=== PATIENT | female | born 1985 | race Caucasian/White ===

== ENCOUNTER 2024-10-11 12:58 | Emergency (ER) | payer MEDICAID, SELFPAY ==
[2024-10-11 13:07] VITALS: BP 88/53; PULSE 58; O2SAT 99
[2024-10-11 13:10] VITALS: BP 89/50; PULSE 56; RESP 16; TEMP 36.4; O2SAT 97; BMI 23.0
--- NOTE | 2024-10-11 13:14 | ECG_ITS ---
Test Reason : weakness Blood Pressure : */* mmHG Vent. Rate : 58 BPM Atrial Rate : 58 BPM P-R Int : 138 ms QRS Dur : 84 ms QT Int : 470 ms P-R-T Axes : 50 23 29 degrees QTcB Int : 461 ms Sinus bradycardia Otherwise normal ECG No previous ECGs available Referred By: Generic ED Physician Electronically Signed By: Alpesh Ochoa
[2024-10-11 13:45] LABS: Glucose, Whole Blood 365 mg/dL (60-115)
[2024-10-11 13:51] LABS: Basophils Percent Auto 0.6 % (0-2); Eosinophils Absolute Auto 0.1 X10*3/uL (0.0-0.4); Eosinophils Percent Auto 2.5 % (0-4); Hematocrit 38.8 % (37.0-47.0); Hemoglobin 12.5 g/dl (12.0-16.0); Imm Gran Abs Auto 0.01 X10*3/uL (0.00-0.03); Imm Gran Pct Auto 0.3 % (0.0-0.4); Lymphocytes Absolute Auto 1.5 X10*3/uL (1.2-4.9); Lymphocytes Percent Auto 47.7 % (20-40); MANUAL DIFF FLAG SCAN; Mean Corpuscular HGB Conc 32.2 g/dl (31.0-35.0); Mean Corpuscular Hemoglobin 26.3 pg (27.0-33.0); Mean Corpuscular Volume 81.5 fL (80.0-98.0); Monocytes Absolute Auto 0.4 X10*3/uL (0.1-1.2); Monocytes Percent Auto 10.8 % (2-11); Neutrophils Absolute Auto 1.2 x10*3/uL (2.0-8.3); Neutrophils Percent Auto 38.1 % (45-73); PLT CLUMP 1; Red Blood Count 4.76 X10*6/uL (4.20-5.50); SCAN SMEAR FLAG 1
[2024-10-11 14:01] LABS: White Blood Count 3.2 X10*3/uL (4.8-10.8)
[2024-10-11 14:08] LABS: Alanine Aminotransferase 118 U/L (0-31); Alkaline Phosphatase 343 U/L (39-117); Anion Gap 12 (12-20); Aspartate Amino Transferase 142 U/L (5-31); Bilirubin Total 1.1 mg/dL (0.0-1.0); Blood Urea Nitrogen 12 mg/dL (9-16); Calcium 8.7 mg/dL (8.4-10.2); Carbon Dioxide 24 mmol/L (22-29); Chloride 100 mmol/L (96-108); Creatinine Clr Calc Pharmacy 79.3; Estimated Glomerular Filt Rate > 60; Potassium 4.3 mmol/L (3.3-5.1); Sodium 132 mmol/L (135-145); Total Protein 7.3 g/dL (6.5-8.0)
[2024-10-11 14:11] LABS: Glucose Random 375 mg/dL (60-115); Magnesium 1.4 mg/dL (1.6-2.6); Troponin-I High Sensitivity < 2.7 ng/L (<3.5-17.0)
[2024-10-11 14:12] LABS: SLIDE REVIEW VERIFIED
--- NOTE | 2024-10-11 14:15 | ED.GENADULT ---
HPI - General Adult General Chief complaint: Weakness Stated complaint: LETHARGY,HIGH BS/452 FROM [facility] PER EMS Time Seen by Provider: 10/11/24 14:04 History of Present Illness ED Provider: Ale LAZO narrative: The patient is a 38-year-old woman with a history of type 2 diabetes who takes insulin. She was admitted to [facility] yesterday from an emergency room in the [place] area. She was admitted for depression. She has a history of hepatitis-C and cirrhosis. Today she received her usual 12 units of insulin. At some point her blood sugar this morning was checked and it was 561. She received an additional 2 units of insulin. When her blood sugar was later rechecked it was 430 and she was felt to be somewhat lethargic and so she was sent to the emergency room for further evaluation. The patient apparently has a history of hepatitis-C and cirrhosis. The patient was homeless prior to her hospitalization. Related Data Allergies Allergy/AdvReac Type Severity Reaction Status Date / Time No Known Allergies Allergy Verified 10/11/24 13:11 Review of Systems Review of Systems: Yes all other systems are reviewed and are negative [facility] Social History Social History Smoked in Last 30 Days: Yes Use of substances other than those prescribed or required for medical reasons: Yes Substance Use Type: Crack/Cocaine and Heroin Substance Use Frequency: Chronic Longstanding Substance Use Frequency Other:: 2 Last Used Substance: Days (ago) Advance Directives: No Advance Directives Information Provided: Yes Do you have a plan to hurt others: No Plan Physical Exam ED Vital Signs: Vital Signs - 24 hr 10/11/24 13:10 10/11/24 15:02 10/11/24 16:18 Temperature 97.6 F Pulse Rate 56 57 53 Respiratory Rate 16 12 15 Blood Pressure 89/50 L 93/57 L 99/61 Pulse Oximetry 97 98 99 Oxygen Delivery Method Room Air Room Air Room Air BMI result Body Mass Index 23.0 Const Other: The patient seemed to be somewhat somnolent but arousable to verbal stimuli. She did not seem in any distress. No increased work of breathing. HENMT Other: Face is symmetrical. Mucous membranes moist. Eyes Other: Examined in a dark room she had smaller pupils than I would have expected. There was no significant dilation of pupils in the dark. Extraocular movements were intact. Conjunctivae clear. Neck Neck: Yes full ROM, Yes no lymphadenopathy and Yes no JVD Resp Effort & Inspection: normal respiratory effort Auscultation: clear to auscultation bilaterally Cardio Rate: regular rate Rhythm: regular rhythm Heart sounds: S1 normal heart sound present and S2 normal heart sound present GI Other: Abdomen is soft and nontender Skin Other: Skin is pale and dry Neuro Other: The patient is somnolent but arousable. She does not seem significantly confused or showing disorientation. Pupils are small and equal. Face is symmetrical. She does not say much but there is no aphasia or dysarthria. She moves her extremities symmetrically with symmetrical tone. No focal finding. Extrem Other: No peripheral edema Medications Administered Generic Name Dose Route Start Last Admin Trade Name Freq PRN Reason Stop Dose Admin Magnesium Sulfate 2 gm in 50 mls @ 25 mls/hr 10/11/24 15:49 10/11/24 16:15 Magnesium Sulfate/H2o IV 10/11/24 17:48 25 mls/hr ONCE ONE Administration Discontinued Medications Generic Name Dose Route Start Last Admin Trade Name Freq PRN Reason Stop Dose Admin Sodium Chloride 1,000 mls @ 999 mls/hr 10/11/24 14:30 10/11/24 16:18 Ns IV 10/11/24 15:30 Infused .Q1H1M ESTHER Infusion Sodium Chloride 1,000 mls @ 999 mls/hr 10/11/24 16:15 10/11/24 16:15 Ns IV 10/11/24 17:15 999 mls/hr .Q1H1M ESTHER Administration Medical Decision Making Medical Decision Making [facility] Narrative: The patient is a 38-year-old woman was sent from the [facility] where she was admitted yesterday from an emergency room in the [facility]. She has a history of type 2 diabetes. She is on Lantus insulin as well as lispro and also some oral agents. She apparently also has a history of hepatitis-C and cirrhosis. She was admitted for depression. The patient was sent to the emergency room because of a decreased level of alertness and hyperglycemia. Her highest blood sugar here was 375 on her basic metabolic panel. She also had an initial lactate that was elevated at 3.0. However the patient was not really exhibiting any signs of sepsis. She was not febrile or tachycardic. She did not have an elevated white count and she had no left shift. The patient was given IV fluids to help address her hyperglycemia. Her magnesium was low at 1.4 and she was given supplemental magnesium. She was observed. While she was observed she was often relatively bradycardic. She was not exhibiting any signs of difficulty breathing. My overall impression was that the patient's somnolence seem more consistent with opioid use than anything else. She is positive for both methadone and fentanyl on her urine drug screen. She is on methadone. Whether the fentanyl is a new finding or whether the positive fentanyl screen is from fentanyl that she took a few days ago is hard to say. Ultimately the patient seemed to perk up and asked for food and ate a meal. Her blood sugar had come down to 204. A repeat lactate was 1.8. Her ammonia level is 48. She seems better and I think she is medically stable. She will be returned to [facility]. Lab Data 10/11/24 13:37 10/11/24 13:37 Labs: Lab Results 10/11/24 10/11/24 10/11/24 Range/Units 13:21 13:37 13:39 WBC 3.2 L (4.8-10.8) X10*3/uL RBC 4.76 (4.20-5.50) X10*6/uL Hgb 12.5 (12.0-16.0) g/dl Hct 38.8 (37.0-47.0) % MCV 81.5 (80.0-98.0) fL MCH 26.3 L (27.0-33.0) pg MCHC 32.2 (31.0-35.0) g/dl RDW 16.0 (11.0-16.0) % Plt Count Not Reportable MPV Not Reportable Immature Gran % (Auto) 0.3 (0.0-0.4) % Neut % (Auto) 38.1 L (45-73) % Lymph % (Auto) 47.7 H (20-40) % Warrick % (Auto) 10.8 (2-11) % Eos % (Auto) 2.5 (0-4) % Baso % (Auto) 0.6 (0-2) % Lymph # (Auto) 1.5 (1.2-4.9) X10*3/uL Warrick # (Auto) 0.4 (0.1-1.2) X10*3/uL Eos # (Auto) 0.1 (0.0-0.4) X10*3/uL Baso # (Auto) 0.0 (0.0-0.2) X10*3/uL Abs Immat Gran (auto) 0.01 (0.00-0.03) X10*3/uL Absolute Neuts (auto) 1.2 L (2.0-8.3) x10*3/uL Absolute Nucleated RBC 0.000 (0.0-0.012) X10*3/uL Nucleated RBC % (auto) 0.0 (0.0-0.2) /100WBC Smear Tech's Comments VERIFIED Sodium 132 L (135-145) mmol/L Potassium 4.3 (3.3-5.1) mmol/L Chloride 100 (96-108) mmol/L Carbon Dioxide 24 (22-29) mmol/L Anion Gap 12 (12-20) BUN 12 (9-16) mg/dL Creatinine 0.78 (0.5-1.4) mg/dL Estim Creat Clear Calc 79.3 Estimated GFR > 60 POC Glucose 365 H* (60-115) mg/dL Random Glucose 375 H* (60-115) mg/dL Lactic Acid 3.0 H* (0.5-2.0) mmol/L Lactic Acid F/U @ 2Hr (0.5-2.0) mmol/L Calcium 8.7 (8.4-10.2) mg/dL Magnesium 1.4 L* (1.6-2.6) mg/dL Total Bilirubin 1.1 H (0.0-1.0) mg/dL AST 142 H (5-31) U/L ALT 118 H (0-31) U/L Alkaline Phosphatase 343 H (39-117) U/L Ammonia (13-55) umol/L Troponin I High Sens < 2.7 (<3.5-17.0) ng/L C-Reactive Protein 0.17 (< or = 0.50) mg/dL Total Protein 7.3 (6.5-8.0) g/dL Albumin 3.0 L (3.5-5.0) g/dL Beta-Hydroxybutyrate 0.10 (0.02-0.27) mmol/L Urine Color Urine Appearance Urine pH (5.0-9.0) Ur Specific [place] (1.005-1.025) Urine Protein (Neg-Trace) mg/dL Urine Glucose (UA) (Negative) mg/dL Urine Ketones (Negative) mg/dL Urine Blood (Negative) Urine Nitrite (Negative) Ur Leukocyte Esterase (Negative) Urine RBC (0-2) /HPF Urine WBC (0-5) /HPF Ur Squamous Epith Cells (0-2) /HPF Urine Bacteria (None Seen) Hyaline Casts (0-2) /LPF Urine Opiates Screen (Not Detect) Ur Buprenorphine Scrn (Not Detect) ng/mL Ur Oxycodone Screen (Not Detect) ng/mL Urine Methadone Screen (Not Detect) ng/mL Urine Fentanyl Screen (Not Detect) Ur Barbiturates Screen (Not Detect) Ur Phencyclidine Scrn (Not Detect) Ur Amphetamines Screen (Not Detect) U Benzodiazepines Scrn (Not Detect) Urine Cocaine Screen (Not Detect) U Marijuana (THC) Screen (Not Detect) Influenza Type A (PCR) NEGATIVE (Negative) Influenza Type B (PCR) NEGATIVE (Negative) RSV RNA Qual (PCR) NEGATIVE (Negative) SARS-CoV-2 RNA (RT-PCR) NEGATIVE (Negative) 10/11/24 10/11/24 10/11/24 Range/Units 15:13 15:15 16:59 WBC (4.8-10.8) X10*3/uL RBC (4.20-5.50) X10*6/uL Hgb (12.0-16.0) g/dl Hct (37.0-47.0) % MCV (80.0-98.0) fL MCH (27.0-33.0) pg MCHC (31.0-35.0) g/dl RDW (11.0-16.0) % Plt Count MPV Immature Gran % (Auto) (0.0-0.4) % Neut % (Auto) (45-73) % Lymph % (Auto) (20-40) % Warrick % (Auto) (2-11) % Eos % (Auto) (0-4) % Baso % (Auto) (0-2) % Lymph # (Auto) (1.2-4.9) X10*3/uL Warrick # (Auto) (0.1-1.2) X10*3/uL Eos # (Auto) (0.0-0.4) X10*3/uL Baso # (Auto) (0.0-0.2) X10*3/uL Abs Immat Gran (auto) (0.00-0.03) X10*3/uL Absolute Neuts (auto) (2.0-8.3) x10*3/uL Absolute Nucleated RBC (0.0-0.012) X10*3/uL Nucleated RBC % (auto) (0.0-0.2) /100WBC Smear Tech's Comments Sodium (135-145) mmol/L Potassium (3.3-5.1) mmol/L Chloride (96-108) mmol/L Carbon Dioxide (22-29) mmol/L Anion Gap (12-20) BUN (9-16) mg/dL Creatinine (0.5-1.4) mg/dL Estim Creat Clear Calc Estimated GFR POC Glucose 204 H (60-115) mg/dL Random Glucose (60-115) mg/dL Lactic Acid (0.5-2.0) mmol/L Lactic Acid F/U @ 2Hr (0.5-2.0) mmol/L Calcium (8.4-10.2) mg/dL Magnesium (1.6-2.6) mg/dL Total Bilirubin (0.0-1.0) mg/dL AST (5-31) U/L ALT (0-31) U/L Alkaline Phosphatase (39-117) U/L Ammonia (13-55) umol/L Troponin I High Sens (<3.5-17.0) ng/L C-Reactive Protein (< or = 0.50) mg/dL Total Protein (6.5-8.0) g/dL Albumin (3.5-5.0) g/dL Beta-Hydroxybutyrate (0.02-0.27) mmol/L Urine Color Yellow Urine Appearance Clear Urine pH 5.5 (5.0-9.0) Ur Specific [place] 1.015 (1.005-1.025) Urine Protein Negative (Neg-Trace) mg/dL Urine Glucose (UA) >=1000 H (Negative) mg/dL Urine Ketones Negative (Negative) mg/dL Urine Blood Negative (Negative) Urine Nitrite Negative (Negative) Ur Leukocyte Esterase Negative (Negative) Urine RBC 0-2 (0-2) /HPF Urine WBC 0-5 (0-5) /HPF Ur Squamous Epith Cells 0-2 (0-2) /HPF Urine Bacteria None Seen (None Seen) Hyaline Casts 0-2 (0-2) /LPF Urine Opiates Screen Not Detected (Not Detect) Ur Buprenorphine Scrn Not Detected (Not Detect) ng/mL Ur Oxycodone Screen Not Detected (Not Detect) ng/mL Urine Methadone Screen Positive H (Not Detect) ng/mL Urine Fentanyl Screen POSITIVE H (Not Detect) Ur Barbiturates Screen Not Detected (Not Detect) Ur Phencyclidine Scrn Not Detected (Not Detect) Ur Amphetamines Screen Not Detected (Not Detect) U Benzodiazepines Scrn Not Detected (Not Detect) Urine Cocaine Screen Not Detected (Not Detect) U Marijuana (THC) Screen Not Detected (Not Detect) Influenza Type A (PCR) (Negative) Influenza Type B (PCR) (Negative) RSV RNA Qual (PCR) (Negative) SARS-CoV-2 RNA (RT-PCR) (Negative) 10/11/24 Range/Units 17:25 WBC (4.8-10.8) X10*3/uL RBC (4.20-5.50) X10*6/uL Hgb (12.0-16.0) g/dl Hct (37.0-47.0) % MCV (80.0-98.0) fL MCH (27.0-33.0) pg MCHC (31.0-35.0) g/dl RDW (11.0-16.0) % Plt Count MPV Immature Gran % (Auto) (0.0-0.4) % Neut % (Auto) (45-73) % Lymph % (Auto) (20-40) % Warrick % (Auto) (2-11) % Eos % (Auto) (0-4) % Baso % (Auto) (0-2) % Lymph # (Auto) (1.2-4.9) X10*3/uL Warrick # (Auto) (0.1-1.2) X10*3/uL Eos # (Auto) (0.0-0.4) X10*3/uL Baso # (Auto) (0.0-0.2) X10*3/uL Abs Immat Gran (auto) (0.00-0.03) X10*3/uL Absolute Neuts (auto) (2.0-8.3) x10*3/uL Absolute Nucleated RBC (0.0-0.012) X10*3/uL Nucleated RBC % (auto) (0.0-0.2) /100WBC Smear Tech's Comments Sodium (135-145) mmol/L Potassium (3.3-5.1) mmol/L Chloride (96-108) mmol/L Carbon Dioxide (22-29) mmol/L Anion Gap (12-20) BUN (9-16) mg/dL Creatinine (0.5-1.4) mg/dL Estim Creat Clear Calc Estimated GFR POC Glucose (60-115) mg/dL Random Glucose (60-115) mg/dL Lactic Acid (0.5-2.0) mmol/L Lactic Acid F/U @ 2Hr 1.8 (0.5-2.0) mmol/L Calcium (8.4-10.2) mg/dL Magnesium (1.6-2.6) mg/dL Total Bilirubin (0.0-1.0) mg/dL AST (5-31) U/L ALT (0-31) U/L Alkaline Phosphatase (39-117) U/L Ammonia 48 (13-55) umol/L Troponin I High Sens (<3.5-17.0) ng/L C-Reactive Protein (< or = 0.50) mg/dL Total Protein (6.5-8.0) g/dL Albumin (3.5-5.0) g/dL Beta-Hydroxybutyrate (0.02-0.27) mmol/L Urine Color Urine Appearance Urine pH (5.0-9.0) Ur Specific [place] (1.005-1.025) Urine Protein (Neg-Trace) mg/dL Urine Glucose (UA) (Negative) mg/dL Urine Ketones (Negative) mg/dL Urine Blood (Negative) Urine Nitrite (Negative) Ur Leukocyte Esterase (Negative) Urine RBC (0-2) /HPF Urine WBC (0-5) /HPF Ur Squamous Epith Cells (0-2) /HPF Urine Bacteria (None Seen) Hyaline Casts (0-2) /LPF Urine Opiates Screen (Not Detect) Ur Buprenorphine Scrn (Not Detect) ng/mL Ur Oxycodone Screen (Not Detect) ng/mL Urine Methadone Screen (Not Detect) ng/mL Urine Fentanyl Screen (Not Detect) Ur Barbiturates Screen (Not Detect) Ur Phencyclidine Scrn (Not Detect) Ur Amphetamines Screen (Not Detect) U Benzodiazepines Scrn (Not Detect) Urine Cocaine Screen (Not Detect) U Marijuana (THC) Screen (Not Detect) Influenza Type A (PCR) (Negative) Influenza Type B (PCR) (Negative) RSV RNA Qual (PCR) (Negative) SARS-CoV-2 RNA (RT-PCR) (Negative) Discharge Plan Discharge Clinical Impression: Fatigue, Hyperglycemia Patient Disposition: [facility] Transfer Details: Returned to [facility] Additional Instructions: Medical workup seems reassuring. Blood sugar came down with hydration to 204. Her magnesium was slightly low at 1.4. She was given 2 g of IV magnesium. Ammonia level was 48. No sign of DKA. No sign of significant systemic infection. Negative for COVID, influenza, and RSV. Please resume previous regimen. [facility] [Outside] Print Language: Hungarian
[2024-10-11 14:29] LABS: Influenza A PCR NEGATIVE (Negative); Influenza B PCR NEGATIVE (Negative); Resp Syncy Virus RNA Qual PCR NEGATIVE (Negative); SARS COV2 PCR INHOUSE NEGATIVE (Negative)
--- NOTE | 2024-10-11 14:32 | PC.NURSE ---
Unable to establish IV access, second RN attempting now
--- NOTE | 2024-10-11 15:01 | PC.NURSE ---
3rd RN attempting IV access
[2024-10-11 15:02] VITALS: BP 93/57; PULSE 57; RESP 12; O2SAT 98
--- OUTSIDE RECORDS SUMMARY | 2024-10-11 15:14 | XMS_ITS | Encounter Summary ---
Author Organization [id number] [facility] Address [address] [place] [address] Care Team Providers Care Gas Usage Meter Clerk Name Role Phone Stephanie Calderon MD Primary Care Provider Add, Provider Not In System Unavailable Unav ailable Encounter Details Date Type Department Care Team (Late st Contact Info) Description 11/10/2023 Telephone [facility] [phone] [place] [address] Kirstin Kruger, DORR OPERATOR [address] [address] Social History Tobacco Use Types Packs/Day Years Used Date Smoking Tobacco: Every Day Cigarettes 0.5 4 Passive Smoke Exposure: Past Smokeless Tobacco: Never Alcohol Use Standard Drinks/Week Comments No 0 (1 standard drink = 0.6 oz pur e alcohol) Comments No Sex and Gender Information Value Date Recorded Sex Assigned at Not on file Legal Sex Female 8:44 PM EDT Gender Identity Female 11/02/2023 10:02 PM EST Sexual Orientation Straight 11/02/2023 10 :02 PM EST documented as of this encounter Functional Status * (RETIRED) Are you deaf or do you have difficulty hearing? Answer Date of Assessment Author No 04/15/2020 8:53 AM JOET Ritchie Vann RN * (RETIRED) Are you blind or do you have difficulty seeing? Answer Date of Assessment Author No 04/15/2020 8:53 AM JOET Ritchie Vann RN * (RETIRED) Do you have difficulty walking or climbing stairs? Answer Date of Assessment Author No 04/15/2020 8:53 AM Ritchie Casas RN * (RETIRED) Do you have difficulty dressing or bathing? Answer Date of Assessment Author No 04/15/2020 8:53 AM Ritchie Casas RN * (RETIRED) Because of a physical, mental, or emotional condition, do you have difficulty doing errands such as visiting a doctor's office or shopping? Answer Date of Assessment Author No 04/15/2020 8:53 AM Ritchie Casas RN documented as of this encounter Mental Status * (RETIRED) Because of a physical, mental, or emotional condition, do you have serious difficulty concentrating, remembering, or making decisions? Answer Entry Date Author No 04/15/2020 8:53 AM Ritchie Casas RN documented in this encounter Plan of Treatment Not on file documented as of this encounter Visit Diagnoses Not on filedocumented in this encounter Additional Health Concerns Infection Onset Date Last Indicated Resolved Time Rule out RSV 07/22/2024 07/22/2024 07/22/2024 3:17 AM EST Rule out Influenzae 07/22/2024 07/22/2024 07/22/20 3:17 AM EST Rule out COVID-19 07/22/2024 07/22/2024 07/22/2024 3:17 AM EST Rule out RSV 07/22/2024 07/22/2024 07/22/2024 5:28 AM EST Rule out Influenzae 07/22/2024 07/22/2024 07/22/20 5:28 AM EST Rule out COVID-19 07/22/2024 07/22/2024 07/22/2024 5:29 AM EST Human Rhinovirus Enterovirus 07/22/2024 07/22/2024 07/29/2024 9:13 AM EST documented as of this encounter Care Teams Gas Usage Meter Clerk Relationship Specialty Start Date End Date Stephanie Calderon MD [address] [place] [address] PCP - General 04/14/10 Add, Provider Not In System [address] [place] [address] PCP - Insurance PCP 12/11/17 documented as of this encounter
--- OUTSIDE RECORDS SUMMARY | 2024-10-11 15:14 | XMS_ITS | Clinical Summary ---
Author Organization [employer] [facility] Address [address] [place] [address] Care Team Providers Care Grocery Manager Name Role Phone Mando Ellsworth MD Primary Care Provider [phone] Social History Tobacco Use Types Packs/Day Years Used Date Smoking Tobacco: Never Assessed Comments Unknown Sex and Gender Information Value Date Recorded Sex Assigned at Female 07/06/2024 2:34 PM EDT Legal Sex Female 2:32 PM EDT Gender Identity Female 07/06/2024 2:34 PM EDT Sexual Orientation Not on file Plan of Treatment Upcoming Encounters Date Type Department Care Team (Late st Contact Info) Description 10/19/2024 10:00 AM EST Office Visit [facility] [address] [place] [id number] Mando Ellsworth MD [address] [place] [id number] Insurance [facility] Care Teams Grocery Manager Relationship Specialty Start Date End Date Mando Ellsworth MD [address] [address] PCP - General Family Practice 07/06/24
--- OUTSIDE RECORDS SUMMARY | 2024-10-11 15:14 | XMS_ITS | Clinical Summary ---
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 Active Active Problems Problem Noted Date Diagnosed Date Unspecified mood (affective) disorder 08/31/2024 Suicidal ideation 08/30/2024 Abscess of arm 03/12/2017 Depressive disorder 07/18/2003 Overview (10/29/2014): Depression Encounters Date Type Department Care Team Description 08/30/2024 9:51 PM EST - 09/01/2024 2:57 PM EST Emergency [facility] Emergency Dept [address] [place] [id number] Mony More MD Perelman, MD Elbert Lombardi Sahand, MD, PhD Kim Pardo MD Discharge Disposition: [facility] from Last 3 Months Social History Tobacco Use Types Packs/Day Years Used Date Smoking Tobacco: Every Day Cigarettes Smokeless Tobacco: Never Tobacco Cessation:Ready to Q uit: Not Asked; Counseling Given: Not Answered Alcohol Use Standard Drinks/Week Comments No 0 (1 standard drink = 0.6 oz pur e alcohol) Education Answer Date Recorded Are you interested in more education? Not on lusi e e 01/02/2023 Are you concerned about learning? Not on file 01/02/2023 No 01/02/2023 No 01/02/2023 Digital Access Answer Date Recorded No 02/03/2023 No 02/03/2023 Reliable internet access at home? Not on file 02/03/2023 Device with a working camera? Not on file Intimate Partner Violence Answer Date R ecorded Are you denied basic needs s uch as food, clothing, or medical care? Deferred 08/30/2024 In the past 12 months have y ou been in a relationship with a person who hurts, threatens, or tries to control you? Deferred 08/30/2024 Are you denied basic needs s uch as food, clothing, or medical care? Deferred 08/30/2024 In the past 12 months have y ou been in a relationship with a person who hurts, threatens, or tries to control you? Deferred 08/30/2024 Sex and Gender Information Value Date Recorded Sex Assigned at Not on file Gender Identity Not on file Sexual Orientation Not on file Last Filed Vital Signs Vital Sign Reading Time Taken Comments Blood Pressure 107/54 09/01/2024 2:48 PM EST Pulse 81 09/01/2024 2:48 PM EST Temperature 36.3 ??C (97.4 ??F) 09/01/2024 2:48 PM ES T Respiratory Rate 18 09/01/2024 2:48 PM EST Oxygen Saturation 98% 09/01/2024 2:48 PM EST Inhaled Oxygen Concentration - - Weight 83.9 kg (185 lb) 03/12/2017 3:06 AM EDT Height 160 cm (5' 3 ) 03/12/2017 3:06 AM EDT Body Mass Index 32.77 03/12/2017 3:06 AM EDT Plan of Treatment Upcoming Encounters Date Type Department Care Team (Late st Contact Info) Description 12/23/2024 2:40 PM EDT Office Visit [address] [address] Tonya Partida, [employer] [address] [place] [phone] Health Maintenance Due Date Last Done Comments DEPRESSION SCREENING 1995 SMOKING Hx and SMOKELESS TOBACCO SCREENING 12/01/1996 HEPATITIS B SCREENING 12/01/2001 HEPATITIS B VACCINES (3 of 3 - 19+ 3-dose series) 04/24/2015 02/27/2015, 09/09/2007 PNEUMOCOCCAL VACCINES (0-49 years) (2 of 2 - PCV) 10/08/2017 10/08/2016 PAP SMEAR 02/27/2018 02/27/2015, 04/09, 08/19/2002 MAMMOGRAM 2023 INFLUENZA VACCINE (#1) 2024 9, 10/08/2016, 08/07/2015, Additional history exists COVID-19 VACCINE ( - season) 2024 Adult Td,Tdap Booster 09/21/2029 09/21/2019, 009 HIV ONE-TIME SCREENING (18-65 YEARS) Completed 09/06/2002 HEPATITIS A VACCINES Aged Out 09/09/2007 No long er eligible based on patient's age to complete this topic HEPATITIS C SCREENING Completed 07/08/2024 , 07/08/2024, 11/05/2023, Additional history exists HIB VACCINES Aged Out No longer eligi ble based on patient's age to complete this topic MENINGOCOCCAL VACCINES (ACWY) Aged Out No longer eligible based on patient's age to complete this topic Medical Devices Not on file Procedures Procedure Name Priority Date/Time Associated Diagnosis Comments POCT GLUCOSE Routine 09/01/2024 11:59 AM EST ECG 12-LEAD STAT 09/01/2024 10:32 AM EST CBC AND DIFFERENTIAL STAT 09/01/2024 10:30 AM EST BASIC METABOLIC PANEL STAT 09/01/2024 10:30 AM EST LIPASE STAT 09/01/2024 10:30 AM EST POCT GLUCOSE Routine 09/01/2024 8:47 AM EST POCT GLUCOSE Routine 08/31/2024 10:27 PM EST URINALYSIS W/REFLEX URINE CULTURE STAT 08/31/2024 7:20 PM EST POCT GLUCOSE Routine 08/31/2024 6:47 PM EST POCT GLUCOSE Routine 08/31/2024 2:15 PM EST POCT GLUCOSE Routine 08/31/2024 1:12 PM EST LFTS (HEPATIC PANEL) STAT 08/31/2024 11:12 AM EST POCT GLUCOSE Routine 08/31/2024 9:06 AM EST POCT GLUCOSE Routine 08/31/2024 4:51 AM EST POCT GLUCOSE Routine 08/31/2024 2:04 AM EST POCT GLUCOSE Routine 08/30/2024 11:15 PM EST URINE HCG STAT 08/30/2024 10:25 PM EST TOXICOLOGY SCREEN, URINE STAT 08/30/2024 10:25 PM EST VENOUS BLOOD GAS STAT 08/30/2024 9:58 PM EST KETONE BODIES, SERUM STAT 08/30/2024 9:58 PM EST ETHANOL, BLOOD STAT 08/30/2024 9:58 PM EST LFTS (HEPATIC PANEL) STAT 08/30/2024 9:58 PM EST BASIC METABOLIC PANEL STAT 08/30/2024 9:58 PM EST CBC AND DIFFERENTIAL STAT 08/30/2024 9:58 PM EST PAP TEST Routine 04/28/2003 12:00 AM EDT from Last 3 Months or Most Recently Relevant to Health Maintenance Results * (ABNORMAL) POCT Glucose (09/01/2024 11:59 AM EST) Only the most recent of10 resultswithin the time period is included. Glucose, POCT 276(H) 70 - 110 mg/dL [facility] 09/01/2024 11:5 9 AM EST 09/01/2024 12:02 PM EST Kim Pardo MD POINT OF CARE TEST O RDERABLES Performing Organization Address City/[facility]/ZIP Co de Phone Number [address] [address] * ECG 12-LEAD (09/01/2024 10:32 AM EST) Systolic Blood Pressure [facility] Diastolic Blood Pressure [facility] Ventricular Rate EKG/MIN 65 BPM [facility] Atrial Rate 65 BPM [facility] NC Interval 124 ms [facility] QRS Duration 88 ms [facility] QT Interval 462 ms [facility] QTC Interval 480 ms [facility] P Artie 73 degrees [facility] R Wave Artie 70 degrees [facility] T Wave Artie 59 degrees [facility] 09/01/2024 10:3 2 AM EST 09/02/2024 5:45 PM EST Narrative [facility] - 09/02/2024 5:45 PM EST LOC: ED DX: DRUG MONITORING REF: DR. KIM PARDO SINUS RHYTHM NONSPECIFIC ST SEGMENT AND T WAVE ABNORMALITIES QTC PROLONGATION WHEN COMPARED WITH ECG OF 02-Jul-2020 10:14, NO SIGNIFICANT CHANGE WAS FOUND Ivania Epperson PMHNP-BC ECG ORDERAB LES [facility] * (ABNORMAL) CBC and differential (09/01/2024 10:30 AM EST) Only the most recent of2 resultswithin the time period is included. WBC 3.24(L) 4.00 - 11.00 K/uL [facility] RBC 4.33 4.00 - 5.20 M/uL [facility] HGB 11.7(L) 12.0 - 16.0 g/dL [facility] HCT 36.7 36.0 - 46.0 % [facility] PLT 83(L) 150 - 450 K/uL [facility] Comment: Large/Giant platelets present Reviewed MCV 84.8 80.0 - 100.0 fL [facility] MCH 27.0 27.0 - 31.0 pg [facility] MCHC 31.9(L) 32.0 - 36.0 g/dL [facility] RDW 15.2(H) 11.5 - 14.5 % [facility] MPV Not measured 8.4 - 12.0 fL [facility] NRBC 0.00 0.00 /100 WBCs [facility] ABSOLUTE NRBC 0.00 0.00 K/uL [facility] DIFF METHOD Auto [facility] NEUTS 55.2 48.0 - 76.0 % [facility] LYMPHS 32.1 18.0 - 41.0 % [facility] MONOS 9.3 4.0 - 11.0 % [facility] EOS 2.2 0.0 - 5.0 % [facility] BASOS 0.9 0.0 - 1.5 % [facility] % IMMATURE GRANS 0.3 0.0 - 0.9 % [facility] ABSOLUTE NEUTS 1.79(L) 1.92 - 7.60 K/uL [facility] ABSOLUTE LYMPHS 1.04 0.72 - 4.10 K/uL [facility] ABSOLUTE MONOS 0.30 0.16 - 1.10 K/uL [facility] ABSOLUTE EOS 0.07 0.00 - 0.50 K/uL [facility] ABSOLUTE BASOS 0.03 0.00 - 0.15 K/uL [facility] ABS IMMATURE GRANS 0.01 0.00 - 0.09 K/uL [facility] Blood 09/01/2024 10:3 0 AM EST 09/01/2024 11:41 AM EST Ivania Epperson PMHNP-BC LAB BLOOD O RDERABLES [address] [address] * Lipase (09/01/2024 10:30 AM EST) LIPASE 26 13 - 60 U/L [facility] Blood 09/01/2024 10:3 0 AM EST 09/01/2024 11:41 AM EST Ivania Epperson HNP-BC LAB BLOOD O RDERABLES Performing Organization Address [facility] Co de Phone Number [address] [address] * (ABNORMAL) Basic metabolic panel (09/01/2024 10:30 AM EST) Only the most recent of2 resultswithin the time period is included. SODIUM 136 135 - 145 mmol/L [facility] POTASSIUM 4.2 3.4 - 5.0 mmol/L [facility] CHLORIDE 101 98 - 108 mmol/L [facility] CO2 26 23 - 32 mmol/L [facility] BUN 16 8 - 25 mg/dL [facility] CREATININE 0.61 0.50 - 1.00 mg/dL [facility] GLUCOSE 259(H) 70 - 110 mg/dL [facility] CALCIUM 8.9 8.5 - 10.5 mg/dL [facility] EGFR 116 >59 mL/min/1. 73m2 [facility] Comment:Estimated glomerular filtration rate calculated using the CKD-EPI refit equation. ANION GAP 9 3 - 17 mmol/L [facility] Blood 09/01/2024 10:3 0 AM EST 09/01/2024 11:41 AM EST Ivania Epperson PMHNP-BC LAB BLOOD O RDERABLES Performing Organization Address City/[facility]/ZIP Co de Phone Number [address] [address] * (ABNORMAL) Urinalysis w/reflex Urine Culture (08/31/2024 7:20 PM EST) COLOR Yellow Yellow [facility] CLARITY Clear Clear [facility] GLUCOSE 3+(A) Negative [facility] Comment:(>=300 mg/dL) BILI Negative Negative [facility] KETONES Negative Negative [facility] SPECIFIC GRAVITY 1.021 1.001 - 1.035 [facility] BLOOD Negative Negative [facility] PH 6.5 5.0 - 9.0 [facility] Protein-UA Negative Negative [facility] UROBILINOGEN 2+(A) Negative [facility] N[facility] Negative Negative [facility] Leukocyte esterase, ur Negative Negative [facility] Urine (Urine) 08/31/2024 7:2 0 PM EST 08/31/2024 8:40 PM EST Lloyd Mcelroy PA-C URINE ORDERAB LES Performing Organization Address [facility] de Phone Number [address] [address] * (ABNORMAL) LFTs (hepatic panel) (08/31/2024 11:12 AM EST) Only the most recent of2 resultswithin the time period is included. ALBUMIN 3.4 3.3 - 5.0 g/dL [facility] TOTAL BILIRUBIN 1.4(H) 0.0 - 1.0 mg/dL [facility] DIRECT BILIRUBIN 0.9(H) 0.0 - 0.3 mg/dL [facility] ALKALINE PHOSPHATASE 266(H) 30 - 100 U/L [facility] AST 116(H) 9 - 32 U/L [facility] ALT 113(H) 7 - 33 U/L [facility] TOTAL PROTEIN 6.7 6.0 - 8.3 g/dL [facility] GLOBULIN 3.3 1.9 - 4.1 g/dL [facility] Blood 08/31/2024 11:1 2 AM EST 08/31/2024 12:30 PM EST Lory Nielsen MD, PhD LAB BL OOD ORDERABLES Performing Organization Address City/[facility]/ZIP Co de Phone Number [address] [address] * (ABNORMAL) Toxicology screen, urine (08/30/2024 10:25 PM EST) URINE AMPHETAMINES Negative Negative [facility] URINE BENZODIAZEPINE Negative Negative [facility] URINE COCAINE METAB Positive(A) Negative [facility] URINE OPIATES Negative Negative [facility] Comment:This assay is not se nsitive for detection of oxycodone and oxymorphone. URINE OXYCODONE Negative Negative [facility] Fentanyl, urine Positive(A) Negative [facility] URINE CREATININE 40 mg/dL [facility] Urine (Urine) 08/30/2024 10: 25 PM EST 08/30/2024 10:56 PM EST Mony More MD URINE ORDERABLES Performing Organization Address City/[facility] Co de Phone Number [address] [address] * HCG, urine (08/30/2024 10:25 PM EST) URINE TEST Negative Negative [facility] Urine (Urine) 08/30/2024 10: 25 PM EST 08/30/2024 10:55 PM EST Mony More MD URINE ORDERABLES Performing Organization Address City/[facility]/ZIP Co de Phone Number [address] [address] * Ketone bodies, serum (08/30/2024 9:58 PM EST) BETA HYDROXYBUTYRATE 0.2 <0.4 mmol/L [facility] Blood 08/30/2024 9:58 PM EST 08/30/2024 10:31 PM EST Mony More MD LAB BLOOD ORDERABLES [address] [address] * Ethanol, blood (08/30/2024 9:58 PM EST) ETHANOL Negative Negative mg/dL [facility] Blood 08/30/2024 9:58 PM EST 08/30/2024 10:31 PM EST Mony More MD LAB BLOOD ORDERABLES Performing Organization Address [facility] Co de Phone Number [address] [address] * (ABNORMAL) Venous blood gas (08/30/2024 9:58 PM EST) FIO2 UNSPEC. FIO2/L min [facility] PH 7.45(H) 7.30 - 7.40 [facility] PCO2 41 38 - 50 mm[Hg] [facility] PO2 55(H) 35 - 50 mm[Hg] [facility] Base Excess, unspecified 3.5(H) 0.0 - 3.0 mmol/L [facility] HCO3, unspecified 28 24 - 30 mmol/L [facility] Blood 08/30/2024 9:58 PM EST 08/30/2024 10:26 PM EST Mony More MD LAB BLOOD ORDERABLES Performing Organization Address [facility] Co de Phone Number [address] [address] * Pap Smear (04/28/2003 12:00 AM EDT) 04/28/2003 Narrative [facility] PATHOLOGY - 05/06/2003 6:18 AM EDT Accession Number: ??[id number] ? Report Status: ??Final Type: ??Cytology ? Cytology Report: ??[id number] ? DATE TAKEN: ?APR 10 ?ACCESSIONED ON: APR 10 at 10:14 ? CLINICAL DATA: ?IF ASCUS PERFORM HIGH RISK HPV TESTING. ? Menstrual Status: POST- ? Date of last Menstrual Period: {None Provided} ? FINAL DIAGNOSIS ?CERVIX/ENDOCERVIX (PREP) (CX/ENDOCX (PREP)): ? SATISFACTORY FOR EVALUATION. ? WITHIN NORMAL LIMITS. ?Diagnosis by: ??Destiney Petty CT(ASCP) ?Signed On: 29 AUG 03 ? QC Reviewer: ??Sawyer Villela, CT(ASCP) ? SOURCE CARE UNIT: ?[facility] ? REPORTS TO: ?Ree Farias-Alvarez, CNM ? Specimen: ?CX/ENDOCX (PREP) ?? Direct Smears Received: ?1 Conversion Provider Not In Sys CYTOLOGY ORDERABLES [facility] PATHOLOGY from Last 3 Months or Most Recently Relevant to Health Maintenance Care Teams Natural [employer] Tr[employer] Relationship Specialty Start Date End Date Stephanie Lofton MD [address] [place] [address] [email or web address] PCP - General Family Medicine 08/09/18 Additional Source Comments The information contained in this document represents components of the legal health record. It is not the complete legal health record.[facility]
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
--- OUTSIDE RECORDS SUMMARY | 2024-10-11 15:15 | XMS_ITS | Clinical Summary ---
Author Organization [facility] All iance Address [address], [place] [address] Care Team Providers Care Portal Architect Name Role Phone Stephanie Calderon MD Primary Care Provider Add, Provider Not In System Unavailable Unav ailable Allergies No known active allergies Medications methadone (DOLOPHINE) 10 MG tablet Take 80 mg by mouth daily Active cloNIDine (CATAPRES) 0.2 MG tablet Take 1 tablet by mouth 3 (three) times daily for 14 days 42 tablet 4 Active furosemide (LASIX) 20 MG tablet Take 1 tablet by mouth daily for 14 days 14 tablet 4 Active gabapentin (NEURONTIN) 400 MG capsule Take 2 capsules by mouth 3 (three) times daily for 14 days 84 capsule 4 Active metFORMIN (FORTAMET) 1000 MG (OSM) 24 hr tablet Take 1 tablet by mouth in the morning and 1 tablet in the evening. Take with meals. Do all this for 14 days. 28 tablet 4 Active dextrose (GLUTOSE) 40 % oral gel Take 15 g by mouth 3 (three) times daily as needed for up to 14 days 37.5 g 4 Active spironolactone (ALDACTONE) 50 MG tablet Take 1 tablet by mouth daily for 14 days 14 tablet 4 Active Insulin Glargine Solostar (LANTUS SOLOSTAR) 100 UNIT/ML SOPN Inject 34 Units under the skin nightly for 14 days 3 mL 1 4 Active Insulin Lispro (HUMALOG) 100 UNIT/ML injection Inject 15 Units under the skin in the morning and 15 Units at noon and 15 Units in the evening. Inject before meals. Do all this for 14 days. 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 Recommended to decrease bentyl if possible, increase fiber/fluids, add metamucil. Last Assessment & Plan: Controlled w/ Bentyl/fiber (diet) Alopecia 05/20/2012 Overview (11/04/2023): Overview: Seen by derm. 04/18 ? alopecia areata vs androgenetic alopecia Viral hepatitis C 02/28/2010 Overview (11/04/2023): Overview: 2009: HCV RNA: 6000, 02/20: 140K LFTS: 02/15: ALT/Ast: 68/43 : -> 02/20: 104/89 AFP: wnl 02/20 Is immune to Hep A Hep B #1 02/20 GI: none current. Contemplative but not ready Last Assessment & Plan: Doing well, not ready for referral Will check VL per pt request (reviewed unless undergoing tx not needed, but may help motivated pt for tx). Reviewed are new, easier options. Hep B #1 today Check LFT, AFT, u/s, HIV Anxiety state 08/14/2005 Overview (11/04/2023): Overview: Dual diagnosis. Opiate addiction Meds: neurontin, klonopin (from psych) Past meds: citalopram, clonidine, prozac, zoloft w/out success Starting citalopram 03/29/2009, appt in 1 week. D/c 03/16 Last Psych ([facility] [phone]. Rosanna Andrade, [facility]). Current: looking for new psych. Has counselor- group and individual at [facility] Last Assessment & Plan: Current: looking for new psych. Has counselor- group and individual at [facility] Opioid use disorder, severe, on maintenance ther apy Resolved Problems Problem Noted Date Diagnosed Date Resolved Date Suicidal ideation 04/05/2020 07/09/2024 Prediabetes 03/08/2015 06/30/2024 Overview (11/04/2023): Overview: New 02/20 a1c 6.0 Diet/exericse, nutrition MDD (major depressive disord er), recurrent episode, moderate 04/25/2020 Encounters Date Type Department Care Team Description 10/08/2024 9:09 PM EST - 10/10/2024 10:26 AM EST Emergency [address] [address] Phil Yañez MD Tauscher, Stephanie, MD Loonis, Manon, MD Gray, Julie M, MD Goldstein, Alex, MD Depression with suicidal ideation; Opioid abuse (HCC); Polysubstance abuse (HCC); Hyperglycemia Discharge Disposition: Psych Adm to Other Inp Psy Fac 08/27/2024 Brief Note [facility] [address] [place] [address] Floor - [phone] [place] [address] Charisse Uriostegui LCSW 08/17/2024 Plan of Care Documentation [id number] [place] [address] 08/06/2024 Plan of Care Documentation [facility] [address] [place] [address] 07/30/2024 Plan of Care Documentation [facility] [address] [place] [address] 07/23/2024 Plan of Care Documentation [facility] [address] [place] [address] 07/22/2024 9:50 PM EST - 08/22/2024 3:00 PM EST Hospital Encounter [facility] [address] [place] [address] Faby Farias MD Fears, Fayola, MD 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); Pneumonia due to infectious organism, unspecified laterality, unspecified part of lung [J18.9]; Type 2 diabetes mellitus with hyperglycemia, with long-term current use of insulin (HCC) [E11.65, Z79.4]; Generalized abdominal pain [R10.84]; Chronic hepatitis C without hepatic coma (HCC) [B18.2]; Opioid use disorder, severe, on maintenance therapy (HCC) Discharge Disposition: Home 07/22/2024 12:31 AM EST - 07/22/2024 9:24 PM EST Emergency [address] [address] Shauna Galeas MD Allegra, Stephen J, MD Nadler, Jonathan A, MD Viral syndrome; Depression, unspecified depression type; Suicidal ideations Discharge Disposition: Psych Admit-[facility] 07/21/2024 Travel 07/09/2024 4:54 PM EDT - 07/14/2024 6:25 PM EST Hospital Encounter [facility] [address] [place] [id number] Abimbola Bella MD Agarwal, Anup, MD Bukhari, Sumera, MD Decompensated cirrhosis (HCC) [K72.90, K74.60]; Anxiety state [F41.1]; Severe episode of recurrent major depressive disorder, without psychotic features (HCC) [F33.2]; Chronic hepatitis C without hepatic coma (HCC) [B18.2]; Opioid dependence on agonist therapy (HCC) [F11.20]; Type 2 diabetes mellitus with hyperglycemia, with long-term current use of insulin (HCC); Acute pancreatitis without infection or necrosis, unspecified pancreatitis type; Calculus of gallbladder without cholecystitis without obstruction Discharge Disposition: Home from Last 3 Months Immunizations Name Administration Dates Next Due HEP B ADULT 3 DOSE 20 and > 02/27/2015 Hepatitis A Adult 2 dose 09/09/2007 INFLUENZA VIRUS TRI W/PRESV VACCINE 18/> YRS IM (PRIVATE) 06/12/2009 Influenza Virus Quad Presv F ree Vacc 6 Mo and Older, IM 05/26/2019 Influenza Virus Quad W/Presv Vacc 6 Mo and Older , IM 10/08/2016 Influenza, Split (Incl. Purified Surface Antigen ) 09/09/2007 PNEUMOCOCCAL POLYSACCHARIDE VACCINE v23 10/08/19 17 Tdap 09/21/2019,06/12/2009 Social History Tobacco Use Types Packs/Day Years Used Date Smoking Tobacco: Every Day Cigarettes 0.5 4 Passive Smoke Exposure: Past Smokeless Tobacco: Never Tobacco Cessation:Ready to Q uit: No; Counseling Given: Yes Alcohol Use Standard Drinks/Week Comments No 0 (1 standard drink = 0.6 oz pur e alcohol) Comments No Sex and Gender Information Value Date Recorded Sex Assigned at Not on file Legal Sex Female 8:44 PM EDT Gender Identity Female 11/02/2023 10:02 PM EST Sexual Orientation Straight 11/02/2023 10 :02 PM EST Last Filed Vital Signs Vital Sign Reading Time Taken Comments Blood Pressure 119/79 10/10/2024 8:40 AM EST Pulse 85 10/10/2024 8:40 AM EST Temperature 36.7 ??C (98 ??F) 10/09/2024 9:40 PM EST Respiratory Rate 16 10/10/2024 8:40 AM EST Oxygen Saturation 97% 10/10/2024 8:40 AM EST Inhaled Oxygen Concentration - - Weight 61.2 kg (135 lb) 07/22/2024 10:29 PM EST Height 160 cm (5' 3 ) 07/22/2024 10:29 PM EST Body Mass Index 23.91 07/22/2024 10:29 PM EST Plan of Treatment Not on file Procedures Procedure Name Priority Date/Time Associated Diagnosis Comments HC GLUCOSE (POC) Routine 10/10/2024 7:40 AM EST HC GLUCOSE (POC) Routine 10/09/2024 9:30 PM EST HC GLUCOSE (POC) Routine 10/09/2024 2:52 PM EST HC GLUCOSE (POC) Routine 10/09/2024 7:23 AM EST SERUM DRUG SCREEN Routine 10/08/2024 9:4 1 PM EST HC BASIC METABOLIC PANEL Routine 10/08/2024 9:41 PM EST CBC, PLATELET & DIFFERENTIAL Routine 10/08/2024 9:41 PM EST HC GLUCOSE (POC) Routine 08/22/2024 12:0 7 PM EST HC GLUCOSE (POC) Routine 08/22/2024 6:26 AM EST HC GLUCOSE (POC) Routine 08/21/2024 8:17 PM EST HC GLUCOSE (POC) Routine 08/21/2024 5:30 PM EST HC GLUCOSE (POC) Routine 08/21/2024 12:1 0 PM EST HC GLUCOSE (POC) Routine 08/21/2024 6:24 AM EST HC GLUCOSE (POC) Routine 08/20/2024 9:01 PM EST HC GLUCOSE (POC) Routine 08/20/2024 4:57 PM EST HC GLUCOSE (POC) Routine 08/20/2024 11:4 2 AM EST HC GLUCOSE (POC) Routine 08/20/2024 6:33 AM EST HC GLUCOSE (POC) Routine 08/19/2024 7:53 PM EST HC GLUCOSE (POC) Routine 08/19/2024 4:43 PM EST HC GLUCOSE (POC) Routine 08/19/2024 12:1 2 PM EST HC GLUCOSE (POC) Routine 08/19/2024 6:35 AM EST HC GLUCOSE (POC) Routine 08/18/2024 9:39 PM EST HC GLUCOSE (POC) Routine 08/18/2024 5:08 PM EST HC GLUCOSE (POC) Routine 08/18/2024 12:0 2 PM EST HC GLUCOSE (POC) Routine 08/18/2024 6:45 AM EST HC GLUCOSE (POC) Routine 08/17/2024 10:1 2 PM EST HC GLUCOSE (POC) Routine 08/17/2024 4:43 PM EST HC GLUCOSE (POC) Routine 08/17/2024 11:5 4 AM EST HC GLUCOSE (POC) Routine 08/17/2024 7:08 AM EST HC GLUCOSE (POC) Routine 08/16/2024 9:51 PM EST HC GLUCOSE (POC) Routine 08/16/2024 9:25 PM EST HC GLUCOSE (POC) Routine 08/16/2024 4:54 PM EST HC GLUCOSE (POC) Routine 08/16/2024 12:1 0 PM EST HC GLUCOSE (POC) Routine 08/16/2024 9:27 AM EST HC GLUCOSE (POC) Routine 08/16/2024 6:24 AM EST HC GLUCOSE (POC) Routine 08/15/2024 8:14 PM EST HC GLUCOSE (POC) Routine 08/15/2024 4:47 PM EST HC GLUCOSE (POC) Routine 08/15/2024 11:4 9 AM EST HC GLUCOSE (POC) Routine 08/15/2024 6:33 AM EST HC GLUCOSE (POC) Routine 08/14/2024 7:53 PM EST HC GLUCOSE (POC) Routine 08/14/2024 5:15 PM EST HC GLUCOSE (POC) Routine 08/14/2024 11:3 6 AM EST HC GLUCOSE (POC) Routine 08/14/2024 6:37 AM EST HC GLUCOSE (POC) Routine 08/13/2024 9:39 PM EST HC GLUCOSE (POC) Routine 08/13/2024 5:35 PM EST HC GLUCOSE (POC) Routine 08/13/2024 11:4 8 AM EST HC GLUCOSE (POC) Routine 08/13/2024 6:43 AM EST HC GLUCOSE (POC) Routine 08/12/2024 9:22 PM EST HC GLUCOSE (POC) Routine 08/12/2024 5:16 PM EST HC GLUCOSE (POC) Routine 08/12/2024 12:1 8 PM EST HC GLUCOSE (POC) Routine 08/12/2024 6:57 AM EST HC GLUCOSE (POC) Routine 08/11/2024 8:26 PM EST HC GLUCOSE (POC) Routine 08/11/2024 5:07 PM EST HC GLUCOSE (POC) Routine 08/11/2024 11:3 7 AM EST HC GLUCOSE (POC) Routine 08/11/2024 6:50 AM EST HC GLUCOSE (POC) Routine 08/10/2024 10:2 5 PM EST HC GLUCOSE (POC) Routine 08/10/2024 5:24 PM EST HC GLUCOSE (POC) Routine 08/10/2024 12:0 9 PM EST HC GLUCOSE (POC) Routine 08/10/2024 6:29 AM EST HC GLUCOSE (POC) Routine 08/09/2024 11:1 4 PM EST HC GLUCOSE (POC) Routine 08/09/2024 9:40 PM EST HC GLUCOSE (POC) Routine 08/09/2024 8:52 PM EST HC GLUCOSE (POC) Routine 08/09/2024 4:28 PM EST HC GLUCOSE (POC) Routine 08/09/2024 12:1 2 PM EST HC GLUCOSE (POC) Routine 08/09/2024 6:08 AM EST HC GLUCOSE (POC) Routine 08/08/2024 8:22 PM EST HC GLUCOSE (POC) Routine 08/08/2024 4:54 PM EST HC GLUCOSE (POC) Routine 08/08/2024 12:0 1 PM EST HC GLUCOSE (POC) Routine 08/08/2024 6:29 AM EST HC GLUCOSE (POC) Routine 08/07/2024 11:1 7 PM EST HC GLUCOSE (POC) Routine 08/07/2024 9:27 PM EST HC GLUCOSE (POC) Routine 08/07/2024 5:08 PM EST HC GLUCOSE (POC) Routine 08/07/2024 12:1 8 PM EST HC GLUCOSE (POC) Routine 08/07/2024 6:31 AM EST HC GLUCOSE (POC) Routine 08/06/2024 8:15 PM EST HC GLUCOSE (POC) Routine 08/06/2024 5:07 PM EST HC GLUCOSE (POC) Routine 08/06/2024 12:1 2 PM EST US ABDOMEN W DUPLEX Routine 08/06/2024 8 :07 AM EST HC GLUCOSE (POC) Routine 08/06/2024 6:55 AM EST HC GLUCOSE (POC) Routine 08/05/2024 8:09 PM EST HC GLUCOSE (POC) Routine 08/05/2024 4:16 PM EST HC GLUCOSE (POC) Routine 08/05/2024 11:5 9 AM EST HC BASIC METABOLIC PANEL Routine 08/05/2024 7:00 AM EST HC CBC & PLATELET Routine 08/05/2024 7:0 0 AM EST HC HEPATIC FUNCTION Routine 08/05/2024 7 :00 AM EST HC GLUCOSE (POC) Routine 08/05/2024 6:51 AM EST HC GLUCOSE (POC) Routine 08/04/2024 8:40 PM EST HC GLUCOSE (POC) Routine 08/04/2024 5:17 PM EST URINALYSIS RFLX TO URINE CULT Routine 08/04/2024 2:16 PM EST HC GLUCOSE (POC) Routine 08/04/2024 11:5 4 AM EST HC GLUCOSE (POC) Routine 08/04/2024 6:38 AM EST HC GLUCOSE (POC) Routine 08/03/2024 8:07 PM EST HC GLUCOSE (POC) Routine 08/03/2024 5:10 PM EST HC BILIRUBIN DIRECT Routine 08/03/2024 4 :33 PM EST HC CHORIONIC (HCG) QUALITATIVE SERUM Routine 08/03/2024 4:33 PM EST HC C-REACTIVE PROTEIN Routine 08/03/2024 4:33 PM EST CBC, PLATELET & DIFFERENTIAL Routine 08/03/2024 4:33 PM EST HC AMYLASE Routine 08/03/2024 4:33 PM EST HC LIPASE Routine 08/03/2024 4:33 PM EST HC COMPREHENSIVE METABOLIC PANEL Routine 08/03/2024 4:33 PM EST HC GLUCOSE (POC) Routine 08/03/2024 12:3 5 PM EST HC GLUCOSE (POC) Routine 08/03/2024 6:42 AM EST HC GLUCOSE (POC) Routine 08/02/2024 8:46 PM EST HC GLUCOSE (POC) Routine 08/02/2024 5:11 PM EST HC GLUCOSE (POC) Routine 08/02/2024 12:0 1 PM EST HC GLUCOSE (POC) Routine 08/02/2024 6:52 AM EST HC GLUCOSE (POC) Routine 08/01/2024 8:55 PM EST HC GLUCOSE (POC) Routine 08/01/2024 4:33 PM EST HC GLUCOSE (POC) Routine 08/01/2024 11:1 5 AM EST HC GLUCOSE (POC) Routine 08/01/2024 6:39 AM EST HC GLUCOSE (POC) Routine 07/31/2024 8:05 PM EST HC GLUCOSE (POC) Routine 07/31/2024 4:43 PM EST HC GLUCOSE (POC) Routine 07/31/2024 11:3 4 AM EST HC GLUCOSE (POC) Routine 07/31/2024 6:52 AM EST HC GLUCOSE (POC) Routine 07/30/2024 7:51 PM EST HC GLUCOSE (POC) Routine 07/30/2024 4:27 PM EST HC GLUCOSE (POC) Routine 07/30/2024 12:1 1 PM EST HC GLUCOSE (POC) Routine 07/30/2024 12:0 2 PM EST HC BASIC METABOLIC PANEL Routine 07/30/2024 7:30 AM EST CBC, PLATELET & DIFFERENTIAL Routine 07/30/2024 7:30 AM EST HC GLUCOSE (POC) Routine 07/30/2024 6:58 AM EST HC GLUCOSE (POC) Routine 07/30/2024 2:34 AM EST HC GLUCOSE (POC) Routine 07/30/2024 12:2 7 AM EST HC GLUCOSE (POC) Routine 07/29/2024 10:4 7 PM EST HC GLUCOSE (POC) Routine 07/29/2024 10:4 2 PM EST HC GLUCOSE (POC) Routine 07/29/2024 4:46 PM EST HC GLUCOSE (POC) Routine 07/29/2024 11:4 6 AM EST HC GLUCOSE (POC) Routine 07/29/2024 7:10 AM EST HC GLUCOSE (POC) Routine 07/28/2024 7:56 PM EST HC GLUCOSE (POC) Routine 07/28/2024 4:29 PM EST HC GLUCOSE (POC) Routine 07/28/2024 11:3 6 AM EST HC GLUCOSE (POC) Routine 07/28/2024 7:06 AM EST HC GLUCOSE (POC) Routine 07/27/2024 10:5 1 PM EST HC GLUCOSE (POC) Routine 07/27/2024 5:20 PM EST HC GLUCOSE (POC) Routine 07/27/2024 11:2 6 AM EST HC GLUCOSE (POC) Routine 07/27/2024 6:48 AM EST HC GLUCOSE (POC) Routine 07/26/2024 8:34 PM EST HC GLUCOSE (POC) Routine 07/26/2024 4:58 PM EST HC GLUCOSE (POC) Routine 07/26/2024 12:4 8 PM EST HC GLUCOSE (POC) Routine 07/26/2024 6:39 AM EST HC GLUCOSE (POC) Routine 07/25/2024 10:2 0 PM EST HC GLUCOSE (POC) Routine 07/25/2024 7:19 PM EST HC GLUCOSE (POC) Routine 07/25/2024 4:23 PM EST HC GLUCOSE (POC) Routine 07/25/2024 12:1 3 PM EST HC GLUCOSE (POC) Routine 07/25/2024 6:26 AM EST HC GLUCOSE (POC) Routine 07/25/2024 12:4 9 AM EST HC GLUCOSE (POC) Routine 07/24/2024 10:0 5 PM EST HC GLUCOSE (POC) Routine 07/24/2024 8:28 PM EST HC GLUCOSE (POC) Routine 07/24/2024 5:17 PM EST HC GLUCOSE (POC) Routine 07/24/2024 12:3 4 PM EST HC GLUCOSE (POC) Routine 07/24/2024 6:34 AM EST HC GLUCOSE (POC) Routine 07/23/2024 7:32 PM EST HC GLUCOSE (POC) Routine 07/23/2024 5:[address] CHEST WO CONTRAST Routine 07/23/2024 2:57 PM EST HC GLUCOSE (POC) Routine 07/22/2024 7:45 PM EST HC GLUCOSE (POC) Routine 07/22/2024 5:27 PM EST HC GLUCOSE (POC) Routine 07/22/2024 3:38 PM EST HC GLUCOSE (POC) Routine 07/22/2024 1:22 PM EST HC GLUCOSE (POC) Routine 07/22/2024 12:1 9 PM EST HC GLUCOSE (POC) Routine 07/22/2024 11:0 9 AM EST URINE TEST (POINT OF CARE) Routine 07/22/2024 9:02 AM EST HC URINE DIPSTICK (POC) Routine 07/22/2024 8:59 AM EST URINE DRUG SCREEN Routine 07/22/2024 8:5 2 AM EST HC CULTURE, BLOOD Routine 07/22/2024 4:1 6 AM EST XR CHEST 2 VIEWS Stat 07/22/2024 2:08 AM EST HC RESPIRATORY VIRUS PCR Routine 07/22/2024 1:24 AM EST RESPIRATORY PANEL BASIC INPAT Routine 07/22/2024 1:24 AM EST HC HEMOGLOBIN A1C Routine 07/22/2024 1:2 4 AM EST HC LIPID PANEL Routine 07/22/2024 1:24 AM EST HC LIPASE Routine 07/22/2024 1:24 AM EST HC HEPATIC FUNCTION Routine 07/22/2024 1 :24 AM EST SERUM DRUG SCREEN Routine 07/22/2024 1:2 4 AM EST HC BASIC METABOLIC PANEL Routine 07/22/2024 1:24 AM EST CBC, PLATELET & DIFFERENTIAL Routine 07/22/2024 1:24 AM EST HC GLUCOSE (POC) Routine 07/22/2024 12:4 2 AM EST HC GLUCOSE (POC) Routine 07/14/2024 1:48 PM EST HC GLUCOSE (POC) Routine 07/14/2024 11:4 6 AM EST HC GLUCOSE (POC) Routine 07/14/2024 7:06 AM EST HC GLUCOSE (POC) Routine 07/13/2024 9:55 PM EST HC GLUCOSE (POC) Routine 07/13/2024 6:19 PM EST HC GLUCOSE (POC) Routine 07/13/2024 4:51 PM EST HC GLUCOSE (POC) Routine 07/13/2024 11:2 5 AM EST HC GLUCOSE (POC) Routine 07/13/2024 11:2 3 AM EST PHOSPHORUS MAGNESIUM Routine 07/13/2024 7:00 AM EST HC COMPREHENSIVE METABOLIC PANEL Routine 07/13/2024 7:00 AM EST HC CBC & PLATELET Routine 07/13/2024 7:0 0 AM EST HC GLUCOSE (POC) Routine 07/13/2024 5:39 AM EST HC GLUCOSE (POC) Routine 07/13/2024 12:3 2 AM EST HC GLUCOSE (POC) Routine 07/12/2024 10:3 4 PM EST HC GLUCOSE (POC) Routine 07/12/2024 4:56 PM EST HC GLUCOSE (POC) Routine 07/12/2024 11:0 6 AM EST PHOSPHORUS MAGNESIUM Routine 07/12/2024 10:00 AM EST HC BASIC METABOLIC PANEL Routine 07/12/2024 10:00 AM EST HC CBC & PLATELET Routine 07/12/2024 10: 00 AM EST HC PROTHROMBIN TIME Routine 07/12/2024 1 0:00 AM EST HC GLUCOSE (POC) Routine 07/12/2024 6:05 AM EST HC GLUCOSE (POC) Routine 07/12/2024 12:0 7 AM EST HC GLUCOSE (POC) Routine 07/11/2024 8:36 PM EST HC GLUCOSE (POC) Routine 07/11/2024 4:12 PM EST HC GLUCOSE (POC) Routine 07/11/2024 4:10 PM EST HC GLUCOSE (POC) Routine 07/11/2024 12:1 0 PM EST HC PHOSPHORUS Routine 07/11/2024 7:12 AM EST HC PROTHROMBIN TIME Routine 07/11/2024 7 :12 AM EST HC HEPATIC FUNCTION Routine 07/11/2024 7 :12 AM EST HC MAGNESIUM Routine 07/11/2024 7:12 AM EST HC BASIC METABOLIC PANEL Routine 07/11/2024 7:12 AM EST HC CBC & PLATELET Routine 07/11/2024 7:1 2 AM EST HC GLUCOSE (POC) Routine 07/11/2024 5:42 AM EST from Last 3 Months Results * (ABNORMAL) Fingerstick Blood Sugar (Point of Care) (10/10/2024 7:40 AM EST) Only the most recent of163 resultswithin the time period is included. FINGERSTICK GLUCOSE 314(H) 74 - 160 mg/dl POINT OF CARE TESTING Comment: If peripheral circulation is impaired, collection of capillary blood from the approved sample sites is not advised as the results might not be a true reflection of the physiological blood glucose level. This may apply in the following circumstances: severe dehydration as a result of diabetic ketoacidosis or due to hyperglycemic hyperosmolar non-ketotic syndrome, hypotension, shock, decompensated heart failure NYHA Class IV, or peripheral arterial occlusive disease. 10/10/2024 7:40 AM EST 10/10/2024 7:42 AM EST Forest Blue MD LABORATORY Final Result POINT OF CARE TESTING [address] * Serum Drug Screen (10/08/2024 9:41 PM EST) Only the most recent of2 resultswithin the time period is included. SALICYLATE < 0.5 3.0 - 20.0 mg/dL [facility] ACETAMINOPHEN < 5 10 - 30 ug/mL [facility] ETHANOL < 10 0 - 10 mg/dL [facility] BLOOD SPECIMEN / Unknown 10/08/2024 9:41 PM EST 10/08/2024 9:58 PM EST Narrative [facility] - 10/08/2024 10:44 PM EST Confirmation of receipt of critical GLUC of 521 obtained from RENY TRAN on ER on 10/08/24 at 2243 by [id number]. For verbally communicated results, the READBACK procedure was performed by [email or web address]. Phil Yañez MD LABORATORY Edited Resu lt - Final [facility] [address] [place] [address], [place] * (ABNORMAL) CBC, Platelet & Differential (10/08/2024 9:41 PM EST) Only the most recent of4 resultswithin the time period is included. WHITE BLOOD CELL COUNT 3.8(L) 4.0 - 11.0 TH/uL [facility] RED BLOOD CELL COUNT 4.38 3.90 - 5.20 M/uL [facility] HEMOGLOBIN 11.5 11.2 - 15.7 g/dL [facility] HEMATOCRIT 35.5 34.1 - 44.9 % [facility] MEAN CORPUSCULAR VOL 81.1 80.0 - 100.0 fl [facility] MEAN CORPUSCULAR HGB 26.3 26.0 - 34.0 pg [facility] MEAN VANESA HGB CONC 32.4 31.0 - 37.0 g/dL [facility] RBC DISTRIBUTION WIDTH STD DEV 48.1(H) 35.1 - 46.3 fL [facility] PLATELET COUNT 76(L) 150 - 400 TH/uL [facility] MEAN PLATELET VOLUME 11.6 8.7 - 12.5 fL [facility] IMMATURE PLATELET FRACTION % 7.1(H) 1.0 - 7.0 % [facility] IMMATURE PLATELET FRACTION ABS 5.4 TH/uL [facility] NEUTROPHIL % 46.7 40.0 - 75.0 % [facility] IMMATURE GRANULOCYTE % 0.3 0.0 - 1.0 % [facility] Comment: The immature granulocyte fraction includes metamyelocytes, myelocytes and promyelocytes. ??No blasts are included in the immature granulocyte fraction. An immature granulocyte fraction over 5% will result in additional laboratory review. A mild increase in immature granulocytes (up to 1%) in the peripheral blood may indicate an early-stage response to infection, inflammation, or other stimuli of the bone marrow. ??In addition, immature granulocytes can be seen in association with trauma, certain medications (including steroids and G-CSF), and may also be elevated in patients (mainly 3rd trimester) or neonates. ??The immature granulocyte count may also indicate a myeloproliferative neoplasm, a myelodysplastic syndrome, or other neoplastic processes (such as a metastasis from an extramedullary malignancy). If there is a clinical concern for a hematopoietic neoplastic process, additional laboratory investigation can be requested including a manual white blood count differential and/or a pathologist peripheral smear review. LYMPHOCYTE % 38.7 15.0 - 54.0 % [facility] MONOCYTE % 10.3 4.0 - 13.0 % [facility] EOSINOPHIL % 3.2 0.0 - 7.0 % [facility] BASOPHIL % 0.8 0.0 - 1.2 % [facility] NRBC % 0.0 0.0 - 0.0 % [facility] ABSOLUTE NEUTROPHIL COUNT 1.8 1.6 - 8.3 TH/uL [facility] ABSOLUTE IMM GRAN COUNT 0.01 0.00 - 0.10 TH/uL [facility] ABSOLUTE LYMPH COUNT 1.5 0.6 - 5.9 TH/uL [facility] ABSOLUTE MONO COUNT 0.4 0.2 - 1.4 TH/uL [facility] ABSOLUTE EOSINOPHIL COUNT 0.1 0.0 - 0.8 TH/uL [facility] ABSOLUTE BASO COUNT 0.0 0.0 - 0.1 TH/uL [facility] ABSOLUTE NRBC COUNT 0.0 0.0 - 0.0 TH/uL [facility] PLATELET ESTIMATE DECREASE D(A) [facility] BLOOD SPECIMEN / Unknown 10/08/2024 9:41 PM EST 10/08/2024 9:58 PM EST us Phil Yañez MD LABORATORY Final Resul t [facility] [address] [place] [address], * (ABNORMAL) Basic Metabolic Panel (10/08/2024 9:41 PM EST) Only the most recent of6 resultswithin the time period is included. SODIUM 137 136 - 145 mmol/L [facility] POTASSIUM 4.1 3.5 - 5.1 mmol/L [facility] CHLORIDE 97(L) 98 - 107 mmol/L [facility] CARBON DIOXIDE 25 21 - 32 mmol/L [facility] ANION GAP 15 10 - 22 mmol/L [facility] CALCIUM 9.6 8.5 - 10.5 mg/dL [facility] Glucose Random 521(HH) 74 - 160 mg/dL [facility] Comment:RESULT CONFIRMED BY REPEAT ANALYSIS BUN (UREA NITROGEN) 12 7 - 18 mg/dL [facility] CREATININE 0.7 0.4 - 1.2 mg/dL [facility] ESTIMATED GLOMERULAR FILT RATE > 60 >60 ML/MIN [facility] Comment: On May 31, 2021 the NKF-ASN Task Force recommended the adoption of the new eGFR 2020 CKD EPI creatinine equation that estimates kidney function without a race variable. NKF and ASN recommend diagnosing kidney disease using a blood test for creatinine to estimate GFR and a urine test for albumin to calculate albumin to creatinine ratio (uACR). For more information please see https://www.kidney.org/news/gpd-lud-llc-sfptztl-zzr-dea-to-d ubocfpp-avaevk-oveniftk. BLOOD SPECIMEN / Unknown 10/08/2024 9:41 PM EST 10/08/2024 9:58 PM EST Narrative [facility] - 10/08/2024 10:44 PM EST Confirmation of receipt of critical GLUC of 521 obtained from RENY TRAN on ER on 10/08/24 at 2243 by [email or web address]. For verbally communicated results, the READBACK procedure was performed by [email or web address]. us Phil Yañez MD LABORATORY Edited Resu lt - Final [facility] [address] [place] [address], [place] * US Abdomen w Duplex (08/06/2024 8:07 AM EST) Anatomical Region Laterality Modality Ultrasound 08/06/2024 8:13 AM EST Addenda Addendum by Denilson Paulino MD on 08/06/2024 11:24 AM EST Addendum #1 There is trace ascites. Reviewed and Electronically Signed By: Denilson Paulino MD Addendum Signed Date and Time: 08/06/2024 11:24 AM Impressions 08/06/2024 8:27 AM EST Cirrhotic liver. Scattered small foci of diminished hepatic attenuation, the largest measuring 1.3 cm. Evaluation with contrast-enhanced MRI recommended. Gallbladder intraluminal echogenic nonshadowing material, possible nonshadowing calculi or organized sludge. Dilated common duct, 14 mm, without evidence of choledocholithiasis. Reviewed and Electronically Signed By: Denilson Paulino MD Signed Date and Time: 08/06/2024 8:27 AM Narrative 08/06/2024 8:27 AM EST CLINICAL INDICATION: Generalized abdominal pain, more in RUQ, rising HFT. ? biliary obstruction. ? cholecystitis. ? renal pathology. COMPARISON: CT chest 07/23/2024, MRCP 07/09/2024, abdominal ultrasound 07/06/2024 TECHNIQUE: Abdominal ultrasound was performed with a curved array transducer in real time. Images were obtained and presented for interpretation. Color Doppler with spectral waveform analysis was performed. ?? FINDINGS: Pancreas: The pancreas is obscured by overlying bowel gas. Liver: ?? Heterogeneous echotexture with nodular contour, compatible with cirrhosis. There are scattered small focal areas of diminished attenuation, the largest measuring 1.3 cm, on at the left lobe. Doppler: ??Normal directional flow is present on color Doppler with spectral waveform analysis of the main portal vein. The visualized hepatic veins are patent. Gallbladder: Prominent intraluminal echogenic nonshadowing material, possible nonshadowing calculi organized sludge. Mild wall thickening, 4 mm. No pericholecystic fluid. Negative sonographic Rosales sign. Common bile duct: Dilated, 14 mm. No sonographic evidence of choledocholithiasis. Right kidney: Measures 10.1 cm in length. Unremarkable. ?? Left kidney measures 12.1 cm in length. Unremarkable. Spleen: Enlarged spleen measures 18.0 cm. Aorta: ??Not dilated. IVC: ??Visualized portion is unremarkable. Procedure Note Denilson Paulino MD - 08/06/2024 CLINICAL INDICATION: Generalized abdominal pain, more in RUQ, rising HFT.? biliary obstruction. ? cholecystitis. ? renal pathology. COMPARISON: CT chest 07/23/2024, MRCP 07/09/2024, abdominal ovqepfanxh96/29/2024 TECHNIQUE: Abdominal ultrasound was performed with a curved array transducer in realtime. Images were obtained and presented for interpretation. Color Dopplerwith spectral waveform analysis was performed. FINDINGS: Pancreas: The pancreas is obscured by overlying bowel gas. Liver: Heterogeneous echotexture with nodular contour, compatible withcirrhosis. There are scattered small focal areas of diminishedattenuation, the largest measuring 1.3 cm, on at the left lobe. Doppler: Normal directional flow is present on color Doppler withspectral waveform analysis of the main portal vein. The visualized hepaticveins are patent. Gallbladder: Prominent intraluminal echogenic nonshadowing material,possible nonshadowing calculi organized sludge. Mild wall thickening, 4mm. No pericholecystic fluid. Negative sonographic Rosales sign. Common bile duct: Dilated, 14 mm. No sonographic evidence ofcholedocholithiasis. Right kidney: Measures 10.1 cm in length. Unremarkable. Left kidney measures 12.1 cm in length. Unremarkable. Spleen: Enlarged spleen measures 18.0 cm. Aorta: Not dilated. IVC: Visualized portion is unremarkable. IMPRESSION: Cirrhotic liver. Scattered small foci of diminished hepatic attenuation, the largestmeasuring 1.3 cm. Evaluation with contrast-enhanced MRI recommended. Gallbladder intraluminal echogenic nonshadowing material, possiblenonshadowing calculi or organized sludge. Dilated common duct, 14 mm, without evidence of choledocholithiasis. Reviewed and Electronically Signed By: Denilson Paulino MD Signed Date and Time: 08/06/2024 8:27 AM us Ponce Rios MD RAD US ORDERABLES Edited Result - Final * (ABNORMAL) Hepatic Function Panel (08/05/2024 7:00 AM EST) Only the most recent of3 resultswithin the time period is included. TOTAL PROTEIN 6.8 6.4 - 8.2 g/dL [facility] ALBUMIN 3.2(L) 3.4 - 5.2 g/dL [facility] BILIRUBIN TOTAL 0.8 0.2 - 1.0 mg/dL [facility] BILIRUBIN DIRECT 0.6(H) 0.0 - 0.2 mg/dL [facility] INDIRECT BILIRUBIN 0.2 0.2 - 0.9 mg/dL [facility] ALKALINE PHOSPHATASE 430(H) 45 - 117 U/L [facility] ASPARTATE AMINOTRANSFERASE 236(H) 8 - 34 U/L [facility] ALANINE AMINOTRANSFERASE 165(H) 12 - 45 U/L [facility] 08/05/2024 7:00 AM EST 08/05/2024 8:13 AM EST us Ponce Rios MD LABORATORY Final Result Performing Organization Address City/[facility]/[place] [address], [place] * (ABNORMAL) CBC with Platelet (08/05/2024 7:00 AM EST) Only the most recent of4 resultswithin the time period is included. WHITE BLOOD CELL COUNT 4.3 4.0 - 11.0 TH/uL [facility] RED BLOOD CELL COUNT 4.12 3.90 - 5.20 M/uL [facility] HEMOGLOBIN 11.5 11.2 - 15.7 g/dL [facility] HEMATOCRIT 36.5 34.1 - 44.9 % [facility] MEAN CORPUSCULAR VOL 88.6 80.0 - 100.0 fl [facility] MEAN CORPUSCULAR HGB 27.9 26.0 - 34.0 pg [facility] MEAN VANESA HGB CONC 31.5 31.0 - 37.0 g/dL [facility] RBC DISTRIBUTION WIDTH STD DEV 45.2 35.1 - 46.3 fL [facility] PLATELET COUNT 127(L) 150 - 400 TH/uL [facility] MEAN PLATELET VOLUME 12.3 8.7 - 12.5 fL [facility] NRBC % 0.0 0.0 - 0.0 % [facility] ABSOLUTE NRBC COUNT 0.0 0.0 - 0.0 TH/uL [facility] 08/05/2024 7:00 AM EST 08/05/2024 8:14 AM EST us Ponce Rios MD LABORATORY Final Result [place] [id number], [place] * Urinalysis Rflx to Urine Cult (08/04/2024 2:16 PM EST) BILIRUBIN, URINE Negative Negative [facility] OCCULT BLOOD, URINE Negative Negative [facility] CLARITY, URINE Clear Clear [facility] COLOR, URINE Yellow Yellow [facility] GLUCOSE, URINE Negative Negative mg/dL [facility] KETONE, URINE Negative Negative mg/dL [facility] LEUKOCYTES, URINE Negative Negative [facility] NITRITE, URINE Negative Negative [facility] PH, URINE 5.5 5.0 - 8.0 [facility] PROTEIN, URINE Negative Negative mg/dL [facility] SPECIFIC GRAVITY, URINE 1.016 1.003 - 1.035 [facility] UROBILINOGEN, URINE 1.0 0.2 - 1.0 E.U./dL [facility] MICROSCOPIC REVIEW Not Indicated Not Indicat [facility] Urine VOIDED URINE SPECIMEN / Unknown 08/04/2024 2:16 PM EST 08/04/2024 2:36 PM EST Narrative [facility] - 08/04/2024 2:51 PM EST UCV&Urine, Clean Void Ponce Rios MD URINE ORDERABLES Final Result Performing Organization Address City/[facility]/[place] [address], [place] * (ABNORMAL) Bilirubin Direct (08/03/2024 4:33 PM EST) BILIRUBIN DIRECT 0.5(H) 0.0 - 0.2 mg/dL [facility] 08/03/2024 4:33 PM EST 08/03/2024 4:59 PM EST Narrative [facility] - 08/03/2024 6:10 PM EST Tests added: DBIL HCG by ALECIA ROSALES on 08/03/24 at 1712 by [email or web address]. Elvie Villanueva MD LABORATORY Final Result Performing Organization Address City/[facility]/[place] [address], [place] * C-Reactive Protein (08/03/2024 4:33 PM EST) C-REACTIVE PROTEIN < 3 0 - 18 mg/L [facility] 08/03/2024 4:33 PM EST 08/03/2024 4:59 PM EST Narrative [facility] - 08/03/2024 6:10 PM EST Tests added: DBIL HCG by MOR,DON on 08/03/24 at 1712 by [email or web address]. us Elvie Villanueva MD LABORATORY Final Result [facility] [address] [place] [address], [place] * HCG Qualitative Serum (08/03/2024 4:33 PM EST) Pathologist [facility] HCG QUALITATIVE SERUM NEGATIVE NEGATIVE [facility] 08/03/2024 4:33 PM EST 08/03/2024 4:59 PM EST Narrative [facility] - 08/03/2024 6:10 PM EST Tests added: DBIL HCG by MOR,DON on 08/03/24 at 1712 by [email or web address]. us Elvie Villanueva MD LABORATORY Final Result Performing Organization Address City/[facility]/ZIP Co de Phone Number [address] [address], [place] * Lipase (08/03/2024 4:33 PM EST) Only the most recent of2 resultswithin the time period is included. LIPASE 39 13 - 60 U/L [facility] 08/03/2024 4:33 PM EST 08/03/2024 4:59 PM EST Narrative [facility] - 08/03/2024 6:10 PM EST Tests added: DBIL HCG by MOR,DON on 08/03/24 at 1712 by [email or web address]. us Elvie Villanueva MD LABORATORY Final Result Performing Organization Address City/[facility]/ZIP Co de Phone Number [facility] [address] [place] [address], [place] * Amylase (08/03/2024 4:33 PM EST) AMYLASE 52 25 - 115 U/L [facility] 08/03/2024 4:33 PM EST 08/03/2024 4:59 PM EST Narrative [facility] - 08/03/2024 6:10 PM EST Tests added: DBIL HCG by CONNIEDON on 08/03/24 at 1712 by [email or web address]. us Elvie Villanueva MD LABORATORY Final Result [facility] [address] [place] [address], * (ABNORMAL) Comprehensive Metabolic Panel (08/03/2024 4:33 PM EST) Only the most recent of2 resultswithin the time period is included. SODIUM 132(L) 136 - 145 mmol/L [facility] POTASSIUM 4.9 3.5 - 5.1 mmol/L [facility] CHLORIDE 98 98 - 107 mmol/L [facility] CARBON DIOXIDE 24 21 - 32 mmol/L [facility] ANION GAP 11 10 - 22 mmol/L [facility] CALCIUM 8.9 8.5 - 10.5 mg/dL [facility] Glucose Random 206(H) 74 - 160 mg/dL [facility] BUN (UREA NITROGEN) 17 7 - 18 mg/dL [facility] TOTAL PROTEIN 6.8 6.4 - 8.2 g/dL [facility] ALBUMIN 3.2(L) 3.4 - 5.2 g/dL [facility] BILIRUBIN TOTAL 0.9 0.2 - 1.0 mg/dL [facility] ALKALINE PHOSPHATASE 453(H) 45 - 117 U/L [facility] ASPARTATE AMINOTRANSFERASE 236(H) 8 - 34 U/L [facility] CREATININE 0.5 0.4 - 1.2 mg/dL [facility] ESTIMATED GLOMERULAR FILT RATE > 60 >60 ML/MIN [facility] Comment: On May 31, 2021 the NKF-ASN Task Force recommended the adoption of the new eGFR 2020 CKD EPI creatinine equation that estimates kidney function without a race variable. NKF and ASN recommend diagnosing kidney disease using a blood test for creatinine to estimate GFR and a urine test for albumin to calculate albumin to creatinine ratio (uACR). For more information please see https://www.kidney.org/news/pbn-nyy-edk-xcwytqg-atn-zru-to-d idbpwfs-ipqepw-fizzewil. ALANINE AMINOTRANSFERASE 158(H) 12 - 45 U/L [facility] 08/03/2024 4:33 PM EST 08/03/2024 4:59 PM EST Narrative [facility] - 08/03/2024 6:10 PM EST Tests added: DBIL HCG by CONNIEDON on 08/03/24 at 1712 by [email or web address]. us Elvie Villaneuva MD LABORATORY Final Result [facility] [address] [place] [address], [place] * CT Chest WO Contrast (07/23/2024 2:57 PM EST) Anatomical Region Laterality Modality Chest Computed Tomogra phy 07/23/2024 3:09 PM EST Impressions 07/23/2024 4:01 PM EST 1. Patchy pulmonary opacities in the lung bases bilaterally probably representing infection. Follow-up is recommended to exclude a neoplastic process. 2. Splenomegaly Reviewed and Electronically Signed By: Johnny Saunders MD Signed Date and Time: 07/23/2024 4:01 PM Narrative 07/23/2024 4:01 PM EST CLINICAL INDICATION: Right lower lobe density on chest radiograph COMPARISON: Chest radiograph from 07/22/2024 TECHNIQUE: CT of the thorax without IV contrast with multiplanar reformats. Radiation Dose: Radiation dose reduction techniques were employed. CTDIvol: 3.0 mGy. DLP: 96 mGy-cm. FINDINGS: Lungs: There are focal patchy ill-defined opacities in both lower lobes and in the right middle lobe. The upper lung early are clear. Pleura: No pleural effusion or pneumothorax. Airways: Patent. There is lower lobe bronchial wall thickening. Vessels: The thoracic aorta is normal in caliber. The pulmonary artery is nondilated. Heart: The heart is normal in size. ??There is no pericardial effusion. Mediastinum/Lymph nodes: There are prominent mediastinal lymph nodes. There may be hilar adenopathy although difficult to evaluate without intravenous contrast. Thyroid: Only partly included but no abnormality demonstrated. Chest wall: Unremarkable. Bones: Unremarkable. Upper abdomen: There is splenomegaly. Procedure Note Johnny Saunders MD - 07/23/2024 CLINICAL INDICATION: Right lower lobe density on chest radiograph COMPARISON: Chest radiograph from 07/22/2024 TECHNIQUE: CT of the thorax without IV contrast with multiplanarreformats. Radiation Dose: Radiation dose reduction techniques were employed.CTDIvol: 3.0 mGy. DLP: 96 mGy-cm. FINDINGS: Lungs: There are focal patchy ill-defined opacities in both lower lobesand in the right middle lobe. The upper lung early are clear. Pleura: No pleural effusion or pneumothorax. Airways: Patent. There is lower lobe bronchial wall thickening. Vessels: The thoracic aorta is normal in caliber. The pulmonary artery isnondilated. Heart: The heart is normal in size. There is no pericardial effusion. Mediastinum/Lymph nodes: There are prominent mediastinal lymph nodes.There may be hilar adenopathy although difficult to evaluate withoutintravenous contrast. Thyroid: Only partly included but no abnormality demonstrated. Chest wall: Unremarkable. Bones: Unremarkable. Upper abdomen: There is splenomegaly. IMPRESSION: 1. Patchy pulmonary opacities in the lung bases bilaterally probablyrepresenting infection. Follow-up is recommended to exclude a neoplasticprocess. 2. Splenomegaly Reviewed and Electronically Signed By: Johnny Saunders MD Signed Date and Time: 07/23/2024 4:01 PM Elvie Villanueva MD RAD CT ORDERABLES Final Result * Urine (Point of Care) (07/22/2024 9:02 AM EST) HCG QUALITATIVE URINE Negative [facility] Comment: This urine HCG qualitative test detects intact hCG only and is indicated for the early detection of . As a progresses, the hCG molecule can fragment into different forms and this test cannot detect the fragments/ degradation products. Quantitative assays used to detect hCG may detect hCG degradation products and, therefore, may disagree with the results of this rapid qualitative test. For these reasons, it is not recommended that this test be used beyond the 1st trimester. ONBOARD CONTROL PRESENT? Yes [facility] Urine VOIDED URINE SPECIMEN / Unknown 07/22/2024 9:02 AM EST Shauna Galeas MD POINT OF CARE TEST ORDERABLES Fi nal Result Performing Organization Address [facility] de Phone Number [facility] [address] [place] [address], [place] * (ABNORMAL) POC Urinalysis (07/22/2024 8:59 AM EST) COLOR JOANA(A) YELLOW [facility] CLARITY SL CLOUDY(A) CLEAR POINT O F CARE TESTING GLUCOSE,URINE 500(A) NEGATIVE [facility] BILIRUBIN, URINE SMALL(A) NEGATIVE POI NT OF CARE TESTING KETONE, URINE NEGATIVE NEGATIVE [facility] SPECIFIC GRAVITY, URINE >=1.030 1.003 - 1.030 [facility] UROBILINOGEN URINE >=8.0(A) 0.2 - 1.0 [facility] OCCULT BLOOD, URINE NEGATIVE NEGATIVE [facility] PH URINE 6.0 5.0 - 8.0 [facility] PROTEIN, URINE 30(A) NEGATIVE [facility] NITRITE, URINE POSITIVE(A) NEGATIVE POI NT OF CARE TESTING LEUKOCYTE ESTERASE NEGATIVE NEGATIVE [facility] 07/22/2024 8:59 AM EST 07/22/2024 9:01 AM EST Benito Benton MD LABORATORY Final Resul t Performing Organization Address [facility] Co de Phone Number POINT OF CARE TESTING [address] [place] [address], [place] * (ABNORMAL) Urine Drug Screen (07/22/2024 8:52 AM EST) AMPHETAMINES URINE NEGATIVE CUTOFF 1000 ng/mL [facility] Comment: This screening result can be used for medical purposes only. It has not been confirmed by a second method and must not be used for non-medical purposes (i.e. employment testing, legal testing). ??For the most up-to-date information, including detected drugs and additional testing that can be added on, please refer to the Drug of Abuse Testing Information, available on [employer]. COCAINE METABOLITES URINE POSITIVE(A) CUTOFF 300 ng/mL [facility] Comment: This screening result can be used for medical purposes only. It has not been confirmed by a second method and must not be used for non-medical purposes (i.e. employment testing, legal testing). ??For the most up-to-date information, including detected drugs and additional testing that can be added on, please refer to the Drug of Abuse Testing Information, available on [employer]. OPIATES URINE NEGATIVE CUTOFF 300 ng/mL [facility] Comment: This screening result can be used for medical purposes only. It has not been confirmed by a second method and must not be used for non-medical purposes (i.e. employment testing, legal testing). ??For the most up-to-date information, including detected drugs and additional testing that can be added on, please refer to the Drug of Abuse Testing Information, available on [employer]. BENZODIAZEPINES URINE POSITIVE(A) CUTOFF 200 ng/mL [facility] Comment: This screening result can be used for medical purposes only. It has not been confirmed by a second method and must not be used for non-medical purposes (i.e. employment testing, legal testing). ??For the most up-to-date information, including detected drugs and additional testing that can be added on, please refer to the Drug of Abuse Testing Information, available on [employer]. CANNABINOIDS URINE NEGATIVE CUTOFF 50 ng/mL [facility] Comment: This screening result can be used for medical purposes only. It has not been confirmed by a second method and must not be used for non-medical purposes (i.e. employment testing, legal testing). ??For the most up-to-date information, including detected drugs and additional testing that can be added on, please refer to the Drug of Abuse Testing Information, available on [employer]. ETHANOL URINE NEGATIVE CUTOFF 10 mg/dL [facility] Comment: This screening result can be used for medical purposes only. It has not been confirmed by a second method and must not be used for non-medical purposes (i.e. employment testing, legal testing). ??For the most up-to-date information, including detected drugs and additional testing that can be added on, please refer to the Drug of Abuse Testing Information, available on [employer]. BUPRENORPHINE SCREEN URINE NEGATIVE CUTOFF 10 ng/mL [facility] Comment: This screening result can be used for medical purposes only. It has not been confirmed by a second method and must not be used for non-medical purposes (i.e. employment testing, legal testing). ??For the most up-to-date information, including detected drugs and additional testing that can be added on, please refer to the Drug of Abuse Testing Information, available on [employer]. OXYCOD SCRN URINE NEGATIVE CUTOFF 100 ng/mL [facility] Comment: This screening result can be used for medical purposes only. It has not been confirmed by a second method and must not be used for non-medical purposes (i.e. employment testing, legal testing). ??For the most up-to-date information, including detected drugs and additional testing that can be added on, please refer to the Drug of Abuse Testing Information, available on [employer]. FENTANYL URINE POSITIVE(A) CUTOFF 5 ng/mL [facility] Comment: This screening result can be used for medical purposes only. It has not been confirmed by a second method and must not be used for non-medical purposes (i.e. employment testing, legal testing). ??For the most up-to-date information, including detected drugs and additional testing that can be added on, please refer to the Drug of Abuse Testing Information, available on [employer]. METHADONE URINE POSITIVE(A) CUTOFF 300 ng/mL [facility] Comment: This screening result can be used for medical purposes only. It has not been confirmed by a second method and must not be used for non-medical purposes (i.e. employment testing, legal testing). ??For the most up-to-date information, including detected drugs and additional testing that can be added on, please refer to the Drug of Abuse Testing Information, available on [employer]. SPECIMEN VALIDITY URINE CREAT 136 >20 mg/dL [facility] SPECIMEN VALIDITY URINE PH 6.2 5.0 - 8.5 [facility] SPEC VALIDITY SPECIFIC GRAVITY 1.036(H) 1.003 - 1.035 [facility] Urine URINE SPECIMEN / Unknown 07/22/2024 8:52 AM EST 07/22/2024 9:05 AM EST Narrative [facility] - 07/22/2024 9:25 AM EST URINE&Urine us Shauna Galeas MD URINE ORDERABLES Final Result Performing Organization Address City/[facility]/ZIP Co de Phone Number [facility] [address] [place] [address], [place] * Blood Cultures x 2 (07/22/2024 4:16 AM EST) AEROBIC BOTTLE, BLOOD CULTURE NO GROWTH AFTER 5 DAYS [facility] ANAEROBIC BTL, BLOOD CULTURE NO GROWTH AFTER 5 DAYS [facility] BLOOD SPECIMEN / Unknown 07/22/2024 4:16 AM EST 07/22/2024 5:53 AM EST Narrative [facility] - 07/27/2024 5:53 AM EST Is the patient currently on antibiotics?->No Shauna Galeas MD MICROBIOLOGY Final Result Performing Organization Address City/[facility]/ZIP Co de Phone Number [facility] [address] [place] [address], [place] * XR Chest 2 views (07/22/2024 2:08 AM EST) Anatomical Region Laterality Modality Chest Digital Radiogra phy 07/22/2024 8:34 AM EST Impressions 07/22/2024 8:36 AM EST No acute cardiopulmonary findings on chest radiographs. Ill-defined nodular density in the right lower lobe which may represent confluence of shadows or nipple shadow. RECOMMENDATION: - Consider follow-up with a nonemergent noncontrast CT of the chest. Incidental ED finding requires follow up by PCP. Reviewed and Electronically Signed By: Evelina Vargas MD Signed Date and Time: 07/22/2024 8:36 AM Narrative 07/22/2024 8:36 AM EST TECHNIQUE: Chest, 2 views INDICATION: cough, fever COMPARISON: 01/27/2008 FINDINGS: Lungs: No edema or consolidation. There is an ill-defined density in the right lower lobe which may correspond to a nipple shadow or confluence of shadows. Small nodule cannot be excluded. Pleura: There is no pleural effusion or pneumothorax. Heart: The cardiac silhouette is unremarkable. Mediastinum/frank: Unremarkable Bones and Soft Tissues: Unremarkable Procedure Note Evelina Vargas MD - 11/14/2024 TECHNIQUE: Chest, 2 views INDICATION: cough, fever COMPARISON: 01/27/2008 FINDINGS: Lungs: No edema or consolidation. There is an ill-defined density in theright lower lobe which may correspond to a nipple shadow or confluence ofshadows. Small nodule cannot be excluded. Pleura: There is no pleural effusion or pneumothorax. Heart: The cardiac silhouette is unremarkable. Mediastinum/frank: Unremarkable Bones and Soft Tissues: Unremarkable IMPRESSION: No acute cardiopulmonary findings on chest radiographs. Ill-defined nodular density in the right lower lobe which may representconfluence of shadows or nipple shadow. RECOMMENDATION: - Consider follow-up with a nonemergent noncontrast CT of the chest. Incidental ED finding requires follow up by PCP. Reviewed and Electronically Signed By: Evelina Vargas MD Signed Date and Time: 07/22/2024 8:36 AM us Shauna Galeas MD RAD XR ORDERABLES Final Result * (ABNORMAL) Respiratory Panel Extended (07/22/2024 1:24 AM EST) ADENOVIRUS Negative for Adenovirus by a multiplex nucleic acid PCR method. [facility] JOYNER(229E, HKU1, NL63, OC43) Negative for JOYNER(229E, HKU1, NL63, OC43)virus by a multiplex nucleic acid PCR method. [facility] SARS-COV-2 Negative for SARS-CoV-2 by a multiplex nucleic acid PCR method. [facility] HUMAN METAPNEUMOVIRUS Negative for HUMAN METAPNEUMOVIRUS by a multiplex nucleic acid PCR method. [facility] HUMAN RHINOVIRUS ENTEROVIRUS Positive for HUMAN RHINOVIRUS ENTEROVIRUS by a multiplex nucleic acid PCR method. [facility] HUMAN RHINOVIRUS ENTEROVIRUS HUMAN RHINOVIRUS ENTEROVIRUS(A) [facility] INFLUENZA A Negative for influenza A by a multiplex nucleic acid PCR method. [facility] INFLUENZA A H1 Negative for INFLUENZA A H1 by a multiplex nucleic acid PCR method. [facility] INFLUENZA A H1-2009 Negative for INFLUENZA A H1-2009 by a multiplex nucleic acid PCR method. [facility] INFLUENZA A H3 Negative for INFLUENZA A H3 by a multiplex nucleic acid PCR method. [facility] INFLUENZA B Negative for influenza B by a multiplex nucleic acid PCR method. [facility] PARAINFLUENZA 1 Negative for PARAINFLUENZA 1 by a multiplex nucleic acid PCR method. [facility] PARAINFLUENZA 2 Negative for PARAINFLUENZA 2 by a multiplex nucleic acid PCR method. [facility] PARAINFLUENZA 3 Negative for PARAINFLUENZA 3 by a multiplex nucleic acid PCR method. [facility] PARAINFLUENZA 4 Negative for PARAINFLUENZA 4 by a multiplex nucleic acid PCR method. [facility] RESPIRATORY SYNCYTIAL VIRUS A Negative for RESPIRATORY SYNCYTIAL VIRUS A by a multiplex nucleic acid PCR method. [facility] RESPIRATORY SYNCYTIAL VIRUS B Negative for RESPIRATORY SYNCYTIAL VIRUS B by a multiplex nucleic acid PCR method. [facility] CHLAMYDIA PNEUMONIAE Negative for CHLAMYDIA PNEUMONIAE by a multiplex nucleic acid PCR method. [facility] MYCOPLASMA PNEUMONIAE Negative for MYCOPLASMA PNEUMONIAE by a multiplex nucleic acid PCR method. [facility] TEST METHODOLOGY INFORMATION The E Nu[employer] Power assay for this Extended Respiratory Panel is a multiplex nucleic acid PCR method intended for the qualitative detection of RNA and DNA from virus targets. Negative results do not preclude infection and should not be used as the sole basis for patient management decisions. Negative results must be combined with clinical observations, patient history, and epidemiological information. This test has been authorized by the FDA under an Emergency Use Authorization (EUA) for use by authorized laboratories. [facility] NASAL STRUCTURE / Unknown 07/22/2024 1:24 AM EST 07/22/2024 1:47 AM EST Narrative [facility] - 07/22/2024 10:04 AM EST Tests added: EXTENDED RESPIRATORY PANEL by SHAUNA GALEAS MD on 07/22/24 at 0528 by [email or web address]. us Shauna Galeas MD MICROBIOLOGY COVID PANELS Final Result [facility] [address] [place] [address], * Respiratory Panel Basic Inpat (07/22/2024 1:24 AM EST) SARS-COV-2 Negative for SARS-CoV-2(2019 novel coronavirus)by PCR methodology. Negative results do not preclude 2019-nCoV infection and should not be used as the sole basis for patient management decisions. Negative results must be combined with clinical observations, patient history, and epidemiological information. This test has been authorized by the FDA under an Emergency Use Authorization (EUA) for use by authorized laboratories. [facility] INFLUENZA A Negative for Influenza A by PCR methodology. This test has been authorized by the FDA under an Emergency Use Authorization (EUA) for use by authorized laboratories. [facility] INFLUENZA B Negative for influenza B by PCR methodology. This test has been authorized by the FDA under an Emergency Use Authorization (EUA) for use by authorized laboratories. [facility] RESPIRATORY SYNCYTIAL VIRUS Negative for Respiratory Syncytial Virus by a PCR method. This test has been authorized by the FDA under an Emergency Use Authorization (EUA) for use by authorized laboratories. [facility] Swab NASAL STRUCTURE / Unknown 07/22/2024 1:24 AM EST 07/22/2024 1:47 AM EST Narrative [facility] - 07/22/2024 10:04 AM EST Tests added: EXTENDED RESPIRATORY PANEL by SHAUNA GALEAS MD on 07/22/24 at 0528 by [email or web address]. us Shauna Galeas MD MICROBIOLOGY COVID PANELS Final Result Performing Organization Address City/[facility]/ZIP Co de Phone Number [address] [address], * (ABNORMAL) Lipid Panel (07/22/2024 1:24 AM EST) Cholesterol 131 0 - 239 mg/dL [facility] TRIGLYCERIDES 89 0 - 150 mg/dL [facility] HIGH DENSITY LIPOPROTEIN 36(L) 40 - 60 mg/dL [facility] LOW DENSITY LIPOPROTEIN DIRECT 78 0 - 189 mg/dL [facility] 07/22/2024 1:24 AM EST 07/22/2024 2:10 AM EST us Shauna Galeas MD LABORATORY Final Result Performing Organization Address [facility]/ZIP Co de Phone Number [address] [address], * (ABNORMAL) Hemoglobin A1c (07/22/2024 1:24 AM EST) HEMOGLOBIN A1C 10.4(H) 4.0 - 5.6 % [facility] Comment: Hemoglobin A1C ? Interpretive information 5.7 - 6.4 % ?Increased risk for diabetes; ? recommend lifestyle management ?> 6.4 % ?Diagnosis of diabetes; should have at ? least 2 elevated results for ? diagnosis of diabetes. ?> 8.0 % ?Action suggested ?< 7.0 % ?Goal of therapy for diabetics; higher ? targets may apply for some with ? specific comorbidities. ESTIMATED AVERAGE GLUCOSE 252(H) 74 - 160 mg/dL [facility] 07/22/2024 1:24 AM EST 07/23/2024 6:13 AM EST Narrative [facility] - 07/23/2024 7:20 AM EST Tests added: LIPID,A1C by FF on 07/23/24 at 0615 by [email or web address]. us Shauna Galeas MD LABORATORY Final Result [facility] [address] [place] [address], * (ABNORMAL) Phosphorus Magnesium (07/13/2024 7:00 AM EST) Only the most recent of2 resultswithin the time period is included. Pathologist [facility] PHOSPHORUS 2.9 2.5 - 4.9 mg/dL [facility] MAGNESIUM 1.5(L) 1.6 - 2.6 mg/dL [facility] 07/13/2024 7:00 AM EST 07/13/2024 8:15 AM EST Dari Coyle MD LABORATORY Final Result Performing Organization Address [facility] Co de Phone Number [facility] [address] [place] [address], * (ABNORMAL) Prothrombin Time (07/12/2024 10:00 AM EST) Only the most recent of2 resultswithin the time period is included. PROTHROMBIN TIME 13.8(H) 9.6 - 12.3 SECONDS [facility] INR 1.2 2.0 - 3.5 [facility] Comment: ?INR Interpretive Information The INR is only relevant for patients stabilized on Coumadin. The INR reference range is the THERAPEUTIC range for patients stabilized on Coumadin (standard dose 2.0-3.0, high dose 2.5-3.5). In contrast, the reference range for Prothrombin Time (PT) is the NORMAL range for patients NOT on Coumadin. Therefore, a patient who is appropriately coumadinized will have an INR reported as normal (therapeutic) and a PT reported as abnormal . 07/12/2024 10:0 0 AM EST 07/12/2024 10:06 AM EST Narrative [facility] - 07/12/2024 12:26 PM EST Is Phlebotomy collection time moved from 0700 to ??on 07/12/24 at 0822 by [email or web address] no in room notify TORIN de la torre patient on coumadin?->No us Abimbola Bella MD LABORATORY Final Result Performing Organization Address [facility]/ZIP Co de Phone Number [facility] [address] [place] [address], [place] * (ABNORMAL) Magnesium (07/11/2024 7:12 AM EST) MAGNESIUM 1.5(L) 1.6 - 2.6 mg/dL [facility] 07/11/2024 7:12 AM EST 07/11/2024 7:26 AM EST Dajuan Gaming MD LABORATORY Final Result Performing Organization Address City/[facility]/ZIP Co de Phone Number [address] [address], * Phosphorus (07/11/2024 7:12 AM EST) PHOSPHORUS 3.1 2.5 - 4.9 mg/dL [facility] 07/11/2024 7:12 AM EST 07/11/2024 7:26 AM EST Dajuan Gaming MD LABORATORY Final Result Performing Organization Address [facility] Co de Phone Number [address] [address], from Last [address] [address] Advance Directives * Full Code (Latest Code Status on File) Date Activated Date Inactivated Comments 07/09/2024 5:12 PM Care Teams Portal Architect Relationship Specialty Start Date End Date Stephanie Calderon MD [address] [place] [id number] PCP - General 04/14/10 Add, Provider Not In System [address] [place] [address] PCP - Insurance PCP 12/11/17
--- OUTSIDE RECORDS SUMMARY | 2024-10-11 15:15 | XMS_ITS | Encounter Summary ---
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 History: No date: NO SIGNIFICANT SURGICAL HISTORY No date: OB ANTEPARTUM CARE DLVR & Allergies Review of Patient's Allergies indicates: No Known Allergies Pre-Admission Medications: Prior to Admission Medications Prescriptions Last Dose Informant Patient Reported? Taking? Insulin Glargine Solostar (LANTUS SOLOSTAR) 100 UNIT/ML SOPN No No Sig: Inject 34 Units under the skin nightly for 14 days Insulin Lispro (HUMALOG) 100 UNIT/ML injection No No Sig: Inject 15 Units under the skin in the morning and 15 Units at noon and 15 Units in the evening. Inject before meals. Do all this for 14 days. cloNIDine (CATAPRES) 0.2 MG tablet No No Sig: Take 1 tablet by mouth 3 (three) times daily for 14 days dextrose (GLUTOSE) 40 % oral gel No No Sig: Take 15 g by mouth 3 (three) times daily as needed for up to 14 days furosemide (LASIX) 20 MG tablet No No Sig: Take 1 tablet by mouth daily for 14 days gabapentin (NEURONTIN) 400 MG capsule No No Sig: Take 2 capsules by mouth 3 (three) times daily for 14 days metFORMIN (FORTAMET) 1000 MG (OSM) 24 hr tablet No No Sig: Take 1 tablet by mouth in the morning and 1 tablet in the evening. Take with meals. Do all this for 14 days. 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 for Someone: No Providing self care at home?: Yes Mental Status Exam: Mental Status Exam General Appearance: Clean;Dressed in hospital gown/mariana Behavior: Cooperative;Good eye contact Level of Consciousness: Alert Orientation Level: Oriented x3 Attention/Concentration: WNL Mannerisms/Movements: No abnormal mannerisms/movements Speech Quality and Rate: WNL Speech Clarity: Clear Speech Tone: Normal vocal inflection Vocabulary/Fund of Knowledge: WNL Memory: Intact Thought Process & Associations: Goal-directed;Logical;Organized;Linear Dissociative Symptoms: None Thought Content: No abnormalities reported or observed Hallucinations: None Suicidal Thoughts: Active thoughts;Plans Homicidal Thoughts: None Mood: Depressed/Sad Mood comment: horrible Affect: Congruent with mood Judgment: Fair Insight: Limited to mental illness but otherwise fair/good Risk Assessment: Suicide Risk Assessment * Suicidal Ideation?: Yes Suicidal Ideation (Current): Yes Suicidal Ideation Means/Plan (Current): Pt endorsed SI with plan to OD Violence Risk Homicidal Ideation?: Denies Homicidal Ideation With Intent: No Access to Weapons: Denies Self Destructive Behaviors: Denies Self Inflicted Injury: Denies Aggression/Poor Impulse Control: Denies Medical Conditions Restraint Risk: No Abuse History Restraint Risk: No Current Outpatient Treatment: Current OP Treatment OP Provider: Psychopharm Psychopharm Name: Dr. Tejal Medina Agency Involvement: None Collateral Contact: Clinical/Collateral Contacts (e.g. PCP, Outpatient Psychiatric Treaters, Family) NA DSM-V Primary Diagnosis: Opioid use disorder, severe, dependence (HCC) Secondary Diagnosis: Cocaine use disorder, moderate, dependence (HCC) Diagnosis: Major depressive disorder, recurrent episode, moderate (HCC) Diagnosis: Generalized anxiety disorder Psychosocial and Contextual Factors: Economic problems, Housing problems Case Formulation Assessment/Formulation (including risk assessment): Patient is a 38 year old, partnered, un-housed,unemployed female with a history of MDD versus BPAD, PTSD, substance use (crack cocaine, fentanyl on methadone), with multiple inpatient hospitalizations, at least 1 suicide attempt in 2019, recent incarceration currently on probation, homelessness, who self presented to the ED with c/o being depressed and sad. Pt endorsed SI with plan to OD, denies HI/SIB/AVH. In terms of risks, pt with a dx hx of depression, anxiety, PTSD, polysubstance use; currently experiencing homelessness. Pt recently [facility] from [facility] and reports being on probation. Pt reports homelessness and unemployment are her major stressors and root cause of her drug use. Pt currently endorsing SI with plan to OD. Protective factors, although not enough to mitigate the risks, includes pt help seeking behavior, access to healthcare resources; she reports med compliance and connection to Dr. Tejal Medina. Based on the available evidence as cited above, it is TW's opinion that pt DOES meet section 12 criteria; thus, involuntary hospitalization will be pursued. Pt is NOT able to leave AMA. Pt agreeable with plan for dual diagnosis bed search. De-Escalation Plan: Assess for HALTT (hunger, anger, loneliness, thirst, tiredness) and offer interventions as indicated. Treatment Recommendations/Rationale for Recommended Level of Care: Involuntary dual dx IPLOC for safety and containment, substance use treatment, mood stabilization, medication evaluation, diagnosticclarification, OP referrals, collaboration with supports, relapse prevention, and step down to appropriate level of care. Recommendations communicated to ED attending, Yolie Jaimes MD. Apple Olsen LCSW, [facility] Andriy HOGAN [phone] * Narrator Note - Alina Salinas RN - 10/09/2024 12:36 PM EST Fully awake talking with PES Ambulated to bathroom steady gait Lunch provided * Narrator Note - Alina Salinas RN - 10/09/2024 11:00 AM EST Awoke pt She fluttered her eyes open Encouraged her to get up She was lying there with her eyes open for a minute and closed them again Provider was present * PES NOTES - Apple Olsen - 10/09/2024 9:17 AM EST TW attempted to evaluate pt just now; she was not arousal to verbal stimuli; she remained in bed snoring despite multiple attempts to wake her up. Apple Olsen LCSW, [facility] Andriy PES x [phone] * Narrator Note - Alina Salinas RN - 10/09/2024 9:17 AM EST PES attempted to see her. She was too sleepy * Narrator Note - Alina Salinas RN - 10/09/2024 8:06 AM EST Pt was able to tell me she gets her methadone from [facility]. Called [facility] they are requesting authorization from pt to release info Completed form and brought in room for pt to read and sign and she is too sleepy. * Narrator Note - Alina Salinas RN - 10/09/2024 7:50 AM EST PES went in to talk with her. She arouses to voice but she is sleepy and does not stay awake * PES NOTES - Yolanda Terry LICSW - 10/09/2024 7:28 AM EST This SW attempted to interview the pt with no success. Pt was unable to maintain consciousnes. While SW was in the room, the pt was offered just by a RN and blood sugar levels were tested. The SW observed that they pt was drowsy during this process and additional attempts to interview her were futile as pt utter nonsensical statements. PES will return to continue interview. Yolanda Terry LCSW PES [phone] * Narrator Note - Ana Patel RN - 10/09/2024 1:58 AM EST Patient sleeping with respirations equal and unlabored, turns and self repositions.Patient remains on constant observation with no signs of acute distress. Will continue to monitor. * Narrator Note - Kaykay Tran RN - 10/09/2024 12:10 AM EST Report given to Neha HARKINS * Narrator Note - Kaykay Tran RN - 10/08/2024 9:15 PM EST Pt falling asleep as nurse is trying to get her to change into hospital clothing * ED Triage Note - Ace Cuba RN - 10/08/2024 8:53 PM EST It just seems like things get better and I stay hopeful and grateful and I feel like... patient then drifts and nods off. Prompted to continue. I'm depressed. I'm sad. I feel... nods off again Prompted to continue and asked if she felt SI She answers I don't know how to answer those questions. States used fentanyl few hours ago. documented in this encounter Plan of Treatment Not on file documented as of this encounter Procedures Procedure Name Priority Date/Time Associated Diagnosis Comments HC GLUCOSE (POC) Routine 10/10/2024 7:40 AM EST HC GLUCOSE (POC) Routine 10/09/2024 9:30 PM EST HC GLUCOSE (POC) Routine 10/09/2024 2:52 PM EST HC GLUCOSE (POC) Routine 10/09/2024 7:23 AM EST SERUM DRUG SCREEN Routine 10/08/2024 9:4 1 PM EST CBC, PLATELET & DIFFERENTIAL Routine 10/08/2024 9:41 PM EST HC BASIC METABOLIC PANEL Routine 10/08/2024 9:41 PM EST documented in this encounter Results * (ABNORMAL) Fingerstick Blood Sugar (Point of Care) (10/10/2024 7:40 AM EST) FINGERSTICK GLUCOSE 314(H) 74 - 160 mg/dl [...] 7:40 AM EST 10/10/2024 7:42 AM EST us Forest Blue MD LABORATORY Final Result POINT OF CARE TESTING [address] [place] [address], * (ABNORMAL) Fingerstick Blood Sugar (Point of Care) (10/09/2024 9:30 PM EST) FINGERSTICK GLUCOSE 398(H) 74 - 160 mg/dl POINT OF CARE [...] Class IV, or peripheral arterial occlusive disease. 10/09/2024 9:30 PM EST 10/09/2024 9:32 PM EST Inge Saenz MD LABORATORY Final Result Performing Organization Address [facility] Phone Number POINT OF CARE TESTING [address] [place] [address], * (ABNORMAL) Fingerstick Blood Sugar (Point of Care) (10/09/2024 2:52 PM EST) FINGERSTICK GLUCOSE 511(HH) 74 - 160 mg/dl POINT OF CARE [...] Class IV, or peripheral arterial occlusive disease. 10/09/2024 2:52 PM EST 10/09/2024 2:54 PM EST Yolie Jaimes MD LABORATORY Final Result Performing Organization Address [facility] de Phone Number POINT OF CARE TESTING [address] [place] [address], * (ABNORMAL) Fingerstick Blood Sugar (Point of Care) (10/09/2024 7:23 AM EST) FINGERSTICK GLUCOSE 481(H) 74 - 160 mg/dl POINT OF CARE [...] Class IV, or peripheral arterial occlusive disease. 10/09/2024 7:23 AM EST 10/09/2024 7:25 AM EST Yolie Jaimes MD LABORATORY Final Result Performing Organization Address [facility]/ZIP Co de Phone Number POINT OF CARE TESTING [address] [place] [address], [place] * Serum Drug Screen (10/08/2024 9:41 PM EST) SALICYLATE < 0.5 3.0 - 20.0 mg/dL [facility] ACETAMINOPHEN < 5 10 - 30 ug/mL [facility] ETHANOL < 10 0 - 10 mg/dL [facility] BLOOD SPECIMEN / Unknown 10/08/2024 9:41 PM EST 10/08/2024 9:58 PM EST Narrative [facility] - 10/08/2024 10:44 PM EST Confirmation of receipt of critical GLUC of 521 obtained from KAYKAY TRAN on ER on 10/08/24 at 2243 by [id number]. For verbally communicated results, the READBACK procedure was performed by [email or web address]. Phil Yañez MD LABORATORY Edited Resu lt - Final Performing Organization Address City/[facility]/ZIP Co de Phone Number [facility] [address] [place] [address], [place] * (ABNORMAL) Basic Metabolic Panel (10/08/2024 9:41 PM EST) SODIUM 137 136 - 145 mmol/L [facility] POTASSIUM 4.1 3.5 - 5.1 mmol/L [facility] CHLORIDE 97(L) 98 - 107 mmol/L [facility] CARBON DIOXIDE 25 21 - 32 mmol/L [facility] ANION GAP 15 10 - 22 mmol/L [facility] CALCIUM 9.6 8.5 - 10.5 mg/dL [facility] Glucose Random 521(HH) 74 - 160 mg/dL [facility] Comment:RESULT CONFIRMED BY REPEAT ANALYSIS BUN (UREA NITROGEN) 12 7 - 18 mg/dL [facility] CREATININE 0.7 0.4 - 1.2 mg/dL [facility] ESTIMATED GLOMERULAR FILT RATE > 60 >60 ML/MIN [facility] Comment: On May 31, 2021 the NKF-ASN Task Force recommended the adoption of the new eGFR 2020 CKD EPI creatinine equation that estimates kidney function without a race variable. NKF and ASN recommend diagnosing kidney disease using a blood test for creatinine to estimate GFR and a urine test for albumin to calculate albumin to creatinine ratio (uACR). For more information please see https://www.kidney.org/news/yqc-gmt-udd-vvfevxv-dba-rdt-to-d [email or web address]-salhbe-[email or web address]. BLOOD SPECIMEN / Unknown 10/08/2024 9:41 PM EST 10/08/2024 9:58 PM EST Narrative [facility] - 10/08/2024 10:44 PM EST Confirmation of receipt of critical GLUC of 521 obtained from KAYKAY TRAN on ER on 10/08/24 at 2243 by [id number]. For verbally communicated results, the READBACK procedure was performed by [email or web address]. us Phil Yañez MD LABORATORY Edited Resu lt - Final [address] [address], * (ABNORMAL) CBC, Platelet & Differential (10/08/2024 9:41 PM EST) WHITE BLOOD CELL COUNT 3.8(L) 4.0 - 11.0 TH/uL [facility] RED BLOOD CELL COUNT 4.38 3.90 - 5.20 M/uL [facility] HEMOGLOBIN 11.5 11.2 - 15.7 g/dL [facility] HEMATOCRIT 35.5 34.1 - 44.9 % [facility] MEAN CORPUSCULAR VOL 81.1 80.0 - 100.0 fl [facility] MEAN CORPUSCULAR HGB 26.3 26.0 - 34.0 pg [facility] MEAN VANESA HGB CONC 32.4 31.0 - 37.0 g/dL [facility] RBC DISTRIBUTION WIDTH STD DEV 48.1(H) 35.1 - 46.3 fL [facility] PLATELET COUNT 76(L) 150 - 400 TH/uL [facility] MEAN PLATELET VOLUME 11.6 8.7 - 12.5 fL [facility] IMMATURE PLATELET FRACTION % 7.1(H) 1.0 - 7.0 % [facility] IMMATURE PLATELET FRACTION ABS 5.4 TH/uL [facility] NEUTROPHIL % 46.7 40.0 - 75.0 % [facility] IMMATURE GRANULOCYTE % 0.3 0.0 - 1.0 % [facility] Comment: The immature granulocyte fraction includes metamyelocytes, [...] LYMPHOCYTE % 38.7 15.0 - 54.0 % [facility] MONOCYTE % 10.3 4.0 - 13.0 % [facility] EOSINOPHIL % 3.2 0.0 - 7.0 % [facility] BASOPHIL % 0.8 0.0 - 1.2 % [facility] NRBC % 0.0 0.0 - 0.0 % [facility] ABSOLUTE NEUTROPHIL COUNT 1.8 1.6 - 8.3 TH/uL [facility] ABSOLUTE IMM GRAN COUNT 0.01 0.00 - 0.10 TH/uL [facility] ABSOLUTE LYMPH COUNT 1.5 0.6 - 5.9 TH/uL [facility] ABSOLUTE MONO COUNT 0.4 0.2 - 1.4 TH/uL [facility] ABSOLUTE EOSINOPHIL COUNT 0.1 0.0 - 0.8 TH/uL [facility] ABSOLUTE BASO COUNT 0.0 0.0 - 0.1 TH/uL [facility] ABSOLUTE NRBC COUNT 0.0 0.0 - 0.0 TH/uL [facility] PLATELET ESTIMATE DECREASE D(A) [facility] BLOOD SPECIMEN / Unknown 10/08/2024 9:41 PM EST 10/08/2024 9:58 PM EST us Phil Yañez MD LABORATORY Final Resul t [facility] [address] [place] [address], documented in this encounter Visit Diagnoses Diagnosis Depression with suicidal ideation Opioid abuse (HCC) Opioid abuse, unspecified Polysubstance abuse (HCC) Other, mixed, or unspecified nondependent drug abuse, unspecified Hyperglycemia Other abnormal glucose documented in this encounter Administered Medications Inactive Administered Medications - up to 3 most recent administrations Medication Order MAR Action Action Date Dose Rate Site clonazePAM (KLONOPIN) tablet 1 mg 1 mg, Oral, EVERY 12 HOURS PRN, Anxiety, Starting on 10/09/24 at 1828 Given 10/10/2024 8:38 AM EST 1 mg Given 10/09/2024 6:39 PM EST 1 mg cloNIDine (CATAPRES) tablet 0.1 mg 0.1 mg, Oral, 2 TIMES DAILY PRN, Anxiety, Starting on 10/09/24 at 1830 Given 10/09/2024 9:50 PM EST 0.1 mg insulin glargine (LANTUS) injection 34 Units 34 Units, Subcutaneous, NIGHTLY, First dose on 10/09/24 at 2100 Given 10/09/2024 9:36 PM EST 34 Units Left Arm Insulin Lispro (HumaLOG) injection 0-12 Units 0-12 Units, Subcutaneous, 3 TIMES DAILY BEFORE MEALS, First dose on 10/09/24 at 1630, For 30 days, Blood Glucose: 120-149 administer: 3 units, Blood Glucose: 150-199 administer: 4 units, Blood Glucose: 200-249 administer: 6 units, Blood Glucose: 250-299 administer: 8 units, Blood Glucose: 300-349 administer: 10 units, Blood Glucose: > 350 administer: 12 units Given 10/10/2024 8:29 AM EST 10 Units Left Arm Given 10/09/2024 3:08 PM EST 12 Units Ri ght Arm Insulin Regular Human (HumuLIN R) injection 12 Units 12 Units, Subcutaneous, ONCE, On Fri10/08/24 at 2259, For 1 dose Given 10/08/2024 10:50 PM EST 12 Units Left Deltoid methadone (DOLOPHINE) tablet 10 mg 10 mg, Oral, ONCE, On 10/09/24 at 1845, For 1 dose, Indication: OUD (opioid use disorder), Is this a continuation of maintenance methadone? No, Unable to confirm her 80mg dose, will give 10mg and reassess Given 10/09/2024 6:39 PM EST 10 mg methadone (DOLOPHINE) tablet 70 mg 70 mg, Oral, DAILY, First dose on Fri10/10/24 at 0900, Indication: OUD (opioid use disorder), Is this a continuation of maintenance methadone? Yes, Was the dose confirmed? Yes, What is the source of the maintenance methadone? Clinic Given 10/10/2024 8:28 AM EST 70 mg documented in this encounter Active and Recently Administered Medications Times are shown in EST. Scheduled Medication Order 10/08/2024 10/09/2024 10/10/2024 insulin glargine (LANTUS) injection 34 Units 34 Units, Subcutaneous, NIGHTLY, First dose on 10/09/24 at 2100 2136 (Given - Provider: Peyton Luna RN) Insulin Lispro (HumaLOG) injection 0-12 Units 0-12 Units, Subcutaneous, 3 TIMES DAILY BEFORE MEALS, First dose on 10/09/24 at 1630, For 30 days, Blood Glucose: 120-149 administer: 3 units, Blood Glucose: 150-199 administer: 4 units, Blood Glucose: 200-249 administer: 6 units, Blood Glucose: 250-299 administer: 8 units, Blood Glucose: 300-349 administer: 10 units, Blood Glucose: > 350 administer: 12 units 1508 (Given - Provider: Alina Salinas RN) 0829 (Given - Provider: José Garcia RN) Insulin Regular Human (HumuLIN R) injection 12 Units (COMPLETED) 12 Units, Subcutaneous, ONCE, On Fri10/08/24 at 2259, For 1 dose 2250 (Given - Provider: Kaykay Tran, TORIN) methadone (DOLOPHINE) tablet 10 mg (COMPLETED) 10 mg, Oral, ONCE, On 10/09/24 at 1845, For 1 dose, Indication: OUD (opioid use disorder), Is this a continuation of maintenance methadone? No, Unable to confirm her 80mg dose, will give 10mg and reassess 1839 (Given - Provider: Alina Salinas, TORIN) methadone (DOLOPHINE) tablet 70 mg 70 mg, Oral, DAILY, First dose on 10/10/24 at 0900, Indication: OUD (opioid use disorder), Is this a continuation of maintenance methadone? Yes, Was the dose confirmed? Yes, What is the source of the maintenance methadone? Clinic 0828 (Given - Provider: José Garcia, TORIN) PRN Medication Order 10/08/2024 10/09/2024 10/10/2024 clonazePAM (KLONOPIN) tablet 1 mg 1 mg, Oral, EVERY 12 HOURS PRN, Anxiety, Starting on 10/09/24 at 1828 1839 (Given - Provider: Alina Salinas, TORIN) 0838 (Given - Provider: José Garcia, TORIN) cloNIDine (CATAPRES) tablet 0.1 mg 0.1 mg, Oral, 2 TIMES DAILY PRN, Anxiety, Starting on 10/09/24 at 1830 2150 (Given - Provider: Peyton Luna, TORIN) documented in this encounter Care Teams Automotive Lot Attendant Relationship Specialty Start Date End Date Stephanie Calderon MD [address] [place] [address] PCP - General 04/14/10 Add, Provider Not In System [address] [place] [address] PCP - Insurance PCP 12/11/17 documented as of this encounter
--- OUTSIDE RECORDS SUMMARY | 2024-10-11 15:15 | XMS_ITS | Referral Summary ---
Author Organization [facility] ([facility]) Address [address] [place] [address] Care Team Providers Care Manager Roofing Name Role Phone Stephanie Calderon MD Primary [...] Overview (02/27/2015): 2005 on, BMI fluctuates, 27-33 [id number]: 79-31 [id number]: 20lb weight gain Assessment & Plan (02/27/2015 [...] out of detox per pt report CAB; supervisor case loading: Raza Keller [phone]. Release in chart Violated probation, in intermediate x 6 mos. In and out of [...] 03/16 Last Psych ([facility]. [phone]. [facility] Current: looking for new psych. Has counselor- [...] 01/08/2007 02/14/2010 Overview (01/08/2007): R, seen at [facility] 12/13 Supervision of other normal 03/23/2006 02/19/2009 Immunizations Immunization Administration Dates Next Due Fluzone Influenza Vaccine (Multi-Dose Vial) 01/2009 Hep B (Engerix-B ADULT) 02/27/2015 Influenza, Injectable,Quadrivalent 10/08/2016 PPSV23 (Pneumovax 23) 10/08/2016 Tdap 06/12/2009 Social History Tobacco Use Types Packs/Day Years [...] 02/27/2015 11:55 AM EDT Plan of Treatment Not on file Procedures [...] INTERNAL LAB Comment:Normal exam LMP: 02/21/2015 EB MACHINE PACKAGE SEALER AL LAB PREV. PAP: NONE GIVEN EB INTER NAL LAB PREV. BX: NONE GIVEN EB MACHINE PACKAGE SEALER AL LAB SOURCE: SEE NOTE EB INTERNA L LAB Comment:Cervix, Endocervix STATEMENT OF ADEQUACY: SEE NOTE EB INTERNAL LAB Comment: Satisfactory for evaluation. Endocervical/transformation zone component present. INTERPRETATION/RES ULT: SEE NOTE EB INTERNAL LAB Comment:Negative for intraep ithelial lesion or malignancy. LOG BRANDER: SEE NOTE EB INTERNAL LAB Comment:CXP, CT(ASCP) 02/27/2015 1:23 PM EDT 02/27/2015 2:54 PM EDT Narrative EB INTERNAL LAB - 03/03/2015 11:29 AM EDT [facility] Testing performed at: [facility], [facility], [address] [place] [address], [address], [place], [address], Buckle Attaching Machine Operator: Delfino Cline [facility] Collection Date/Time: [id number] [facility] Results Received Date/Time: [id number] [facility] Reported Date/Time: [id number] Specimen Source: ?? CERVIX/ENDOCERVIXPatients LMP: ??02/21/2015Patients Clinical History: ??NORMAL EXAM tSephanie Calderon MD LABORATORY Final Result [facility] INTERNAL [facility] [address] [place] [address] * (ABNORMAL) BLOOD LIPOPROTEIN,LDL CHOLESTEROL (02/27/2015 1:13 PM EDT) DIRECT LDL 135(H) <130 mg/dL EB INTER NAL LAB Comment: Desirable range <100 mg/dL for patients with CHD or diabetes and <70 mg/dL for diabetic patients with known heart disease. Serum 02/27/2015 1:13 PM EDT 02/27/2015 3:29 PM EDT Narrative EB INTERNAL [facility] - 02/28/2015 6:12 AM EDT [facility] Testing performed at: [facility], [facility], [address] [place] [address], [place], [address], Buckle Attaching Machine Operator: Delfino Cline [facility] Collection Date/Time: [id number] [facility] Results Received Date/Time: [id number] [facility] Reported Date/Time: [id number] Stephanie Calderon MD LABORATORY Final Result Performing Organization Address [facility] Co de Phone Number [facility] INTERNAL [facility] [address] [place] [address] * HIV 1/2 ANTIGEN/ANTIBODY 4TH GEN WITH [...] old. For additional information please refer to http://education.GT Urological/faq/DQC899 (This link is being provided for informational/ educational purposes only.) Serum 02/27/2015 1:13 PM EDT 02/27/2015 3:29 PM EDT Narrative EB INTERNAL LAB - 02/28/2015 6:03 AM EDT [facility] Testing performed at: [facility], [facility], [address] [place] [address], [address], [place], [address], Buckle Attaching Machine Operator: Delfino Cline [facility] Collection Date/Time: [id number] [facility] Results Received Date/Time: [id number] [facility] Reported Date/Time: [id number] verbal consent received from the patient for HIV test?->Yes Stephanie Calderon MD LABORATORY Final Result [facility] [address] [place] [address] from Last 3 Months or Most Recently Relevant to Health Maintenance Insurance [facility] Care Teams Manager Roofing Relationship Specialty Start Date End Date Stephanie Calderon MD [address] [place] [address] PCP - General 01/24/05
[2024-10-11 15:24] LABS: Appearance Urine Clear; Color Urine Yellow; Glucose Urine UA >=1000 mg/dL (Negative); Leukocyte Esterase Urine Negative (Negative); Nitrite Urine Negative (Negative); PH 5.5 (5.0-9.0); Specific Gravity - Urine 1.015 (1.005-1.025); UMIC TRIGGER UACC YES; Urine Blood Negative (Negative); Urine Ketones Negative (Negative); Urine Protein Negative (Neg-Trace)
[2024-10-11 15:27] LABS: Bacteria Urine None Seen (None Seen); Hyaline Casts Urine 0-2 /LPF (0-2); RBC Urine 0-2 /HPF (0-2); Squamous Epithelial Cell Urine 0-2 /HPF (0-2); WBC Urine 0-5 /HPF (0-5)
[2024-10-11] MEDS: 0.9 % Sodium Chloride 1,000 ML 999 ML IV ×2 (15:27→16:15)
[2024-10-11 15:32] LABS: Amphetamine Screen Urine Not Detected (Not Detect); Barbiturates, Urine Not Detected (Not Detect); Benzodiazepines Screen Urine Not Detected (Not Detect); Buprenorphine Scr Not Detected (Not Detect); Cannabinoid Screen Urine Not Detected (Not Detect); Cocaine Screen Urine Not Detected (Not Detect); Fentanyl, urine POSITIVE (Not Detect); Methadone Screen, Urine Positive (Not Detect); Opiate Screen Urine Not Detected (Not Detect); Oxycodone Screen Urine Not Detected (Not Detect); Phencyclidine Screen Urine Not Detected (Not Detect)
[2024-10-11 15:42] LABS: Reflex Lactate? Lactic Acid Added
[2024-10-11 15:45] LABS: C Reactive Protein 0.17 mg/dL (< or = 0.50)
--- NOTE | 2024-10-11 16:05 | PC.NURSE ---
Spoke to Dr. Mckeon. Holding off on 2nd lactic until more of 1st L is infused, provider is also going to order additional labs.
[2024-10-11] MEDS: Magnesium Sulfate/H2O 2 GM/50 ML PIGGYBACK IV (16:15)
[2024-10-11 16:18] VITALS: BP 99/61; PULSE 53; RESP 15; O2SAT 99
[2024-10-11 17:15] LABS: Glucose, Whole Blood 204 mg/dL (60-115)
[2024-10-11 17:36] LABS: Ammonia 48 umol/L (13-55)
[2024-10-11 17:44] LABS: ~Lactic Acid-LAB USE ONLY 1.8 mmol/L (0.5-2.0)
--- NOTE | 2024-10-11 18:12 | PC.NURSE ---
Spoke to [place] nurse from [facility], all questions answered, patient to be transferred back to [facility] once transport is available.
[2024-10-11 19:32] VITALS: BP 145/92; PULSE 87; RESP 16; TEMP 36.6; O2SAT 98
== END 2024-10-11 19:36 ==
PROVIDERS: Emergency Provider Emergency Medicine
DX: E11.65 Type 2 diabetes mellitus with hyperglycemia (principal); R41.0 Disorientation, unspecified; F33.1 Major depressive disorder, recurrent, moderate; R00.1 Bradycardia, unspecified; Z79.4 Long term (current) use of insulin; Z51.81 Encounter for therapeutic drug level monitoring; Z03.818 Encounter for observation for suspected exposure to other biological agents ruled out; Z79.899 Other long term (current) drug therapy
CPT/HCPCS: 0241U; 36415; 80053; 80307; 81001; 82010; 82140; 82947; 83605; 83735; 84484; 85025; 86140; 93005; 96361; 96374; 99285; J3475

== ENCOUNTER 2024-10-18 13:14 | Inpatient (IN) | payer MEDICAID, SELFPAY ==
--- NOTE | ~2024-10-18 | CT_ITS ---
CLINICAL HISTORY: abdominal pain CT abdomen and pelvis without contrast Comparison: None Findings: The lung bases are clear. Spleen is enlarged measuring 19 cm in length. The liver is diffusely lobulated in contour consistent with cirrhosis. There are stones in the gallbladder. Unenhanced pancreas, adrenal glands and kidneys are unremarkable. No hydronephrosis. There is a 2 mm nonobstructing left renal stone. No ureteral stone seen. No bowel obstruction, pneumoperitoneum, or pneumatosis. Large volume of stool within the colon. Small fat containing umbilical hernia. Normal appendix. There is a coarse mm calcification within the right ovary. Ovaries are normal in size. Uterus is unremarkable. Bladder is decompressed. There is an old anterior compression fracture of L3 and L1. No acute fracture deformity. No lytic or blastic bone lesions. IMPRESSION: No acute findings. Large volume of fecal loading in the colon. Cirrhosis with splenomegaly. Cholelithiasis. This document has been electronically signed by: José Concepcion MD on 10/20/2024 00:17:44
[2024-10-18 13:33] VITALS: BMI 24.6
[2024-10-18 13:34] VITALS: BP 102/60; BP 102/72; PULSE 78; PULSE 80; RESP 16; TEMP 36; O2SAT 100
--- NOTE | 2024-10-18 13:38 | ED.GENADULT ---
HPI - General Adult General Chief complaint: General Medical Stated complaint: SEC 21,HIGH BS 481,FROM [facility] PER EMS Time Seen by Provider: 10/18/24 13:38 Source: patient and EMS Mode of arrival: EMS Limitations: no limitations History of Present Illness ED Provider: Lexi Glass PA-C HPI narrative: Patient is a 38 year old assigned female at with a history of DM, depression, hepatitis C, cirrhosis, and opiate abuse / use, presenting to the emergency department today with persistent elevated blood sugar. Patient states that she is currently hospitalized at [facility] for depression and she continues to have elevated blood sugar there. Patient states that she is from the [facility] and intends to go back there when her hospitalization at [facility] is over with. Patient states that [facility] has adjusted her insulin multiple times but she continues to have a high blood sugar. Patient states that the sugar-less version of lactulose has been ordered by [facility] but has not yet arrived and she is on lactulose 3 times a day. Patient denies any dizziness, lightheadedness, abdominal pain, nausea, vomiting, fever, chills, blurry vision, double vision, loss of vision, chest pain, difficulty breathing, shortness of breath, back pain, night sweats, pain with urination, increased urinary frequency, increased urinary urgency, blood in her urine or stool, syncope or a near syncopal episode, recent trauma or falls, bowel incontinence, bladder incontinence, or any other complaints at this time. Relieving factors: none Exacerbating factors: none Associated symptoms: denies other symptoms Treatments prior to arrival: none Related Data Home Medications ?Medication ?Instructions ?Recorded ?Confirmed clonidine HCl 0.2 mg tablet 0.2 mg PO TID anxiety 10/18/24 docusate sodium 100 mg capsule 100 mg PO BID constipation 10/18/24 furosemide 40 mg tablet 40 mg PO DAILY edema 10/18/24 gabapentin 800 mg tablet 800 mg PO TID depressive disorder 10/18/24 glipizide 5 mg tablet 5 mg PO DAILY 10/18/24 insulin glargine 100 unit/mL (3 10 unit subcut BEDTIME 10/18/24 mL) subcutaneous pen (Lantus Solostar U-100 Insulin) insulin lispro 100 unit/mL 15 unit subcut TID 10/18/24 subcutaneous solution lactulose 10 gram/15 mL oral 30 ml PO TID 10/18/24 solution lorazepam 1 mg tablet 1 mg PO Q8H PRN anxiety attack 10/18/24 metformin 500 mg tablet 1,500 mg PO BID 10/18/24 rifaximin 550 mg tablet (Xifaxan) 550 mg PO BID 10/18/24 spironolactone 50 mg tablet 50 mg PO DAILY 10/18/24 Allergies Allergy/AdvReac Type Severity Reaction Status Date / Time No Known Allergies Allergy Verified 10/18/24 15:02 Review of Systems Constitutional: Constitutional: Reports no additional constitutional complaints, Denies chills, Denies fever(s) and Denies night sweats Eyes: Eyes: Reports no additional eye complaints, Denies blurry vision, Denies change in vision, Denies diplopia, Denies eye discharge, Denies loss of vision and Denies eye pain ENT: Denies dizziness Cardiovascular: Cardiovascular: Reports no additional cardiovascular complaints, Denies chest pain, Denies lightheadedness, Denies Loss of Consciousness and Denies dyspnea Respiratory: Respiratory: Reports no additional respiratory complaints and Denies dyspnea Gastrointestinal: Gastrointestinal: Reports no additional gastrointestinal complaints, Denies abdominal pain, Denies melena, Denies hematochezia, Denies change in bowel habits and Denies change in stool character Genitourinary: Genitourinary: Denies hematuria, Denies urinary frequency, Denies dysuria, Denies urinary incontinence, Denies urinary hesitancy and Denies urinary urgency Musculoskeletal: Musculoskeletal: Reports no additional musculoskeletal complaints, Denies numbness and Denies tingling Neurologic: Denies dizziness, Denies loss of vision, Denies numbness and Denies tingling Psychiatric: Psychiatric: Reports no additional psychiatric complaints Endocrine: Endocrine: Reports no additional endocrine complaints Hematologic/Lymphatic: Hematologic/Lymphatic: Reports no additional hematologic/lymphatic complaints Allergic/Immunologic: Allergic/Immunologic: Reports no additional allergic/immunologic complaints PMFSH Past Medical History Attestation statement: The following information was validated with the patient. Source: old records reviewed and nursing notes reviewed Social History Social History Substance Use Type: Crack/Cocaine and Heroin Advance Directives: No Advance Directives Information Provided: Yes Physical Exam ED Vital Signs: Vital Signs - 24 hr 10/18/24 13:34 10/18/24 15:01 Temperature 96.8 F Pulse Rate 78 71 Respiratory Rate 16 18 Blood Pressure 102/60 102/60 Pulse Oximetry 100 98 Oxygen Delivery Method Room Air Room Air BMI result Body Mass Index 24.6 Const General: cooperative, no acute distress, alert and awake Nutritional Appearance: well nourished Orientation/consciousness: patient oriented x3 Limitations: no limitations HENMT Head: Yes normal to inspection and Yes atraumatic Ears: hearing grossly normal bilaterally and external ears normal General nose exam: Normal external nose present, no nasal discharge noted and no epistaxis Face and sinus: Yes normal facial exam, No abrasion and No laceration Mouth: Normal oral and palatal mucosa present, no drooling and no muffled voice Eyes General: appearance normal, both eyes and all related structures Periorbital: periorbital findings normal Eyelids: Yes eyelids normal Conjunctivae: conjunctivae normal Pupils: Equal, round and reactive pupils present EOM: EOMs intact bilaterally Neck Neck: Yes normal visual inspection, Yes full ROM and Yes no lymphadenopathy Chest Chest palpation & inspection: normal inspection of the chest Resp Effort & Inspection: normal respiratory effort and able to speak in complete sentences GI Inspection: Yes normal to inspection Neuro General: patient oriented x3, moves all extremities and CN's II-XI intact bilaterally Cranial nerves: Yes Equal, round and reactive pupils present Cognition (Neuro): normal cognition Extrem General: Yes normal to inspection, Yes full ROM and Yes capillary refill normal Psych Appearance: grossly normal Mental Status: mental status grossly normal Affect: normal affect Attitude: cooperative Thought process: Normal thought process present Thought content: Normal thought content present Insight: Good insight present (Psych) Medications Administered Generic Name Dose Route Start Last Admin Trade Name Freq PRN Reason Stop Dose Admin Sodium Chloride 3 ml 10/18/24 16:00 10/18/24 17:11 0.9 % Sodium Chloride Flush 3 Ml Syringe IVFLUSH Not Given QSHIFT ESTHER Discontinued Medications Generic Name Dose Route Start Last Admin Trade Name Freq PRN Reason Stop Dose Admin Sodium Chloride 1,000 mls @ 999 mls/hr 10/18/24 14:45 10/18/24 16:57 Ns IV 10/18/24 15:45 999 mls/hr .Q1H1M ESTHER Administration Magnesium Sulfate 2 gm in 50 mls @ 25 mls/hr 10/18/24 14:37 10/18/24 16:55 Magnesium Sulfate/H2o IV 10/18/24 16:36 25 mls/hr ONCE ONE Administration Lorazepam 0.5 mg 10/18/24 14:21 10/18/24 14:48 Lorazepam 0.5 Mg Tablet PO 10/18/24 14:22 0.5 mg ONCE ONE Administration Medical Decision Making Medical Decision Making [facility] Narrative: Patient is a 38 year old assigned female at with a history of DM, depression, hepatitis C, cirrhosis, and opiate abuse / use, presenting to the emergency department today with persistent elevated blood sugar. Patient's physical exam was unremarkable. Patient's blood work showed an elevated glucose of 380, lactic acid of 3.2, magnesium of 1.5, AST 145, ALT 139, alk phos 379, ammonia 61, and albumin of 3.2. Patient's clinical presentation is not consistent with sepsis (@1500). I consulted with my attending physicians, Dr. Olsen and Dr. Kwong who recommended medical admission for stabilization of the patient's electrolytes and DM management. I spoke to the hospitalist team who verbalized agreement and acceptance of admission. Patient given IV fluids and magnesium. I explained my physical exam findings as well as all test results to the patient. I answered all questions asked by the patient. Patient verbalized agreement and understanding with this treatment plan and admission. Differential Diagnosis Differential Diagnoses: The differential diagnosis associated with the presentation includes Hypomagnesemia DKA Poorly controlled diabetes Acute on chronic liver disease Admission/Observation Consideration of admission/observation: Escalation of care including admission/observation considered Patient admitted as noted in the MDM Rationale portion of this note. Consult Healthcare Provider Management of the patient was discussed with: Hospitalist (agreed to admission as noted in the MDM Rationale portion of this note.) and Weather Teacher (consulted with 2 ED attending physician's as noted in the MDM Rationale portion of this note. ) Lab Data [facility] Lab Attestation statement: I reviewed the patient's lab results. My interpretation of these results are in the MDM Rationale portion of this note. 10/18/24 13:56 10/18/24 13:56 Labs: Lab Results 10/18/24 Range/Units 13:56 WBC 3.4 L (4.8-10.8) X10*3/uL RBC 4.80 (4.20-5.50) X10*6/uL Hgb 12.6 (12.0-16.0) g/dl Hct 39.3 (37.0-47.0) % MCV 81.9 (80.0-98.0) fL MCH 26.3 L (27.0-33.0) pg MCHC 32.1 (31.0-35.0) g/dl RDW 15.4 (11.0-16.0) % Plt Count 73 L (160-400) X10*3/uL MPV Not Reportable Immature Gran % (Auto) 0.3 (0.0-0.4) % Neut % (Auto) 38.2 L (45-73) % Lymph % (Auto) 44.1 H (20-40) % [place] % (Auto) 15.0 H (2-11) % Eos % (Auto) 1.5 (0-4) % Baso % (Auto) 0.9 (0-2) % Lymph # (Auto) 1.5 (1.2-4.9) X10*3/uL [place] # (Auto) 0.5 (0.1-1.2) X10*3/uL Eos # (Auto) 0.1 (0.0-0.4) X10*3/uL Baso # (Auto) 0.0 (0.0-0.2) X10*3/uL Abs Immat Gran (auto) 0.01 (0.00-0.03) X10*3/uL Absolute Neuts (auto) 1.3 L (2.0-8.3) x10*3/uL Absolute Nucleated RBC 0.000 (0.0-0.012) X10*3/uL Nucleated RBC % (auto) 0.0 (0.0-0.2) /100WBC Smear Tech's Comments VERIFIED Sodium 131 L (135-145) mmol/L Potassium 4.3 (3.3-5.1) mmol/L Chloride 100 (96-108) mmol/L Carbon Dioxide 24 (22-29) mmol/L Anion Gap 11 L (12-20) BUN 11 (9-16) mg/dL Creatinine 0.82 (0.5-1.4) mg/dL Estim Creat Clear Calc 81.5 Estimated GFR > 60 Random Glucose 380 H* (60-115) mg/dL Estimat Average Glucose 289 mg/dL Hemoglobin A1c % 11.7 H (<6.0) % Lactic Acid 3.2 H* (0.5-2.0) mmol/L Calcium 9.1 (8.4-10.2) mg/dL Magnesium 1.5 L (1.6-2.6) mg/dL Total Bilirubin 0.9 (0.0-1.0) mg/dL AST 145 H (5-31) U/L ALT 139 H (0-31) U/L Alkaline Phosphatase 379 H (39-117) U/L Ammonia 61 H (13-55) umol/L Total Creatine Kinase 57 (26-140) U/L Total Protein 7.8 (6.5-8.0) g/dL Albumin 3.2 L (3.5-5.0) g/dL Beta-Hydroxybutyrate 0.16 (0.02-0.27) mmol/L Influenza Type A (PCR) NEGATIVE (Negative) Influenza Type B (PCR) NEGATIVE (Negative) RSV RNA Qual (PCR) NEGATIVE (Negative) SARS-CoV-2 RNA (RT-PCR) NEGATIVE (Negative) Independent Historian Clinical information obtained from an independent historian. History obtained from or confirmed by: EMS (EMS provided additional history and confirmed the history provided by the patient.) and Other ([facility] staff provided additional history and confirmed the history provided by the patient.) Chronic Conditions Patient?s care impacted by: Diabetes Critical Care Time Critical Care Time Critical Care Time: Yes Total Critical Care Time: 44 Attestation: I spent 44 minutes of Critical Care Time with this patient. This does not include time spent on separately reported billable procedures. Discharge Plan Discharge Clinical Impression: Uncontrolled diabetes mellitus with hyperglycemia, Hypomagnesemia, Increased ammonia level Patient Disposition: Admitted As Inpatient
[2024-10-18 14:10] LABS: Basophils Percent Auto 0.9 % (0-2); Eosinophils Absolute Auto 0.1 X10*3/uL (0.0-0.4); Eosinophils Percent Auto 1.5 % (0-4); Hematocrit 39.3 % (37.0-47.0); Hemoglobin 12.6 g/dl (12.0-16.0); Imm Gran Abs Auto 0.01 X10*3/uL (0.00-0.03); Imm Gran Pct Auto 0.3 % (0.0-0.4); Lymphocytes Absolute Auto 1.5 X10*3/uL (1.2-4.9); Lymphocytes Percent Auto 44.1 % (20-40); MANUAL DIFF FLAG SCAN; Mean Corpuscular HGB Conc 32.1 g/dl (31.0-35.0); Mean Corpuscular Hemoglobin 26.3 pg (27.0-33.0); Mean Corpuscular Volume 81.9 fL (80.0-98.0); Monocytes Absolute Auto 0.5 X10*3/uL (0.1-1.2); Neutrophils Absolute Auto 1.3 x10*3/uL (2.0-8.3); Neutrophils Percent Auto 38.2 % (45-73); PLT CLUMP 1; Red Cell Distribution Width 15.4 % (11.0-16.0); SCAN SMEAR FLAG 1
[2024-10-18 14:14] LABS: White Blood Count 3.4 X10*3/uL (4.8-10.8)
[2024-10-18 14:17] LABS: Anion Gap 11 (12-20)
[2024-10-18 14:21] LABS: Ammonia 61 umol/L (13-55)
[2024-10-18 14:36] LABS: Alanine Aminotransferase 139 U/L (0-31); Albumin Level 3.2 g/dL (3.5-5.0); Alkaline Phosphatase 379 U/L (39-117); Aspartate Amino Transferase 145 U/L (5-31); Beta-Hydroxybutyrate 0.16 mmol/L (0.02-0.27); Bilirubin Total 0.9 mg/dL (0.0-1.0); Blood Urea Nitrogen 11 mg/dL (9-16); Calcium 9.1 mg/dL (8.4-10.2); Carbon Dioxide 24 mmol/L (22-29); Chloride 100 mmol/L (96-108); Creatinine Clr Calc Pharmacy 81.5; Estimated Glomerular Filt Rate > 60; Glucose Random 380 mg/dL (60-115); Lactic Acid 3.2 mmol/L (0.5-2.0); Magnesium 1.5 mg/dL (1.6-2.6); Potassium 4.3 mmol/L (3.3-5.1); Sodium 131 mmol/L (135-145); Total Protein 7.8 g/dL (6.5-8.0)
[2024-10-18 14:38] LABS: Platelet Count 73 X10*3/uL (160-400); SLIDE REVIEW VERIFIED
[2024-10-18] MEDS: LORazepam 0.5 MG TABLET PO (14:48)
[2024-10-18 15:01] VITALS: BP 102/60; PULSE 71; RESP 18; O2SAT 98; BMI 24.6
[2024-10-18 15:04] LABS: Influenza A PCR NEGATIVE (Negative); Influenza B PCR NEGATIVE (Negative); Resp Syncy Virus RNA Qual PCR NEGATIVE (Negative); SARS COV2 PCR INHOUSE NEGATIVE (Negative)
--- NOTE | 2024-10-18 15:39 | PM.IMHP ---
History of Present Illness Date of Service: 10/18/24 Chief Complaint: hyperglycemia The patient is a 38-year-old female with a past medical history of cirrhosis, polysubstance abuse with crack cocaine/heroin, diabetes mellitus on insulin, depression/anxiety/PTSD who is currently a patient at [facility] and was sent to [facility] ED for reported hyperglycemia. The patient was seen in our emergency room for hyperglycemia about 1 week ago. Patient is seen and examined in [facility] around 15:30. She reports symptoms including polydipsia and polyuria. She reports being diagnosed with diabetes about 4 years ago. She states that up until the recent past (last several months) she was being treated with metformin alone. However she reports that she is been hospitalized for multiple issues relating to mental health over the last several months and has since been started on insulin as well. Furthermore she reports also being diagnosed with cirrhosis around the same time. She states that she is currently on lactulose. In the emergency room the patient underwent basic lab work which showed sugars over 350. No evidence of DKA. Magnesium 1.5. LFTs about her baseline from last week. She is been given IV Mag, Ativan for anxiety and 1 L of fluids. She will now be admitted for hyperglycemia. Review of Systems Review of Systems: Negative except HPI/interval history. [facility] Social History Substance Use Type: Crack/Cocaine and Heroin Advance Directives: No Advance Directives Information Provided: Yes Meds Allergies Allergy/AdvReac Type Severity Reaction Status Date / Time No Known Allergies Allergy Verified 10/18/24 15:02 Active Medications: Current Medications Acetaminophen (Acetaminophen 325 Mg Tablet) 650 mg PO Q6H PRN PRN Reason: Pain, Mild 1-3,fever,headache Calcium Carbonate (Calcium Carbonate 750 Mg Tab.Chew) 750 mg PO Q4H PRN PRN Reason: Heartburn Sodium Chloride (Ns) 1,000 mls @ 999 mls/hr IV .Q1H1M ESTHER Stop: 10/18/24 15:45 Magnesium Sulfate (Magnesium Sulfate/H2o) 2 gm in 50 mls @ 25 mls/hr IV ONCE ONE Stop: 10/18/24 16:36 Insulin Human Lispro (Insulin Lispro 100 Unit/Ml 3 Ml Vial) 0 unit SUBCUT QIDACHS ETSHER; Protocol Magnesium Hydroxide (Milk Of Magnesia 30 Ml Oral.Susp) 30 ml PO DAILY PRN PRN Reason: Constipation Melatonin (Melatonin 3 Mg Tablet) 6 mg PO BEDTIME PRN PRN Reason: Insomnia Sodium Chloride (0.9 % Sodium Chloride Flush 3 Ml Syringe) 3 ml IVFLUSH QSHIFT [facility] Home Medications ?Medication ?Instructions ?Recorded ?Confirmed ?Last Taken ?Type clonidine HCl 0.2 mg tablet 0.2 mg PO TID anxiety 10/18/24 Unknown History docusate sodium 100 mg capsule 100 mg PO BID constipation 10/18/24 Unknown History furosemide 40 mg tablet 40 mg PO DAILY edema 10/18/24 Unknown History gabapentin 800 mg tablet 800 mg PO TID depressive disorder 10/18/24 Unknown History glipizide 5 mg tablet 5 mg PO DAILY 10/18/24 Unknown History insulin glargine 100 unit/mL (3 10 unit subcut BEDTIME 10/18/24 Unknown History mL) subcutaneous pen (Lantus Solostar U-100 Insulin) insulin lispro 100 unit/mL 15 unit subcut TID 10/18/24 Unknown History subcutaneous solution lactulose 10 gram/15 mL oral 30 ml PO TID 10/18/24 Unknown History solution lorazepam 1 mg tablet 1 mg PO Q8H PRN anxiety attack 10/18/24 Unknown History metformin 500 mg tablet 1,500 mg PO BID 10/18/24 Unknown History rifaximin 550 mg tablet (Xifaxan) 550 mg PO BID 10/18/24 Unknown History spironolactone 50 mg tablet 50 mg PO DAILY 10/18/24 Unknown History Physical Exam Vital Signs and Narrative: Vital Signs: Last Vital Signs Temp 96.8 F 10/18/24 13:34 Pulse 71 10/18/24 15:01 Resp 18 10/18/24 15:01 BP 102/60 10/18/24 15:01 Pulse Ox 98 10/18/24 15:01 O2 Del Method Room Air 10/18/24 15:01 BMI result Body Mass Index 24.6 Const: Other: Constitutional - Awake and Alert, No apparent distress Eyes - PERRLA, EOMI Cardiovascular - S1S2, RRR, No edema Respiratory - Normal lung expansion, Normal respiratory effort, No respiratory distress, CTA bilaterally Gastrointestinal - NT / ND; +BS; No rebound or guarding - No CVA tenderness Extremities - no calf tenderness bilaterally, no swelling Musculoskeletal - Normal inspection, normal ROM Skin - Warm/Dry Neurological - Alert & oriented x3, No focal deficit; no asterixis Psychological - Appropriate affect Results Labs 10/18/24 13:56 10/18/24 13:56 Labs: Laboratory Results - last 24 hr 10/18/24 13:56 MCV 81.9 MCH 26.3 L MCHC 32.1 RDW 15.4 Plt Count 73 L MPV Not Reportable Immature Gran % (Auto) 0.3 Neut % (Auto) 38.2 L Lymph % (Auto) 44.1 H [place] % (Auto) 15.0 H Eos % (Auto) 1.5 Baso % (Auto) 0.9 Lymph # (Auto) 1.5 [place] # (Auto) 0.5 Eos # (Auto) 0.1 Baso # (Auto) 0.0 Abs Immat Gran (auto) 0.01 Absolute Neuts (auto) 1.3 L Absolute Nucleated RBC 0.000 Nucleated RBC % (auto) 0.0 Smear Tech's Comments VERIFIED Anion Gap 11 L Estim Creat Clear Calc 81.5 Estimated GFR > 60 Random Glucose 380 H* Lactic Acid 3.2 H* Calcium 9.1 Magnesium 1.5 L Total Bilirubin 0.9 AST 145 H ALT 139 H Alkaline Phosphatase 379 H Ammonia 61 H Total Creatine Kinase 57 Total Protein 7.8 Albumin 3.2 L Beta-Hydroxybutyrate 0.16 Influenza Type A (PCR) NEGATIVE Influenza Type B (PCR) NEGATIVE RSV RNA Qual (PCR) NEGATIVE SARS-CoV-2 RNA (RT-PCR) NEGATIVE Assessment and Plan (1) Uncontrolled diabetes mellitus with hyperglycemia: Status: Acute Plan 38-year-old female who is currently a patient at [facility] and has been sent to our ER for hypoglycemia. He will be admitted for glycemic control. 1. Hyperglycemia due to uncontrolled diabetes mellitus Appears to be on orals plus insulin - await med rec completion We will check A1c Given 1 L fluids, we will hold off further fluids given her known cirrhosis Start sliding scale and home meds as needed 2. Cirrhosis Underlying cause unknown Should follow up outpatient Continue her baseline meds including lactulose 3. Depression/anxiety/PTSD Continue her baseline meds that she is on Merrem visit 4. Mild hypo mg Repleted IV Check tomorrow 5. Elevated lactate Likely due to underlying liver disease/metformin No foci of infection, not due to severe sepsis Full code DVT prophylaxis, mechanical due to thrombocytopenia Patient's med rec is pending, we will continue home meds once done Quality Stroke Does the patient have a stroke diagnosis?: No VTE Prior VTE?: No VTE Risk Level:: Medical - moderate - high VTE Device Contraindication: N/A - Device Ordered VTE Drug Contraindication: Treatment Not Indicated
[2024-10-18 15:57] LABS: Estimated Average Glucose 289 mg/dL; Hemoglobin A1C 345.5198 umol/L; Hemoglobin A1c % 11.7 % (<6.0); Total Hemoglobin (HGBA1C) 3293.3306 umol/L
[2024-10-18 16:03] LABS: Reflex Lactate? Lactic Acid Added
--- OUTSIDE RECORDS SUMMARY | 2024-10-18 16:13 | XMS_ITS | Clinical Summary ---
Author Organization [facility] Address [address] [place] [address] Care Team Providers Care Reference And Instruction Librarian Name Role Phone Stephanie Calderon MD Primary [...] 03/16 Last Psych ([facility] [phone]. Rosanna Andrade, [facility]). Current: looking for new psych. Has counselor- group and individual at [facility] Last Assessment & Plan: Current: looking for new psych. Has counselor- group and individual at [facility] Opioid use disorder, severe, on maintenance ther apy Resolved Problems Problem Noted Date Diagnosed Date Resolved Date Suicidal ideation 04/05/2020 07/09/2024 Prediabetes 03/08/2015 06/30/2024 Overview (11/04/2023): Overview: New 02/20 a1c 6.0 Diet/exericse, nutrition MDD (major depressive disord er), recurrent episode, moderate 04/25/2020 Encounters Date Type Department Care Team Description 10/08/2024 9:09 PM EST - 10/10/2024 10:26 AM EST Emergency [address] [address] Phil Yañez MD Tauscher, Stephanie, MD Loonis, Manon, MD Gray, Julie M, MD Goldstein, Alex, MD Depression with suicidal ideation; Opioid abuse (HCC); Polysubstance abuse (HCC); Hyperglycemia Discharge Disposition: Psych Adm to Other Inp Psy Fac 08/27/2024 Brief Note [facility] [address] [place] [address] 2nd Floor - [phone] [place] [address] Charisse Uriostegui LCSW 08/17/2024 Plan of Care Documentation [id number] [place] [address] 08/06/2024 Plan of Care Documentation [facility] [address] [place] [address] 07/30/2024 Plan of Care Documentation [facility] [address] [place] [address] 07/23/2024 Plan of Care Documentation [facility] [address] [place] [address] 07/22/2024 9:50 PM EST - 08/22/2024 3:00 PM EST Hospital Encounter [facility] [address] [place] [address] Faby Farias MD Fears, Fayola, MD Other [...] EST - 07/22/2024 9:24 PM EST Emergency [address] [address] Shauna Galeas MD Allegra, Stephen J, MD Nadler, Jonathan A, MD Viral syndrome; Depression, unspecified depression type; Suicidal ideations Discharge Disposition: Psych Admit-[facility] 07/21/2024 Travel from Last 3 Months Immunizations Name Administration [...] PM EST HC GLUCOSE (POC) Routine 08/21/2024 5:3 0 PM EST HC GLUCOSE (POC) Routine [...] PM EST HC GLUCOSE (POC) Routine 08/17/2024 4:4 3 PM EST HC GLUCOSE (POC) Routine 08/17/2024 [...] AM EST HC GLUCOSE (POC) Routine 08/14/2024 6:3 7 AM EST HC GLUCOSE (POC) Routine 08/13/2024 [...] PM EST HC GLUCOSE (POC) Routine 08/10/2024 6:2 9 AM EST HC GLUCOSE (POC) Routine 08/09/2024 [...] AM EST HC GLUCOSE (POC) Routine 08/06/2024 8:1 5 PM EST HC GLUCOSE (POC) Routine 08/06/2024 [...] (POC) Routine 07/22/2024 12:4 2 AM EST from Last 3 Months Results * (ABNORMAL) Fingerstick Blood Sugar (Point of Care) (10/10/2024 7:40 AM EST) Only the most recent of143 resultswithin the time period is included. FINGERSTICK [...] EST Forest Blue MD LABORATORY Final Result Performing Organization Address City/[facility]/ZIP Co de Phone Number POINT OF CARE TESTING [address] [place] [address], * Serum Drug Screen (10/08/2024 9:41 PM EST) Only the most recent of2 resultswithin the time period is included. SALICYLATE < 0.5 3.0 - 20.0 mg/dL [facility] ACETAMINOPHEN < 5 10 - 30 ug/mL [facility] ETHANOL < 10 0 - 10 mg/dL [facility] BLOOD SPECIMEN / Unknown 10/08/2024 9:41 PM EST 10/08/2024 9:58 PM EST Narrative [facility] - 10/08/2024 10:44 PM EST Confirmation of receipt of critical GLUC of 521 obtained from RENY TRAN on ER on 10/08/24 at 2243 by [email or web address]. For verbally communicated results, the READBACK procedure was performed by [email or web address]. us Phil Yañez MD LABORATORY Edited Resu lt - Final Performing Organization Address City/[facility]/ZIP Co de Phone Number [facility] [address] [place] [address], [place] * (ABNORMAL) CBC, Platelet & Differential (10/08/2024 9:41 PM EST) Only the most recent of4 resultswithin the time period is included. WHITE BLOOD CELL COUNT 3.8(L) 4.0 - 11.0 TH/uL [facility] RED BLOOD CELL COUNT 4.38 3.90 - 5.20 M/uL [facility] HEMOGLOBIN 11.5 11.2 - 15.7 g/dL [facility] HEMATOCRIT 35.5 34.1 - 44.9 % [facility] MEAN CORPUSCULAR VOL 81.1 80.0 - 100.0 fl [facility] MEAN CORPUSCULAR HGB 26.3 26.0 - 34.0 pg [facility] MEAN VANESA HGB CONC 32.4 31.0 - 37.0 g/dL [facility] RBC DISTRIBUTION WIDTH STD DEV 48.1(H) 35.1 - 46.3 fL [facility] PLATELET COUNT 76(L) 150 - 400 TH/uL [facility] MEAN PLATELET VOLUME 11.6 8.7 - 12.5 fL [facility] IMMATURE PLATELET FRACTION % 7.1(H) 1.0 - 7.0 % [facility] IMMATURE PLATELET FRACTION ABS 5.4 TH/uL [facility] NEUTROPHIL % 46.7 40.0 - 75.0 % [facility] IMMATURE GRANULOCYTE % 0.3 0.0 - 1.0 % [facility] Comment: The immature granulocyte fraction includes metamyelocytes, [...] LYMPHOCYTE % 38.7 15.0 - 54.0 % [facility] MONOCYTE % 10.3 4.0 - 13.0 % [facility] EOSINOPHIL % 3.2 0.0 - 7.0 % [facility] BASOPHIL % 0.8 0.0 - 1.2 % [facility] NRBC % 0.0 0.0 - 0.0 % [facility] ABSOLUTE NEUTROPHIL COUNT 1.8 1.6 - 8.3 TH/uL [facility] ABSOLUTE IMM GRAN COUNT 0.01 0.00 - 0.10 TH/uL [facility] ABSOLUTE LYMPH COUNT 1.5 0.6 - 5.9 TH/uL [facility] ABSOLUTE MONO COUNT 0.4 0.2 - 1.4 TH/uL [facility] ABSOLUTE EOSINOPHIL COUNT 0.1 0.0 - 0.8 TH/uL [facility] ABSOLUTE BASO COUNT 0.0 0.0 - 0.1 TH/uL [facility] ABSOLUTE NRBC COUNT 0.0 0.0 - 0.0 TH/uL [facility] PLATELET ESTIMATE DECREASE D(A) [facility] BLOOD SPECIMEN / Unknown 10/08/2024 9:41 PM EST 10/08/2024 9:58 PM EST us Phil Yañez MD LABORATORY Final Resul t [facility] [address] [place] [address], * (ABNORMAL) Basic Metabolic Panel (10/08/2024 9:41 PM EST) Only the most recent of4 resultswithin the time period is included. SODIUM 137 136 - 145 mmol/L [facility] POTASSIUM 4.1 3.5 - 5.1 mmol/L [facility] CHLORIDE 97(L) 98 - 107 mmol/L [facility] CARBON DIOXIDE 25 21 - 32 mmol/L [facility] ANION GAP 15 10 - 22 mmol/L [facility] CALCIUM 9.6 8.5 - 10.5 mg/dL [facility] Glucose Random 521(HH) 74 - 160 mg/dL [facility] Comment:RESULT CONFIRMED BY REPEAT ANALYSIS BUN (UREA NITROGEN) 12 7 - 18 mg/dL [facility] CREATININE 0.7 0.4 - 1.2 mg/dL [facility] ESTIMATED GLOMERULAR FILT RATE > 60 >60 ML/MIN [facility] Comment: On May 31, 2021 the NKF-ASN Task Force recommended the adoption of the new eGFR 2020 CKD EPI creatinine equation that estimates kidney function without a race variable. NKF and ASN recommend diagnosing kidney disease using a blood test for creatinine to estimate GFR and a urine test for albumin to calculate albumin to creatinine ratio (uACR). For more information please see https://www.kidney.org/news/wer-oru-fqj-jaoagbv-ekm-igo-to-d agwhheq-tdyrvf-ldcpgtwp. BLOOD SPECIMEN / Unknown 10/08/2024 9:41 PM EST 10/08/2024 9:58 PM EST Narrative [facility] - 10/08/2024 10:44 PM EST Confirmation of receipt of critical GLUC of 521 obtained from RENY TRAN on ER on 10/08/24 at 2243 by [email or web address]. For verbally communicated results, the READBACK procedure was performed by [email or web address]. us Phil Yañez MD LABORATORY Edited Resu lt - Final [facility] [address] [place] [address], [place] * US Abdomen w Duplex (08/06/2024 [...] COMPARISON: CT chest 07/23/2024, MRCP 07/09/2024, abdominal [id number]/29/2024 TECHNIQUE: Abdominal ultrasound was performed with a [...] Signed Date and Time: 08/06/2024 8:27 AM Ponce Rios MD [facility] US ORDERABLES Edited Result - Final * (ABNORMAL) Hepatic Function Panel (08/05/2024 7:00 AM EST) Only the most recent of2 resultswithin the time period is included. TOTAL PROTEIN 6.8 6.4 - 8.2 g/dL [facility] ALBUMIN 3.2(L) 3.4 - 5.2 g/dL [facility] BILIRUBIN TOTAL 0.8 0.2 - 1.0 mg/dL [facility] BILIRUBIN DIRECT 0.6(H) 0.0 - 0.2 mg/dL [facility] INDIRECT BILIRUBIN 0.2 0.2 - 0.9 mg/dL [facility] ALKALINE PHOSPHATASE 430(H) 45 - 117 U/L [facility] ASPARTATE AMINOTRANSFERASE 236(H) 8 - 34 U/L [facility] ALANINE AMINOTRANSFERASE 165(H) 12 - 45 U/L [facility] 08/05/2024 7:00 AM EST 08/05/2024 8:13 AM EST Ponce Rios MD LABORATORY Final Result [facility] [address] [place] [address], [place] * (ABNORMAL) CBC with Platelet (08/05/2024 7:00 AM EST) WHITE BLOOD CELL COUNT 4.3 4.0 - 11.0 TH/uL [facility] RED BLOOD CELL COUNT 4.12 3.90 - 5.20 M/uL [facility] HEMOGLOBIN 11.5 11.2 - 15.7 g/dL [facility] HEMATOCRIT 36.5 34.1 - 44.9 % [facility] MEAN CORPUSCULAR VOL 88.6 80.0 - 100.0 fl [facility] MEAN CORPUSCULAR HGB 27.9 26.0 - 34.0 pg [facility] MEAN VANESA HGB CONC 31.5 31.0 - 37.0 g/dL [facility] RBC DISTRIBUTION WIDTH STD DEV 45.2 35.1 - 46.3 fL [facility] PLATELET COUNT 127(L) 150 - 400 TH/uL [facility] MEAN PLATELET VOLUME 12.3 8.7 - 12.5 fL [facility] NRBC % 0.0 0.0 - 0.0 % [facility] ABSOLUTE NRBC COUNT 0.0 0.0 - 0.0 TH/uL [facility] 08/05/2024 7:00 AM EST 08/05/2024 8:14 AM EST Ponce Rios MD LABORATORY Final Result [address] [place] [address], * Urinalysis Rflx to Urine Cult (08/04/2024 2:16 PM EST) BILIRUBIN, URINE Negative Negative [facility] OCCULT BLOOD, URINE Negative Negative [facility] CLARITY, URINE Clear Clear [facility] COLOR, URINE Yellow Yellow [facility] GLUCOSE, URINE Negative Negative mg/dL [facility] KETONE, URINE Negative Negative mg/dL [facility] LEUKOCYTES, URINE Negative Negative [facility] NITRITE, URINE Negative Negative [facility] PH, URINE 5.5 5.0 - 8.0 [facility] PROTEIN, URINE Negative Negative mg/dL [facility] SPECIFIC GRAVITY, URINE 1.016 1.003 - 1.035 [facility] UROBILINOGEN, URINE 1.0 0.2 - 1.0 E.U./dL [facility] MICROSCOPIC REVIEW Not Indicated Not Indicat [facility] Urine VOIDED URINE SPECIMEN / Unknown 08/04/2024 2:16 PM EST 08/04/2024 2:36 PM EST Narrative [facility] - 08/04/2024 2:51 PM EST UCV&Urine, Clean Void us Ponce Rios MD URINE ORDERABLES Final Result [address] [address], [place] * (ABNORMAL) Bilirubin Direct (08/03/2024 4:33 PM EST) BILIRUBIN DIRECT 0.5(H) 0.0 - 0.2 mg/dL [facility] 08/03/2024 4:33 PM EST 08/03/2024 4:59 PM EST Narrative [facility] - 08/03/2024 6:10 PM EST Tests added: DBIL HCG by ALECIA ROSALES on 08/03/24 at 1712 by [email or web address]. us Elvie Villanueva MD LABORATORY Final Result Performing Organization Address [facility] Co de Phone Number [address] [address], [place] * C-Reactive Protein (08/03/2024 4:33 PM EST) C-REACTIVE PROTEIN < 3 0 - 18 mg/L [facility] 08/03/2024 4:33 PM EST 08/03/2024 4:59 PM EST Narrative [facility] - 08/03/2024 6:10 PM EST Tests added: DBIL HCG by ALECIA ROSALES on 08/03/24 at 1712 by [email or web address]. us Elvie Villanueva MD LABORATORY Final Result Performing Organization Address City/[facility] Co de Phone Number [place] [phone], [place] * HCG Qualitative Serum (08/03/2024 4:33 PM EST) HCG QUALITATIVE SERUM NEGATIVE NEGATIVE [facility] 08/03/2024 4:33 PM EST 08/03/2024 4:59 PM EST Narrative [facility] - 08/03/2024 6:10 PM EST Tests added: DBIL HCG by MOR,DON on 08/03/24 at 1712 by [email or web address]. us Elvie Villanueva MD [place] [address], [place] * Lipase (08/03/2024 4:33 PM EST) Only the most recent of2 resultswithin the time period is included. LIPASE 39 13 - 60 U/L [facility] 08/03/2024 4:33 PM EST 08/03/2024 4:59 PM EST Narrative [facility] - 08/03/2024 6:10 PM EST Tests added: DBIL HCG by MOR,DON on 08/03/24 at 1712 by 1. us Elvie Villanueva MD LABORATORY Final Result Performing Organization Address City/[facility]/ZIP Co de Phone Number [place] [phone], [place] * Amylase (08/03/2024 4:33 PM EST) AMYLASE 52 25 - 115 U/L [facility] 08/03/2024 4:33 PM EST 08/03/2024 4:59 PM EST Narrative [facility] - 08/03/2024 6:10 PM EST Tests added: DBIL HCG by MOR,DON on 08/03/24 at 1712 by [email or web address]. us Elvie Villanueva MD LABORATORY Final Result Performing Organization Address City/[facility]/ZIP Co de Phone Number [address] [address], [place] * (ABNORMAL) Comprehensive Metabolic Panel (08/03/2024 4:33 PM EST) SODIUM 132(L) 136 - 145 mmol/L [facility] POTASSIUM 4.9 3.5 - 5.1 mmol/L [facility] CHLORIDE 98 98 - 107 mmol/L [facility] CARBON DIOXIDE 24 21 - 32 mmol/L [facility] ANION GAP 11 10 - 22 mmol/L [facility] CALCIUM 8.9 8.5 - 10.5 mg/dL [facility] Glucose Random 206(H) 74 - 160 mg/dL [facility] BUN (UREA NITROGEN) 17 7 - 18 mg/dL [facility] TOTAL PROTEIN 6.8 6.4 - 8.2 g/dL [facility] ALBUMIN 3.2(L) 3.4 - 5.2 g/dL [facility] BILIRUBIN TOTAL 0.9 0.2 - 1.0 mg/dL [facility] ALKALINE PHOSPHATASE 453(H) 45 - 117 U/L [facility] ASPARTATE AMINOTRANSFERASE 236(H) 8 - 34 U/L [facility] CREATININE 0.5 0.4 - 1.2 mg/dL [facility] ESTIMATED GLOMERULAR FILT RATE > 60 >60 ML/MIN [facility] Comment: On May 31, 2021 the [...] ratio (uACR). For more information please see https://www.kidney.org/news/wnv-neo-otl-nvkyuin-hga-rqu-to-d njmlvds-mnzhrk-wurmlonx. ALANINE AMINOTRANSFERASE 158(H) 12 - 45 U/L [facility] 08/03/2024 4:33 PM EST 08/03/2024 4:59 PM EST Narrative [facility] - 08/03/2024 6:10 PM EST Tests added: DBIL HCG by ALECIA ROSALES on 08/03/24 at 1712 by [email or web address]. Elvie Villanueva MD LABORATORY Final Result [facility] [address] [place] [address], * CT Chest WO Contrast (07/23/2024 2:57 [...] OF CARE TEST ORDERABLES Fi nal Result POINT OF CARE TESTING [address] [place] [address], * (ABNORMAL) POC Urinalysis (07/22/2024 8:59 AM [...] 8:59 AM EST 07/22/2024 9:01 AM EST us Benito Benton MD LABORATORY Final Resul t [facility] TESTING [address] [place] [address], * (ABNORMAL) Urine Drug Screen (07/22/2024 8:52 AM EST) [facility] AMPHETAMINES URINE NEGATIVE CUTOFF 1000 ng/mL [facility] Comment: This screening result can be used for medical purposes only. It has not been confirmed by a second method and must not be used for non-medical purposes (i.e. employment testing, legal testing). ??For the most up-to-date information, including detected drugs and additional testing that can be added on, please refer to the Drug of Abuse Testing Information, available on [employer]. COCAINE METABOLITES URINE POSITIVE(A) CUTOFF 300 ng/mL [facility] Comment: This screening result can be used [...] [employer]. OPIATES URINE NEGATIVE CUTOFF 300 ng/mL [facility] Comment: This screening result can be used [...] [employer]. BENZODIAZEPINES URINE POSITIVE(A) CUTOFF 200 ng/mL [facility] Comment: This screening result can be used [...] [employer]. CANNABINOIDS URINE NEGATIVE CUTOFF 50 ng/mL [facility] Comment: This screening result can be used [...] [employer]. ETHANOL URINE NEGATIVE CUTOFF 10 mg/dL [facility] Comment: This screening result can be used [...] BUPRENORPHINE SCREEN URINE NEGATIVE CUTOFF 10 ng/mL [facility] Comment: This screening result can be used [...] OXYCOD SCRN URINE NEGATIVE CUTOFF 100 ng/mL [facility] Comment: This screening result can be used [...] [employer]. FENTANYL URINE POSITIVE(A) CUTOFF 5 ng/mL [facility] Comment: This screening result can be used [...] [employer]. METHADONE URINE POSITIVE(A) CUTOFF 300 ng/mL [facility] Comment: This screening result can be used [...] SPECIMEN VALIDITY URINE CREAT 136 >20 mg/dL [facility] SPECIMEN VALIDITY URINE PH 6.2 5.0 - 8.5 [facility] SPEC VALIDITY SPECIFIC GRAVITY 1.036(H) 1.003 - 1.035 [facility] Urine URINE SPECIMEN / Unknown 07/22/2024 8:52 AM EST 07/22/2024 9:05 AM EST Narrative [facility] - 07/22/2024 9:25 AM EST URINE&Urine Shauna Galeas MD URINE ORDERABLES Final Result Performing Organization Address [facility]/State/[facility] Co de Phone Number [address] [address], * Blood Cultures x 2 (07/22/2024 4:16 AM EST) AEROBIC BOTTLE, BLOOD CULTURE NO GROWTH AFTER 5 DAYS [facility] ANAEROBIC BTL, BLOOD CULTURE NO GROWTH AFTER 5 DAYS [facility] BLOOD SPECIMEN / Unknown 07/22/2024 4:16 AM EST 07/22/2024 5:53 AM EST Narrative [facility] - 07/27/2024 5:53 AM EST Is the patient currently on antibiotics?->No us Shauna Galeas MD MICROBIOLOGY Final Result [facility] [address] [place] [address], [place] * XR Chest 2 views (07/22/2024 [...] Unremarkable Procedure Note Evelina Vargas MD - 07/22/2024 TECHNIQUE: Chest, 2 views INDICATION: cough, fever [...] by a multiplex nucleic acid PCR method. [facility] JOYNER(229E, HKU1, NL63, OC43) Negative for JOYNER(229E, HKU1, NL63, OC43)virus by a multiplex nucleic acid PCR method. [facility] SARS-COV-2 Negative for SARS-CoV-2 by a multiplex nucleic acid PCR method. [facility] HUMAN METAPNEUMOVIRUS Negative for HUMAN METAPNEUMOVIRUS by a multiplex nucleic acid PCR method. [facility] HUMAN RHINOVIRUS ENTEROVIRUS Positive for HUMAN RHINOVIRUS ENTEROVIRUS by a multiplex nucleic acid PCR method. [facility] HUMAN RHINOVIRUS ENTEROVIRUS HUMAN RHINOVIRUS ENTEROVIRUS(A) [facility] INFLUENZA A Negative for influenza A by a multiplex nucleic acid PCR method. [facility] INFLUENZA A H1 Negative for INFLUENZA A H1 by a multiplex nucleic acid PCR method. [facility] INFLUENZA A H1-2009 Negative for INFLUENZA A H1-2009 by a multiplex nucleic acid PCR method. [facility] INFLUENZA A H3 Negative for INFLUENZA A H3 by a multiplex nucleic acid PCR method. [facility] INFLUENZA B Negative for influenza B by a multiplex nucleic acid PCR method. [facility] PARAINFLUENZA 1 Negative for PARAINFLUENZA 1 by a multiplex nucleic acid PCR method. [facility] PARAINFLUENZA 2 Negative for PARAINFLUENZA 2 by a multiplex nucleic acid PCR method. [facility] PARAINFLUENZA 3 Negative for PARAINFLUENZA 3 by a multiplex nucleic acid PCR method. [facility] PARAINFLUENZA 4 Negative for PARAINFLUENZA 4 by a multiplex nucleic acid PCR method. [facility] RESPIRATORY SYNCYTIAL VIRUS A Negative for RESPIRATORY SYNCYTIAL VIRUS A by a multiplex nucleic acid PCR method. [facility] RESPIRATORY SYNCYTIAL VIRUS B Negative for RESPIRATORY SYNCYTIAL VIRUS B by a multiplex nucleic acid PCR method. [facility] CHLAMYDIA PNEUMONIAE Negative for CHLAMYDIA PNEUMONIAE by a multiplex nucleic acid PCR method. [facility] MYCOPLASMA PNEUMONIAE Negative for MYCOPLASMA PNEUMONIAE by a multiplex nucleic acid PCR method. [facility] TEST METHODOLOGY INFORMATION The E Plex assay for this Extended Respiratory Panel is [...] Authorization (EUA) for use by authorized laboratories. [facility] NASAL STRUCTURE / Unknown 07/22/2024 1:24 AM EST 07/22/2024 1:47 AM EST Narrative [facility] - 07/22/2024 10:04 AM EST Tests added: EXTENDED RESPIRATORY PANEL by SHAUNA GALEAS MD on 07/22/24 at 0528 by [email or web address]. Shauna Galeas MD MICROBIOLOGY COVID PANELS Final Result [facility] [address] [place] [address], * Respiratory Panel Basic Inpat (07/22/2024 1:24 [...] Authorization (EUA) for use by authorized laboratories. [facility] INFLUENZA A Negative for Influenza A by PCR methodology. This test has been authorized by the FDA under an Emergency Use Authorization (EUA) for use by authorized laboratories. [facility] INFLUENZA B Negative for influenza B by PCR methodology. This test has been authorized by the FDA under an Emergency Use Authorization (EUA) for use by authorized laboratories. [facility] RESPIRATORY SYNCYTIAL VIRUS Negative for Respiratory Syncytial Virus by a PCR method. This test has been authorized by the FDA under an Emergency Use Authorization (EUA) for use by authorized laboratories. [facility] Swab NASAL STRUCTURE / Unknown 07/22/2024 1:24 AM EST 07/22/2024 1:47 AM EST Narrative [facility] - 07/22/2024 10:04 AM EST Tests added: EXTENDED RESPIRATORY PANEL by SHAUNA GALEAS MD on 07/22/24 at 0528 by [facility]. Shauna Galeas MD MICROBIOLOGY COVID PANELS Final Result Performing Organization Address [facility] [place] [address], * (ABNORMAL) Lipid Panel (07/22/2024 1:24 AM EST) Cholesterol 131 0 - 239 mg/dL [facility] TRIGLYCERIDES 89 0 - 150 mg/dL [facility] HIGH DENSITY LIPOPROTEIN 36(L) 40 - 60 mg/dL [facility] LOW DENSITY LIPOPROTEIN DIRECT 78 0 - 189 mg/dL [facility] 07/22/2024 1:24 AM EST 07/22/2024 2:10 AM EST Shauna Galeas MD LABORATORY Final Result Performing Organization Address [facility] [place] [address], * (ABNORMAL) Hemoglobin A1c (07/22/2024 1:24 AM EST) HEMOGLOBIN A1C 10.4(H) 4.0 - 5.6 % [facility] Comment: Hemoglobin A1C ? Interpretive information 5.7 [...] AVERAGE GLUCOSE 252(H) 74 - 160 mg/dL [facility] 07/22/2024 1:24 AM EST 07/23/2024 6:13 AM EST Narrative [facility] - 07/23/2024 7:20 AM EST Tests added: LIPID,A1C by FF on 07/23/24 at 0615 by [email or web address]. us Shauna Galeas MD LABORATORY Final Result Performing Organization Address City/State/[facility] Co de Phone Number [facility] [address] [place] [address], [place] from Last 3 Months Insurance [facility] Advance Directives * Full Code (Latest Code Status on File) Date Activated Date Inactivated Comments 07/09/2024 5:12 PM Care Teams Reference And Instruction Librarian Relationship Specialty Start Date End Date Stephanie Calderon MD [address] [place] [address] PCP - General 04/14/10 Add, Provider Not In System [address] [place] [address] PCP - Insurance PCP 12/11/17
--- OUTSIDE RECORDS SUMMARY | 2024-10-18 16:13 | XMS_ITS | Referral Summary ---
Author Organization [facility] ([facility]) Address [address] [place] [address] Care Team Providers Care Insurance Compliance Analyst Name Role Phone Stephanie Calderon MD Primary Care Provider [phone] Allergies No known active allergies Medications Psyllium [...] Overview (02/27/2015): 2005 on, BMI fluctuates, 27-33 8231-1893: 79-31 5262-2956: 20lb weight gain Assessment & Plan (02/27/2015 [...] out of detox per pt report CAB; lining caser: Raza Keller [phone]. Release in chart Violated probation, in skilled nursing x 6 mos. In and out of [...] 03/16 Last Psych ([facility] [phone]. [facility] Current: looking for new psych. Has counselor- group and individual at [facility] Assessment & Plan (02/27/2015 12:42 PM EDT): Current: looking for new psych. Has counselor- group and individual at [facility] Resolved Problems Problem Noted Date Diagnosed Date Resolved Date Vaginitis 12/27/2012 11/20/2016 URI, acute 06/13/2009 02/14/2010 Screen for sexually transmitted diseases 06/12/2009 02/14/2010 Sprain of ankle, unspecified site 01/08/2007 02/14/2010 Overview (01/08/2007): R, seen at [facility] 12/13 Supervision of other normal 03/23/2006 02/19/2009 [...] INTERNAL LAB Comment:Normal exam LMP: 02/21/2015 EB SCHOOL TRAFFIC SUPERVISOR AL LAB PREV. PAP: NONE GIVEN EB INTER NAL LAB PREV. BX: NONE GIVEN EB SCHOOL TRAFFIC SUPERVISOR AL LAB SOURCE: SEE NOTE EB INTERNA L LAB Comment:Cervix, Endocervix STATEMENT OF ADEQUACY: SEE NOTE EB INTER[facility] Comment: Satisfactory for evaluation. Endocervical/transformation zone component present. INTERPRETATION/RES ULT: SEE NOTE EB [facility] Comment:Negative for intraep ithelial lesion or malignancy. CUSTOMER PROGRAM MANAGER: SEE NOTE EB [facility] Comment:CXP, CT(ASCP) 02/27/2015 1:23 PM EDT 02/27/2015 2:54 PM EDT Narrative EB INTER[facility] - 03/03/2015 11:29 AM EDT [facility] Testing performed at: NL2, [employer], [address] [place] [address], [address], [place], [address], Script Worker: Delfino Cline [facility] Collection Date/Time: [id number] [facility] Results Received Date/Time: [id number] [facility] Reported Date/Time: [id number] Specimen Source: ?? CERVIX/ENDOCERVIXPatients LMP: ??02/21/2015Patients Clinical History: ??NORMAL EXAM Stephanie Calderon MD LABORATORY Final Result [facility] [address] [place] [address] * (ABNORMAL) BLOOD LIPOPROTEIN,LDL CHOLESTEROL (02/27/2015 1:13 PM EDT) DIRECT LDL 135(H) <130 mg/dL EB INTER NAL [facility] Comment: Desirable range <100 mg/dL for patients with CHD or diabetes and <70 mg/dL for diabetic patients with known heart disease. Serum 02/27/2015 1:13 PM EDT 02/27/2015 3:29 PM EDT Narrative EB INTER[facility] - 02/28/2015 6:12 AM EDT [facility] Testing performed at: NL2, [facility], [address] [place] [address], [place], [address], Script Worker: Delfino Cline [facility] Collection Date/Time: [id number] [facility] Results Received Date/Time: [id number] [facility] Reported Date/Time: [id number] Stephanie Calderon MD LABORATORY Final Result Performing Organization Address [facility] Co de Phone Number [facility] [address] [place] [address] * HIV 1/2 ANTIGEN/ANTIBODY 4TH GEN WITH [...] old. For additional information please refer to http://education.WeHealth/faq/DTT469 (This link is being provided for informational/ educational purposes only.) Serum 02/27/2015 1:13 PM EDT 02/27/2015 3:29 PM EDT Narrative EB INTER[facility] - 02/28/2015 6:03 AM EDT [facility] Testing performed at: NL2, [employer] [facility], [address] [place] [address], [address], [place], [address], Script Worker: Delfino Cline [facility] Collection Date/Time: [id number] [facility] Results Received Date/Time: [id number] [facility] Reported Date/Time: [id number] verbal consent received from the patient for HIV test?->Yes Stephanie Calderon MD LABORATORY Final Result [facility] [address] [place] [address] from Last 3 Months or Most Recently Relevant to Health Maintenance Insurance [facility] Care Teams Insurance Compliance Analyst Relationship Specialty Start Date End Date Stephanie Calderon MD [address] [place] [address] PCP - General 01/24/05
--- OUTSIDE RECORDS SUMMARY | 2024-10-18 16:13 | XMS_ITS | Encounter Summary ---
Author Organization [facility] Address [address] [place] [address] Care Team Providers Care Systems Administrator Name Role Phone Stephanie Calderon MD Primary Care Provider Add, Provider Not In System Unavailable Unav ailable Encounter Details Date Type Department Care Team (Late st Contact Info) Description 11/10/2023 Telephone [facility] [phone] [place] [address] Kirstin Kruger, SHELTER SUPERVISOR [address] [facility] [place] [address] Social History Tobacco Use Types Packs/Day Years [...] of Assessment Author No 04/15/2020 8:53 AM EDT Ritchie Vann RN * (RETIRED) Are you blind or do you have difficulty seeing? Answer Date of Assessment Author No 04/15/2020 8:53 AM EDT Ritchie Vann RN * (RETIRED) Do you [...] documented as of this encounter Care Teams Systems Administrator Relationship Specialty Start Date End Date Stephanie Calderon MD [address] [place] [address] PCP - General 04/14/10 Add, Provider Not In System [address] [place] [address] PCP - Insurance PCP 12/11/17 documented as of this encounter
--- OUTSIDE RECORDS SUMMARY | 2024-10-18 16:13 | XMS_ITS | Clinical Summary ---
Author Organization [facility] ([facility]) Address [address] [place] [address] Care Team Providers Care Senior Functional Analyst Name Role Phone Stephanie Calderon MD [...] Overview (02/27/2015): 2005 on, BMI fluctuates, 27-33 4483-6148: 79-31 7330-3299: 20lb weight gain Assessment & Plan (02/27/2015 [...] out of detox per pt report CAB; manager of case management: Raza Keller [phone]. Release in chart Violated probation, in detention x 6 mos. In and out of [...] 03/16 Last Psych ([facility] [phone]. [facility] Current: looking for new psych. Has counselor- group and individual at [facility] Assessment & Plan (02/27/2015 12:42 PM EDT): Current: looking for new psych. Has counselor- group and individual at [facility] Resolved Problems Problem Noted Date Diagnosed Date Resolved Date Vaginitis 12/27/2012 11/20/2016 URI, acute 06/13/2009 02/14/2010 Screen for sexually transmitted diseases 06/12/2009 02/14/2010 Sprain of ankle, unspecified site 01/08/2007 02/14/2010 Overview (01/08/2007): R, seen at [facility] 12/13 Supervision of other normal 03/23/2006 02/19/2009 [...] of 2 - 13+ 2-dose series) 12/01/1996 HEPATITIS B VACCINES (2 of 3 - 19+ 3-dose series) 03/27/2015 02/27/2015 Pneumococcal Vaccine (2 of 2 - PCV) 10/08/2017 10/08/2016 PAP SMEAR 02/27/2018 02/27/2015, 02/07, 02/14/2010, Additional history exists BREAST CANCER SCREENING 2023 Influenza Vaccine (#1) 04/08/2024201 9, 10/08/2016, 06/12/2009 COVID-19 Vaccine ( - season) 2024 Full Lipid Panel Testing 07/22/2029 024, 06/27/2024, 04/07/2020, Additional history exists DTAP/TDAP/TD VACCINES (3 - Td or Tdap) 09/21/2029 09/21/2019, 06/12/2009 Shingrix Vaccine (1 of 2) 12/01/2033 HIV Screening Completed 02/27/2015, 0605/2010, 08/14/2005 LDL Only testing Completed 07/22/2024, , [...] INTERNAL LAB Comment:Normal exam LMP: 02/21/2015 EB AIRPORT ENGINEER AL LAB PREV. PAP: NONE GIVEN EB INTER NAL LAB PREV. BX: NONE GIVEN EB AIRPORT ENGINEER AL LAB SOURCE: SEE NOTE EB INTERNA L LAB Comment:Cervix, Endocervix STATEMENT OF ADEQUACY: SEE NOTE EB INTERNAL [facility] Comment: Satisfactory for evaluation. Endocervical/transformation zone component present. INTERPRETATION/RES ULT: SEE NOTE EB INTERNAL [facility] Comment:Negative for intraep ithelial lesion or malignancy. RECREATION FACILITY ATTENDANT: SEE NOTE EB INTERNAL LAB Comment:CXP, CT(ASCP) 02/27/2015 1:23 PM EDT 02/27/2015 2:54 PM EDT Narrative EB INTERNAL [facility] - 03/03/2015 11:29 AM EDT [facility] Testing performed at: NL2, [facility], [address] [place] [address], [address], [place], [address], Iron Installer: Delfino Cline [facility] Collection Date/Time: [id number] [facility] Results Received Date/Time: [id number] [facility] Reported Date/Time: [id number] Specimen Source: ?? CERVIX/ENDOCERVIXPatients LMP: ??02/21/2015Patients Clinical History: ??NORMAL EXAM us Stephanie Calderon MD LABORATORY Final Result [facility] [address] [place] [address] * (ABNORMAL) BLOOD LIPOPROTEIN,LDL CHOLESTEROL (02/27/2015 1:13 PM EDT) DIRECT LDL 135(H) <130 mg/dL EB INTER NAL LAB Comment: Desirable range <100 mg/dL for patients with CHD or diabetes and <70 mg/dL for diabetic patients with known heart disease. Serum 02/27/2015 1:13 PM EDT 02/27/2015 3:29 PM EDT Narrative EB INTERNAL [facility] - 02/28/2015 6:12 AM EDT [facility] Testing performed at: NL2, [facility], [address] [place] [address], [address], [place], [address], Iron Installer: Delfino Cline [facility] Collection Date/Time: [id number] [facility] Results Received Date/Time: [id number] [facility] Reported Date/Time: Stephanie Calderon MD LABORATORY Final Result [facility] [address] [place] [address] * HIV 1/2 ANTIGEN/ANTIBODY 4TH GEN WITH [...] old. For additional information please refer to http://education.[employer]/faq/TKS764 (This link is being provided for informational/ educational purposes only.) Serum 02/27/2015 1:13 PM EDT 02/27/2015 3:29 PM EDT Narrative EB INTERNAL [facility] - 02/28/2015 6:03 AM EDT [facility] Testing performed at: NL2, [facility], [address] [facility], [facility], [address], [place], [address], Iron Installer: Delfino Cline [facility] Collection Date/Time: [id number] [facility] Results Received Date/Time: [id number] [facility] Reported Date/Time: [id number] verbal consent received from the patient for HIV test?->Yes us Stephanie Calderon MD LABORATORY Final Result [facility] [address] [place] [address] from Last 3 Months or Most Recently Relevant to Health Maintenance Insurance [facility] Care Teams Senior Functional Analyst Relationship Specialty Start Date End Date Stephanie Calderon MD [address] [place] [address] PCP - General 01/24/05
--- OUTSIDE RECORDS SUMMARY | 2024-10-18 16:13 | XMS_ITS | Clinical Summary ---
Author Organization [facility] Address [address] [place] [address] Care Team Providers Care Director Of Patient Safety Name Role Phone Mando Ellsworth MD Primary Care Provider [phone] Social History Tobacco Use Types Packs/Day Years [...] Description 10/19/2024 10:00 AM EST Office Visit [facility] Primary Care [address] [place] [address] Mando Ellsworth MD [address] [place] [phone] Insurance [facility] Care Teams Director Of Patient Safety Relationship Specialty Start Date End Date Mando Ellsworth MD [address] [address] PCP - General Family Practice 07/06/24
--- OUTSIDE RECORDS SUMMARY | 2024-10-18 16:13 | XMS_ITS | Clinical Summary ---
Author Organization [facility] Address [phone] [place] [address] Care Team Providers Care Sewing Machine Tester Name Role Phone Stephanie Lofton MD Primary Care Provider [phone] Allergies Active Allergy Reactions Criticality Noted Date [...] EST - 09/01/2024 2:57 PM EST Emergency [facility] [address] [place] [id number] Mony More MD Perelman, MD Elbert Lombardi [...] you interested in more education? Not on luis e e 01/02/2023 Are you concerned about [...] Description 12/23/2024 2:40 PM EDT Office Visit [address] [address] Tonya Partida, ARC FURNACE OPERATOR [address] [place] [phone] Health Maintenance Due Date Last Done Comments [...] Glucose, POCT 276(H) 70 - 110 mg/dL [facility] 09/01/2024 11:5 9 AM EST 09/01/2024 12:02 PM EST Kim Pardo MD POINT OF CARE TEST O RDERABLES Performing Organization Address City/[facility]/ZIP Co de Phone Number [address] [address] * ECG 12-LEAD (09/01/2024 10:32 AM EST) Systolic Blood Pressure [facility] Diastolic Blood Pressure [facility] Ventricular Rate EKG/MIN 65 BPM [facility] Atrial Rate 65 BPM [facility] IL Interval 124 ms [facility] QRS Duration 88 ms [facility] QT Interval 462 ms [facility] QTC Interval 480 ms [facility] P [place] 73 degrees [facility] R Wave [place] 70 degrees [facility] T Wave [place] 59 degrees [facility] 09/01/2024 10:3 2 AM [...] included. WBC 3.24(L) 4.00 - 11.00 K/uL [facility] RBC 4.33 4.00 - 5.20 M/uL [facility] HGB 11.7(L) 12.0 - 16.0 g/dL [facility] HCT 36.7 36.0 - 46.0 % [facility] PLT 83(L) 150 - 450 K/uL [facility] Comment: Large/Giant platelets present Reviewed MCV 84.8 80.0 - 100.0 fL [facility] MCH 27.0 27.0 - 31.0 pg [facility] MCHC 31.9(L) 32.0 - 36.0 g/dL [facility] RDW 15.2(H) 11.5 - 14.5 % [facility] MPV Not measured 8.4 - 12.0 fL [facility] NRBC 0.00 0.00 /100 WBCs [facility] ABSOLUTE NRBC 0.00 0.00 K/uL [facility] DIFF METHOD Auto [facility] NEUTS 55.2 48.0 - 76.0 % [facility] LYMPHS 32.1 18.0 - 41.0 % [facility] MONOS 9.3 4.0 - 11.0 % [facility] EOS 2.2 0.0 - 5.0 % [facility] BASOS 0.9 0.0 - 1.5 % [facility] % IMMATURE GRANS 0.3 0.0 - 0.9 % [facility] ABSOLUTE NEUTS 1.79(L) 1.92 - 7.60 K/uL [facility] ABSOLUTE LYMPHS 1.04 0.72 - 4.10 K/uL [facility] ABSOLUTE MONOS 0.30 0.16 - 1.10 K/uL [facility] ABSOLUTE EOS 0.07 0.00 - 0.50 K/uL [facility] ABSOLUTE BASOS 0.03 0.00 - 0.15 K/uL [facility] ABS IMMATURE GRANS 0.01 0.00 - 0.09 K/uL [facility] Blood 09/01/2024 10:3 0 AM EST 09/01/2024 11:41 AM EST Ivania Epperson PMHNP-BC LAB BLOOD O RDERABLES [address] [address] * Lipase (09/01/2024 10:30 AM EST) LIPASE 26 13 - 60 U/L [facility] Blood 09/01/2024 10:3 0 AM EST 09/01/2024 11:41 AM EST Ivania Epperson HNP-BC LAB BLOOD O RDERABLES Performing Organization Address [facility] Co de Phone Number [address] [address] * (ABNORMAL) Basic metabolic panel (09/01/2024 10:30 AM EST) Only the most recent of2 resultswithin the time period is included. SODIUM 136 135 - 145 mmol/L [facility] POTASSIUM 4.2 3.4 - 5.0 mmol/L [facility] CHLORIDE 101 98 - 108 mmol/L [facility] CO2 26 23 - 32 mmol/L [facility] BUN 16 8 - 25 mg/dL [facility] CREATININE 0.61 0.50 - 1.00 mg/dL [facility] GLUCOSE 259(H) 70 - 110 mg/dL [facility] CALCIUM 8.9 8.5 - 10.5 mg/dL [facility] EGFR 116 >59 mL/min/1. 73m2 [facility] Comment:Estimated glomerular filtration rate calculated using the CKD-EPI refit equation. ANION GAP 9 3 - 17 mmol/L [facility] Blood 09/01/2024 10:3 0 AM EST 09/01/2024 11:41 AM EST Ivania Epperson PMHNP-BC LAB BLOOD O RDERABLES Performing Organization Address City/[facility]/ZIP Co de Phone Number [address] [address] * (ABNORMAL) Urinalysis w/reflex Urine Culture (08/31/2024 7:20 PM EST) COLOR Yellow Yellow [facility] CLARITY Clear Clear [facility] GLUCOSE 3+(A) Negative [facility] Comment:(>=300 mg/dL) BILI Negative Negative [facility] KETONES Negative Negative [facility] SPECIFIC GRAVITY 1.021 1.001 - 1.035 [facility] BLOOD Negative Negative [facility] PH 6.5 5.0 - 9.0 [facility] Protein-UA Negative Negative [facility] UROBILINOGEN 2+(A) Negative [facility] N[facility] Negative Negative [facility] Leukocyte esterase, ur Negative Negative [facility] Urine (Urine) 08/31/2024 7:2 0 PM EST 08/31/2024 8:40 PM EST Lloyd Mcelroy PA-C URINE ORDERAB LES Performing Organization Address [facility] de Phone Number [address] [address] * (ABNORMAL) LFTs (hepatic panel) (08/31/2024 11:12 AM EST) Only the most recent of2 resultswithin the time period is included. ALBUMIN 3.4 3.3 - 5.0 g/dL [facility] TOTAL BILIRUBIN 1.4(H) 0.0 - 1.0 mg/dL [facility] DIRECT BILIRUBIN 0.9(H) 0.0 - 0.3 mg/dL [facility] ALKALINE PHOSPHATASE 266(H) 30 - 100 U/L [facility] AST 116(H) 9 - 32 U/L [facility] ALT 113(H) 7 - 33 U/L [facility] TOTAL PROTEIN 6.7 6.0 - 8.3 g/dL [facility] GLOBULIN 3.3 1.9 - 4.1 g/dL [facility] Blood 08/31/2024 11:1 2 AM EST 08/31/2024 12:30 PM EST Lory Nielsen MD, PhD LAB BL OOD ORDERABLES Performing Organization Address City/[facility]/ZIP Co de Phone Number [address] [address] * (ABNORMAL) Toxicology screen, urine (08/30/2024 10:25 PM EST) URINE AMPHETAMINES Negative Negative [facility] URINE BENZODIAZEPINE Negative Negative [facility] URINE COCAINE METAB Positive(A) Negative [facility] URINE OPIATES Negative Negative [facility] Comment:This assay is not se nsitive for detection of oxycodone and oxymorphone. URINE OXYCODONE Negative Negative [facility] Fentanyl, urine Positive(A) Negative [facility] URINE CREATININE 40 mg/dL [facility] Urine (Urine) 08/30/2024 10: 25 PM EST 08/30/2024 10:56 PM EST Mony More MD URINE ORDERABLES Performing Organization Address City/[facility] Co de Phone Number [address] [address] * HCG, urine (08/30/2024 10:25 PM EST) URINE TEST Negative Negative [facility] Urine (Urine) 08/30/2024 10: 25 PM EST 08/30/2024 10:55 PM EST Mony More MD URINE ORDERABLES Performing Organization Address City/[facility]/ZIP Co de Phone Number [address] [address] * Ketone bodies, serum (08/30/2024 9:58 PM EST) BETA HYDROXYBUTYRATE 0.2 <0.4 mmol/L [facility] Blood 08/30/2024 9:58 PM EST 08/30/2024 10:31 PM EST Mony More MD LAB BLOOD ORDERABLES [address] [address] * Ethanol, blood (08/30/2024 9:58 PM EST) ETHANOL Negative Negative mg/dL [facility] Blood 08/30/2024 9:58 PM EST 08/30/2024 10:31 PM EST Mony More MD LAB BLOOD ORDERABLES Performing Organization Address [facility] Co de Phone Number [address] [address] * (ABNORMAL) Venous blood gas (08/30/2024 9:58 PM EST) FIO2 UNSPEC. FIO2/L min [facility] PH 7.45(H) 7.30 - 7.40 [facility] PCO2 41 38 - 50 mm[Hg] [facility] PO2 55(H) 35 - 50 mm[Hg] [facility] Base Excess, unspecified 3.5(H) 0.0 - 3.0 mmol/L [facility] HCO3, unspecified 28 24 - 30 mmol/L [facility] Blood 08/30/2024 9:58 PM EST 08/30/2024 10:26 PM EST Mony More MD LAB BLOOD ORDERABLES Performing Organization Address [facility] Co de Phone Number [address] [address] * Pap Smear (04/28/2003 12:00 AM EDT) 04/28/2003 Narrative [facility] - 05/06/2003 6:18 AM EDT Accession Number: ??[id number] ? Report Status: ??Final Type: ??Cytology ? Cytology Report: ??[id number] ? DATE TAKEN: ?APR 10 ?ACCESSIONED ON: [...] Conversion Provider Not In Sys CYTOLOGY ORDERABLES [facility] from Last 3 Months or Most Recently Relevant to Health Maintenance Care Teams Sewing Machine Tester Relationship Specialty Start Date End Date Stephanie Lofton MD [address] [place] [address] [email or web address] PCP - General Family Medicine 08/09/18 Additional Source Comments The information contained in this document represents components of the legal health record. It is not the complete legal health record.[facility]
--- OUTSIDE RECORDS SUMMARY | 2024-10-18 16:13 | XMS_ITS | Encounter Summary ---
Author Organization [employer] Address [address] [place] [address] Care Team Providers Care Air Defense Artillery Officer Name Role Phone Stephanie Calderon MD Primary Care Provider [phone] Add, Provider Not In System Unavailable Unav ailable Reason for Visit * Reason Comments Distress Encounter Details Date Type Department Care Team (Late st Contact Info) Description 10/08/2024 9:09 PM EST - 10/10/2024 10:26 AM EST [address] [address] Phil Yañez MD [address] [place], [place] [address] [address] Rosanna Witt MD [address] [place] [address] Yolie Jaimes MD [address] [place] [address] Inge Saenz MD [address] [place], [place] [address] [address] Forest Blue MD [address] [place] [address] [place] [address] Depression with suicidal ideation; Opioid abuse (HCC); [...] (HCC) Hyperglycemia Disposition: Psych Bed Search Yolie Jaimes MD Emergency Department Attending Physician [facility] * Inge Saenz MD - 10/09/2024 5:22 [...] Witt MD - 10/08/2024 11:20 PM EST [facility] EMERGENCY MEDICINE ATTENDING -SIGN OUT NOTE I assumed care of this patient at signout after receiving report from ED provider. ED Course as of 10/09/242305Oct 08, 2024 2319 38F h/o DM p/w [...] None Patient Condition: None Rosanna Witt MD [facility] Emergency Medicine Attending Physician 10/09/2024 6:53 AM * Phil Yañez MD - 10/08/2024 9:17 PM EST Andriy ED ATTENDING NOTE I have reviewed the ED nursing notes and prior records. I have reviewed the patient's past medical history/problem list, allergies, social history and medication list. I saw this patient primarily. HPI: This 38 year old female patient presented to [facility] Ed Wh Tax Collection Coordinator via Self with chief complaint of Distress 38-year-old female with history of IV and polysubstance abuse, diabetes, IBS, anxiety/depression, chronic hepatitis C who presents to the ED complaining of depression with suicidal ideation. Per external medical record review, seen at [facility] for depression 08/2024 and, per external medical [...] few hours ago. Original note by Ace Cuba, RN at 10/08/2024 20:57 Review of systems: [...] Strain: Not on File (05/29/2023) Received from [facility] Financial Resource Strain Financial Resource Strain: 0 Food Insecurity: Not on File (06/03/2024) Received from [facility] Food Insecurity Food: 0 Transportation Needs: Not on File (05/29/2023) Received from [facility] Transportation Needs Transportation: 0 Physical Activity: Not on File (05/29/2023) Received from [facility] Physical Activity Physical Activity: 0 Stress: Not on File (05/29/2023) Received from [facility] Stress Stress: 0 Social Connections: Not on File (05/27/2024) Received from [facility] Social Connections Connectedness: 0 Intimate Partner Violence: Unknown (08/30/2024) Received from [facility] Intimate Partner Violence Are you denied basic [...] Stability: Not on File (05/29/2023) Received from [facility] Housing Stability Housin Allergies: Review of Patient's [...] critical GLUC of 521 obtained from [facility] CHEL[facility] on ER on 10/08/24 at 2243 by [...] AM EST Report to TORIN Wallace at [facility]. See previous dispo note. Pt en route to [facility]. * Narrator Note - José Garcia RN - 10/10/2024 10:18 AM EST Patient Disposition Patient education for diagnosis, medications, activity, diet and follow-up. Patient left ED 10:18 AM. Patient rep received written instructions. Icer Hand to provide instructions: No Patient belongings with patient: YES Have all existing LDAs been addressed? N/A Have all IV infusions been stopped? N/A Destination: Transferred to [address] via BLS. Verbal report and paperwork to EMS. EMS crew without questions/concerns. Pt to EMS stretcher w/o incident. Pt care to EMS. * Narrator Note - José Garcia RN - 10/10/2024 9:20 AM EST Call from admitting. Pt can actually go to [facility] in [place] upon arrival of the next S ambulance. This RN informed the patient who is agreeable for the transfer. * PES NOTES - Lexi Mark - 10/10/2024 9:15 AM EST [facility] called to confirm they would like to accept the patient for today 10/10 for an ETA DHRUV and will call to do a nurse to nurse. Accepting Dr.Huey HEREDIA DHRUV * PES NOTES - Lexi Mark - 10/10/2024 8:48 AM EST Pt accepted to [facility] for 10/11 [facility] [address] [phone]Huey HEREDIA 11am * Narrator Note - José Garcia RN - 10/10/2024 8:45 AM EST Call from Dariana at [address] for tomorrow 10/11/[address] Shania Sands [address] [place] [address]. [phone] * Narrator Note - José Garcia RN [...] her pharmacy for all other medications is [facility]. Upon review, [facility] is not open today. Pt ate breakfast. VS assessed. No further needs expressed from pt at this time. * Narrator Note - José Garcia RN - 10/10/2024 7:24 AM EST Images from the original note were not included. METHADONE CLINIC BELOW: FAX: [phone] Patient signed release for last methadone dose. Faxed to [facility]. ADDENDUM 0804: Spoke with TORIN Castillo at [facility]. Verfied patient methadone dose as follows: Last [...] in functional status, and level of distress): septic tank cleaner Note: It just seems like things get [...] ideation.Per external medical record review, seen at [facility] for depression 08/2024 and, per external medical [...] with multiple IPLOC, reports last admission to [facility] where she was for about a monthand got discharged two weeks ago. 07/22/24-08/22/24 on [facility] 4: Soheila Dacosta is a 38yo female [...] disorder iso opioid use disorder. 06/28/24-07/09/24 on 2: Soheila Dacosta is a 38 year old Austrian-speaking female, unhoused, unemployed, recently incarcerated and discharged [...] SI and increased depression after discharge from [facility] the day prior. 11/03/23-11/07/23 2: Soheila Dacosta is a 37 year old Austrian-speaking female, housed, partnered to [facility] [place], with psychiatric history of bipolar 2 versus [...] her sister Collateral Contacts: Awilda Dacosta (Mother) [phone], TW contacted and spoke with someone who requested a html web developer. Cale, ID # [id number] assisted with communicating [...] pt, after several attempts between TW and [facility] clinician, TW was able to interview pt [...] is unemployed, does not get any government video production assistant; however, her boyfriend Sawyer helps and [...] Pt reports connection to Methadone clinic in [place], states she takes 7 mg of methadone [...] 03/16 Last Psych ([facility] [phone]. Rosanna Andrade TRACE). Current: looking for new psych. Has counselor- group and individual at [facility] Last Assessment & Plan: Current: looking for new psych. 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 Multiple IPLOC. Current/Most Recent Outpatient Care: Dr. Tejal Medina, [facility]. Safety Concerns: SI with plan, homelessness, polysubstance [...] Psychosocial History: Psychosocial : No Education : [employer] Community Support: Psychiatrist Relationship Status: Single Primary Orchid Grower for Someone: No Providing self care at [...] currently experiencing homelessness. Pt recently released from residential and reports being on probation. Pt reports [...] attending, Yolie Jaimes MD. Apple Olsen LCSW, [facility] Andriy HOGAN [phone] * Narrator Note [...] to wake her up. Apple Olsen LCSW, [facility] Andriy PES x [phone] * Narrator Note - Alina Salinas RN - 10/09/2024 9:17 AM EST PES attempted to see her. She was too sleepy * Narrator Note - Alina Salinas RN - 10/09/2024 8:06 AM EST Pt was able to tell me she gets her methadone from [facility]. Called [facility] they are requesting authorization from pt to [...] LABORATORY Final Result [facility] [address] [place] [address], * (ABNORMAL) Fingerstick Blood Sugar (Point of [...] MD LABORATORY Final Result Performing Organization Address [facility] de Phone Number [facility] [address] [place] [address], * (ABNORMAL) Fingerstick Blood Sugar (Point of [...] MD LABORATORY Final Result Performing Organization Address [facility] de Phone Number POINT OF CARE TESTING [address] [place] [address], * (ABNORMAL) Fingerstick Blood Sugar (Point of [...] MD LABORATORY Final Result Performing Organization Address [facility] Co de Phone Number [facility] CARE [facility] [address] [place] [address], [place] * Serum Drug Screen (10/08/2024 9:41 PM EST) SALICYLATE < 0.5 3.0 - 20.0 mg/dL [facility] ACETAMINOPHEN < 5 10 - 30 ug/mL [facility] ETHANOL < 10 0 - 10 mg/dL [facility] BLOOD SPECIMEN / Unknown 10/08/2024 9:41 PM EST 10/08/2024 9:58 PM EST Narrative [facility] - 10/08/2024 10:44 PM EST Confirmation of receipt of critical GLUC of 521 obtained from KAYKAY TRAN on ER on 10/08/24 at 2243 by [email or web address]. For verbally communicated results, the READBACK procedure was performed by [email or web address]. Phil Yañez MD LABORATORY Edited Resu lt - Final Performing Organization Address [facility] Co de Phone Number [facility] [address] [place] [address], [place] * (ABNORMAL) Basic Metabolic Panel (10/08/2024 9:41 PM EST) SODIUM 137 136 - 145 mmol/L [facility] POTASSIUM 4.1 3.5 - 5.1 mmol/L [facility] CHLORIDE 97(L) 98 - 107 mmol/L [facility] CARBON DIOXIDE 25 21 - 32 mmol/L [facility] ANION GAP 15 10 - 22 mmol/L [facility] CALCIUM 9.6 8.5 - 10.5 mg/dL [facility] Glucose Random 521(HH) 74 - 160 mg/dL [facility] Comment:RESULT CONFIRMED BY REPEAT ANALYSIS BUN (UREA NITROGEN) 12 7 - 18 mg/dL [facility] CREATININE 0.7 0.4 - 1.2 mg/dL [facility] ESTIMATED GLOMERULAR FILT RATE > 60 >60 ML/MIN [facility] Comment: On May 31, 2021 the [...] ratio (uACR). For more information please see [email or web address]://www.[email or web address].org/news/[email or web address]-[email or web address]. BLOOD SPECIMEN / Unknown 10/08/2024 9:41 PM EST 10/08/2024 9:58 PM EST Narrative [facility] - 10/08/2024 10:44 PM EST Confirmation of receipt of critical GLUC of 521 obtained from KAYK[facility] TRAN on ER on 10/08/24 at 2243 by [email or web address]. For verbally communicated results, the READBACK procedure was performed by [email or web address]. us Phil Yañez MD LABORATORY Edited Resu lt - Final [address] [address], * (ABNORMAL) CBC, Platelet & Differential (10/08/2024 9:41 PM EST) WHITE BLOOD CELL COUNT 3.8(L) 4.0 - 11.0 TH/uL [facility] RED BLOOD CELL COUNT 4.38 3.90 - 5.20 M/uL [facility] HEMOGLOBIN 11.5 11.2 - 15.7 g/dL [facility] HEMATOCRIT 35.5 34.1 - 44.9 % [facility] MEAN CORPUSCULAR VOL 81.1 80.0 - 100.0 fl [facility] MEAN CORPUSCULAR HGB 26.3 26.0 - 34.0 pg [facility] MEAN VANESA HGB CONC 32.4 31.0 - 37.0 g/dL [facility] RBC DISTRIBUTION WIDTH STD DEV 48.1(H) 35.1 - 46.3 fL [facility] PLATELET COUNT 76(L) 150 - 400 TH/uL [facility] MEAN PLATELET VOLUME 11.6 8.7 - 12.5 fL [facility] IMMATURE PLATELET FRACTION % 7.1(H) 1.0 - 7.0 % [facility] IMMATURE PLATELET FRACTION ABS 5.4 TH/uL [facility] NEUTROPHIL % 46.7 40.0 - 75.0 % [facility] IMMATURE GRANULOCYTE % 0.3 0.0 - 1.0 % [facility] Comment: The immature granulocyte fraction includes [...] LYMPHOCYTE % 38.7 15.0 - 54.0 % [facility] MONOCYTE % 10.3 4.0 - 13.0 % [facility] EOSINOPHIL % 3.2 0.0 - 7.0 % [facility] BASOPHIL % 0.8 0.0 - 1.2 % [facility] NRBC % 0.0 0.0 - 0.0 % [facility] ABSOLUTE NEUTROPHIL COUNT 1.8 1.6 - 8.3 TH/uL [facility] ABSOLUTE IMM GRAN COUNT 0.01 0.00 - 0.10 TH/uL [facility] ABSOLUTE LYMPH COUNT 1.5 0.6 - 5.9 TH/uL [facility] ABSOLUTE MONO COUNT 0.4 0.2 - 1.4 TH/uL [facility] ABSOLUTE EOSINOPHIL COUNT 0.1 0.0 - 0.8 TH/uL [facility] ABSOLUTE BASO COUNT 0.0 0.0 - 0.1 TH/uL [facility] ABSOLUTE NRBC COUNT 0.0 0.0 - 0.0 TH/uL [facility] PLATELET ESTIMATE DECREASE D(A) [facility] BLOOD SPECIMEN / Unknown 10/08/2024 9:41 PM EST 10/08/2024 9:58 PM EST us Phil Yañez MD LABORATORY Final Resul t [facility] [address] [place] [address], documented in this encounter Visit Diagnoses Diagnosis [...] 10 mg 10 mg, Oral, ONCE, On Fri10/09/24 at 1845, For 1 dose, Indication: OUD [...] 34 Units, Subcutaneous, NIGHTLY, First dose on Fri10/09/24 at 2100 2136 (Given - Provider: Peyton Luna RN) Insulin Lispro (HumaLOG) injection 0-12 Units 0-12 Units, Subcutaneous, 3 TIMES DAILY BEFORE MEALS, First dose on Fri10/09/24 at 1630, For 30 days, Blood Glucose: [...] TORIN) documented in this encounter Care Teams Air Defense Artillery Officer Relationship Specialty Start Date End Date Stephanie Calderon MD [address] [place] [address] PCP - General 04/14/10 Add, Provider Not In System [address] [place] [address] PCP - Insurance PCP 12/11/17 documented as of this encounter
[2024-10-18] MEDS: Magnesium Sulfate/H2O 2 GM/50 ML PIGGYBACK IV (16:55)
[2024-10-18] MEDS: 0.9 % Sodium Chloride 1,000 ML 999 ML IV (16:57)
[2024-10-18 17:47] LABS: ~Lactic Acid-LAB USE ONLY 2.7 mmol/L (0.5-2.0)
[2024-10-18 18:38] LABS: Glucose, Whole Blood 276 mg/dL (60-115)
[2024-10-18] MEDS: Insulin Lispro 100 UNIT/ML 3 ML VIAL SUBCUT (18:41)
--- NOTE | 2024-10-18 18:51 | PHA.MEDREC ---
Pharmacy Consult ? Medication Reconciliation Pharmacy has completed the medication reconciliation. Spoke with Clementine Velasquez Staff who was able to confirm over the phone what medications the patient is taking right now. They confirmed she is getting the Insulin Lispro 100 unit/mL insulin and states she does it via a sliding scale three times a day before meals. They also confirmed the Lantus Solostar U-100 insulin and confirmed she has been getting 38 units at bedtime with them. They confirmed the patient has been taking the Metformin 500mg tabs 2 tabs daily while staying there. I asked about Furosemide, Xifaxan and Spironolactone since they did not state those and they stated they have no claims/history of those being given to the patient there. They were not able to see the last time the patient took their medications at this time.
--- NOTE | 2024-10-18 18:59 | PHA.MEDREC ---
Addendum entered by Priscila Wyatt [facility] 10/19/24 08:23: med list received from [facility] and med list updated. made aware. Per list at [facility] xifaxin and methadone 70 mg pending. Original Note: Pharmacy Consult ? Medication Reconciliation Pharmacy has completed the medication reconciliation. Spoke with [facility] Staff who was able to confirm over the phone what medications the patient is taking right now. They confirmed she is getting the Insulin Lispro 100 unit/mL insulin and states she does it via a sliding scale three times a day before meals. They also confirmed the Lantus Solostar U-100 insulin and confirmed she has been getting 38 units at bedtime with them. They confirmed the patient has been taking the Metformin 500mg tabs 2 tabs (1000mg) twice a day while staying there. I asked about Furosemide, Xifaxan and Spironolactone since they did not state those and they stated they have no claims/history of those being given to the patient there. They were not able to see the last time the patient took their medications at this time.
[2024-10-18 19:18] LABS: Reflex Lactate? 2 Y
--- NOTE | 2024-10-18 21:46 | PC.NURSE ---
Morgan RN right of way maintenance supervisor from [facility] Ron called this nurse gave update to RN right of way maintenance supervisor on pt.
[2024-10-18 21:58] VITALS: BP 110/73; PULSE 72; RESP 16; TEMP 36.3; O2SAT 99
[2024-10-18 22:12] LABS: Glucose, Whole Blood 333 mg/dL (60-115)
[2024-10-19] MEDS: cloNIDine HCL 0.2 MG TABLET PO ×4 (00:04→20:09)
[2024-10-19] MEDS: Insulin Glargine,Hum.rec.anlog 100 UNIT/ML 10 ML VIAL 30 UNIT SUBCUT ×2 (00:04→20:08)
[2024-10-19] MEDS: metFORMIN HCl 1,000 MG TABLET 1000 MG PO ×2 (00:04→07:58)
[2024-10-19] MEDS: Gabapentin 400 MG CAPSULE 800 MG PO ×4 (00:04→20:09)
[2024-10-19] MEDS: Insulin Lispro 100 UNIT/ML 3 ML VIAL SUBCUT ×7 (00:05→20:09)
[2024-10-19] MEDS: Lactulose 20 GM/30 ML SOLUTION 30 GM PO ×4 (00:05→20:10)
[2024-10-19] MEDS: 0.9 % Sodium Chloride Flush 3 ML SYRINGE IVFLUSH ×4 (00:06→20:10)
--- NOTE | 2024-10-19 00:15 | PC.NURSE ---
pt resting in bed. requesting food, tylenol for headache, Ativan and hydroxyzine for anxiety
[2024-10-19 00:45] VITALS: BP 111/77; PULSE 76; RESP 16; TEMP 36.4; O2SAT 100
[2024-10-19] MEDS: Acetaminophen 325 MG TABLET 650 MG PO ×2 (01:01→15:50)
[2024-10-19] MEDS: hydrOXYzine HCL 50 MG TABLET PO ×4 (01:01→20:17)
[2024-10-19] MEDS: LORazepam 1 MG TABLET PO ×3 (01:01→17:51)
[2024-10-19 06:58] VITALS: BP 125/81; PULSE 75; RESP 16; TEMP 36.8; O2SAT 97
[2024-10-19 07:29] LABS: Glucose, Whole Blood 232 mg/dL (60-115)
[2024-10-19] MEDS: glipiZIDE 5 MG TABLET PO (07:58)
[2024-10-19] MEDS: Docusate Sodium 100 MG CAPSULE PO ×2 (07:58→20:09)
--- NOTE | 2024-10-19 09:27 | PC.NURSE ---
multiple calls placed to [facility] to confirm methadone dose without success
[2024-10-19 09:39] VITALS: BP 105/66; PULSE 69; RESP 18; TEMP 36.3; O2SAT 98
--- NOTE | 2024-10-19 10:56 | MHC.CM.PN ---
PT FROM [facility] WHERE SHE WILL RETURN WHEN DCD PT IS ON METHADONE PT WILL TRANSPORT BY BLS TO [facility] WHEN DCD
--- NOTE | 2024-10-19 11:02 | HE.PHANOTE ---
Methadone Methadone verfication form faxed up from Bina [facility]. Patient receives methadone 70 mg daily at [facility] ), last dose 10/18/24 @0800 per juan fox
--- NOTE | 2024-10-19 11:43 | PC.NURSE ---
called pharmacy for med not available in pyxis
[2024-10-19] MEDS: Furosemide 40 MG TABLET PO (11:47)
[2024-10-19] MEDS: Spironolactone 25 MG TABLET 50 MG PO (11:47)
[2024-10-19] MEDS: rifAXIMin 550 MG TABLET PO ×2 (11:47→20:09)
[2024-10-19] MEDS: methADONE HCl 10 MG TABLET 70 MG PO (12:41)
[2024-10-19 12:54] LABS: Glucose, Whole Blood 345 mg/dL (60-115)
--- NOTE | 2024-10-19 13:25 | P.PNIM_ITS ---
Subjective Subjective Date of Service: 10/19/24 Interval History: f/u on hyperglycemia, no new issues, blood sugar still variable, mostly high no si/hi Physical Exam 2 Vital Signs: Vital Signs: Last Vital Signs Temp 97.3 F 10/19/24 09:39 Pulse 69 10/19/24 09:39 Resp 18 10/19/24 09:39 BP 105/66 10/19/24 09:39 Pulse Ox 98 10/19/24 09:39 O2 Del Method Room Air 10/19/24 09:39 BMI result Body Mass Index 24.6 Const: Other: General: AO X 3, no acute distress Resp: CTA bilateral CVS: S1,S2,RRR GI: +BS, NT, no distention Skin: No rash Neuro: motor grossly intact Psych: appropriate affect Objective Data Active Medications Acetaminophen (Acetaminophen 325 Mg Tablet) 650 mg PO Q6H PRN PRN Reason: Pain, Mild 1-3,fever,headache Last Admin: 10/19/24 01:01 Dose: 650 mg Documented By: [place] Acetaminophen (Acetaminophen 325 Mg Tablet) 650 mg PO Q4H PRN PRN Reason: Pain (Scale Score 1-3) Calcium Carbonate (Calcium Carbonate 750 Mg Tab.Chew) 750 mg PO Q4H PRN PRN Reason: Heartburn Clonidine HCl (Clonidine Hcl 0.2 Mg Tablet) 0.2 mg PO TID [facility]END[facility] TO [facility]; Protocol Last Admin: 10/19/24 07:58 Dose: 0.2 mg Documented By: ANASTACIA Docusate Sodium (Docusate Sodium 100 Mg Capsule) 100 mg PO BID [facility] Last Admin: 10/19/24 07:58 Dose: 100 mg Documented By: ANASTACIA Furosemide (Furosemide 40 Mg Tablet) 40 mg PO DAILY [facility]; Protocol Last Admin: 10/19/24 11:47 Dose: 40 mg Documented By: ANASTACIA Gabapentin (Gabapentin 400 Mg Capsule) 800 mg PO TID [facility] Last Admin: 10/19/24 07:58 Dose: 800 mg Documented By: ANASTACIA Glipizide (Glipizide 5 Mg Tablet) 5 mg PO DAILY [facility] Last Admin: 10/19/24 07:58 Dose: 5 mg Documented By: ANASTACIA Hydroxyzine HCl (Hydroxyzine Hcl 50 Mg Tablet) 50 mg PO TID PRN PRN Reason: anxiety Last Admin: 10/19/24 09:11 Dose: 50 mg Documented By: ANASTACIA Hydroxyzine HCl (Hydroxyzine Hcl 50 Mg Tablet) 50 mg PO Q4H PRN PRN Reason: Anxiety Ibuprofen (Ibuprofen 400 Mg Tablet) 400 mg PO Q8H PRN PRN Reason: BODYACHES Insulin Glargine (Insulin Glargine,Hum.Rec.Anlog 100 Unit/Ml 10 Ml Vial) 30 unit SUBCUT BEDTIME [facility] Last Admin: 10/19/24 00:04 Dose: 30 unit Documented By: [place] Insulin Human Lispro (Insulin Lispro 100 Unit/Ml 3 Ml Vial) 0 unit SUBCUT QIDACHS [facility]; Protocol Last Admin: 10/19/24 13:24 Dose: 8 unit Documented By: ANASTACIA Insulin Human Lispro (Insulin Lispro 100 Unit/Ml 3 Ml Vial) 5 unit SUBCUT QIDACHS [facility] Lactulose (Lactulose 20 Gm/30 Ml Solution) 30 gm PO TID [facility] Last Admin: 10/19/24 07:58 Dose: 30 gm Documented By: ANASTACIA Lorazepam (Lorazepam 1 Mg Tablet) 1 mg PO Q8H PRN PRN Reason: anxiety attack Last Admin: 10/19/24 09:11 Dose: 1 mg Documented By: ANASTACIA Magnesium Hydroxide (Milk Of Magnesia 30 Ml Oral.Susp) 30 ml PO DAILY PRN PRN Reason: Constipation Melatonin (Melatonin 3 Mg Tablet) 6 mg PO BEDTIME PRN PRN Reason: Insomnia Metformin HCl (Metformin Hcl 1,000 Mg Tablet) 1,000 mg PO BID [facility] Last Admin: 10/19/24 07:58 Dose: 1,000 mg Documented By: ANASTACIA Methadone HCl (Methadone Hcl 10 Mg Tablet) 70 mg PO DAILY [facility] Last Admin: 10/19/24 12:41 Dose: 70 mg Documented By: ANASTACIA Nicotine Polacrilex (Nicotine Polacrilex 2 Mg Gum) 2 mg BUCCAL Q2H PRN PRN Reason: Nicotine Cravings Rifaximin (Rifaximin 550 Mg Tablet) 550 mg PO BID [facility] Last Admin: 10/19/24 11:47 Dose: 550 mg Documented By: ANASTACIA Senna (Sennosides 8.6 Mg Tablet) 17.2 mg PO DAILY PRN PRN Reason: Constipation Sodium Chloride (0.9 % Sodium Chloride Flush 3 Ml Syringe) 3 ml IVFLUSH QSHIFT [facility] Last Admin: 10/19/24 07:59 Dose: 3 ml Documented By: ANASTACIA Spironolactone (Spironolactone 25 Mg Tablet) 50 mg PO DAILY [facility]; Protocol Last Admin: 10/19/24 11:47 Dose: 50 mg Documented By: ANASTACIA Labs 10/18/24 13:56 10/18/24 13:56 Labs: Laboratory Results - last 24 hr 10/18/24 10/18/24 10/18/24 13:56 17:15 18:28 MCV 81.9 MCH 26.3 L MCHC 32.1 RDW 15.4 Plt Count 73 L MPV Not Reportable Immature Gran % (Auto) 0.3 Neut % (Auto) 38.2 L Lymph % (Auto) 44.1 H [place] % (Auto) 15.0 H Eos % (Auto) 1.5 Baso % (Auto) 0.9 Lymph # (Auto) 1.5 [place] # (Auto) 0.5 Eos # (Auto) 0.1 Baso # (Auto) 0.0 Abs Immat Gran (auto) 0.01 Absolute Neuts (auto) 1.3 L Absolute Nucleated RBC 0.000 Nucleated RBC % (auto) 0.0 Smear Tech's Comments VERIFIED Anion Gap 11 L Estim Creat Clear Calc 81.5 Estimated GFR > 60 POC Glucose 276 H Random Glucose 380 H* Estimat Average Glucose 289 Hemoglobin A1c % 11.7 H Lactic Acid 3.2 H* Lactic Acid F/U @ 2Hr 2.7 H* Lactic Acid F/U @ 4Hr Calcium 9.1 Magnesium 1.5 L Total Bilirubin 0.9 AST 145 H ALT 139 H Alkaline Phosphatase 379 H Ammonia 61 H Total Creatine Kinase 57 Total Protein 7.8 Albumin 3.2 L Beta-Hydroxybutyrate 0.16 Influenza Type A (PCR) NEGATIVE Influenza Type B (PCR) NEGATIVE RSV RNA Qual (PCR) NEGATIVE SARS-CoV-2 RNA (RT-PCR) NEGATIVE 10/18/24 10/18/24 10/19/24 20:16 22:08 07:26 MCV MCH MCHC RDW Plt Count MPV Immature Gran % (Auto) Neut % (Auto) Lymph % (Auto) [place] % (Auto) Eos % (Auto) Baso % (Auto) Lymph # (Auto) [place] # (Auto) Eos # (Auto) Baso # (Auto) Abs Immat Gran (auto) Absolute Neuts (auto) Absolute Nucleated RBC Nucleated RBC % (auto) Smear Tech's Comments Anion Gap Estim Creat Clear Calc Estimated GFR POC Glucose 333 H 232 H Random Glucose Estimat Average Glucose Hemoglobin A1c % Lactic Acid Lactic Acid F/U @ 2Hr Lactic Acid F/U @ 4Hr 2.0 Calcium Magnesium Total Bilirubin AST ALT Alkaline Phosphatase Ammonia Total Creatine Kinase Total Protein Albumin Beta-Hydroxybutyrate Influenza Type A (PCR) Influenza Type B (PCR) RSV RNA Qual (PCR) SARS-CoV-2 RNA (RT-PCR) 10/19/24 12:50 MCV MCH MCHC RDW Plt Count MPV Immature Gran % (Auto) Neut % (Auto) Lymph % (Auto) [place] % (Auto) Eos % (Auto) Baso % (Auto) Lymph # (Auto) [place] # (Auto) Eos # (Auto) Baso # (Auto) Abs Immat Gran (auto) Absolute Neuts (auto) Absolute Nucleated RBC Nucleated RBC % (auto) Smear Tech's Comments Anion Gap Estim Creat Clear Calc Estimated GFR POC Glucose 345 H Random Glucose Estimat Average Glucose Hemoglobin A1c % Lactic Acid Lactic Acid F/U @ 2Hr Lactic Acid F/U @ 4Hr Calcium Magnesium Total Bilirubin AST ALT Alkaline Phosphatase Ammonia Total Creatine Kinase Total Protein Albumin Beta-Hydroxybutyrate Influenza Type A (PCR) Influenza Type B (PCR) RSV RNA Qual (PCR) SARS-CoV-2 RNA (RT-PCR) Assessment and Plan (1) Uncontrolled diabetes mellitus with hyperglycemia: Status: Acute Plan 38-year-old female who is currently a patient at [facility] and has been sent to our ER for hypoglycemia. He will be admitted for glycemic control. Hyperglycemia due to uncontrolled diabetes mellitus, without ketoacidosis hgb A1C is 11 continue lantus, sliding scale, and glipizide and monitor closely. hold metformin d/t lactic acidosis Cirrhosis, no HE continue lactulose, rifaximin, aldactone and lasix Depression/anxiety/PTSD Continue her baseline meds Care team consult when medically ready Mild hypo mg Repleted IV, repeat today Acute lactic, likely due to liver disease Likely due to underlying liver disease/metformin No foci of infection, not due to severe sepsis Full code DVT prophylaxis, mechanical due to thrombocytopenia Patient's med rec is pending, we will continue home meds once done Quality Stroke Does the patient have a stroke diagnosis?: No VTE Prior VTE?: No VTE Risk Level:: Medical - moderate - high VTE Device Contraindication: N/A - Device Ordered VTE Drug Contraindication: Treatment Not Indicated
[2024-10-19 15:14] VITALS: BP 113/73; PULSE 99; RESP 16; TEMP 36.4; O2SAT 99
--- NOTE | 2024-10-19 15:27 | PC.NURSE ---
pt c/o diffuse abdominal pain, this RN offered tylenol, pt refused stating thats not going to help. [facility] sent to MD Dalton about pts pain
[2024-10-19 16:52] LABS: Anion Gap 14 (12-20); Blood Urea Nitrogen 11 mg/dL (9-16); Calcium 8.4 mg/dL (8.4-10.2); Carbon Dioxide 24 mmol/L (22-29); Chloride 99 mmol/L (96-108); Creatinine Clr Calc Pharmacy 90.4; Estimated Glomerular Filt Rate > 60; Glucose Random 447 mg/dL (60-115); Magnesium 1.3 mg/dL (1.6-2.6); Potassium 4.3 mmol/L (3.3-5.1); Sodium 133 mmol/L (135-145)
[2024-10-19 17:13] LABS: Glucose, Whole Blood 400 mg/dL (60-115)
[2024-10-19 17:52] LABS: Lipase 20 U/L (8-78)
[2024-10-19] MEDS: Magnesium Sulfate/H2O 2 GM/50 ML PIGGYBACK IV ×2 (17:52→21:20)
[2024-10-19 19:05] VITALS: BP 110/73; PULSE 70; RESP 18; TEMP 36.9; O2SAT 100
[2024-10-19 19:30] VITALS: BMI 27.1
[2024-10-19 20:09] VITALS: BP 110/73
[2024-10-19] MEDS: Ibuprofen 400 MG TABLET PO (20:09)
[2024-10-19 20:11] LABS: Glucose, Whole Blood 380 mg/dL (60-115)
[2024-10-19] MEDS: oxyCODONE HCl Immed Release 5 MG TABLET PO (23:00)
[2024-10-19 23:13] LABS: Glucose, Whole Blood 393 mg/dL (60-115)
[2024-10-20] VITALS (7 sets, daily range): BP systolic 97–109; BP diastolic 54–72; PULSE 66–86; RESP 16–18; TEMP 36–37; O2SAT 93–100
[2024-10-20] MEDS: LORazepam 1 MG TABLET PO ×3 (02:10→20:19)
--- NOTE | 2024-10-20 02:16 | PC.NURSE ---
Pt seen on bed alert and oriented, still with RUQ and LLQ pain , prn Ibuprofen given, with minimal effect, POC at bedtime =380, Dr. Tyler was made aware, Lispro SS 12 units and scheduled 5 units given , scheduled Lantus 30 units given, Radiology called for CT scan abd, pt claimed feeling warm and then clammy, POC rechecked= 393, Dr. Tyler was notified, no additional orders, sent pt for CT and back to room after.
[2024-10-20 07:27] LABS: Glucose, Whole Blood 353 mg/dL (60-115)
[2024-10-20] MEDS: Insulin Lispro 100 UNIT/ML 3 ML VIAL SUBCUT ×4 (07:40→21:54)
[2024-10-20] MEDS: Lactulose 20 GM/30 ML SOLUTION 30 GM PO (07:41)
[2024-10-20] MEDS: methADONE HCl 20 MG/2 ML ORAL.CONC 70 MG PO (07:43)
[2024-10-20] MEDS: Spironolactone 25 MG TABLET 50 MG PO (07:44)
[2024-10-20] MEDS: Docusate Sodium 100 MG CAPSULE PO ×2 (07:44→20:08)
[2024-10-20] MEDS: cloNIDine HCL 0.2 MG TABLET PO ×3 (07:44→20:08)
[2024-10-20] MEDS: rifAXIMin 550 MG TABLET PO ×2 (07:44→20:10)
[2024-10-20] MEDS: Furosemide 40 MG TABLET PO (07:45)
[2024-10-20] MEDS: 0.9 % Sodium Chloride Flush 3 ML SYRINGE IVFLUSH ×3 (07:45→20:20)
[2024-10-20] MEDS: Gabapentin 400 MG CAPSULE 800 MG PO ×3 (07:45→20:08)
[2024-10-20] MEDS: glipiZIDE 5 MG TABLET PO (07:45)
[2024-10-20] MEDS: hydrOXYzine HCL 50 MG TABLET PO ×3 (08:01→23:15)
[2024-10-20] MEDS: Insulin Glargine,Hum.rec.anlog 100 UNIT/ML 10 ML VIAL 20 UNIT SUBCUT (08:02)
[2024-10-20 08:52] LABS: Ammonia 76 umol/L (13-55)
--- NOTE | 2024-10-20 08:55 | P.PNIM_ITS ---
Subjective Subjective Date of Service: 10/20/24 Interval History: f/u on hyperglycemia, c/o abdominal pain, ct showed gallstone, no chlecystitis Physical Exam 2 Vital Signs: Vital Signs: Last Vital Signs Temp 98.6 F 10/20/24 07:03 Pulse 69 10/20/24 07:03 Resp 16 10/20/24 07:03 BP 109/72 10/20/24 07:03 Pulse Ox 97 10/20/24 07:03 O2 Del Method Room Air 10/20/24 07:03 BMI result Body Mass Index 27.1 General: AO X 3, no acute distress Resp: CTA bilateral CVS: S1,S2,RRR GI: +BS, mild tenderness in ruq, no distention Skin: No rash Neuro: motor grossly intact Psych: appropriate affect Objective Data Active Medications Acetaminophen (Acetaminophen 325 Mg Tablet) 650 mg PO Q6H PRN PRN Reason: Pain, Mild 1-3,fever,headache Last Admin: 10/19/24 15:50 Dose: 650 mg Documented By: ANASTACIA Acetaminophen (Acetaminophen 325 Mg Tablet) 650 mg PO Q4H PRN PRN Reason: Pain (Scale Score 1-3) Calcium Carbonate (Calcium Carbonate 750 Mg Tab.Chew) 750 mg PO Q4H PRN PRN Reason: Heartburn Clonidine HCl (Clonidine Hcl 0.2 Mg Tablet) 0.2 mg PO TID [facility]; Protocol Last Admin: 10/20/24 07:44 Dose: 0.2 mg Documented By: BASIL Docusate Sodium (Docusate Sodium 100 Mg Capsule) 100 mg PO BID [facility] Last Admin: 10/20/24 07:44 Dose: 100 mg Documented By: BASIL Furosemide (Furosemide 40 Mg Tablet) 40 mg PO DAILY [facility]; Protocol Last Admin: 10/20/24 07:45 Dose: 40 mg Documented By: BASIL Gabapentin (Gabapentin 400 Mg Capsule) 800 mg PO TID [facility] Last Admin: 10/20/24 07:45 Dose: 800 mg Documented By: BASIL Glipizide (Glipizide 5 Mg Tablet) 5 mg PO DAILY [facility] Last Admin: 10/20/24 07:45 Dose: 5 mg Documented By: BASIL Hydroxyzine HCl (Hydroxyzine Hcl 50 Mg Tablet) 50 mg PO TID PRN PRN Reason: anxiety Last Admin: 10/20/24 08:01 Dose: 50 mg Documented By: BASIL Hydroxyzine HCl (Hydroxyzine Hcl 50 Mg Tablet) 50 mg PO Q4H PRN PRN Reason: Anxiety Last Admin: 10/19/24 20:17 Dose: 50 mg Documented By: SHEA Ibuprofen (Ibuprofen 400 Mg Tablet) 400 mg PO Q8H PRN PRN Reason: BODYACHES Last Admin: 10/19/24 20:09 Dose: 400 mg Documented By: SHEA Insulin Glargine (Insulin Glargine,Hum.Rec.Anlog 100 Unit/Ml 10 Ml Vial) 30 unit SUBCUT BEDTIME [facility] Last Admin: 10/19/24 20:08 Dose: 30 unit Documented By: SHEA Insulin Glargine (Insulin Glargine,Hum.Rec.Anlog 100 Unit/Ml 10 Ml Vial) 20 unit SUBCUT DAILY [facility] Last Admin: 10/20/24 08:02 Dose: 20 unit Documented By: BASIL Insulin Human Lispro (Insulin Lispro 100 Unit/Ml 3 Ml Vial) 0 unit SUBCUT QIDACHS [facility]; Protocol Last Admin: 10/20/24 07:40 Dose: 12 unit Documented By: BASIL Insulin Human Lispro (Insulin Lispro 100 Unit/Ml 3 Ml Vial) 7 unit SUBCUT QIDACHS [facility] Lactulose (Lactulose 20 Gm/30 Ml Solution) 30 gm PO TID [facility] Last Admin: 10/20/24 07:41 Dose: 30 gm Documented By: BASIL Comments: Lorazepam (Lorazepam 1 Mg Tablet) 1 mg PO Q8H PRN PRN Reason: anxiety attack Last Admin: 10/20/24 02:10 Dose: 1 mg Documented By: SHEA Magnesium Hydroxide (Milk Of Magnesia 30 Ml Oral.Susp) 30 ml PO DAILY PRN PRN Reason: Constipation Melatonin (Melatonin 3 Mg Tablet) 6 mg PO BEDTIME PRN PRN Reason: Insomnia Methadone HCl (Methadone Hcl 20 Mg/2 Ml Oral.Conc) 70 mg PO DAILY@0800 [facility] Last Admin: 10/20/24 07:43 Dose: 70 mg Documented By: BASIL Co-signed By: KEKE Nicotine Polacrilex (Nicotine Polacrilex 2 Mg Gum) 2 mg BUCCAL Q2H PRN PRN Reason: Nicotine Cravings Oxycodone HCl (Oxycodone Hcl Immed Release 5 Mg Tablet) 5 mg PO Q6H PRN PRN Reason: Pain, Severe (Pain Scale 7-10) Last Admin: 10/19/24 23:00 Dose: 5 mg Documented By: SHEA Rifaximin (Rifaximin 550 Mg Tablet) 550 mg PO BID [facility] Last Admin: 10/20/24 07:44 Dose: 550 mg Documented By: BASIL Senna (Sennosides 8.6 Mg Tablet) 17.2 mg PO DAILY PRN PRN Reason: Constipation Sodium Chloride (0.9 % Sodium Chloride Flush 3 Ml Syringe) 3 ml IVFLUSH QSHIFT [facility] Last Admin: 10/20/24 07:45 Dose: 3 ml Documented By: BAISL Spironolactone (Spironolactone 25 Mg Tablet) 50 mg PO DAILY [facility]; Protocol Last Admin: 10/20/24 07:44 Dose: 50 mg Documented By: BASIL Labs 10/18/24 13:56 10/19/24 16:11 Labs: Laboratory Results - last 24 hr 10/19/24 10/19/24 10/19/24 12:50 16:11 17:10 Anion Gap 14 Estim Creat Clear Calc 90.4 Estimated GFR > 60 POC Glucose 345 H 400 H* Random Glucose 447 H* Calcium 8.4 D Magnesium 1.3 L* Ammonia Lipase 20 10/19/24 10/19/24 10/20/24 20:00 23:10 07:23 Anion Gap Estim Creat Clear Calc Estimated GFR POC Glucose 380 H* 393 H* 353 H* Random Glucose Calcium Magnesium Ammonia Lipase 10/20/24 08:29 Anion Gap Estim Creat Clear Calc Estimated GFR POC Glucose Random Glucose Calcium Magnesium Ammonia 76 H Lipase Assessment and Plan (1) Uncontrolled diabetes mellitus with hyperglycemia: Status: Acute Plan 38-year-old female who is currently a patient at [facility] and has been sent to our ER for hypoglycemia. He will be admitted for glycemic control. Diabetes with Hyperglycemia, AC1C 11 continue Lantus at 20 in am, 30 at night, pre-meal insulin 7 units, sliding scale and glipizide. Metformin on hold d/t lactic acidosis Cirrhosis, no HE, but ammonia higher 76 continue lactulose increase to 40 tid, rifaximin, aldactone and lasix Depression/anxiety/PTSD Continue her baseline meds Care team consult when medically ready Hypomagnesemia, repleted, recheck Abdominal pain, CT show gallsones, no cholecystitis surgery consult Acute lactic, likely due to liver disease Likely due to underlying liver disease/metformin No foci of infection, not due to severe sepsis Full code DVT prophylaxis, mechanical due to thrombocytopenia, out of bed, ambulation Quality Stroke Does the patient have a stroke diagnosis?: No VTE Prior VTE?: No VTE Risk Level:: Medical - moderate - high VTE Device Contraindication: N/A - Device Ordered VTE Drug Contraindication: Treatment Not Indicated
[2024-10-20 09:14] LABS: Anion Gap 13 (12-20); Blood Urea Nitrogen 11 mg/dL (9-16); Calcium 8.8 mg/dL (8.4-10.2); Carbon Dioxide 24 mmol/L (22-29); Chloride 99 mmol/L (96-108); Creatinine Clr Calc Pharmacy 89.5; Estimated Glomerular Filt Rate > 60; Magnesium 1.7 mg/dL (1.6-2.6); Sodium 131 mmol/L (135-145)
[2024-10-20 09:15] LABS: Glucose Random 375 mg/dL (60-115)
--- NOTE | 2024-10-20 10:47 | P.CONGS_ITS ---
History of Present Illness Consult details Consult date: 10/20/24 Narrative: [age] year old female admitted last 10/18/2024 because of uncontrolled blood sugars. She has a known history of diabetes. She also has IV drug abuse, depression, history of hepatitis-C and recent diagnosis of cirrhosis. She had complained of periodic abdominal pain. She does describes this as being ?diffuse? she does not feel that this is localized to the right upper quadrant. She admits to a long history of constipation. She denies any fever or chills. Review of Systems 2 Constitutional: Constitutional: Denies chills and Denies fever(s) Cardiovascular: Cardiovascular: Denies chest pain, Denies dyspnea and Denies dyspnea on exertion Respiratory: Respiratory: Denies cough, Denies dyspnea and Denies dyspnea on exertion Gastrointestinal: Gastrointestinal: Denies hematochezia, Denies change in bowel habits and Reports constipation Genitourinary: Genitourinary: Denies hematuria Musculoskeletal: Musculoskeletal: Denies back pain and Denies limited range of motion Neurologic: Denies focal weakness and Denies convulsions Psychiatric: Psychiatric: Denies depression and Denies mood swings [facility] Past Medical History Medical History (Updated 10/20/24 @ 10:49 by Jerardo Johnston MD) Gallstones Social History Social History Household Members: Other Household Members Other:: facility Housing: Other Do you presently have visiting nurse or other home services: No Unable to assess alcohol history related to: Unknown Comment: 1:1 Patient Tobacco Use Status: Current everyday Tobacco user Tobacco use type: Cigarette Smoked in Last 30 Days: Yes Patient Interested in Nicotine Replacement: Yes Patient Given Instructions on How to Stop Smoking: No Use of substances other than those prescribed or required for medical reasons: No Substance Use Type: Heroin Substance Use Frequency: Weekly Last Used Substance: Weeks (ago) Currently Displaying Signs/Symptoms of Drug Intoxication Withdrawal: No Any prior treatment program specific to substance use: Yes Have you been hit, kicked, punched, or otherwise hurt by someone within the past year? If so, by whom?: No Do you feel safe in your current relationship?: No Is there a partner from a previous relationship who is making you feel unsafe now?: No Advance Directives: No Advance Directives Information Provided: Yes Do you have a plan to hurt others: No Plan Recently lost weight without trying: No Nutrition Risks: No Nutritional Risk Patient : No : No Poor oral hygiene: No service: No Meds Allergies Allergy/AdvReac Type Severity Reaction Status Date / Time No Known Allergies Allergy Verified 10/18/24 15:02 Active Medications: Current Medications Acetaminophen (Acetaminophen 325 Mg Tablet) 650 mg PO Q6H PRN PRN Reason: Pain, Mild 1-3,fever,headache Last Admin: 10/19/24 15:50 Dose: 650 mg Acetaminophen (Acetaminophen 325 Mg Tablet) 650 mg PO Q4H PRN PRN Reason: Pain (Scale Score 1-3) Calcium Carbonate (Calcium Carbonate 750 Mg Tab.Chew) 750 mg PO Q4H PRN PRN Reason: Heartburn Clonidine HCl (Clonidine Hcl 0.2 Mg Tablet) 0.2 mg PO TID [facility]; Protocol Last Admin: 10/20/24 07:44 Dose: 0.2 mg Docusate Sodium (Docusate Sodium 100 Mg Capsule) 100 mg PO BID [facility] Last Admin: 10/20/24 07:44 Dose: 100 mg Furosemide (Furosemide 40 Mg Tablet) 40 mg PO DAILY [facility]; Protocol Last Admin: 10/20/24 07:45 Dose: 40 mg Gabapentin (Gabapentin 400 Mg Capsule) 800 mg PO TID [facility] Last Admin: 10/20/24 07:45 Dose: 800 mg Glipizide (Glipizide 5 Mg Tablet) 5 mg PO DAILY [facility] Last Admin: 10/20/24 07:45 Dose: 5 mg Hydroxyzine HCl (Hydroxyzine Hcl 50 Mg Tablet) 50 mg PO TID PRN PRN Reason: anxiety Last Admin: 10/20/24 08:01 Dose: 50 mg Hydroxyzine HCl (Hydroxyzine Hcl 50 Mg Tablet) 50 mg PO Q4H PRN PRN Reason: Anxiety Last Admin: 10/19/24 20:17 Dose: 50 mg Ibuprofen (Ibuprofen 400 Mg Tablet) 400 mg PO Q8H PRN PRN Reason: BODYACHES Last Admin: 10/19/24 20:09 Dose: 400 mg Insulin Glargine (Insulin Glargine,Hum.Rec.Anlog 100 Unit/Ml 10 Ml Vial) 30 unit SUBCUT BEDTIME [facility] Last Admin: 10/19/24 20:08 Dose: 30 unit Insulin Glargine (Insulin Glargine,Hum.Rec.Anlog 100 Unit/Ml 10 Ml Vial) 20 unit SUBCUT DAILY [facility] Last Admin: 10/20/24 08:02 Dose: 20 unit Insulin Human Lispro (Insulin Lispro 100 Unit/Ml 3 Ml Vial) 0 unit SUBCUT QIDACHS [facility]; Protocol Last Admin: 10/20/24 07:40 Dose: 12 unit Insulin Human Lispro (Insulin Lispro 100 Unit/Ml 3 Ml Vial) 7 unit SUBCUT QIDACHS [facility] Lactulose (Lactulose 20 Gm/30 Ml Solution) 40 gm PO TID [facility] Lorazepam (Lorazepam 1 Mg Tablet) 1 mg PO Q8H PRN PRN Reason: anxiety attack Last Admin: 10/20/24 02:10 Dose: 1 mg Magnesium Hydroxide (Milk Of Magnesia 30 Ml Oral.Susp) 30 ml PO DAILY PRN PRN Reason: Constipation Melatonin (Melatonin 3 Mg Tablet) 6 mg PO BEDTIME PRN PRN Reason: Insomnia Methadone HCl (Methadone Hcl 20 Mg/2 Ml Oral.Conc) 70 mg PO DAILY@0800 [facility] Last Admin: 10/20/24 07:43 Dose: 70 mg Nicotine Polacrilex (Nicotine Polacrilex 2 Mg Gum) 2 mg BUCCAL Q2H PRN PRN Reason: Nicotine Cravings Oxycodone HCl (Oxycodone Hcl Immed Release 5 Mg Tablet) 5 mg PO Q6H PRN PRN Reason: Pain, Severe (Pain Scale 7-10) Last Admin: 10/19/24 23:00 Dose: 5 mg Rifaximin (Rifaximin 550 Mg Tablet) 550 mg PO BID [facility] Last Admin: 10/20/24 07:44 Dose: 550 mg Senna (Sennosides 8.6 Mg Tablet) 17.2 mg PO DAILY PRN PRN Reason: Constipation Sodium Chloride (0.9 % Sodium Chloride Flush 3 Ml Syringe) 3 ml IVFLUSH QSHIFT [facility] Last Admin: 10/20/24 07:45 Dose: 3 ml Spironolactone (Spironolactone 25 Mg Tablet) 50 mg PO DAILY [facility]; Protocol Last Admin: 10/20/24 07:44 Dose: 50 mg Home Medications ?Medication ?Instructions ?Recorded ?Confirmed ?Last Taken ?Type clonidine HCl 0.2 mg tablet 0.2 mg PO TID anxiety 10/18/24 10/18/24 Unknown History docusate sodium 100 mg capsule 100 mg PO BID PRN constipation 10/18/24 10/18/24 Unknown History gabapentin 800 mg tablet 800 mg PO TID depressive disorder 10/18/24 10/18/24 Unknown History glipizide 5 mg tablet 5 mg PO BID 10/18/24 10/19/24 Unknown History insulin glargine 100 unit/mL (3 38 unit subcut BEDTIME 10/18/24 10/18/24 Unknown History mL) subcutaneous pen (Lantus Solostar U-100 Insulin) insulin lispro 100 unit/mL See Protocol subcut TIDAC 10/18/24 10/18/24 Unknown History subcutaneous solution lactulose 10 gram/15 mL oral 30 ml PO TIDWM 10/18/24 10/18/24 Unknown History solution lorazepam 1 mg tablet 1 mg PO TID PRN anxiety attack 10/18/24 10/19/24 Unknown History metformin 500 mg tablet 1,000 mg PO BID 10/18/24 10/18/24 Unknown History ondansetron HCl 4 mg tablet 4 mg PO Q6H PRN Nausea And Vomiting 10/18/24 10/19/24 Unknown History sennosides 8.6 mg tablet (senna) 17.2 mg PO DAILY PRN Constipation 10/18/24 10/18/24 Unknown History acetaminophen 325 mg tablet 650 mg PO Q4H PRN Pain (Scale 10/19/24 10/19/24 Unknown History Score 1-3) furosemide 20 mg tablet 40 mg PO DAILY 10/19/24 10/19/24 Unknown History hydroxyzine pamoate 50 mg capsule 50 mg PO Q4H PRN Anxiety 10/19/24 10/19/24 Unknown History ibuprofen 400 mg tablet 400 mg PO Q8H PRN BODYACHES 10/19/24 10/19/24 Unknown History methadone 10 mg tablet 70 mg PO DAILY 10/19/24 10/19/24 Unknown History nicotine (polacrilex) 2 mg gum 2 mg buccal Q2H PRN Nicotine 10/19/24 10/19/24 Unknown History Cravings rifaximin 550 mg tablet 550 mg PO BID 10/19/24 10/19/24 Unknown History spironolactone 25 mg tablet 50 mg PO DAILY 10/19/24 10/19/24 Unknown History Physical Exam 2 Vital Signs: Vital Signs: Last Vital Signs Temp 98.6 F 10/20/24 07:03 Pulse 69 10/20/24 07:03 Resp 16 10/20/24 07:03 BP 109/72 10/20/24 07:03 Pulse Ox 97 10/20/24 07:03 O2 Del Method Room Air 10/20/24 07:03 BMI result Body Mass Index 27.1 Const: General: comfortable and no acute distress O rientation/consciousness: patient oriented x3 Neck: Neck: Yes no lymphadenopathy Resp: Auscultation: clear to auscultation bilaterally Cardio: Rhythm: regular rhythm GI: Other: Mild diffuse tenderness on exam, no Rosales's sign Palpation (GI): Soft to palpation and no guarding Neuro: General: patient oriented x3 Results Labs 10/23/24 05:20 10/25/24 10:18 Labs: Abnormal lab results 10/19/24 10/19/24 10/19/24 Range/Units 12:50 16:11 17:10 Sodium 133 L (135-145) mmol/L POC Glucose 345 H 400 H* (60-115) mg/dL Random Glucose 447 H* (60-115) mg/dL Magnesium 1.3 L* (1.6-2.6) mg/dL Ammonia (13-55) umol/L 10/19/24 10/19/24 10/20/24 Range/Units 20:00 23:10 07:23 Sodium (135-145) mmol/L POC Glucose 380 H* 393 H* 353 H* (60-115) mg/dL Random Glucose (60-115) mg/dL Magnesium (1.6-2.6) mg/dL Ammonia (13-55) umol/L 10/20/24 Range/Units 08:29 Sodium 131 L (135-145) mmol/L POC Glucose (60-115) mg/dL Random Glucose 375 H* (60-115) mg/dL Magnesium (1.6-2.6) mg/dL Ammonia 76 H (13-55) umol/L BMP 10/19/24 10/20/24 16:11 08:29 Sodium 133 L 131 L Potassium 4.3 5.0 Chloride 99 99 Carbon Dioxide 24 24 BUN 11 11 Creatinine 0.74 0.78 Calcium 8.4 D 8.8 All other labs normal. Assessment and Plan (1) Gallstones: Status: Acute She has multiple medical problems and has had chronic periodic abdominal pain. Her CAT scan shows gallstones with evidence of cholecystitis . She also has constipation. Exact etiology of her abdominal pain is uncertain. However, I would start her on some bowel regimen because of her chronic constipation along with high fecal load in her colon. I would off on any surgical intervention for gallstones at this time especially in the light of her cirrhosis. I explained to her that she presents with significant perioperative risks especially for bleeding because of her cirrhosis. I will follow along while she is in the hospital. Procedures Date of Service Date of Service: 10/26/24
[2024-10-20 11:18] LABS: Glucose, Whole Blood 404 mg/dL (60-115)
[2024-10-20 11:44] LABS: Glucose, Whole Blood 402 mg/dL (60-115)
[2024-10-20] MEDS: Insulin Lispro 100 UNIT/ML 3 ML VIAL 7 UNIT SUBCUT ×3 (11:52→21:53)
--- NOTE | 2024-10-20 12:51 | MHC.CM.PN ---
PT TO HAVE OR EVAL TODAY POSSIBLE DC TOMORROW BACK TO [facility]
[2024-10-20 14:46] LABS: Glucose, Whole Blood 394 mg/dL (60-115)
[2024-10-20] MEDS: Lactulose 20 GM/30 ML SOLUTION 40 GM PO ×2 (15:02→20:08)
[2024-10-20] MEDS: Nicotine Polacrilex 2 MG GUM BUCCAL (15:13)
[2024-10-20] MEDS: oxyCODONE HCl Immed Release 5 MG TABLET PO ×2 (15:13→23:15)
[2024-10-20 16:12] LABS: Glucose, Whole Blood 353 mg/dL (60-115)
[2024-10-20 16:45] LABS: Glucose, Whole Blood 399 mg/dL (60-115)
[2024-10-20 21:08] LABS: Glucose, Whole Blood 405 mg/dL (60-115)
[2024-10-20] MEDS: Insulin Glargine,Hum.rec.anlog 100 UNIT/ML 10 ML VIAL 10 UNIT SUBCUT (21:51)
[2024-10-20] MEDS: Insulin Glargine,Hum.rec.anlog 100 UNIT/ML 10 ML VIAL 30 UNIT SUBCUT (21:52)
[2024-10-21] VITALS (7 sets, daily range): BP systolic 96–117; BP diastolic 53–71; PULSE 62–92; RESP 16–18; TEMP 36–37.2; O2SAT 96–98
[2024-10-21] MEDS: Nicotine Polacrilex 2 MG GUM BUCCAL ×3 (00:19→15:22)
[2024-10-21 05:14] LABS: Glucose, Whole Blood 346 mg/dL (60-115)
[2024-10-21 07:54] LABS: Glucose, Whole Blood 305 mg/dL (60-115)
--- NOTE | 2024-10-21 08:05 | P.PNGS_ITS ---
Subjective Subjective Date of Service: 10/21/24 Interval history: No new complaints Tolerating diet well No nausea or vomiting Physical Exam 2 Vital Signs: Vital Signs: Last Vital Signs Temp 97.6 F 10/21/24 07:49 Pulse 77 10/21/24 07:49 Resp 16 10/21/24 07:49 BP 96/54 L 10/21/24 07:49 Pulse Ox 98 10/21/24 07:49 O2 Del Method Room Air 10/21/24 07:49 BMI result Body Mass Index 27.1 Const: General: comfortable and no acute distress Resp: Effort & Inspection: normal respiratory effort Cardio: Rate: regular rate GI: Other: Mild diffuse tenderness, no Rosales's sign Palpation (GI): Soft to palpation, not firm and no guarding Objective Data Active Medications Acetaminophen (Acetaminophen 325 Mg Tablet) 650 mg PO Q6H PRN PRN Reason: Pain, Mild 1-3,fever,headache Last Admin: 10/19/24 15:50 Dose: 650 mg Documented By: ANASTACIA Acetaminophen (Acetaminophen 325 Mg Tablet) 650 mg PO Q4H PRN PRN Reason: Pain (Scale Score 1-3) Calcium Carbonate (Calcium Carbonate 750 Mg Tab.Chew) 750 mg PO Q4H PRN PRN Reason: Heartburn Clonidine HCl (Clonidine Hcl 0.2 Mg Tablet) 0.2 mg PO TID [facility]; Protocol Last Admin: 10/20/24 20:08 Dose: 0.2 mg Documented By: LALI Docusate Sodium (Docusate Sodium 100 Mg Capsule) 100 mg PO BID [facility] Last Admin: 10/20/24 20:08 Dose: 100 mg Documented By: LALI Furosemide (Furosemide 40 Mg Tablet) 40 mg PO DAILY [facility]; Protocol Last Admin: 10/20/24 07:45 Dose: 40 mg Documented By: BASIL Gabapentin (Gabapentin 400 Mg Capsule) 800 mg PO TID [facility] Last Admin: 10/20/24 20:08 Dose: 800 mg Documented By: LALI Glipizide (Glipizide 10 Mg Tablet) 10 mg PO DAILY [facility] Hydroxyzine HCl (Hydroxyzine Hcl 50 Mg Tablet) 50 mg PO TID PRN PRN Reason: anxiety Last Admin: 10/20/24 16:48 Dose: 50 mg Documented By: BASIL Hydroxyzine HCl (Hydroxyzine Hcl 50 Mg Tablet) 50 mg PO Q4H PRN PRN Reason: Anxiety Last Admin: 10/20/24 23:15 Dose: 50 mg Documented By: LALI Ibuprofen (Ibuprofen 400 Mg Tablet) 400 mg PO Q8H PRN PRN Reason: BODYACHES Last Admin: 10/19/24 20:09 Dose: 400 mg Documented By: VICKILSaba Insulin Glargine (Insulin Glargine,Hum.Rec.Anlog 100 Unit/Ml 10 Ml Vial) 35 unit SUBCUT DAILY [facility] Insulin Glargine (Insulin Glargine,Hum.Rec.Anlog 100 Unit/Ml 10 Ml Vial) 40 unit SUBCUT BEDTIME [facility] Insulin Human Lispro (Insulin Lispro 100 Unit/Ml 3 Ml Vial) 0 unit SUBCUT QIDACHS [facility]; Protocol Last Admin: 10/20/24 21:54 Dose: 12 unit Documented By: LALI Insulin Human Lispro (Insulin Lispro 100 Unit/Ml 3 Ml Vial) 7 unit SUBCUT QIDAS [facility] Last Admin: 10/20/24 21:53 Dose: 7 unit Documented By: LALI Lactulose (Lactulose 20 Gm/30 Ml Solution) 40 gm PO TID [facility] Last Admin: 10/20/24 20:08 Dose: 40 gm Documented By: LALI Lorazepam (Lorazepam 1 Mg Tablet) 1 mg PO Q8H PRN PRN Reason: anxiety attack Last Admin: 10/20/24 20:19 Dose: 1 mg Documented By: LALI Magnesium Hydroxide (Milk Of Magnesia 30 Ml Oral.Susp) 30 ml PO DAILY PRN PRN Reason: Constipation Melatonin (Melatonin 3 Mg Tablet) 6 mg PO BEDTIME PRN PRN Reason: Insomnia Methadone HCl (Methadone Hcl 20 Mg/2 Ml Oral.Conc) 70 mg PO DAILY@0800 [facility] Last Admin: 10/20/24 07:43 Dose: 70 mg Documented By: BASIL Co-signed By: KEKE Nicotine Polacrilex (Nicotine Polacrilex 2 Mg Gum) 2 mg BUCCAL Q2H PRN PRN Reason: Nicotine Cravings Last Admin: 10/21/24 00:19 Dose: 2 mg Documented By: LALI Oxycodone HCl (Oxycodone Hcl Immed Release 5 Mg Tablet) 5 mg PO Q6H PRN PRN Reason: Pain, Severe (Pain Scale 7-10) Last Admin: 10/20/24 23:15 Dose: 5 mg Documented By: LALI Rifaximin (Rifaximin 550 Mg Tablet) 550 mg PO BID [facility] Last Admin: 10/20/24 20:10 Dose: 550 mg Documented By: LALI Senna (Sennosides 8.6 Mg Tablet) 17.2 mg PO DAILY PRN PRN Reason: Constipation Sodium Chloride (0.9 % Sodium Chloride Flush 3 Ml Syringe) 3 ml IVFLUSH QSHIFT [facility] Last Admin: 10/20/24 20:20 Dose: 3 ml Documented By: LALI Spironolactone (Spironolactone 25 Mg Tablet) 50 mg PO DAILY [facility]; Protocol Last Admin: 10/20/24 07:44 Dose: 50 mg Documented By: BASIL Labs 10/18/24 13:56 10/20/24 08:29 Labs: Laboratory Results - last 24 hr 10/20/24 10/20/24 10/20/24 08:29 11:02 11:40 Anion Gap 13 Estim Creat Clear Calc 89.5 Estimated GFR > 60 POC Glucose 404 H* 402 H* Random Glucose 375 H* Calcium 8.8 Magnesium 1.7 Ammonia 76 H 10/20/24 10/20/24 10/20/24 14:42 15:14 16:38 Anion Gap Estim Creat Clear Calc Estimated GFR POC Glucose 394 H* 353 H* 399 H* Random Glucose Calcium Magnesium Ammonia 10/20/24 10/21/24 10/21/24 21:04 03:51 07:48 Anion Gap Estim Creat Clear Calc Estimated GFR POC Glucose 405 H* 346 H 305 H Random Glucose Calcium Magnesium Ammonia Procedures Date of Service Date of Service: 10/21/24 Progress Note: A&P Assessment and plan (1) Gallstones: Status: Acute Assessment and Plan: Clinically no cholecystitis She has had chronic abdominal pain on and off and says she has IBS She says she takes Bentyl at home and wants to restart this Tolerating diet Diabetes control WBC low Time Spent With Patient Time: Total time managing care of this patient today ____ minutes. Quality Stroke Does the patient have a stroke diagnosis?: No VTE Prior VTE?: No VTE Risk Level:: Medical - moderate - high VTE Device Contraindication: N/A - Device Ordered VTE Drug Contraindication: Treatment Not Indicated
[2024-10-21] MEDS: Insulin Lispro 100 UNIT/ML 3 ML VIAL 7 UNIT SUBCUT ×4 (08:09→20:58)
[2024-10-21] MEDS: Insulin Lispro 100 UNIT/ML 3 ML VIAL SUBCUT ×4 (08:09→20:57)
[2024-10-21] MEDS: Insulin Glargine,Hum.rec.anlog 100 UNIT/ML 10 ML VIAL 20 UNIT SUBCUT (08:10)
[2024-10-21] MEDS: Gabapentin 400 MG CAPSULE 800 MG PO ×3 (08:13→21:00)
[2024-10-21] MEDS: glipiZIDE 5 MG TABLET PO ×2 (08:13→09:54)
[2024-10-21] MEDS: Lactulose 20 GM/30 ML SOLUTION 40 GM PO ×3 (08:15→21:00)
[2024-10-21] MEDS: rifAXIMin 550 MG TABLET PO ×2 (08:15→20:59)
[2024-10-21] MEDS: Furosemide 40 MG TABLET PO (08:15)
[2024-10-21] MEDS: Spironolactone 25 MG TABLET 50 MG PO (08:15)
[2024-10-21] MEDS: cloNIDine HCL 0.2 MG TABLET PO ×3 (08:15→20:59)
[2024-10-21] MEDS: methADONE HCl 20 MG/2 ML ORAL.CONC 70 MG PO (08:16)
[2024-10-21] MEDS: 0.9 % Sodium Chloride Flush 3 ML SYRINGE IVFLUSH ×3 (08:16→21:07)
[2024-10-21] MEDS: hydrOXYzine HCL 50 MG TABLET PO ×2 (08:33→15:22)
[2024-10-21] MEDS: oxyCODONE HCl Immed Release 5 MG TABLET PO ×3 (08:33→23:47)
[2024-10-21] MEDS: LORazepam 1 MG TABLET PO ×2 (08:34→21:24)
--- NOTE | 2024-10-21 09:02 | HO.PM.IMPN ---
Subjective Subjective Date of Service: 10/21/24 Interval History: f/u on hyperglycemia, blood sugars still high but overall better, no pain Physical Exam Vital Signs: Vital Signs: Last Vital Signs Temp 97.6 F 10/21/24 07:49 Pulse 77 10/21/24 07:49 Resp 16 10/21/24 07:49 BP 96/54 L 10/21/24 07:49 Pulse Ox 98 10/21/24 07:49 O2 Del Method Room Air 10/21/24 07:49 BMI result Body Mass Index 27.1 General: AO X 3, no acute distress Resp: CTA bilateral CVS: S1,S2,RRR GI: +BS, nt, no distention Skin: No rash Neuro: motor grossly intact Psych: appropriate affect Objective Data Active Medications Acetaminophen (Acetaminophen 325 Mg Tablet) 650 mg PO Q6H PRN PRN Reason: Pain, Mild 1-3,fever,headache Last Admin: 10/19/24 15:50 Dose: 650 mg Documented By: ANASTACIA Acetaminophen (Acetaminophen 325 Mg Tablet) 650 mg PO Q4H PRN PRN Reason: Pain (Scale Score 1-3) Calcium Carbonate (Calcium Carbonate 750 Mg Tab.Chew) 750 mg PO Q4H PRN PRN Reason: Heartburn Clonidine HCl (Clonidine Hcl 0.2 Mg Tablet) 0.2 mg PO TID [facility]; Protocol Last Admin: 10/21/24 08:15 Dose: 0.2 mg Documented By: FLORINA Docusate Sodium (Docusate Sodium 100 Mg Capsule) 100 mg PO BID [facility] Last Admin: 10/21/24 08:17 Dose: Not Given Documented By: FLORINA Non-Admin Reason: loose stool Furosemide (Furosemide 40 Mg Tablet) 40 mg PO DAILY [facility]; Protocol Last Admin: 10/21/24 08:15 Dose: 40 mg Documented By: FLORINA Gabapentin (Gabapentin 400 Mg Capsule) 800 mg PO TID [facility] Last Admin: 10/21/24 08:13 Dose: 800 mg Documented By: FLORINA Glipizide (Glipizide 10 Mg Tablet) 10 mg PO DAILY [facility] Hydroxyzine HCl (Hydroxyzine Hcl 50 Mg Tablet) 50 mg PO TID PRN PRN Reason: anxiety Last Admin: 10/20/24 16:48 Dose: 50 mg Documented By: HO.LAPOINM Hydroxyzine HCl (Hydroxyzine Hcl 50 Mg Tablet) 50 mg PO Q4H PRN PRN Reason: Anxiety Last Admin: 10/21/24 08:33 Dose: 50 mg Documented By: FLORINA Ibuprofen (Ibuprofen 400 Mg Tablet) 400 mg PO Q8H PRN PRN Reason: BODYACHES Last Admin: 10/19/24 20:09 Dose: 400 mg Documented By: SHEA Insulin Glargine (Insulin Glargine,Hum.Rec.Anlog 100 Unit/Ml 10 Ml Vial) 35 unit SUBCUT DAILY [facility] Insulin Glargine (Insulin Glargine,Hum.Rec.Anlog 100 Unit/Ml 10 Ml Vial) 40 unit SUBCUT BEDTIME [facility] Insulin Human Lispro (Insulin Lispro 100 Unit/Ml 3 Ml Vial) 0 unit SUBCUT QIDACHS [facility]; Protocol Last Admin: 10/21/24 08:09 Dose: 10 unit Documented By: FLORINA Insulin Human Lispro (Insulin Lispro 100 Unit/Ml 3 Ml Vial) 7 unit SUBCUT QIDAS [facility] Last Admin: 10/21/24 08:09 Dose: 7 unit Documented By: FLORINA Lactulose (Lactulose 20 Gm/30 Ml Solution) 40 gm PO TID [facility] Last Admin: 10/21/24 08:15 Dose: 40 gm Documented By: FLORINA Lorazepam (Lorazepam 1 Mg Tablet) 1 mg PO Q8H PRN PRN Reason: anxiety attack Last Admin: 10/21/24 08:34 Dose: 1 mg Documented By: FLORINA Magnesium Hydroxide (Milk Of Magnesia 30 Ml Oral.Susp) 30 ml PO DAILY PRN PRN Reason: Constipation Melatonin (Melatonin 3 Mg Tablet) 6 mg PO BEDTIME PRN PRN Reason: Insomnia Methadone HCl (Methadone Hcl 20 Mg/2 Ml Oral.Conc) 70 mg PO DAILY@0800 [facility] Last Admin: 10/21/24 08:16 Dose: 70 mg Documented By: FLORINA Co-signed By: SOLO Nicotine Polacrilex (Nicotine Polacrilex 2 Mg Gum) 2 mg BUCCAL Q2H PRN PRN Reason: Nicotine Cravings Last Admin: 10/21/24 00:19 Dose: 2 mg Documented By: LALI Oxycodone HCl (Oxycodone Hcl Immed Release 5 Mg Tablet) 5 mg PO Q6H PRN PRN Reason: Pain, Severe (Pain Scale 7-10) Last Admin: 10/21/24 08:33 Dose: 5 mg Documented By: FLORINA Rifaximin (Rifaximin 550 Mg Tablet) 550 mg PO BID [facility] Last Admin: 10/21/24 08:15 Dose: 550 mg Documented By: FLORINA Senna (Sennosides 8.6 Mg Tablet) 17.2 mg PO DAILY PRN PRN Reason: Constipation Sodium Chloride (0.9 % Sodium Chloride Flush 3 Ml Syringe) 3 ml IVFLUSH QSHIFT [facility] Last Admin: 10/21/24 08:16 Dose: 3 ml Documented By: FLORINA Spironolactone (Spironolactone 25 Mg Tablet) 50 mg PO DAILY [facility]; Protocol Last Admin: 10/21/24 08:15 Dose: 50 mg Documented By: FLORINA Labs 10/18/24 13:56 10/20/24 08:29 Labs: Laboratory Results - last 24 hr 10/20/24 10/20/24 10/20/24 08:29 11:02 11:40 Anion Gap 13 Estim Creat Clear Calc 89.5 Estimated GFR > 60 POC Glucose 404 H* 402 H* Random Glucose 375 H* Calcium 8.8 Magnesium 1.7 10/20/24 10/20/24 10/20/24 14:42 15:14 16:38 Anion Gap Estim Creat Clear Calc Estimated GFR POC Glucose 394 H* 353 H* 399 H* Random Glucose Calcium Magnesium 10/20/24 10/21/24 10/21/24 21:04 03:51 07:48 Anion Gap Estim Creat Clear Calc Estimated GFR POC Glucose 405 H* 346 H 305 H Random Glucose Calcium Magnesium Assessment and Plan (1) Uncontrolled diabetes mellitus with hyperglycemia: Status: Acute Plan 38-year-old female who is currently a patient at [facility] and has been sent to our ER for hypoglycemia. He will be admitted for glycemic control. Diabetes with Hyperglycemia, AC1C 11 continue Lantus at 30 in am, 40 at night, pre-meal insulin 5 units, sliding scale and glipizide increased to 10. Metformin on hold d/t lactic acidosis Cirrhosis, no HE, but ammonia higher 76 continue lactulose increase to 40 tid, rifaximin, aldactone and lasix Depression/anxiety/PTSD Continue her baseline meds Care team consult when medically ready Hypomagnesemia, repleted, recheck Abdominal pain, CT show gallsones, no cholecystitis surgery following Acute lactic, likely due to liver disease Likely due to underlying liver disease/metformin No foci of infection, not due to severe sepsis Full code DVT prophylaxis, mechanical due to thrombocytopenia, out of bed, ambulation need for inpt: continuing need for insulin adjustment Quality Stroke Does the patient have a stroke diagnosis?: No VTE Prior VTE?: No VTE Risk Level:: Medical - moderate - high VTE Device Contraindication: N/A - Device Ordered VTE Drug Contraindication: Treatment Not Indicated
[2024-10-21] MEDS: Insulin Glargine,Hum.rec.anlog 100 UNIT/ML 10 ML VIAL 10 UNIT SUBCUT (09:54)
[2024-10-21 10:17] LABS: Anion Gap 11 (12-20); Blood Urea Nitrogen 12 mg/dL (9-16); Calcium 9.8 mg/dL (8.4-10.2); Carbon Dioxide 27 mmol/L (22-29); Chloride 100 mmol/L (96-108); Creatinine Clr Calc Pharmacy 90.7; Estimated Glomerular Filt Rate > 60; Glucose Random 343 mg/dL (60-115); Magnesium 1.5 mg/dL (1.6-2.6); Potassium 4.2 mmol/L (3.3-5.1); Sodium 134 mmol/L (135-145)
[2024-10-21 12:20] LABS: Glucose, Whole Blood 340 mg/dL (60-115)
[2024-10-21] MEDS: Ibuprofen 400 MG TABLET PO (12:51)
[2024-10-21] MEDS: Dicyclomine HCl 10 MG CAPSULE PO (12:51)
[2024-10-21] MEDS: Magnesium Sulfate/H2O 2 GM/50 ML PIGGYBACK IV (15:20)
[2024-10-21 15:52] LABS: Glucose, Whole Blood 339 mg/dL (60-115)
--- NOTE | 2024-10-21 17:50 | PC.NURSE ---
Dr. Dalton ok'd to DC sitter and place camera. Pt denies SI. Agreeable to camera. Pt moderate fall risk but refusing bed/chair alarms. Ambulates steady.
[2024-10-21 20:21] LABS: Glucose, Whole Blood 405 mg/dL (60-115)
[2024-10-21] MEDS: Docusate Sodium 100 MG CAPSULE PO (21:00)
[2024-10-21] MEDS: Insulin Glargine,Hum.rec.anlog 100 UNIT/ML 10 ML VIAL 55 UNIT SUBCUT (21:06)
[2024-10-21] MEDS: Dicyclomine HCl 10 MG CAPSULE 40 MG PO (23:46)
[2024-10-22 00:47] VITALS: RESP 18
[2024-10-22 02:03] LABS: Glucose, Whole Blood 408 mg/dL (60-115)
[2024-10-22] MEDS: Insulin Regular, Human 100 UNIT/ML 10 ML VIAL 10 UNIT IVPUSH (02:35)
--- NOTE | 2024-10-22 02:55 | PC.NURSE ---
pATIENTS BLOOD SUGAR FINGER STICK AT (10/21), WAS 405, PATIENT WITHOUT SX'S HYPERGLYCEMIA, VALUE REPORTED TO HOSPITALIST ON DUTY AND INSULIN ADMINISTERED PER NOV, AND NOTED LANTUS DOSE WAS INCREASED. RECEIVED A TIGER TEXT FROM DR. RUSSELL SHORTLY AFTERWARDS, INQUIRING ON PATIENTS BLOOD SUGARS AND INSULIN. DR RUSSELL WAS UPDATED AND ASKED FOR A RECHECK AT 0200. PATIENT ALERT, CALM, NAPPING ON AND OFF, VOIDING, BP ON THE SOFT SIDE, LUNG SERNA CLEAR, GAIT STEADY TO BATHROOM. MEDICATIONS PER REQUESTS (SEE MAR). BLOOD SUGAR RECHECK CAME BACK AT 408, DR IVVEROS ALERTED TO VALUE AND HOW DR RUSSELL HAD REQUESTED POC. HOSPITALIST ORDERED 10 UNITS REGULAR INSULIN IVP WHICH WAS GIVEN WITH COWORKER RN CO SIGNING. PATIENTS ONLY FEEDBACK WAS THAT SHE WAS THIRSTY, ICE WATER AT BEDSIDE, NO OTHER COMPLAINTS, WILL CONTINUE TO MONITOR CLOSELY
[2024-10-22 03:18] VITALS: BP 114/69; PULSE 65; RESP 16; TEMP 36.1; O2SAT 98
[2024-10-22 04:02] LABS: Glucose, Whole Blood 390 mg/dL (60-115)
--- NOTE | 2024-10-22 04:06 | PC.NURSE ---
[id number] STATING TO FEEL A LITTLE WEAK, HUNGRY. AWAKE, ALERT, APPROPRIATE, FINGER STICK CHECK WAS 390, [id number], 98% ROOM AIR. PATIENT ALSO DISCOURAGED SHE CANNOT FALL BACK TO SLEEP, DECIDED TO WATCH TV, WILL RING IF NEEDS TO GO TO THE BATHROOM, CONTINUE TO MONITOR.
[2024-10-22] MEDS: Nicotine Polacrilex 2 MG GUM BUCCAL ×2 (04:47→08:13)
[2024-10-22 06:52] LABS: Anion Gap 11 (12-20); Blood Urea Nitrogen 14 mg/dL (9-16); Calcium 8.5 mg/dL (8.4-10.2); Carbon Dioxide 25 mmol/L (22-29); Chloride 100 mmol/L (96-108); Creatinine Clr Calc Pharmacy 87.3; Estimated Glomerular Filt Rate > 60; Glucose Random 374 mg/dL (60-115); Magnesium 1.5 mg/dL (1.6-2.6); Potassium 4.3 mmol/L (3.3-5.1); Sodium 132 mmol/L (135-145)
[2024-10-22 07:03] LABS: Glucose, Whole Blood 311 mg/dL (60-115)
[2024-10-22 07:13] VITALS: BP 118/71; PULSE 64; RESP 16; TEMP 36.1; O2SAT 98
[2024-10-22] MEDS: Insulin Lispro 100 UNIT/ML 3 ML VIAL SUBCUT ×4 (08:12→20:30)
[2024-10-22] MEDS: Dicyclomine HCl 10 MG CAPSULE 40 MG PO ×3 (08:13→21:39)
[2024-10-22] MEDS: LORazepam 1 MG TABLET PO ×2 (08:13→21:44)
[2024-10-22] MEDS: oxyCODONE HCl Immed Release 5 MG TABLET PO ×2 (08:13→16:58)
[2024-10-22] MEDS: hydrOXYzine HCL 50 MG TABLET PO (08:13)
[2024-10-22] MEDS: Insulin Lispro 100 UNIT/ML 3 ML VIAL 7 UNIT SUBCUT ×3 (08:14→20:30)
--- NOTE | 2024-10-22 08:35 | P.PNIM_ITS ---
Subjective Subjective Date of Service: 10/22/24 Interval History: Blood sugar still very high, received additional insulin including IV, lantus was also increased she is reporting no new symptoms Physical Exam 2 Vital Signs: Vital Signs: Last Vital Signs Temp 97.0 F 10/22/24 07:13 Pulse 64 10/22/24 07:13 Resp 16 10/22/24 07:13 BP 118/71 10/22/24 07:13 Pulse Ox 98 10/22/24 07:13 O2 Del Method Room Air 10/22/24 07:13 BMI result Body Mass Index 27.1 Const: Other: General: AO X 3, no acute distress Resp: CTA bilateral CVS: S1,S2,RRR GI: +BS, NT, no distention Skin: No rash Neuro: motor grossly intact Psych: appropriate affect Objective Data Active Medications Acetaminophen (Acetaminophen 325 Mg Tablet) 650 mg PO Q6H PRN PRN Reason: Pain, Mild 1-3,fever,headache Last Admin: 10/19/24 15:50 Dose: 650 mg Documented By: ANASTACIA Acetaminophen (Acetaminophen 325 Mg Tablet) 650 mg PO Q4H PRN PRN Reason: Pain (Scale Score 1-3) Calcium Carbonate (Calcium Carbonate 750 Mg Tab.Chew) 750 mg PO Q4H PRN PRN Reason: Heartburn Clonidine HCl (Clonidine Hcl 0.2 Mg Tablet) 0.2 mg PO TID [facility]; Protocol Last Admin: 10/21/24 20:59 Dose: 0.2 mg Documented By: LALI Dicyclomine HCl (Dicyclomine Hcl 10 Mg Capsule) 40 mg PO QIDACHS PRN PRN Reason: Pain, Moderate(Pain Scale 4-6) Last Admin: 10/22/24 08:13 Dose: 40 mg Documented By: FLORINA Docusate Sodium (Docusate Sodium 100 Mg Capsule) 100 mg PO BID [facility] Last Admin: 10/21/24 21:00 Dose: 100 mg Documented By: LALI Furosemide (Furosemide 40 Mg Tablet) 40 mg PO DAILY [facility]; Protocol Last Admin: 10/21/24 08:15 Dose: 40 mg Documented By: FLORINA Gabapentin (Gabapentin 400 Mg Capsule) 800 mg PO TID [facility] Last Admin: 10/21/24 21:00 Dose: 800 mg Documented By: LALI Glipizide (Glipizide 10 Mg Tablet) 10 mg PO DAILY [facility] Hydroxyzine HCl (Hydroxyzine Hcl 50 Mg Tablet) 50 mg PO TID PRN PRN Reason: anxiety Last Admin: 10/20/24 16:48 Dose: 50 mg Documented By: BASIL Hydroxyzine HCl (Hydroxyzine Hcl 50 Mg Tablet) 50 mg PO Q4H PRN PRN Reason: Anxiety Last Admin: 10/22/24 08:13 Dose: 50 mg Documented By: FLORINA Magnesium Sulfate/Dextrose (Magnesium Sulfate/D5w) 1 gm in 100 mls @ 100 mls/hr IV ONCE ONE Stop: 10/22/24 09:22 Ibuprofen (Ibuprofen 400 Mg Tablet) 400 mg PO Q8H PRN PRN Reason: BODYACHES Last Admin: 10/21/24 12:51 Dose: 400 mg Documented By: FLORINA Insulin Glargine (Insulin Glargine,Hum.Rec.Anlog 100 Unit/Ml 10 Ml Vial) 55 unit SUBCUT BEDTIME [facility] Last Admin: 10/21/24 21:06 Dose: 55 unit Documented By: LALI Insulin Glargine (Insulin Glargine,Hum.Rec.Anlog 100 Unit/Ml 10 Ml Vial) 50 unit SUBCUT DAILY [facility] Insulin Human Lispro (Insulin Lispro 100 Unit/Ml 3 Ml Vial) 0 unit SUBCUT QIDACHS [facility]; Protocol Last Admin: 10/22/24 08:12 Dose: 10 unit Documented By: FLORINA Insulin Human Lispro (Insulin Lispro 100 Unit/Ml 3 Ml Vial) 7 unit SUBCUT QIDACHS [facility] Last Admin: 10/22/24 08:14 Dose: 7 unit Documented By: FLORINA Lactulose (Lactulose 20 Gm/30 Ml Solution) 40 gm PO TID [facility] Last Admin: 10/21/24 21:00 Dose: 40 gm Documented By: LALI Lorazepam (Lorazepam 1 Mg Tablet) 1 mg PO Q8H PRN PRN Reason: anxiety attack Last Admin: 10/22/24 08:13 Dose: 1 mg Documented By: FLORINA Magnesium Hydroxide (Milk Of Magnesia 30 Ml Oral.Susp) 30 ml PO DAILY PRN PRN Reason: Constipation Melatonin (Melatonin 3 Mg Tablet) 6 mg PO BEDTIME PRN PRN Reason: Insomnia Methadone HCl (Methadone Hcl 20 Mg/2 Ml Oral.Conc) 70 mg PO DAILY@0800 [facility] Last Admin: 10/21/24 08:16 Dose: 70 mg Documented By: FLORINA Co-signed By: SOLO Nicotine Polacrilex (Nicotine Polacrilex 2 Mg Gum) 2 mg BUCCAL Q2H PRN PRN Reason: Nicotine Cravings Last Admin: 10/22/24 08:13 Dose: 2 mg Documented By: FLORINA Oxycodone HCl (Oxycodone Hcl Immed Release 5 Mg Tablet) 5 mg PO Q6H PRN PRN Reason: Pain, Severe (Pain Scale 7-10) Last Admin: 10/22/24 08:13 Dose: 5 mg Documented By: FLORINA Rifaximin (Rifaximin 550 Mg Tablet) 550 mg PO BID [facility] Last Admin: 10/21/24 20:59 Dose: 550 mg Documented By: LALI Senna (Sennosides 8.6 Mg Tablet) 17.2 mg PO DAILY PRN PRN Reason: Constipation Sodium Chloride (0.9 % Sodium Chloride Flush 3 Ml Syringe) 3 ml IVFLUSH QSHIFT [facility] Last Admin: 10/21/24 21:07 Dose: 3 ml Documented By: LALI Spironolactone (Spironolactone 25 Mg Tablet) 50 mg PO DAILY [facility]; Protocol Last Admin: 10/21/24 08:15 Dose: 50 mg Documented By: FLORINA Labs 10/18/24 13:56 10/22/24 05:25 Labs: Laboratory Results - last 24 hr 10/21/24 10/21/24 10/21/24 09:29 12:12 15:48 Anion Gap 11 L Estim Creat Clear Calc 90.7 Estimated GFR > 60 POC Glucose 340 H 339 H Random Glucose 343 H Calcium 9.8 D Magnesium 1.5 L 10/21/24 10/22/24 10/22/24 19:58 01:58 03:58 Anion Gap Estim Creat Clear Calc Estimated GFR POC Glucose 405 H* 408 H* 390 H* Random Glucose Calcium Magnesium 10/22/24 10/22/24 05:25 06:58 Anion Gap 11 L Estim Creat Clear Calc 87.3 Estimated GFR > 60 POC Glucose 311 H Random Glucose 374 H* Calcium 8.5 D Magnesium 1.5 L Assessment and Plan (1) Uncontrolled diabetes mellitus with hyperglycemia: Status: Acute Plan 38-year-old female who is currently a patient at [facility] and has been sent to our ER for hypoglycemia. He will be admitted for glycemic control. Diabetes with Hyperglycemia, AC1C 11, was on no meds Lantus has been adjusted to 50 in am, 55 at HS, pre-meal insulin 7, SSI and glipizide incresed to 10 Cirrhosis, no HE continue lactulose increase to 40 tid, rifaximin, aldactone and lasix Depression/anxiety/PTSD Continue her baseline meds Care team consult when medically ready Hypomagnesemia, repleted, recheck Abdominal pain, CT show gallsones, no cholecystitis surgery following Acute lactic, likely due to liver disease Likely due to underlying liver disease/metformin No foci of infection, not due to severe sepsis Full code DVT prophylaxis, mechanical due to thrombocytopenia, out of bed, ambulation need for inpt: continuing need for insulin adjustment Quality Stroke Does the patient have a stroke diagnosis?: No VTE Prior VTE?: No VTE Risk Level:: Medical - moderate - high VTE Device Contraindication: N/A - Device Ordered VTE Drug Contraindication: Treatment Not Indicated
[2024-10-22] MEDS: methADONE HCl 20 MG/2 ML ORAL.CONC 70 MG PO (09:16)
[2024-10-22] MEDS: cloNIDine HCL 0.2 MG TABLET PO ×3 (09:18→20:34)
[2024-10-22] MEDS: rifAXIMin 550 MG TABLET PO ×2 (09:20→20:34)
[2024-10-22] MEDS: Gabapentin 400 MG CAPSULE 800 MG PO ×3 (09:20→20:34)
[2024-10-22] MEDS: Spironolactone 25 MG TABLET 50 MG PO (09:20)
[2024-10-22] MEDS: Docusate Sodium 100 MG CAPSULE PO ×2 (09:21→20:34)
[2024-10-22] MEDS: Lactulose 20 GM/30 ML SOLUTION 40 GM PO ×2 (09:21→16:58)
[2024-10-22] MEDS: glipiZIDE 10 MG TABLET PO (09:21)
[2024-10-22] MEDS: Furosemide 40 MG TABLET PO (09:21)
[2024-10-22] MEDS: Insulin Glargine,Hum.rec.anlog 100 UNIT/ML 10 ML VIAL 50 UNIT SUBCUT (09:22)
[2024-10-22] MEDS: Magnesium Sulfate/D5W 1 GM/100 ML PIGGYBACK IV (09:23)
[2024-10-22] MEDS: 0.9 % Sodium Chloride Flush 3 ML SYRINGE IVFLUSH ×3 (09:27→20:32)
--- NOTE | 2024-10-22 10:59 | MHC.CM.PN ---
PER MD ROUNDS, PT MAY BE READY TO DC TOMORROW DCP TBD PENDING CRISIS EVAL. HOME [facility]
[2024-10-22 11:36] VITALS: BP 100/60; PULSE 64; RESP 16; TEMP 36.3; O2SAT 98
[2024-10-22 11:37] LABS: Glucose, Whole Blood 273 mg/dL (60-115)
--- NOTE | 2024-10-22 13:27 | PM.PNGS ---
Subjective Subjective Date of Service: 10/22/24 Interval history: No new complaint States abdominal pain seems to be less although this is episodic and chronic Tolerating diet well Physical Exam Vital Signs: Vital Signs: Last Vital Signs Temp 97.3 F 10/22/24 11:36 Pulse 64 10/22/24 11:36 Resp 16 10/22/24 11:36 BP 100/60 10/22/24 11:36 Pulse Ox 98 10/22/24 11:36 O2 Del Method Room Air 10/22/24 11:36 BMI result Body Mass Index 27.1 Const: General: comfortable and no acute distress Resp: Effort & Inspection: normal respiratory effort Cardio: Rate: regular rate GI: Palpation (GI): Soft to palpation, not firm, nontender and no guarding Objective Data Active Medications Acetaminophen (Acetaminophen 325 Mg Tablet) 650 mg PO Q6H PRN PRN Reason: Pain, Mild 1-3,fever,headache Last Admin: 10/19/24 15:50 Dose: 650 mg Documented By: ANASTACIA Acetaminophen (Acetaminophen 325 Mg Tablet) 650 mg PO Q4H PRN PRN Reason: Pain (Scale Score 1-3) Calcium Carbonate (Calcium Carbonate 750 Mg Tab.Chew) 750 mg PO Q4H PRN PRN Reason: Heartburn Clonidine HCl (Clonidine Hcl 0.2 Mg Tablet) 0.2 mg PO TID [facility]; Protocol Last Admin: 10/22/24 09:18 Dose: 0.2 mg Documented By: LIT Dicyclomine HCl (Dicyclomine Hcl 10 Mg Capsule) 40 mg PO QIDACHS PRN PRN Reason: Pain, Moderate(Pain Scale 4-6) Last Admin: 10/22/24 08:13 Dose: 40 mg Documented By: FLORINA Docusate Sodium (Docusate Sodium 100 Mg Capsule) 100 mg PO BID [facility] Last Admin: 10/22/24 09:21 Dose: 100 mg Documented By: LIT Furosemide (Furosemide 40 Mg Tablet) 40 mg PO DAILY [facility]; Protocol Last Admin: 10/22/24 09:21 Dose: 40 mg Documented By: LIT Gabapentin (Gabapentin 400 Mg Capsule) 800 mg PO TID [facility] Last Admin: 10/22/24 09:20 Dose: 800 mg Documented By: LIT Glipizide (Glipizide 10 Mg Tablet) 10 mg PO DAILY [facility] Last Admin: 10/22/24 09:21 Dose: 10 mg Documented By: LIT Hydroxyzine HCl (Hydroxyzine Hcl 50 Mg Tablet) 50 mg PO TID PRN PRN Reason: anxiety Last Admin: 10/20/24 16:48 Dose: 50 mg Documented By: BASIL Hydroxyzine HCl (Hydroxyzine Hcl 50 Mg Tablet) 50 mg PO Q4H PRN PRN Reason: Anxiety Last Admin: 10/22/24 08:13 Dose: 50 mg Documented By: FLORINA Ibuprofen (Ibuprofen 400 Mg Tablet) 400 mg PO Q8H PRN PRN Reason: BODYACHES Last Admin: 10/21/24 12:51 Dose: 400 mg Documented By: FLORINA Insulin Glargine (Insulin Glargine,Hum.Rec.Anlog 100 Unit/Ml 10 Ml Vial) 55 unit SUBCUT BEDTIME [facility] Last Admin: 10/21/24 21:06 Dose: 55 unit Documented By: LALI Insulin Glargine (Insulin Glargine,Hum.Rec.Anlog 100 Unit/Ml 10 Ml Vial) 50 unit SUBCUT DAILY [facility] Last Admin: 10/22/24 09:22 Dose: 50 unit Documented By: LIT Insulin Human Lispro (Insulin Lispro 100 Unit/Ml 3 Ml Vial) 0 unit SUBCUT QIDACHS [facility]; Protocol Last Admin: 10/22/24 12:15 Dose: 6 unit Documented By: FLORINA Insulin Human Lispro (Insulin Lispro 100 Unit/Ml 3 Ml Vial) 7 unit SUBCUT QIDACHS [facility] Last Admin: 10/22/24 12:15 Dose: 7 unit Documented By: FLORINA Lactulose (Lactulose 20 Gm/30 Ml Solution) 40 gm PO TID [facility] Last Admin: 10/22/24 09:21 Dose: 40 gm Documented By: LIT Lorazepam (Lorazepam 1 Mg Tablet) 1 mg PO Q8H PRN PRN Reason: anxiety attack Last Admin: 10/22/24 08:13 Dose: 1 mg Documented By: FLORINA Magnesium Hydroxide (Milk Of Magnesia 30 Ml Oral.Susp) 30 ml PO DAILY PRN PRN Reason: Constipation Melatonin (Melatonin 3 Mg Tablet) 6 mg PO BEDTIME PRN PRN Reason: Insomnia Methadone HCl (Methadone Hcl 20 Mg/2 Ml Oral.Conc) 70 mg PO DAILY@0800 [facility] Last Admin: 10/22/24 09:16 Dose: 70 mg Documented By: LIT Co-signed By: BRUNA Nicotine Polacrilex (Nicotine Polacrilex 2 Mg Gum) 2 mg BUCCAL Q2H PRN PRN Reason: Nicotine Cravings Last Admin: 10/22/24 08:13 Dose: 2 mg Documented By: FLORINA Oxycodone HCl (Oxycodone Hcl Immed Release 5 Mg Tablet) 5 mg PO Q6H PRN PRN Reason: Pain, Severe (Pain Scale 7-10) Last Admin: 10/22/24 08:13 Dose: 5 mg Documented By: FLORIAN Rifaximin (Rifaximin 550 Mg Tablet) 550 mg PO BID [facility] Last Admin: 10/22/24 09:20 Dose: 550 mg Documented By: LIT Senna (Sennosides 8.6 Mg Tablet) 17.2 mg PO DAILY PRN PRN Reason: Constipation Sodium Chloride (0.9 % Sodium Chloride Flush 3 Ml Syringe) 3 ml IVFLUSH QSHIFT [facility] Last Admin: 10/22/24 09:27 Dose: 3 ml Documented By: LIT Spironolactone (Spironolactone 25 Mg Tablet) 50 mg PO DAILY [facility]; Protocol Last Admin: 10/22/24 09:20 Dose: 50 mg Documented By: LIT Labs 10/18/24 13:56 10/22/24 05:25 Labs: Laboratory Results - last 24 hr 10/21/24 10/21/24 10/22/24 15:48 19:58 01:58 Anion Gap Estim Creat Clear Calc Estimated GFR POC Glucose 339 H 405 H* 408 H* Random Glucose Calcium Magnesium 10/22/24 10/22/24 10/22/24 03:58 05:25 06:58 Anion Gap 11 L Estim Creat Clear Calc 87.3 Estimated GFR > 60 POC Glucose 390 H* 311 H Random Glucose 374 H* Calcium 8.5 D Magnesium 1.5 L 10/22/24 11:33 Anion Gap Estim Creat Clear Calc Estimated GFR POC Glucose 273 H Random Glucose Calcium Magnesium Procedures Date of Service Date of Service: 10/22/24 Progress Note: A&P Assessment and plan (1) Gallstones: Status: Acute Assessment and Plan: She has cirrhosis as well No acute cholecystitis Would hold off on any intervention for the gallbladder for now especially in view of her cirrhosis Care as per the primary care service Diabetes control Time Spent With Patient Time: Total time managing care of this patient today ____ minutes. Quality Stroke Does the patient have a stroke diagnosis?: No VTE Prior VTE?: No VTE Risk Level:: Medical - moderate - high VTE Device Contraindication: N/A - Device Ordered VTE Drug Contraindication: Treatment Not Indicated
[2024-10-22 15:11] VITALS: BP 96/64; PULSE 65; RESP 16; TEMP 36.1; O2SAT 100
[2024-10-22 16:09] LABS: Glucose, Whole Blood 224 mg/dL (60-115)
[2024-10-22 19:48] LABS: Glucose, Whole Blood 407 mg/dL (60-115)
[2024-10-22] MEDS: Insulin Glargine,Hum.rec.anlog 100 UNIT/ML 10 ML VIAL 55 UNIT SUBCUT (20:32)
[2024-10-22 23:26] VITALS: BP 108/56; PULSE 53; RESP 16; TEMP 36.7; O2SAT 98
[2024-10-23] MEDS: oxyCODONE HCl Immed Release 5 MG TABLET PO (02:50)
[2024-10-23] MEDS: hydrOXYzine HCL 50 MG TABLET PO ×2 (02:50→17:28)
[2024-10-23 03:05] VITALS: BP 98/56; PULSE 59; RESP 16; TEMP 36.4; O2SAT 99
[2024-10-23] MEDS: Nicotine Polacrilex 2 MG GUM BUCCAL ×3 (06:23→20:28)
[2024-10-23 06:24] LABS: Anion Gap 11 (12-20); Blood Urea Nitrogen 13 mg/dL (9-16); Calcium 8.4 mg/dL (8.4-10.2); Carbon Dioxide 24 mmol/L (22-29); Chloride 101 mmol/L (96-108); Creatinine Clr Calc Pharmacy 93.1; Estimated Glomerular Filt Rate > 60; Glucose Random 422 mg/dL (60-115); Magnesium 1.5 mg/dL (1.6-2.6); Potassium 4.3 mmol/L (3.3-5.1); Sodium 132 mmol/L (135-145)
[2024-10-23] MEDS: Insulin Regular, Human 100 UNIT/ML 10 ML VIAL 10 UNIT IVPUSH (06:39)
--- NOTE | 2024-10-23 06:45 | PC.NURSE ---
blood sugar by lab draw was 422.10 units of regular insulin IV ordered and given.i was unable to scan bar code.
[2024-10-23 07:21] LABS: Glucose, Whole Blood 321 mg/dL (60-115)
[2024-10-23 07:24] LABS: MANUAL DIFF FLAG NO
[2024-10-23 07:30] LABS: Basophils Percent Auto 1.1 % (0-2); Eosinophils Absolute Auto 0.1 X10*3/uL (0.0-0.4); Eosinophils Percent Auto 2.3 % (0-4); Hematocrit 36.8 % (37.0-47.0); Imm Gran Abs Auto 0.01 X10*3/uL (0.00-0.03); Imm Gran Pct Auto 0.3 % (0.0-0.4); Lymphocytes Absolute Auto 1.5 X10*3/uL (1.2-4.9); Lymphocytes Percent Auto 43.9 % (20-40); Mean Corpuscular HGB Conc 32.6 g/dl (31.0-35.0); Mean Corpuscular Hemoglobin 26.4 pg (27.0-33.0); Mean Corpuscular Volume 81.1 fL (80.0-98.0); Mean Platelet Volume 11.5 fL (9.4-12.3); Monocytes Absolute Auto 0.5 X10*3/uL (0.1-1.2); Monocytes Percent Auto 14.8 % (2-11); Neutrophils Absolute Auto 1.3 x10*3/uL (2.0-8.3); Neutrophils Percent Auto 37.6 % (45-73); Red Blood Count 4.54 X10*6/uL (4.20-5.50); Red Cell Distribution Width 15.6 % (11.0-16.0); White Blood Count 3.5 X10*3/uL (4.8-10.8)
[2024-10-23 07:34] VITALS: BP 107/66; PULSE 67; RESP 18; TEMP 36.2; O2SAT 100
[2024-10-23] MEDS: methADONE HCl 20 MG/2 ML ORAL.CONC 70 MG PO (07:53)
[2024-10-23] MEDS: Insulin Lispro 100 UNIT/ML 3 ML VIAL SUBCUT ×7 (07:54→20:21)
[2024-10-23] MEDS: Insulin Glargine,Hum.rec.anlog 100 UNIT/ML 10 ML VIAL 60 UNIT SUBCUT (07:54)
[2024-10-23] MEDS: Dicyclomine HCl 10 MG CAPSULE 40 MG PO ×2 (07:55→16:07)
[2024-10-23] MEDS: cloNIDine HCL 0.2 MG TABLET PO ×3 (07:55→20:23)
[2024-10-23] MEDS: Gabapentin 400 MG CAPSULE 800 MG PO ×3 (07:55→20:23)
[2024-10-23] MEDS: rifAXIMin 550 MG TABLET PO ×2 (07:55→20:23)
[2024-10-23] MEDS: Spironolactone 25 MG TABLET 50 MG PO (07:55)
[2024-10-23] MEDS: Furosemide 40 MG TABLET PO (07:56)
[2024-10-23] MEDS: Magnesium Sulfate/H2O 2 GM/50 ML PIGGYBACK IV (07:56)
[2024-10-23] MEDS: glipiZIDE 10 MG TABLET PO (07:56)
[2024-10-23] MEDS: Docusate Sodium 100 MG CAPSULE PO ×2 (07:56→21:33)
[2024-10-23] MEDS: Lactulose 20 GM/30 ML SOLUTION 40 GM PO ×3 (08:05→20:21)
[2024-10-23] MEDS: 0.9 % Sodium Chloride Flush 3 ML SYRINGE IVFLUSH ×2 (08:07→20:23)
[2024-10-23 08:09] LABS: Platelet Count 72 X10*3/uL (160-400)
--- NOTE | 2024-10-23 08:25 | HO.PM.IMPN ---
Subjective Subjective Date of Service: 10/23/24 Interval History: Blood sugars continued to be high, received IV insulin this morning on sugar level was over 400. No symptoms related to this Physical Exam Vital Signs: Vital Signs: Last Vital Signs Temp 97.2 F 10/23/24 07:34 Pulse 67 10/23/24 07:34 Resp 18 10/23/24 07:34 BP 107/66 10/23/24 07:34 Pulse Ox 100 10/23/24 07:34 O2 Del Method Room Air 10/23/24 07:34 BMI result Body Mass Index 27.1 Const: Other: General: AO X 3, no acute distress Resp: CTA bilateral CVS: S1,S2,RRR GI: +BS, NT, no distention Skin: No rash Neuro: motor grossly intact Psych: appropriate affect Objective Data Active Medications Acetaminophen (Acetaminophen 325 Mg Tablet) 650 mg PO Q6H PRN PRN Reason: Pain, Mild 1-3,fever,headache Last Admin: 10/19/24 15:50 Dose: 650 mg Documented By: ANASTACIA Acetaminophen (Acetaminophen 325 Mg Tablet) 650 mg PO Q4H PRN PRN Reason: Pain (Scale Score 1-3) Calcium Carbonate (Calcium Carbonate 750 Mg Tab.Chew) 750 mg PO Q4H PRN PRN Reason: Heartburn Clonidine HCl (Clonidine Hcl 0.2 Mg Tablet) 0.2 mg PO TID [facility]; Protocol Last Admin: 10/23/24 07:55 Dose: 0.2 mg Documented By: BILL Dicyclomine HCl (Dicyclomine Hcl 10 Mg Capsule) 40 mg PO QIDACHS PRN PRN Reason: Pain, Moderate(Pain Scale 4-6) Last Admin: 10/23/24 07:55 Dose: 40 mg Documented By: BILL Docusate Sodium (Docusate Sodium 100 Mg Capsule) 100 mg PO BID [facility] Last Admin: 10/23/24 07:56 Dose: 100 mg Documented By: BILL Furosemide (Furosemide 40 Mg Tablet) 40 mg PO DAILY [facility]; Protocol Last Admin: 10/23/24 07:56 Dose: 40 mg Documented By: BILL Gabapentin (Gabapentin 400 Mg Capsule) 800 mg PO TID [facility] Last Admin: 10/23/24 07:55 Dose: 800 mg Documented By: BILL Glipizide (Glipizide 10 Mg Tablet) 10 mg PO DAILY [facility] Last Admin: 10/23/24 07:56 Dose: 10 mg Documented By: BILL Hydroxyzine HCl (Hydroxyzine Hcl 50 Mg Tablet) 50 mg PO TID PRN PRN Reason: anxiety Last Admin: 10/20/24 16:48 Dose: 50 mg Documented By: AUSTINOINSaba Hydroxyzine HCl (Hydroxyzine Hcl 50 Mg Tablet) 50 mg PO Q4H PRN PRN Reason: Anxiety Last Admin: 10/23/24 02:50 Dose: 50 mg Documented By: EMMY Magnesium Sulfate (Magnesium Sulfate/H2o) 2 gm in 50 mls @ 25 mls/hr IV ONCE ONE Stop: 10/23/24 09:08 Last Admin: 10/23/24 07:56 Dose: 25 mls/hr Documented By: BILL Ibuprofen (Ibuprofen 400 Mg Tablet) 400 mg PO Q8H PRN PRN Reason: BODYACHES Last Admin: 10/21/24 12:51 Dose: 400 mg Documented By: FLORINA Insulin Glargine (Insulin Glargine,Hum.Rec.Anlog 100 Unit/Ml 10 Ml Vial) 55 unit SUBCUT BEDTIME [facility] Last Admin: 10/22/24 20:32 Dose: 55 unit Documented By: EMMY Insulin Glargine (Insulin Glargine,Hum.Rec.Anlog 100 Unit/Ml 10 Ml Vial) 60 unit SUBCUT DAILY [facility] Last Admin: 10/23/24 07:54 Dose: 60 unit Documented By: BILL Insulin Human Lispro (Insulin Lispro 100 Unit/Ml 3 Ml Vial) 0 unit SUBCUT QIDACHS [facility]; Protocol Last Admin: 10/23/24 07:54 Dose: 10 unit Documented By: BILL Insulin Human Lispro (Insulin Lispro 100 Unit/Ml 3 Ml Vial) 10 unit SUBCUT QIDACHS [facility] Last Admin: 10/23/24 07:59 Dose: Not Given Documented By: BILL Non-Admin Reason: Physician Approved Lactulose (Lactulose 20 Gm/30 Ml Solution) 40 gm PO TID [facility] Last Admin: 10/23/24 08:05 Dose: 40 gm Documented By: BILL Lorazepam (Lorazepam 1 Mg Tablet) 1 mg PO Q8H PRN PRN Reason: anxiety attack Last Admin: 10/22/24 21:44 Dose: 1 mg Documented By: EMMY Magnesium Hydroxide (Milk Of Magnesia 30 Ml Oral.Susp) 30 ml PO DAILY PRN PRN Reason: Constipation Melatonin (Melatonin 3 Mg Tablet) 6 mg PO BEDTIME PRN PRN Reason: Insomnia Methadone HCl (Methadone Hcl 20 Mg/2 Ml Oral.Conc) 70 mg PO DAILY@0800 [facility] Last Admin: 10/23/24 07:53 Dose: 70 mg Documented By: BILL Co-signed By: JOMAR Nicotine Polacrilex (Nicotine Polacrilex 2 Mg Gum) 2 mg BUCCAL Q2H PRN PRN Reason: Nicotine Cravings Last Admin: 10/23/24 06:23 Dose: 2 mg Documented By: EMMY Oxycodone HCl (Oxycodone Hcl Immed Release 5 Mg Tablet) 5 mg PO Q6H PRN PRN Reason: Pain, Severe (Pain Scale 7-10) Last Admin: 10/23/24 02:50 Dose: 5 mg Documented By: EMMY Rifaximin (Rifaximin 550 Mg Tablet) 550 mg PO BID [facility] Last Admin: 10/23/24 07:55 Dose: 550 mg Documented By: BILL Senna (Sennosides 8.6 Mg Tablet) 17.2 mg PO DAILY PRN PRN Reason: Constipation Sodium Chloride (0.9 % Sodium Chloride Flush 3 Ml Syringe) 3 ml IVFLUSH QSHIFT [facility] Last Admin: 10/23/24 08:07 Dose: 3 ml Documented By: BILL Spironolactone (Spironolactone 25 Mg Tablet) 50 mg PO DAILY [facility]; Protocol Last Admin: 10/23/24 07:55 Dose: 50 mg Documented By: BILL Labs 10/23/24 05:20 10/23/24 05:20 Labs: Laboratory Results - last 24 hr 10/22/24 10/22/24 10/22/24 11:33 16:04 19:41 MCV MCH MCHC RDW Plt Count MPV Immature Gran % (Auto) Neut % (Auto) Lymph % (Auto) [place] % (Auto) Eos % (Auto) Baso % (Auto) Lymph # (Auto) [place] # (Auto) Eos # (Auto) Baso # (Auto) Abs Immat Gran (auto) Absolute Neuts (auto) Absolute Nucleated RBC Nucleated RBC % (auto) Hold Purple Top Anion Gap Estim Creat Clear Calc Estimated GFR POC Glucose 273 H 224 H 407 H* Random Glucose Calcium Magnesium 10/23/24 10/23/24 05:20 07:17 MCV 81.1 MCH 26.4 L MCHC 32.6 RDW 15.6 Plt Count 72 L MPV 11.5 Immature Gran % (Auto) 0.3 Neut % (Auto) 37.6 L Lymph % (Auto) 43.9 H [place] % (Auto) 14.8 H Eos % (Auto) 2.3 Baso % (Auto) 1.1 Lymph # (Auto) 1.5 [place] # (Auto) 0.5 Eos # (Auto) 0.1 Baso # (Auto) 0.0 Abs Immat Gran (auto) 0.01 Absolute Neuts (auto) 1.3 L Absolute Nucleated RBC 0.000 Nucleated RBC % (auto) 0.0 Hold Purple Top SEE NOTE Anion Gap 11 L Estim Creat Clear Calc 93.1 Estimated GFR > 60 POC Glucose 321 H Random Glucose 422 H* Calcium 8.4 Magnesium 1.5 L Assessment and Plan (1) Uncontrolled diabetes mellitus with hyperglycemia: Status: Acute Plan 38-year-old female who is currently a patient at [facility] and has been sent to our ER for hypoglycemia. He will be admitted for glycemic control. Type 2 Diabetes with Hyperglycemia, AC1C 11, was on no meds Lantus has been adjusted to 60 in am, and increase 65 at HS, pre-meal insulin 10, SSI and glipizide 10 daily. holding metformin d/t lactic acidosis Cirrhosis, no HE continue lactulose increase to 40 tid, rifaximin, aldactone and lasix Depression/anxiety/PTSD Continue her baseline meds Care team consult when medically ready Hypomagnesemia, repleted, recheck Abdominal pain, CT show gallsones, no cholecystitis surgery following Acute lactic, likely due to liver disease Likely due to underlying liver disease/metformin No foci of infection, not due to severe sepsis Full code DVT prophylaxis, mechanical due to thrombocytopenia, out of bed, ambulation need for inpt: continuing need for insulin adjustment out of bed and ambulate Quality Stroke Does the patient have a stroke diagnosis?: No VTE Prior VTE?: No VTE Risk Level:: Medical - moderate - high VTE Device Contraindication: N/A - Device Ordered VTE Drug Contraindication: Treatment Not Indicated
[2024-10-23] MEDS: LORazepam 1 MG TABLET PO ×2 (08:31→20:23)
[2024-10-23 11:16] LABS: Glucose, Whole Blood 190 mg/dL (60-115)
[2024-10-23 12:00] VITALS: BP 96/59; PULSE 68; RESP 17; TEMP 36.8; O2SAT 97
[2024-10-23 15:28] VITALS: BP 108/67; PULSE 64; RESP 18; TEMP 36.6; O2SAT 96
[2024-10-23 16:09] LABS: Glucose, Whole Blood 312 mg/dL (60-115)
[2024-10-23 19:40] VITALS: BP 115/74; PULSE 69; RESP 20; TEMP 36.2; O2SAT 96
[2024-10-23 19:57] LABS: Glucose, Whole Blood 367 mg/dL (60-115)
[2024-10-23] MEDS: Insulin Glargine,Hum.rec.anlog 100 UNIT/ML 10 ML VIAL 65 UNIT SUBCUT (20:22)
[2024-10-23 23:46] VITALS: BP 101/59; PULSE 66; RESP 18; TEMP 36.1; O2SAT 98
[2024-10-24] VITALS (7 sets, daily range): BP systolic 91–107; BP diastolic 54–70; PULSE 56–68; RESP 16–18; TEMP 36.1–36.9; O2SAT 95–99
[2024-10-24] MEDS: hydrOXYzine HCL 50 MG TABLET PO ×2 (02:42→11:57)
[2024-10-24] MEDS: Ibuprofen 400 MG TABLET PO (02:42)
[2024-10-24 07:42] LABS: Glucose, Whole Blood 342 mg/dL (60-115)
[2024-10-24 08:21] LABS: Anion Gap 11 (12-20); Blood Urea Nitrogen 13 mg/dL (9-16); Calcium 8.5 mg/dL (8.4-10.2); Carbon Dioxide 22 mmol/L (22-29); Chloride 104 mmol/L (96-108); Creatinine Clr Calc Pharmacy 95.6; Estimated Glomerular Filt Rate > 60; Glucose Random 356 mg/dL (60-115); Magnesium 1.4 mg/dL (1.6-2.6); Potassium 4.4 mmol/L (3.3-5.1); Sodium 133 mmol/L (135-145)
[2024-10-24] MEDS: methADONE HCl 20 MG/2 ML ORAL.CONC 70 MG PO (08:47)
[2024-10-24] MEDS: Insulin Lispro 100 UNIT/ML 3 ML VIAL SUBCUT ×5 (08:47→20:43)
[2024-10-24] MEDS: Lactulose 20 GM/30 ML SOLUTION 40 GM PO ×3 (08:48→20:41)
[2024-10-24] MEDS: Dicyclomine HCl 10 MG CAPSULE 40 MG PO ×3 (08:49→18:42)
[2024-10-24] MEDS: Insulin Glargine,Hum.rec.anlog 100 UNIT/ML 10 ML VIAL 70 UNIT SUBCUT (08:49)
[2024-10-24] MEDS: rifAXIMin 550 MG TABLET PO ×2 (08:49→20:42)
[2024-10-24] MEDS: Docusate Sodium 100 MG CAPSULE PO ×2 (08:49→20:42)
[2024-10-24] MEDS: Lactated Ringers 1,000 ML 125 ML IVCONT ×2 (08:49→18:38)
[2024-10-24] MEDS: Magnesium Sulfate/H2O 2 GM/50 ML PIGGYBACK IV (08:49)
[2024-10-24] MEDS: glipiZIDE 10 MG TABLET PO (08:50)
[2024-10-24] MEDS: Gabapentin 400 MG CAPSULE 800 MG PO ×3 (08:50→20:42)
[2024-10-24] MEDS: 0.9 % Sodium Chloride Flush 3 ML SYRINGE IVFLUSH (09:00)
[2024-10-24] MEDS: LORazepam 1 MG TABLET PO ×2 (09:55→18:42)
[2024-10-24] MEDS: cloNIDine HCL 0.2 MG TABLET PO ×3 (10:01→20:42)
[2024-10-24 11:05] LABS: Glucose, Whole Blood 307 mg/dL (60-115)
[2024-10-24] MEDS: Insulin Lispro 100 UNIT/ML 3 ML VIAL 8 UNIT SUBCUT ×3 (11:57→20:43)
--- NOTE | 2024-10-24 12:09 | P.PNIM_ITS ---
Subjective Subjective Date of Service: 10/24/24 Interval History: No new issues, blood sugars still high but less than 400s Physical Exam 2 Vital Signs: Vital Signs: Last Vital Signs Temp 98.1 F 10/24/24 08:00 Pulse 68 10/24/24 09:50 Resp 18 10/24/24 08:00 BP 100/61 10/24/24 09:50 Pulse Ox 99 10/24/24 08:00 O2 Del Method Room Air 10/24/24 08:00 BMI result Body Mass Index 27.1 Const: Other: General: AO X 3, no acute distress Resp: CTA bilateral CVS: S1,S2,RRR GI: +BS, NT, no distention Skin: No rash Neuro: motor grossly intact Psych: appropriate affect Objective Data Active Medications Acetaminophen (Acetaminophen 325 Mg Tablet) 650 mg PO Q6H PRN PRN Reason: Pain, Mild 1-3,fever,headache Last Admin: 10/19/24 15:50 Dose: 650 mg Documented By: ANASTACIA Acetaminophen (Acetaminophen 325 Mg Tablet) 650 mg PO Q4H PRN PRN Reason: Pain (Scale Score 1-3) Calcium Carbonate (Calcium Carbonate 750 Mg Tab.Chew) 750 mg PO Q4H PRN PRN Reason: Heartburn Clonidine HCl (Clonidine Hcl 0.2 Mg Tablet) 0.2 mg PO TID [facility]; Protocol Last Admin: 10/24/24 10:01 Dose: 0.2 mg Documented By: BILL Dicyclomine HCl (Dicyclomine Hcl 10 Mg Capsule) 40 mg PO QIDACHS PRN PRN Reason: Pain, Moderate(Pain Scale 4-6) Last Admin: 10/24/24 11:57 Dose: 40 mg Documented By: BILL Docusate Sodium (Docusate Sodium 100 Mg Capsule) 100 mg PO BID [facility] Last Admin: 10/24/24 08:49 Dose: 100 mg Documented By: BILL Furosemide (Furosemide 40 Mg Tablet) 40 mg PO DAILY [facility]; Protocol Last Admin: 10/24/24 08:59 Dose: Not Given Documented By: BILL Non-Admin Reason: Decreased Blood Pressure Gabapentin (Gabapentin 400 Mg Capsule) 800 mg PO TID [facility] Last Admin: 10/24/24 08:50 Dose: 800 mg Documented By: BILL Glipizide (Glipizide 10 Mg Tablet) 10 mg PO DAILY [facility] Last Admin: 10/24/24 08:50 Dose: 10 mg Documented By: BILL Hydroxyzine HCl (Hydroxyzine Hcl 50 Mg Tablet) 50 mg PO TID PRN PRN Reason: anxiety Last Admin: 10/24/24 11:57 Dose: 50 mg Documented By: BILL Hydroxyzine HCl (Hydroxyzine Hcl 50 Mg Tablet) 50 mg PO Q4H PRN PRN Reason: Anxiety Last Admin: 10/24/24 02:42 Dose: 50 mg Documented By: EMMY Lactated Ringer's (Lr) 1,000 mls @ 125 mls/hr IVCONT .Q8H [facility] Last Admin: 10/24/24 08:49 Dose: 125 mls/hr Documented By: BILL Ibuprofen (Ibuprofen 400 Mg Tablet) 400 mg PO Q8H PRN PRN Reason: BODYACHES Last Admin: 10/24/24 02:42 Dose: 400 mg Documented By: EMMY Insulin Glargine (Insulin Glargine,Hum.Rec.Anlog 100 Unit/Ml 10 Ml Vial) 65 unit SUBCUT BEDTIME [facility] Last Admin: 10/23/24 20:22 Dose: 65 unit Documented By: EMMY Insulin Glargine (Insulin Glargine,Hum.Rec.Anlog 100 Unit/Ml 10 Ml Vial) 70 unit SUBCUT DAILY [facility] Last Admin: 10/24/24 08:49 Dose: 70 unit Documented By: BILL Insulin Human Lispro (Insulin Lispro 100 Unit/Ml 3 Ml Vial) 0 unit SUBCUT QIDACHS [facility]; Protocol Last Admin: 10/24/24 11:57 Dose: 10 unit Documented By: BILL Insulin Human Lispro (Insulin Lispro 100 Unit/Ml 3 Ml Vial) 8 unit SUBCUT QIDACHS [facility] Last Admin: 10/24/24 11:57 Dose: 8 unit Documented By: BILL Lactulose (Lactulose 20 Gm/30 Ml Solution) 40 gm PO TID [facility] Last Admin: 10/24/24 08:48 Dose: 40 gm Documented By: BILL Lorazepam (Lorazepam 1 Mg Tablet) 1 mg PO Q8H PRN PRN Reason: anxiety attack Last Admin: 10/24/24 09:55 Dose: 1 mg Documented By: BILL Magnesium Hydroxide (Milk Of Magnesia 30 Ml Oral.Susp) 30 ml PO DAILY PRN PRN Reason: Constipation [facility] ([facility] 400 Mg [facility]t) [facility] Melatonin (Melatonin 3 Mg Tablet) 6 mg PO BEDTIME PRN PRN Reason: Insomnia Methadone HCl (Methadone Hcl 20 Mg/2 Ml Oral.Conc) 70 mg PO DAILY@0800 [facility] Last Admin: 10/24/24 08:47 Dose: 70 mg Documented By: BILL Co-signed By: KD Nicotine Polacrilex (Nicotine Polacrilex 2 Mg Gum) 2 mg BUCCAL Q2H PRN PRN Reason: Nicotine Cravings Last Admin: 10/23/24 20:28 Dose: 2 mg Documented By: EMMY Oxycodone HCl (Oxycodone Hcl Immed Release 5 Mg Tablet) 5 mg PO Q6H PRN PRN Reason: Pain, Severe (Pain Scale 7-10) Last Admin: 10/23/24 02:50 Dose: 5 mg Documented By: EMMY Rifaximin (Rifaximin 550 Mg Tablet) 550 mg PO BID [facility] Last Admin: 10/24/24 08:49 Dose: 550 mg Documented By: BILL Senna (Sennosides 8.6 Mg Tablet) 17.2 mg PO DAILY PRN PRN Reason: Constipation Sodium Chloride (0.9 % Sodium Chloride Flush 3 Ml Syringe) 3 ml IVFLUSH QSHIFT [facility] Last Admin: 10/24/24 09:00 Dose: 3 ml Documented By: BILL Spironolactone (Spironolactone 25 Mg Tablet) 50 mg PO DAILY [facility]; Protocol Last Admin: 10/24/24 09:00 Dose: Not Given Documented By: BILL Non-Admin Reason: Decreased Blood Pressure Labs 10/23/24 05:20 10/24/24 07:53 Labs: Laboratory Results - last 24 hr 10/23/24 10/23/24 10/24/24 16:06 19:50 06:49 Hold Purple Top SEE NOTE Anion Gap Estim Creat Clear Calc Estimated GFR POC Glucose 312 H 367 H* Random Glucose Calcium Magnesium 10/24/24 10/24/24 10/24/24 07:35 07:53 10:58 Hold Purple Top Anion Gap 11 L Estim Creat Clear Calc 95.6 Estimated GFR > 60 POC Glucose 342 H 307 H Random Glucose 356 H* Calcium 8.5 Magnesium 1.4 L* Assessment and Plan (1) Uncontrolled diabetes mellitus with hyperglycemia: Status: Acute Plan 38-year-old female who is currently a patient at [facility] and has been sent to our ER for hypoglycemia. He will be admitted for glycemic control. Type 2 Diabetes with Hyperglycemia, AC1C 11, was on no meds, appear to be very insulin resistant Lantus has been adjusted to to now 70 bid, pre-meal insulin 8, sliding and glipizide 10 daily, holding metformin d/t lactic acidosis will attmpt to talk to an adaptive physical educator on during the week Cirrhosis, no HE continue lactulose increase to 40 tid, rifaximin, aldactone and lasix hypotension, chronic assymptomatic d/t chronic liver disease and clonidine, some ivf and monitor Depression/anxiety/PTSD Continue her baseline meds Care team consult when medically ready Hypomagnesemia, repleted, recheck, add oral mag Abdominal pain, CT show gallsones, no cholecystitis surgery following Acute lactic, likely due to liver disease Likely due to underlying liver disease/metformin No foci of infection, not due to severe sepsis Full code DVT prophylaxis, mechanical due to thrombocytopenia, out of bed, ambulation need for inpt: continuing need for insulin adjustment out of bed and ambulate Quality Stroke Does the patient have a stroke diagnosis?: No VTE Prior VTE?: No VTE Risk Level:: Medical - moderate - high VTE Device Contraindication: N/A - Device Ordered VTE Drug Contraindication: Treatment Not Indicated
[2024-10-24] MEDS: Nicotine Polacrilex 2 MG GUM BUCCAL ×2 (12:49→15:42)
[2024-10-24] MEDS: oxyCODONE HCl Immed Release 5 MG TABLET PO (15:50)
[2024-10-24 16:14] LABS: Glucose, Whole Blood 220 mg/dL (60-115)
[2024-10-24] MEDS: Magnesium Oxide 400 MG TABLET PO (16:48)
[2024-10-24 20:17] LABS: Glucose, Whole Blood 195 mg/dL (60-115)
[2024-10-24] MEDS: Insulin Glargine,Hum.rec.anlog 100 UNIT/ML 10 ML VIAL 65 UNIT SUBCUT (20:42)
[2024-10-25] VITALS (8 sets, daily range): BP systolic 96–110; BP diastolic 54–72; PULSE 57–82; RESP 16–18; TEMP 36.2–36.6; O2SAT 96–100
[2024-10-25] MEDS: Lactated Ringers 1,000 ML 125 ML IVCONT (01:56)
[2024-10-25 07:38] LABS: Glucose, Whole Blood 287 mg/dL (60-115)
[2024-10-25] MEDS: Docusate Sodium 100 MG CAPSULE PO ×2 (07:52→20:06)
[2024-10-25] MEDS: glipiZIDE 10 MG TABLET PO (07:52)
[2024-10-25] MEDS: Magnesium Oxide 400 MG TABLET PO ×2 (07:52→16:56)
[2024-10-25] MEDS: Lactulose 20 GM/30 ML SOLUTION 40 GM PO (07:52)
[2024-10-25] MEDS: Furosemide 40 MG TABLET PO (07:52)
[2024-10-25] MEDS: rifAXIMin 550 MG TABLET PO ×2 (07:52→20:06)
[2024-10-25] MEDS: Gabapentin 400 MG CAPSULE 800 MG PO ×3 (07:52→20:06)
[2024-10-25] MEDS: Spironolactone 25 MG TABLET 50 MG PO (07:53)
[2024-10-25] MEDS: cloNIDine HCL 0.2 MG TABLET PO ×3 (07:53→20:06)
[2024-10-25] MEDS: Insulin Lispro 100 UNIT/ML 3 ML VIAL SUBCUT ×5 (07:54→20:05)
[2024-10-25] MEDS: Insulin Lispro 100 UNIT/ML 3 ML VIAL 8 UNIT SUBCUT ×2 (07:54→11:50)
[2024-10-25] MEDS: methADONE HCl 20 MG/2 ML ORAL.CONC 70 MG PO (07:55)
[2024-10-25] MEDS: hydrOXYzine HCL 50 MG TABLET PO (08:00)
[2024-10-25] MEDS: Dicyclomine HCl 10 MG CAPSULE 40 MG PO (08:00)
[2024-10-25] MEDS: Insulin Glargine,Hum.rec.anlog 100 UNIT/ML 10 ML VIAL 75 UNIT SUBCUT (08:08)
--- NOTE | 2024-10-25 09:02 | P.PNIM_ITS ---
Subjective Subjective Date of Service: 10/25/24 Interval History: Blood sugars are finally trending down some nausea this morning otherwise feeling fine Physical Exam 2 Vital Signs: Vital Signs: Last Vital Signs Temp 97.7 F 10/25/24 08:00 Pulse 67 10/25/24 08:00 Resp 18 10/25/24 08:00 BP 105/66 10/25/24 08:00 Pulse Ox 99 10/25/24 08:00 O2 Del Method Room Air 10/25/24 08:00 BMI result Body Mass Index 27.1 Const: Other: General: AO X 3, no acute distress Resp: CTA bilateral CVS: S1,S2,RRR GI: +BS, NT, no distention Skin: No rash Neuro: motor grossly intact Psych: appropriate affect Objective Data Active Medications Acetaminophen (Acetaminophen 325 Mg Tablet) 650 mg PO Q6H PRN PRN Reason: Pain, Mild 1-3,fever,headache Last Admin: 10/19/24 15:50 Dose: 650 mg Documented By: ANASTACIA Acetaminophen (Acetaminophen 325 Mg Tablet) 650 mg PO Q4H PRN PRN Reason: Pain (Scale Score 1-3) Calcium Carbonate (Calcium Carbonate 750 Mg Tab.Chew) 750 mg PO Q4H PRN PRN Reason: Heartburn Clonidine HCl (Clonidine Hcl 0.2 Mg Tablet) 0.2 mg PO TID [facility]; Protocol Last Admin: 10/25/24 07:53 Dose: 0.2 mg Documented By: ANKITA Dicyclomine HCl (Dicyclomine Hcl 10 Mg Capsule) 40 mg PO QIDACHS PRN PRN Reason: Pain, Moderate(Pain Scale 4-6) Last Admin: 10/25/24 08:00 Dose: 40 mg Documented By: ANKITA Docusate Sodium (Docusate Sodium 100 Mg Capsule) 100 mg PO BID [facility] Last Admin: 10/25/24 07:52 Dose: 100 mg Documented By: ANKITA Furosemide (Furosemide 40 Mg Tablet) 40 mg PO DAILY [facility]; Protocol Last Admin: 10/25/24 07:52 Dose: 40 mg Documented By: ANKITA Gabapentin (Gabapentin 400 Mg Capsule) 800 mg PO TID [facility] Last Admin: 10/25/24 07:52 Dose: 800 mg Documented By: ANKITA Glipizide (Glipizide 10 Mg Tablet) 10 mg PO DAILY [facility] Last Admin: 10/25/24 07:52 Dose: 10 mg Documented By: ANKITA Hydroxyzine HCl (Hydroxyzine Hcl 50 Mg Tablet) 50 mg PO TID PRN PRN Reason: anxiety Last Admin: 10/25/24 08:00 Dose: 50 mg Documented By: ANKITA Hydroxyzine HCl (Hydroxyzine Hcl 50 Mg Tablet) 50 mg PO Q4H PRN PRN Reason: Anxiety Last Admin: 10/24/24 02:42 Dose: 50 mg Documented By: EMMY Ibuprofen (Ibuprofen 400 Mg Tablet) 400 mg PO Q8H PRN PRN Reason: BODYACHES Last Admin: 10/24/24 02:42 Dose: 400 mg Documented By: EMMY Insulin Glargine (Insulin Glargine,Hum.Rec.Anlog 100 Unit/Ml 10 Ml Vial) 65 unit SUBCUT BEDTIME [facility] Last Admin: 10/24/24 20:42 Dose: 65 unit Documented By: EMMY Insulin Glargine (Insulin Glargine,Hum.Rec.Anlog 100 Unit/Ml 10 Ml Vial) 75 unit SUBCUT DAILY [facility] Last Admin: 10/25/24 08:08 Dose: 75 unit Documented By: ANKITA Insulin Human Lispro (Insulin Lispro 100 Unit/Ml 3 Ml Vial) 0 unit SUBCUT QIDAS [facility]; Protocol Last Admin: 10/25/24 07:54 Dose: 6 unit Documented By: ANKITA Insulin Human Lispro (Insulin Lispro 100 Unit/Ml 3 Ml Vial) 8 unit SUBCUT QIDAS [facility] Last Admin: 10/25/24 07:54 Dose: 8 unit Documented By: ANKITA Lorazepam (Lorazepam 1 Mg Tablet) 1 mg PO Q8H PRN PRN Reason: anxiety attack Last Admin: 10/24/24 18:42 Dose: 1 mg Documented By: BILL Magnesium Hydroxide (Milk Of Magnesia 30 Ml Oral.Susp) 30 ml PO DAILY PRN PRN Reason: Constipation Magnesium Oxide (Magnesium Oxide 400 Mg Tablet) 400 mg PO BIDPC [facility] Last Admin: 10/25/24 07:52 Dose: 400 mg Documented By: ANKITA Melatonin (Melatonin 3 Mg Tablet) 6 mg PO BEDTIME PRN PRN Reason: Insomnia Methadone HCl (Methadone Hcl 20 Mg/2 Ml Oral.Conc) 70 mg PO DAILY@0800 [facility] Last Admin: 10/25/24 07:55 Dose: 70 mg Documented By: ANKITA Co-signed By: ESTEFANIA Nicotine Polacrilex (Nicotine Polacrilex 2 Mg Gum) 2 mg BUCCAL Q2H PRN PRN Reason: Nicotine Cravings Last Admin: 10/24/24 15:42 Dose: 2 mg Documented By: BILL Oxycodone HCl (Oxycodone Hcl Immed Release 5 Mg Tablet) 5 mg PO Q6H PRN PRN Reason: Pain, Severe (Pain Scale 7-10) Last Admin: 10/24/24 15:50 Dose: 5 mg Documented By: BILL Rifaximin (Rifaximin 550 Mg Tablet) 550 mg PO BID [facility] Last Admin: 10/25/24 07:52 Dose: 550 mg Documented By: ANKITA Senna (Sennosides 8.6 Mg Tablet) 17.2 mg PO DAILY PRN PRN Reason: Constipation Sodium Chloride (0.9 % Sodium Chloride Flush 3 Ml Syringe) 3 ml IVFLUSH QSHIFT [facility] Last Admin: 10/25/24 08:28 Dose: Not Given Documented By: ANKITA Non-Admin Reason: IV Running Spironolactone (Spironolactone 25 Mg Tablet) 50 mg PO DAILY [facility]; Protocol Last Admin: 10/25/24 07:53 Dose: 50 mg Documented By: ANKITA Labs 10/23/24 05:20 10/24/24 07:53 Labs: Laboratory Results - last 24 hr 10/24/24 10/24/24 10/24/24 10:58 16:07 20:02 POC Glucose 307 H 220 H 195 H 10/25/24 07:32 POC Glucose 287 H Assessment and Plan (1) Uncontrolled diabetes mellitus with hyperglycemia: Status: Acute Plan 38-year-old female homeless with diabetees on no meds admitted to [facility] for depression and ? SI treatment, she was sent to the ED for hyperglycemia, previously on no insulin, blood sugars have been persistent high in 300s to 400 Type 2 Diabetes with Hyperglycemia, AC1C 11, was on no meds, appear to be very insulin resistant Lantus started here and adjusted now to 75 in AM, 70 at bedtime. Pre-meal insulin 8 and Sliding scale. Glipizide increased to 10. Metformin stopped d/t hyperglycemia Cirrhosis, no HE continue lactulose increase to 40 tid, rifaximin, aldactone and lasix hypotension, chronic assymptomatic d/t chronic liver disease and clonidine. Improved with IVF Depression/anxiety/PTSD Continue her baseline meds Care team consult when medically ready HypOmagnesemia, repleted, recheck, add oral mag Abdominal pain, CT show gallsones, no cholecystitis surgery following, no intervention needed Acute lactic, likely due to liver disease Likely due to underlying liver disease/metformin No foci of infection, not due to severe sepsis Full code DVT prophylaxis, mechanical due to thrombocytopenia, out of bed, ambulation need for inpt: continuing need for insulin adjustment out of bed and ambulate Quality Stroke Does the patient have a stroke diagnosis?: No VTE Prior VTE?: No VTE Risk Level:: Medical - moderate - high VTE Device Contraindication: N/A - Device Ordered VTE Drug Contraindication: Treatment Not Indicated
[2024-10-25 10:39] LABS: Ammonia 40 umol/L (13-55)
[2024-10-25 10:46] LABS: Lactic Acid 1.5 mmol/L (0.5-2.0)
[2024-10-25 10:57] LABS: Anion Gap 11 (12-20); Blood Urea Nitrogen 10 mg/dL (9-16); Calcium 8.9 mg/dL (8.4-10.2); Carbon Dioxide 25 mmol/L (22-29); Chloride 104 mmol/L (96-108); Creatinine Clr Calc Pharmacy 91.9; Estimated Glomerular Filt Rate > 60; Glucose Random 198 mg/dL (60-115); Magnesium 1.4 mg/dL (1.6-2.6); Sodium 136 mmol/L (135-145)
[2024-10-25 11:02] LABS: Glucose, Whole Blood 167 mg/dL (60-115)
[2024-10-25] MEDS: oxyCODONE HCl Immed Release 5 MG TABLET PO ×2 (11:56→20:06)
[2024-10-25] MEDS: Calcium Carbonate 750 MG TAB.CHEW PO (12:23)
[2024-10-25 15:40] LABS: Glucose, Whole Blood 186 mg/dL (60-115)
[2024-10-25] MEDS: Magnesium Sulfate/H2O 2 GM/50 ML PIGGYBACK IV (15:47)
[2024-10-25] MEDS: 0.9 % Sodium Chloride Flush 3 ML SYRINGE IVFLUSH ×2 (15:48→20:04)
[2024-10-25 19:31] LABS: Glucose, Whole Blood 251 mg/dL (60-115)
[2024-10-25] MEDS: Insulin Glargine,Hum.rec.anlog 100 UNIT/ML 10 ML VIAL 70 UNIT SUBCUT (20:06)
[2024-10-25] MEDS: LORazepam 1 MG TABLET PO (20:06)
[2024-10-25] MEDS: Nicotine Polacrilex 2 MG GUM BUCCAL (20:07)
[2024-10-26 07:04] VITALS: BP 118/64; PULSE 78; RESP 16; TEMP 36.8; O2SAT 100
[2024-10-26 07:11] LABS: Glucose, Whole Blood 205 mg/dL (60-115)
[2024-10-26] MEDS: Insulin Lispro 100 UNIT/ML 3 ML VIAL SUBCUT ×8 (07:29→19:59)
[2024-10-26] MEDS: Gabapentin 400 MG CAPSULE 800 MG PO ×3 (07:30→19:59)
[2024-10-26] MEDS: hydrOXYzine HCL 50 MG TABLET PO (07:30)
[2024-10-26] MEDS: Dicyclomine HCl 10 MG CAPSULE 40 MG PO (07:30)
[2024-10-26] MEDS: glipiZIDE 10 MG TABLET PO (07:30)
[2024-10-26 07:31] VITALS: BP 118/64
[2024-10-26] MEDS: Furosemide 40 MG TABLET PO (07:31)
[2024-10-26] MEDS: Magnesium Oxide 400 MG TABLET PO (07:31)
[2024-10-26] MEDS: cloNIDine HCL 0.2 MG TABLET PO ×3 (07:31→19:59)
[2024-10-26] MEDS: Docusate Sodium 100 MG CAPSULE PO ×2 (07:31→19:59)
[2024-10-26] MEDS: rifAXIMin 550 MG TABLET PO ×2 (07:31→20:00)
[2024-10-26 07:32] VITALS: BP 118/64
[2024-10-26] MEDS: Spironolactone 25 MG TABLET 50 MG PO (07:32)
[2024-10-26] MEDS: 0.9 % Sodium Chloride Flush 3 ML SYRINGE IVFLUSH ×3 (07:32→19:57)
[2024-10-26] MEDS: methADONE HCl 20 MG/2 ML ORAL.CONC 70 MG PO (07:32)
--- NOTE | 2024-10-26 08:25 | HO.PM.IMPN ---
Subjective Subjective Date of Service: 10/26/24 Interval History: Blood sugars are better, in 200s this morning Physical Exam Vital Signs: Vital Signs: Last Vital Signs Temp 98.3 F 10/26/24 07:04 Pulse 78 10/26/24 07:04 Resp 16 10/26/24 07:04 BP 118/64 10/26/24 07:32 Pulse Ox 100 10/26/24 07:04 O2 Del Method Room Air 10/26/24 07:04 BMI result Body Mass Index 27.1 Const: Other: General: AO X 3, no acute distress Resp: CTA bilateral CVS: S1,S2,RRR GI: +BS, NT, no distention Skin: No rash Neuro: motor grossly intact Psych: appropriate affect Objective Data Active Medications Acetaminophen (Acetaminophen 325 Mg Tablet) 650 mg PO Q6H PRN PRN Reason: Pain, Mild 1-3,fever,headache Last Admin: 10/19/24 15:50 Dose: 650 mg Documented By: ANASTACIA Acetaminophen (Acetaminophen 325 Mg Tablet) 650 mg PO Q4H PRN PRN Reason: Pain (Scale Score 1-3) Calcium Carbonate (Calcium Carbonate 750 Mg Tab.Chew) 750 mg PO Q4H PRN PRN Reason: Heartburn Last Admin: 10/25/24 12:23 Dose: 750 mg Documented By: ANKITA Clonidine HCl (Clonidine Hcl 0.2 Mg Tablet) 0.2 mg PO TID [facility]; Protocol Last Admin: 10/26/24 07:31 Dose: 0.2 mg Documented By: ANKITA Dicyclomine HCl (Dicyclomine Hcl 10 Mg Capsule) 40 mg PO QIDACHS PRN PRN Reason: Pain, Moderate(Pain Scale 4-6) Last Admin: 10/26/24 07:30 Dose: 40 mg Documented By: ANKITA Docusate Sodium (Docusate Sodium 100 Mg Capsule) 100 mg PO BID [facility] Last Admin: 10/26/24 07:31 Dose: 100 mg Documented By: ANKITA Furosemide (Furosemide 40 Mg Tablet) 40 mg PO DAILY [facility]; Protocol Last Admin: 10/26/24 07:31 Dose: 40 mg Documented By: ANKITA Gabapentin (Gabapentin 400 Mg Capsule) 800 mg PO TID [facility] Last Admin: 10/26/24 07:30 Dose: 800 mg Documented By: ANKITA Glipizide (Glipizide 10 Mg Tablet) 10 mg PO DAILY [facility] Last Admin: 10/26/24 07:30 Dose: 10 mg Documented By: ANKITA Hydroxyzine HCl (Hydroxyzine Hcl 50 Mg Tablet) 50 mg PO TID PRN PRN Reason: anxiety Last Admin: 10/26/24 07:30 Dose: 50 mg Documented By: ANKITA Hydroxyzine HCl (Hydroxyzine Hcl 50 Mg Tablet) 50 mg PO Q4H PRN PRN Reason: Anxiety Last Admin: 10/24/24 02:42 Dose: 50 mg Documented By: EMMY Ibuprofen (Ibuprofen 400 Mg Tablet) 400 mg PO Q8H PRN PRN Reason: BODYACHES Last Admin: 10/24/24 02:42 Dose: 400 mg Documented By: EMMY Insulin Glargine (Insulin Glargine,Hum.Rec.Anlog 100 Unit/Ml 10 Ml Vial) 75 unit SUBCUT DAILY [facility] Last Admin: 10/25/24 08:08 Dose: 75 unit Documented By: ANKITA Insulin Glargine (Insulin Glargine,Hum.Rec.Anlog 100 Unit/Ml 10 Ml Vial) 70 unit SUBCUT BEDTIME [facility] Last Admin: 10/25/24 20:06 Dose: 70 unit Documented By: KYLAH Insulin Human Lispro (Insulin Lispro 100 Unit/Ml 3 Ml Vial) 0 unit SUBCUT QIDACHS [facility]; Protocol Last Admin: 10/26/24 07:29 Dose: 4 unit Documented By: ANKITA Insulin Human Lispro (Insulin Lispro 100 Unit/Ml 3 Ml Vial) 5 unit SUBCUT QIDACHS [facility] Last Admin: 10/26/24 07:29 Dose: 5 unit Documented By: ANKITA Lorazepam (Lorazepam 1 Mg Tablet) 1 mg PO Q8H PRN PRN Reason: anxiety attack Last Admin: 10/25/24 20:06 Dose: 1 mg Documented By: KYLAH Magnesium Hydroxide (Milk Of Magnesia 30 Ml Oral.Susp) 30 ml PO DAILY PRN PRN Reason: Constipation Magnesium Oxide (Magnesium Oxide 400 Mg Tablet) 400 mg PO BIDPC [facility] Last Admin: 10/26/24 07:31 Dose: 400 mg Documented By: ANKITA Melatonin (Melatonin 3 Mg Tablet) 6 mg PO BEDTIME PRN PRN Reason: Insomnia Methadone HCl (Methadone Hcl 20 Mg/2 Ml Oral.Conc) 70 mg PO DAILY@0800 [facility] Last Admin: 10/26/24 07:32 Dose: 70 mg Documented By: ANKITA Co-signed By: RANDALL Nicotine Polacrilex (Nicotine Polacrilex 2 Mg Gum) 2 mg BUCCAL Q2H PRN PRN Reason: Nicotine Cravings Last Admin: 10/25/24 20:07 Dose: 2 mg Documented By: KYLAH Oxycodone HCl (Oxycodone Hcl Immed Release 5 Mg Tablet) 5 mg PO Q6H PRN PRN Reason: Pain, Severe (Pain Scale 7-10) Last Admin: 10/25/24 20:06 Dose: 5 mg Documented By: KYLAH Rifaximin (Rifaximin 550 Mg Tablet) 550 mg PO BID [facility] Last Admin: 10/26/24 07:31 Dose: 550 mg Documented By: ANKITA Senna (Sennosides 8.6 Mg Tablet) 17.2 mg PO DAILY PRN PRN Reason: Constipation Sodium Chloride (0.9 % Sodium Chloride Flush 3 Ml Syringe) 3 ml IVFLUSH QSHIFT [facility] Last Admin: 10/26/24 07:32 Dose: 3 ml Documented By: ANKITA Spironolactone (Spironolactone 25 Mg Tablet) 50 mg PO DAILY [facility]; Protocol Last Admin: 10/26/24 07:32 Dose: 50 mg Documented By: ANKITA Labs 10/23/24 05:20 10/25/24 10:18 Labs: Laboratory Results - last 24 hr 10/25/24 10/25/24 10/25/24 10:15 10:18 10:56 Anion Gap 11 L Estim Creat Clear Calc 91.9 Estimated GFR > 60 POC Glucose 167 H Random Glucose 198 H Lactic Acid 1.5 Calcium 8.9 Magnesium 1.4 L* Ammonia 40 10/25/24 10/25/24 10/26/24 15:36 19:14 07:00 Anion Gap Estim Creat Clear Calc Estimated GFR POC Glucose 186 H 251 H 205 H Random Glucose Lactic Acid Calcium Magnesium Ammonia Assessment and Plan (1) Uncontrolled diabetes mellitus with hyperglycemia: Status: Acute Plan 38-year-old female homeless with diabetees on no meds [facility] and ? SI treatment, she was sent to the o ED for hyperglycemia, previously on no insulin, blood sugars have been persistent high in 300s to 400 Type 2 Diabetes with Hyperglycemia, AC1C 11, was on no meds, appear to be very insulin resistant Lantus started here and adjusted now to 75 in AM, 70 at bedtime. Pre-meal insulin 5 and Sliding scale. Glipizide increased to 10. Metformin stopped d/t hyperglycemia Cirrhosis, no HE continue lactulose increase to 40 tid, rifaximin, aldactone and lasix hypotension, chronic assymptomatic d/t chronic liver disease and clonidine. Resolved with IVF Depression/anxiety/PTSD Continue her baseline meds Care team consult when medically ready HypOmagnesemia, repleted, recheck, add oral mag Abdominal pain, CT show gallsones, no cholecystitis surgery following, no intervention needed Acute lactic, likely due to liver disease Likely due to underlying liver disease/metformin No foci of infection, not due to severe sepsis Full code DVT prophylaxis, mechanical due to thrombocytopenia, out of bed, ambulation need for inpt: continuing need for insulin adjustment out of bed and ambulate Quality Stroke Does the patient have a stroke diagnosis?: No VTE Prior VTE?: No VTE Risk Level:: Medical - moderate - high VTE Device Contraindication: N/A - Device Ordered VTE Drug Contraindication: Treatment Not Indicated
[2024-10-26] MEDS: Insulin Glargine,Hum.rec.anlog 100 UNIT/ML 10 ML VIAL 75 UNIT SUBCUT (09:07)
[2024-10-26] MEDS: Magnesium Sulfate/H2O 2 GM/50 ML PIGGYBACK IV (09:11)
[2024-10-26 11:06] VITALS: BP 105/57; PULSE 54; RESP 56; TEMP 36.6; O2SAT 98
[2024-10-26 11:14] LABS: Glucose, Whole Blood 201 mg/dL (60-115)
[2024-10-26] MEDS: Calcium Carbonate 750 MG TAB.CHEW PO (12:25)
--- NOTE | 2024-10-26 13:20 | PM.CNNEP ---
History of Present Illness Reason for Consult Consult date: 10/26/24 Chief Complaint Chief complaint: hyperglycemia History of Present Illness Narrative: 38-year-old female with cirrhosis, polysubstance abuse with crack cocaine/heroin, diabetes mellitus on insulin, depression/anxiety/PTSD who is currently a patient at [facility] and was [place] [facility] [place] hyperglycemia. The patient was seen in our emergency room for hyperglycemia about 1 week ago. She had symptoms including polydipsia and polyuria. She reports being diagnosed with diabetes about 4 years ago. She states that up until the recent past (last several months) she was being treated with metformin alone. However she reports that she is been hospitalized for multiple issues relating to mental health over the last several months and has since been started on insulin as well. Furthermore she reports also being diagnosed with cirrhosis around the same time. She states that she is currently on lactulose. In the emergency room the patient underwent basic lab work which showed sugars over 350. No evidence of DKA. Magnesium 1.5. LFTs about her baseline from last week. She is been given IV Mag, Ativan for anxiety and 1 L of fluids. She remains hypomagnesemic inspite of replacement. Nephrology has been consulted to assist in her clinical care during her current hospital stay Review of Systems Review of Systems Yes all other systems are reviewed and are negative PMFSH Past Medical History Medical History (Updated 10/20/24 @ 10:49 by Jerardo Johnston MD) Gallstones Social History Social History Household Members: Other Household Members Other:: facility Housing: Other Do you presently have visiting nurse or other home services: No Unable to assess alcohol history related to: Unknown Comment: 1:1 Patient Tobacco Use Status: Current everyday Tobacco user Tobacco use type: Cigarette Smoked in Last 30 Days: Yes Patient Interested in Nicotine Replacement: Yes Patient Given Instructions on How to Stop Smoking: No Use of substances other than those prescribed or required for medical reasons: No Substance Use Type: Heroin Substance Use Frequency: Weekly Last Used Substance: Weeks (ago) Currently Displaying Signs/Symptoms of Drug Intoxication Withdrawal: No Any prior treatment program specific to substance use: Yes Have you been hit, kicked, punched, or otherwise hurt by someone within the past year? If so, by whom?: No Do you feel safe in your current relationship?: No Is there a partner from a previous relationship who is making you feel unsafe now?: No Advance Directives: No Advance Directives Information Provided: Yes Do you have a plan to hurt others: No Plan Recently lost weight without trying: No Nutrition Risks: No Nutritional Risk Patient : No : No Poor oral hygiene: No service: No Meds Allergies Allergy/AdvReac Type Severity Reaction Status Date / Time No Known Allergies Allergy Verified 10/18/24 15:02 Active Medications: Current Medications Acetaminophen (Acetaminophen 325 Mg Tablet) 650 mg PO Q6H PRN PRN Reason: Pain, Mild 1-3,fever,headache Last Admin: 10/19/24 15:50 Dose: 650 mg Acetaminophen (Acetaminophen 325 Mg Tablet) 650 mg PO Q4H PRN PRN Reason: Pain (Scale Score 1-3) Calcium Carbonate (Calcium Carbonate 750 Mg Tab.Chew) 750 mg PO Q4H PRN PRN Reason: Heartburn Last Admin: 10/26/24 12:25 Dose: 750 mg Clonidine HCl (Clonidine Hcl 0.2 Mg Tablet) 0.2 mg PO TID [facility]; Protocol Last Admin: 10/26/24 07:31 Dose: 0.2 mg Dicyclomine HCl (Dicyclomine Hcl 10 Mg Capsule) 40 mg PO QIDACHS PRN PRN Reason: Pain, Moderate(Pain Scale 4-6) Last Admin: 10/26/24 07:30 Dose: 40 mg Docusate Sodium (Docusate Sodium 100 Mg Capsule) 100 mg PO BID [facility] Last Admin: 10/26/24 07:31 Dose: 100 mg Furosemide (Furosemide 40 Mg Tablet) 40 mg PO DAILY [facility]; Protocol Last Admin: 10/26/24 07:31 Dose: 40 mg Gabapentin (Gabapentin 400 Mg Capsule) 800 mg PO TID [facility] Last Admin: 10/26/24 07:30 Dose: 800 mg Glipizide (Glipizide 10 Mg Tablet) 10 mg PO DAILY [facility] Last Admin: 10/26/24 07:30 Dose: 10 mg Hydroxyzine HCl (Hydroxyzine Hcl 50 Mg Tablet) 50 mg PO TID PRN PRN Reason: anxiety Last Admin: 10/26/24 07:30 Dose: 50 mg Hydroxyzine HCl (Hydroxyzine Hcl 50 Mg Tablet) 50 mg PO Q4H PRN PRN Reason: Anxiety Last Admin: 10/24/24 02:42 Dose: 50 mg Ibuprofen (Ibuprofen 400 Mg Tablet) 400 mg PO Q8H PRN PRN Reason: BODYACHES Last Admin: 10/24/24 02:42 Dose: 400 mg Insulin Glargine (Insulin Glargine,Hum.Rec.Anlog 100 Unit/Ml 10 Ml Vial) 75 unit SUBCUT DAILY [facility] Last Admin: 10/26/24 09:07 Dose: 75 unit Insulin Glargine (Insulin Glargine,Hum.Rec.Anlog 100 Unit/Ml 10 Ml Vial) 70 unit SUBCUT BEDTIME [facility] Last Admin: 10/25/24 20:06 Dose: 70 unit Insulin Human Lispro (Insulin Lispro 100 Unit/Ml 3 Ml Vial) 0 unit SUBCUT QIDACHS [facility]; Protocol Last Admin: 10/26/24 11:55 Dose: 4 unit Insulin Human Lispro (Insulin Lispro 100 Unit/Ml 3 Ml Vial) 5 unit SUBCUT QIDACHS [facility] Last Admin: 10/26/24 11:55 Dose: 5 unit Lorazepam (Lorazepam 1 Mg Tablet) 1 mg PO Q8H PRN PRN Reason: anxiety attack Last Admin: 10/25/24 20:06 Dose: 1 mg Magnesium Hydroxide (Milk Of Magnesia 30 Ml Oral.Susp) 30 ml PO DAILY PRN PRN Reason: Constipation Magnesium Oxide (Magnesium Oxide 400 Mg Tablet) [facility] Melatonin (Melatonin 3 Mg Tablet) 6 mg PO BEDTIME PRN PRN Reason: Insomnia Methadone HCl (Methadone Hcl 20 Mg/2 Ml Oral.Conc) 70 mg PO DAILY@0800 [facility] Last Admin: 10/26/24 07:32 Dose: 70 mg Nicotine Polacrilex (Nicotine Polacrilex 2 Mg Gum) 2 mg BUCCAL Q2H PRN PRN Reason: Nicotine Cravings Last Admin: 10/25/24 20:07 Dose: 2 mg Oxycodone HCl (Oxycodone Hcl Immed Release 5 Mg Tablet) 5 mg PO Q6H PRN PRN Reason: Pain, Severe (Pain Scale 7-10) Last Admin: 10/25/24 20:06 Dose: 5 mg Rifaximin (Rifaximin 550 Mg Tablet) 550 mg PO BID [facility] Last Admin: 10/26/24 07:31 Dose: 550 mg Senna (Sennosides 8.6 Mg Tablet) 17.2 mg PO DAILY PRN PRN Reason: Constipation Sodium Chloride (0.9 % Sodium Chloride Flush 3 Ml Syringe) 3 ml IVFLUSH QSHIFT [facility] Last Admin: 10/26/24 07:32 Dose: 3 ml Spironolactone (Spironolactone 25 Mg Tablet) 50 mg PO DAILY [facility]; Protocol Last Admin: 10/26/24 07:32 Dose: 50 mg Home Medications ?Medication ?Instructions ?Recorded ?Confirmed ?Last Taken ?Type clonidine HCl 0.2 mg tablet 0.2 mg PO TID anxiety 10/18/24 10/18/24 Unknown History docusate sodium 100 mg capsule 100 mg PO BID PRN constipation 10/18/24 10/18/24 Unknown History gabapentin 800 mg tablet 800 mg PO TID depressive disorder 10/18/24 10/18/24 Unknown History glipizide 5 mg tablet 5 mg PO BID 10/18/24 10/19/24 Unknown History insulin glargine 100 unit/mL (3 38 unit subcut BEDTIME 10/18/24 10/18/24 Unknown History mL) subcutaneous pen (Lantus Solostar U-100 Insulin) insulin lispro 100 unit/mL See Protocol subcut TIDAC 10/18/24 10/18/24 Unknown History subcutaneous solution lactulose 10 gram/15 mL oral 30 ml PO TIDWM 10/18/24 10/18/24 Unknown History solution lorazepam 1 mg tablet 1 mg PO TID PRN anxiety attack 10/18/24 10/19/24 Unknown History metformin 500 mg tablet 1,000 mg PO BID 10/18/24 10/18/24 Unknown History ondansetron HCl 4 mg tablet 4 mg PO Q6H PRN Nausea And Vomiting 10/18/24 10/19/24 Unknown History sennosides 8.6 mg tablet (senna) 17.2 mg PO DAILY PRN Constipation 10/18/24 10/18/24 Unknown History acetaminophen 325 mg tablet 650 mg PO Q4H PRN Pain (Scale 10/19/24 10/19/24 Unknown History Score 1-3) furosemide 20 mg tablet 40 mg PO DAILY 10/19/24 10/19/24 Unknown History hydroxyzine pamoate 50 mg capsule 50 mg PO Q4H PRN Anxiety 10/19/24 10/19/24 Unknown History ibuprofen 400 mg tablet 400 mg PO Q8H PRN BODYACHES 10/19/24 10/19/24 Unknown History methadone 10 mg tablet 70 mg PO DAILY 10/19/24 10/19/24 Unknown History nicotine (polacrilex) 2 mg gum 2 mg buccal Q2H PRN Nicotine 10/19/24 10/19/24 Unknown History Cravings rifaximin 550 mg tablet 550 mg PO BID 10/19/24 10/19/24 Unknown History spironolactone 25 mg tablet 50 mg PO DAILY 10/19/24 10/19/24 Unknown History Physical Exam Vital Signs: Last Vital Signs Temp 97.8 F 10/26/24 11:06 Pulse 54 10/26/24 11:06 Resp 56 H 10/26/24 11:06 BP 105/57 L 10/26/24 11:06 Pulse Ox 98 10/26/24 11:06 O2 Del Method Room Air 10/26/24 11:06 BMI result Body Mass Index 27.1 Const General: no acute distress Eyes EOM: EOMs intact bilaterally Neck Neck: Yes supple Resp Auscultation: diminished lung sounds Cardio Rate: regular rate GI Palpation (GI): Soft to palpation Neuro General: moves all extremities Results Lab Results 10/23/24 05:20 10/25/24 10:18 Lab results: Chemistry 10/24/24 10/25/24 07:53 10:18 Sodium 133 L 136 Potassium 4.4 4.0 Carbon Dioxide 22 25 BUN 13 10 Creatinine 0.73 0.76 Calcium 8.5 8.9 Assessment and Plan (1) Hypomagnesemia: Status: Acute Plan Likely due to tubular wasting C/W IV and PO replacement Will benefit from Amiloride if hypomagnesia persists C/W rest of current management Procedures Date of Service Date of Service: 10/26/24
[2024-10-26 15:02] VITALS: BP 105/65; PULSE 55; RESP 20; TEMP 36.7; O2SAT 99
[2024-10-26] MEDS: Magnesium Oxide 400 MG TABLET 800 MG PO (16:23)
[2024-10-26 16:38] LABS: Glucose, Whole Blood 263 mg/dL (60-115)
[2024-10-26 19:12] VITALS: BP 104/60; PULSE 55; RESP 20; TEMP 36; O2SAT 97
[2024-10-26 19:42] LABS: Glucose, Whole Blood 314 mg/dL (60-115)
[2024-10-26] MEDS: Nicotine Polacrilex 2 MG GUM BUCCAL (19:57)
[2024-10-26] MEDS: oxyCODONE HCl Immed Release 5 MG TABLET PO (19:58)
[2024-10-26] MEDS: LORazepam 1 MG TABLET PO (19:58)
[2024-10-26] MEDS: Insulin Glargine,Hum.rec.anlog 100 UNIT/ML 10 ML VIAL 70 UNIT SUBCUT (19:59)
--- NOTE | 2024-10-27 | ECG_ITS ---
Test Reason : psych admit Blood Pressure : */* mmHG Vent. Rate : 56 BPM Atrial Rate : 56 BPM P-R Int : 132 ms QRS Dur : 92 ms QT Int : 490 ms P-R-T Axes : 48 27 29 degrees QTcB Int : 472 ms Sinus bradycardia Nonspecific T wave abnormality Prolonged QT Abnormal ECG When compared with ECG of 11-Oct-2024 13:54, No significant change was found Referred By: Saul Quintero Electronically Signed By: ISABELLA OVIEDO
[2024-10-27 04:00] VITALS: BP 112/68; PULSE 63; RESP 18; TEMP 36.8; O2SAT 96
[2024-10-27 07:08] VITALS: BP 99/62; PULSE 64; RESP 16; TEMP 36.3; O2SAT 97
[2024-10-27 07:40] LABS: Glucose, Whole Blood 146 mg/dL (60-115)
[2024-10-27] MEDS: Dicyclomine HCl 10 MG CAPSULE 40 MG PO (08:10)
[2024-10-27] MEDS: Spironolactone 25 MG TABLET 50 MG PO (08:10)
[2024-10-27] MEDS: Magnesium Oxide 400 MG TABLET 800 MG PO (08:11)
[2024-10-27] MEDS: cloNIDine HCL 0.2 MG TABLET PO ×2 (08:11→14:14)
[2024-10-27] MEDS: rifAXIMin 550 MG TABLET PO (08:11)
[2024-10-27] MEDS: LORazepam 1 MG TABLET PO (08:11)
[2024-10-27] MEDS: Gabapentin 400 MG CAPSULE 800 MG PO ×2 (08:11→14:14)
[2024-10-27] MEDS: Furosemide 40 MG TABLET PO (08:12)
[2024-10-27] MEDS: glipiZIDE 10 MG TABLET PO (08:12)
[2024-10-27] MEDS: hydrOXYzine HCL 50 MG TABLET PO ×2 (08:12→14:15)
[2024-10-27] MEDS: methADONE HCl 20 MG/2 ML ORAL.CONC 70 MG PO (08:15)
[2024-10-27] MEDS: 0.9 % Sodium Chloride Flush 3 ML SYRINGE IVFLUSH (08:18)
[2024-10-27] MEDS: Insulin Glargine,Hum.rec.anlog 100 UNIT/ML 10 ML VIAL 75 UNIT SUBCUT (08:20)
[2024-10-27] MEDS: Insulin Lispro 100 UNIT/ML 3 ML VIAL SUBCUT ×3 (08:20→11:37)
[2024-10-27] MEDS: Docusate Sodium 100 MG CAPSULE PO (08:21)
--- NOTE | 2024-10-27 08:49 | HO.PM.IMPN ---
Subjective Subjective Date of Service: 10/27/24 Interval History: Blood sugars are better Physical Exam Vital Signs: Vital Signs: Last Vital Signs Temp 97.3 F 10/27/24 07:08 Pulse 64 10/27/24 07:08 Resp 16 10/27/24 07:08 BP 99/62 10/27/24 07:08 Pulse Ox 97 10/27/24 07:08 O2 Del Method Room Air 10/27/24 07:08 BMI result Body Mass Index 27.1 Const: General: no acute distress Eyes: EOM: EOMs intact bilaterally Neck: Neck: Yes supple Resp: Auscultation: diminished lung sounds Cardio: Rate: regular rate GI: Palpation (GI): Soft to palpation Neuro: General: moves all extremities Objective Data Active Medications Acetaminophen (Acetaminophen 325 Mg Tablet) 650 mg PO Q6H PRN PRN Reason: Pain, Mild 1-3,fever,headache Last Admin: 10/19/24 15:50 Dose: 650 mg Documented By: ANASTACIA Acetaminophen (Acetaminophen 325 Mg Tablet) 650 mg PO Q4H PRN PRN Reason: Pain (Scale Score 1-3) Calcium Carbonate (Calcium Carbonate 750 Mg Tab.Chew) 750 mg PO Q4H PRN PRN Reason: Heartburn Last Admin: 10/26/24 12:25 Dose: 750 mg Documented By: ANKITA Clonidine HCl (Clonidine Hcl 0.2 Mg Tablet) 0.2 mg PO TID [facility]; Protocol Last Admin: 10/27/24 08:11 Dose: 0.2 mg Documented By: RHETT Dicyclomine HCl (Dicyclomine Hcl 10 Mg Capsule) 40 mg PO QIDACHS PRN PRN Reason: Pain, Moderate(Pain Scale 4-6) Last Admin: 10/27/24 08:10 Dose: 40 mg Documented By: RHETT Docusate Sodium (Docusate Sodium 100 Mg Capsule) 100 mg PO BID [facility] Last Admin: 10/27/24 08:21 Dose: 100 mg Documented By: RHETT Furosemide (Furosemide 40 Mg Tablet) 40 mg PO DAILY [facility]; Protocol Last Admin: 10/27/24 08:12 Dose: 40 mg Documented By: RHETT Gabapentin (Gabapentin 400 Mg Capsule) 800 mg PO TID [facility] Last Admin: 10/27/24 08:11 Dose: 800 mg Documented By: RHETT Glipizide (Glipizide 10 Mg Tablet) 10 mg PO DAILY [facility] Last Admin: 10/27/24 08:12 Dose: 10 mg Documented By: RHETT Hydroxyzine HCl (Hydroxyzine Hcl 50 Mg Tablet) 50 mg PO TID PRN PRN Reason: anxiety Last Admin: 10/27/24 08:12 Dose: 50 mg Documented By: RHETT Hydroxyzine HCl (Hydroxyzine Hcl 50 Mg Tablet) 50 mg PO Q4H PRN PRN Reason: Anxiety Last Admin: 10/24/24 02:42 Dose: 50 mg Documented By: EMMY Ibuprofen (Ibuprofen 400 Mg Tablet) 400 mg PO Q8H PRN PRN Reason: BODYACHES Last Admin: 10/24/24 02:42 Dose: 400 mg Documented By: EMMY Insulin Glargine (Insulin Glargine,Hum.Rec.Anlog 100 Unit/Ml 10 Ml Vial) 75 unit SUBCUT DAILY [facility] Last Admin: 10/27/24 08:20 Dose: 75 unit Documented By: RHETT Insulin Glargine (Insulin Glargine,Hum.Rec.Anlog 100 Unit/Ml 10 Ml Vial) 70 unit SUBCUT BEDTIME [facility] Last Admin: 10/26/24 19:59 Dose: 70 unit Documented By: KYLAH Insulin Human Lispro (Insulin Lispro 100 Unit/Ml 3 Ml Vial) 0 unit SUBCUT QIDAS [facility]; Protocol Last Admin: 10/27/24 08:18 Dose: Not Given Documented By: RHETT Non-Admin Reason: No Insulin Coverage Insulin Human Lispro (Insulin Lispro 100 Unit/Ml 3 Ml Vial) 5 unit SUBCUT QIDAS [facility] Last Admin: 10/27/24 08:20 Dose: 5 unit Documented By: RHETT Lorazepam (Lorazepam 1 Mg Tablet) 1 mg PO Q8H PRN PRN Reason: anxiety attack Last Admin: 10/27/24 08:11 Dose: 1 mg Documented By: RHETT Magnesium Hydroxide (Milk Of Magnesia 30 Ml Oral.Susp) 30 ml PO DAILY PRN PRN Reason: Constipation Magnesium Oxide (Magnesium Oxide 400 Mg Tablet) 800 mg PO BIDPC [facility] Last Admin: 10/27/24 08:11 Dose: 800 mg Documented By: RHETT Melatonin (Melatonin 3 Mg Tablet) 6 mg PO BEDTIME PRN PRN Reason: Insomnia Methadone HCl (Methadone Hcl 20 Mg/2 Ml Oral.Conc) 70 mg PO DAILY@0800 [facility] Last Admin: 10/27/24 08:15 Dose: 70 mg Documented By: RHETT Co-signed By: KD Nicotine Polacrilex (Nicotine Polacrilex 2 Mg Gum) 2 mg BUCCAL Q2H PRN PRN Reason: Nicotine Cravings Last Admin: 10/26/24 19:57 Dose: 2 mg Documented By: KYLAH Oxycodone HCl (Oxycodone Hcl Immed Release 5 Mg Tablet) 5 mg PO Q6H PRN PRN Reason: Pain, Severe (Pain Scale 7-10) Last Admin: 10/26/24 19:58 Dose: 5 mg Documented By: KYLAH Rifaximin (Rifaximin 550 Mg Tablet) 550 mg PO BID [facility] Last Admin: 10/27/24 08:11 Dose: 550 mg Documented By: RHETT Senna (Sennosides 8.6 Mg Tablet) 17.2 mg PO DAILY PRN PRN Reason: Constipation Sodium Chloride (0.9 % Sodium Chloride Flush 3 Ml Syringe) 3 ml IVFLUSH QSHIFT [facility] Last Admin: 10/27/24 08:18 Dose: 3 ml Documented By: RHETT Spironolactone (Spironolactone 25 Mg Tablet) 50 mg PO DAILY [facility]; Protocol Last Admin: 10/27/24 08:10 Dose: 50 mg Documented By: RHETT Labs 10/23/24 05:20 10/25/24 10:18 Labs: Laboratory Results - last 24 hr 10/26/24 10/26/24 10/26/24 11:06 16:34 19:19 POC Glucose 201 H 263 H 314 H 10/27/24 07:08 POC Glucose 146 H Assessment and Plan (1) Uncontrolled diabetes mellitus with hyperglycemia: Status: Acute Plan 38-year-old female homeless with diabetees on no meds admitted to [facility] for depression and ? SI treatment, she was sent to the ED for hyperglycemia, previously on no insulin, blood sugars have been persistent high in 300s to 400 Type 2 Diabetes with Hyperglycemia, AC1C 11, was on no meds, appear to be very insulin resistant Lantus started here and adjusted now to 75 in AM, 70 at bedtime. Pre-meal insulin 5 and Sliding scale. Glipizide increased to 10. Cirrhosis, no HE continue lactulose, rifaximin, aldactone and lasix hypotension, chronic assymptomatic d/t chronic liver disease and clonidine. Resolved with IVF Depression/anxiety/PTSD Continue her baseline meds Care team consult HypOmagnesemia repleted, continue maintenance Abdominal pain, CT show gallsones, no cholecystitis surgery following, no intervention needed Acute lactic, likely due to liver disease Likely due to underlying liver disease/metformin No foci of infection, not due to severe sepsis Full code DVT prophylaxis, mechanical due to thrombocytopenia, out of bed, ambulation need for inpt: care team eval Quality Stroke Does the patient have a stroke diagnosis?: No VTE Prior VTE?: No VTE Risk Level:: Medical - moderate - high VTE Device Contraindication: N/A - Device Ordered VTE Drug Contraindication: Treatment Not Indicated
[2024-10-27] MEDS: Nicotine Polacrilex 2 MG GUM BUCCAL (09:21)
--- NOTE | 2024-10-27 11:23 | MHC.CARE ---
Patient evaluated by the CARE Team, disposition inpatient psychiatric treatment. Provider, Dr. Quintero updated.
[2024-10-27 11:31] LABS: Glucose, Whole Blood 427 mg/dL (60-115)
[2024-10-27 11:33] VITALS: BP 106/63; PULSE 62; RESP 16; TEMP 36.2; O2SAT 97
[2024-10-27] MEDS: metFORMIN HCl 1,000 MG TABLET 1000 MG PO (11:54)
[2024-10-27 13:01] LABS: UPreg QC Valid YES; Urine Pregnancy NEGATIVE (NEGATIVE)
[2024-10-27 13:09] LABS: Amphetamine Screen Urine Not Detected (Not Detect); Barbiturates, Urine Not Detected (Not Detect); Benzodiazepines Screen Urine Not Detected (Not Detect); Buprenorphine Scr Not Detected (Not Detect); Cannabinoid Screen Urine Not Detected (Not Detect); Cocaine Screen Urine Not Detected (Not Detect); Fentanyl, urine Not Detected (Not Detect); Methadone Screen, Urine Positive (Not Detect); Opiate Screen Urine Not Detected (Not Detect); Oxycodone Screen Urine Positive (Not Detect); Phencyclidine Screen Urine Not Detected (Not Detect)
--- NOTE | 2024-10-27 13:28 | PM.DS ---
DS: Providers Provider Date of Service: 10/27/24 Date of admission: 10/21/24 07:44 Date of discharge: 10/27/24 Primary care physician: Unknown Physician Consults: 10/20/24 09:04 Consult to General Surgery Routine Consulting Provider: [facility] Reason for consultation: abominal pain, gallstones Has provider been notified: No 10/26/24 08:28 Consult to Nephrology Routine Consulting Provider: [facility] Reason for consultation: hypomagnesemia 10/27/24 08:54 Inpt CARE Team Crisis Consult Routine Comment: Reason for consultation: medically cleared, depression SI DS: Diagnosis Discharge Diagnosis (1) Uncontrolled diabetes mellitus with hyperglycemia: Status: Acute DS: Summary Hospital Course Hospital Course: From initial hpi: 38-year-old female with a past medical history of cirrhosis, polysubstance abuse with crack cocaine/heroin, diabetes mellitus on insulin, depression/anxiety/PTSD who is currently a patient at [facility] and was sent to [facility] ED for reported hyperglycemia. The patient was seen in our emergency room for hyperglycemia about 1 week ago. Patient is seen and examined in [facility] around 15:30. She reports symptoms including polydipsia and polyuria. She reports being diagnosed with diabetes about 4 years ago. She states that up until the recent past (last several months) she was being treated with metformin alone. However she reports that she is been hospitalized for multiple issues relating to mental health over the last several months and has since been started on insulin as well. Furthermore she reports also being diagnosed with cirrhosis around the same time. She states that she is currently on lactulose. In the emergency room the patient underwent basic lab work which showed sugars over 350. No evidence of DKA. Magnesium 1.5. LFTs about her baseline from last week. She is been given IV Mag, Ativan for anxiety and 1 L of fluids. She will now be admitted for hyperglycemia Hospital course: Patient was admitted for diabetes with hyperglycemia, A1c was 11. Was titrated up on basal bolus insulin she is now on 75 units of Lantus in the a.m. and 70 units at p.m., premeal 5 units with correction dosing. Glipizide increased to 10 and also continued on metformin 1 g b.i.d.. For unspecified cirrhosis was continued on lactulose, rifaximin, Aldactone, Lasix. For hypotension this is chronic due to chronic liver disease and not due to sepsis. For depression and anxiety and PTSD was continued on baseline meds. Was seen by care team who recommended inpatient psychiatric admission. For hypomagnesemia she received replacement and will continue on maintenance. Patient is now medically cleared will be discharged to inpatient psych. Time Attestation Discharge Coordination Time (in mins): 37 Quality: Safe Use of Opioids Does Pt have an Active Cancer Diagnosis on the Problem List?: No Quality: Stroke Does the patient have a stroke diagnosis?: No Physical Exam Vital Signs: Vital Signs: Last Vital Signs Temp 97.2 F 10/27/24 11:33 Pulse 62 10/27/24 11:33 Resp 16 10/27/24 11:33 BP 106/63 10/27/24 11:33 Pulse Ox 97 10/27/24 11:33 O2 Del Method Room Air 10/27/24 11:33 BMI result Body Mass Index 27.1 Const: General: no acute distress Eyes: EOM: EOMs intact bilaterally Neck: Neck: Yes supple Resp: Auscultation: diminished lung sounds Cardio: Rate: regular rate GI: Palpation (GI): Soft to palpation Neuro: General: moves all extremities DS: Data Data Completed and Pending Labs on day of discharge: Laboratory Results - last 24 hr 10/26/24 10/26/24 10/27/24 16:34 19:19 07:08 POC Glucose 263 H 314 H 146 H Urine Test Urine Opiates Screen Ur Buprenorphine Scrn Ur Oxycodone Screen Urine Methadone Screen Urine Fentanyl Screen Ur Barbiturates Screen Ur Phencyclidine Scrn Ur Amphetamines Screen U Benzodiazepines Scrn Urine Cocaine Screen U Marijuana (THC) Screen 10/27/24 10/27/24 10/27/24 11:26 12:45 12:46 POC Glucose 427 H* Urine Test NEGATIVE Urine Opiates Screen Not Detected Ur Buprenorphine Scrn Not Detected Ur Oxycodone Screen Positive H Urine Methadone Screen Positive H Urine Fentanyl Screen Not Detected Ur Barbiturates Screen Not Detected Ur Phencyclidine Scrn Not Detected Ur Amphetamines Screen Not Detected U Benzodiazepines Scrn Not Detected Urine Cocaine Screen Not Detected U Marijuana (THC) Screen Not Detected Discharge Plan Discharge Anticipated Discharge Date/Time: 10/27/24 13:25 Patient Disposition: Xfer Other Discharge Diagnosis: hpyergycemia Referrals: Physician,Unknown J [Primary Care Provider] - 1 Week Discharge Medications: New insulin glargine [Lantus U-100 Insulin] 100 unit/mL Solution 70 unit subcut BEDTIME Qty: 0 0RF insulin glargine [Lantus U-100 Insulin] 100 unit/mL Solution 75 unit subcut DAILY Qty: 0 0RF glipizide 10 mg Tablet 10 mg PO DAILY Qty: 0 0RF magnesium oxide 400 mg (241.3 mg magnesium) Tablet 800 mg PO BIDPC Qty: 0 0RF dicyclomine 10 mg Capsule 40 mg PO QIDACHS PRN (Reason: Pain, Moderate(Pain Scale 4-6)) Qty: 0 0RF oxycodone 5 mg Tablet 5 mg PO Q6H PRN (Reason: Pain, Severe (Pain Scale 7-10)) Qty: 0 0RF Rx Instructions: Partial Fill upon patient request. insulin lispro [Admelog U-100 Insulin lispro] 100 unit/mL Solution 5 unit subcut QIDACHS Qty: 10 0RF Continued metformin 500 mg tablet 1,000 mg PO BID clonidine HCl 0.2 mg tablet 0.2 mg PO TID gabapentin 800 mg tablet 800 mg PO TID docusate sodium 100 mg capsule 100 mg PO BID PRN (Reason: constipation) lorazepam 1 mg tablet 1 mg PO TID PRN (Reason: anxiety attack) insulin lispro 100 unit/mL solution See Protocol subcut TIDAC Protocol: Insulin Correction Scale Less than or equal to 110 ---- Give (units): 0 111 to 150 Give (units): 0 151 to 200 Give (units): 2 201 to 250 Give (units): 4 251 to 300 Give (units): 6 301 to 350 Give (units): 8 Greater than 350 Give (units): 10 Call MD if Blood Glucose > : 350 lactulose 10 gram/15 mL solution 30 ml PO TIDWM sennosides [senna] 8.6 mg Tablet 17.2 mg PO DAILY PRN (Reason: Constipation) ondansetron HCl 4 mg Tablet 4 mg PO Q6H PRN (Reason: Nausea And Vomiting) nicotine (polacrilex) 2 mg Gum 2 mg BUCCAL Q2H PRN (Reason: Nicotine Cravings) methadone 10 mg Tablet 70 mg PO DAILY Rx Instructions: needs to be verified hydroxyzine pamoate 50 mg Capsule 50 mg PO Q4H PRN (Reason: Anxiety) spironolactone 25 mg Tablet 50 mg PO DAILY ibuprofen 400 mg Tablet 400 mg PO Q8H PRN (Reason: BODYACHES) furosemide 20 mg Tablet 40 mg PO DAILY rifaximin 550 mg Tablet 550 mg PO BID Rx Instructions: patient own - pending at [facility] acetaminophen 325 mg Tablet 650 mg PO Q4H PRN (Reason: Pain (Scale Score 1-3)) Discontinued glipizide 5 mg tablet 5 mg PO BID insulin glargine [Lantus Solostar U-100 Insulin] 100 unit/mL (3 mL) insulin pen 38 unit subcut BEDTIME Discharge Orders: Discharge Order (Routine); Ordered 10/27/24 Ordered By: Saul Quintero Diet: Diabetic diet Activity on Discharge: As tolerated Stand Alone Forms: Patient Portal Discharge page Print Language: Taiwanese Care Plan Goals: managem hyperglycemia Health Concerns: dm, SI, cirrhosis Plan of Treatment: med adjustements as per medrec, tanvir lactulose for 2-3 bm per day, inpatient psych Assessment: see above Discharge Date/Time: 10/27/24 14:45
[2024-10-27] MEDS: oxyCODONE HCl Immed Release 5 MG TABLET PO (14:18)
--- NOTE | 2024-10-27 14:26 | MHC.CM.PN ---
PT EVALUATED BY CARE TEAM DISPOSITON DTERMINED FOR INPT PSYCH
== END 2024-10-27 14:45 | disposition other institution (70) | DRG 420 ==
LOC: HO.ED 15:04 → HO.EDOVER 16:04 → HO.S3 10-19 17:16
PROVIDERS: Internal Medicine; Physician Assistant Medical; Admitting Provider Family Medicine; Emergency Provider Emergency Medicine; Visit Provider Internal Medicine
DX: E11.65 Type 2 diabetes mellitus with hyperglycemia (principal); E87.21 Acute metabolic acidosis; K74.60 Unspecified cirrhosis of liver; I95.9 Hypotension, unspecified; K58.9 Irritable bowel syndrome, unspecified; K80.20 Calculus of gallbladder without cholecystitis without obstruction; E83.42 Hypomagnesemia; F11.20 Opioid dependence, uncomplicated; F17.210 Nicotine dependence, cigarettes, uncomplicated; F19.10 Other psychoactive substance abuse, uncomplicated; F43.10 Post-traumatic stress disorder, unspecified; F32.A Depression, unspecified; F41.0 Panic disorder [episodic paroxysmal anxiety]; Z86.19 Personal history of other infectious and parasitic diseases; Z20.822 Contact with and (suspected) exposure to COVID-19; Z71.6 Tobacco abuse counseling; Z79.4 Long term (current) use of insulin; Z79.84 Long term (current) use of oral hypoglycemic drugs; Z79.899 Other long term (current) drug therapy
CPT/HCPCS: 0241U; 36415; 74176; 80048; 80053; 80307; 81025; 82010; 82140; 82550; 82947; 83036; 83605; 83690; 83735; 85025; 93005; 99285; J3475; J7120; S9485

== ENCOUNTER → 2024-10-18 15:03 | Outpatient (BNV) | payer MEDICAID, SELFPAY | PROVIDERS: Emergency Provider Emergency Medicine; Visit Provider Family Medicine | DX: E11.65 Type 2 diabetes mellitus with hyperglycemia (principal) | CPT/HCPCS: 99222; 99232 ==

== ENCOUNTER 2024-10-18 15:34 | Outpatient (BNV) | payer MEDICAID, SELFPAY | END 2024-10-19 23:15 | PROVIDERS: Admitting Provider Family Medicine; Emergency Provider Emergency Medicine; Visit Provider Radiology Diagnostic Radiology | DX: K80.20 Calculus of gallbladder without cholecystitis without obstruction (principal); K74.60 Unspecified cirrhosis of liver; R16.1 Splenomegaly, not elsewhere classified; K56.41 Fecal impaction | CPT/HCPCS: 74176 ==

== ENCOUNTER 2024-10-21 07:44 | Outpatient (BNV) | payer MEDICAID, SELFPAY | END 2024-10-27 13:58 | PROVIDERS: Admitting Provider Family Medicine; Emergency Provider Emergency Medicine; Visit Provider Internal Medicine | DX: R00.1 Bradycardia, unspecified (principal); R94.31 Abnormal electrocardiogram [ECG] [EKG] | CPT/HCPCS: 93010 ==

== ENCOUNTER → 2024-10-21 07:44 | Outpatient (BNV) | payer MEDICAID, SELFPAY | PROVIDERS: Admitting Provider Family Medicine; Emergency Provider Emergency Medicine; Visit Provider Internal Medicine Nephrology | DX: E83.42 Hypomagnesemia (principal) | CPT/HCPCS: 99222 ==

== ENCOUNTER 2024-10-27 14:48 | Inpatient (IN) | payer MEDICAID, SELFPAY ==
--- OUTSIDE RECORDS SUMMARY | 2024-10-27 14:52 | XMS_ITS | Encounter Summary ---
Author Organization [facility] Address [address] [place] [address] Care Team Providers Care Driller Machine Name Role Phone Stephanie Calderon MD Primary Care Provider Add, Provider Not In System Unavailable Unav ailable Encounter Details Date Type Department Care Team (Late st Contact Info) Description 11/10/2023 Telephone [facility] [address] [facility] 2nd Floor - [phone] [place] [address] Kirstin Kruger, THREAD PULLING MACHINE ATTENDANT [address] [facility] [place] [address] Social History Tobacco Use Types Packs/Day Years [...] documented as of this encounter Care Teams Driller Machine Relationship Specialty Start Date End Date Stephanie Calderon MD [address] [place] [address] PCP - General 04/14/10 Add, Provider Not In System [address] [place] [address] PCP - Insurance PCP 12/11/17 documented as of this encounter
--- OUTSIDE RECORDS SUMMARY | 2024-10-27 14:52 | XMS_ITS | Clinical Summary ---
Author Organization [facility] Address [address] [facility] [place] [address] Care Team Providers Care Family Psychologist Name Role Phone Stephanie Calderon MD Primary Care Provider Add, Provider Not In System Unavailable Unav ailable Allergies No known active allergies Medications methadone (DOLOPHINE) 10 MG tablet Take 80 mg by mouth daily Active cloNIDine (CATAPRES) 0.2 MG tablet Take 1 tablet by mouth 3 (three) times daily for 14 days 42 tablet 08/22/2024 Active furosemide (LASIX) 20 MG tablet Take 1 tablet by mouth daily for 14 days 14 tablet 08/23/2024 Active gabapentin (NEURONTIN) 400 MG capsule Take 2 capsules by mouth 3 (three) times daily for 14 days 84 capsule 08/22/2024 Active metFORMIN (FORTAMET) 1000 MG (OSM) 24 hr tablet Take 1 tablet by mouth in the morning and 1 tablet in the evening. Take with meals. Do all this for 14 days. 28 tablet 08/22/2024 Active dextrose (GLUTOSE) 40 % oral gel Take 15 g by mouth 3 (three) times daily as needed for up to 14 days 37.5 g 08/22/2024 Active spironolactone (ALDACTONE) 50 MG tablet Take 1 tablet by mouth daily for 14 days 14 tablet 08/23/2024 Active Insulin Glargine Solostar (LANTUS SOLOSTAR) 100 UNIT/ML SOPN Inject 34 Units under the skin nightly for 14 days 3 mL 1 08/22/2024 Active Insulin Lispro (HUMALOG) 100 UNIT/ML injection Inject 15 Units under the skin in the morning and 15 Units at noon and 15 Units in the evening. Inject before meals. Do all this for 14 days. 6.3 mL 08/22/2024 Active Active Problems Problem Noted Date Diagnosed [...] 03/16 Last Psych ([facility] [phone]. Rosanna Andrade, [facility]). Current: looking for new psych. Has counselor- group and individual at [facility] Last Assessment & Plan: Current: looking for new psych. Has counselor- group and individual at [facility] Opioid use disorder, severe, on maintenance ther apy Resolved Problems Problem Noted Date Diagnosed Date Resolved Date Suicidal ideation 04/05/2020 07/09/2024 Prediabetes 03/08/2015 06/30/2024 Overview (11/04/2023): Overview: New 02/20 a1c 6.0 Diet/exericse, nutrition MDD (major depressive disord er), recurrent episode, moderate 04/25/2020 Encounters Date Type Department Care Team Description 10/08/2024 9:09 PM EST - 10/10/2024 10:26 AM EST Emergency [address] [address] Phil Yañez MD Tauscher, Stephanie, MD Loonis, Manon, MD Gray, Julie M, MD Goldstein, Alex, MD Depression with suicidal ideation; Opioid abuse (HCC); Polysubstance abuse (HCC); Hyperglycemia Discharge Disposition: Psych Adm to Other Inp Psy Fac 08/27/2024 [facility] [address] [place] [address] 2nd Floor - [phone] [place] [address] Charisse Uriostegui LCSW 08/17/2024 Plan of Care Documentation [facility] [address] [place] [address] 08/06/2024 Plan of Care Documentation [facility] [address] [place] [address] 07/30/2024 Plan of Care Documentation [facility] [address] [place] [address] 07/22/2024 9:50 PM EST - 08/22/2024 3:00 PM EST Hospital Encounter [facility] [address] [place] [address] Faby Farias MD Fears Alston, Fayola, MD 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); Pneumonia due to infectious organism, unspecified laterality, unspecified part of lung [J18.9]; Type 2 diabetes mellitus with hyperglycemia, with long-term current use of insulin (HCC) [E11.65, Z79.4]; Generalized abdominal pain [R10.84]; Chronic hepatitis C without hepatic coma (HCC) [B18.2]; Opioid use disorder, severe, on maintenance therapy (HCC) Discharge Disposition: Home from Last 3 Months [...] PM EST HC GLUCOSE (POC) Routine 07/28/2024 4:2 9 PM EST HC GLUCOSE (POC) Routine 07/28/2024 11:3 6 AM EST HC GLUCOSE (POC) Routine 07/28/2024 7:06 AM EST HC GLUCOSE (POC) Routine 07/27/2024 10:5 1 PM EST HC GLUCOSE (POC) Routine 07/27/2024 5:20 PM EST HC GLUCOSE (POC) Routine 07/27/2024 11:2 6 AM EST HC GLUCOSE (POC) Routine 07/27/2024 6:48 AM EST from Last 3 Months Results * (ABNORMAL) Fingerstick Blood Sugar (Point of Care) (10/10/2024 7:40 AM EST) Only the most recent of119 resultswithin the time period is included. FINGERSTICK [...] LABORATORY Final Result POINT OF CARE TESTING [address] [place] [address], * Serum Drug Screen (10/08/2024 9:41 PM EST) SALICYLATE < 0.5 3.0 - 20.0 mg/dL [facility] ACETAMINOPHEN < 5 10 - 30 ug/mL [facility] ETHANOL < 10 0 - 10 mg/dL [facility] BLOOD SPECIMEN / Unknown 10/08/2024 9:41 PM EST 10/08/2024 9:58 PM EST Narrative [facility] - 10/08/2024 10:44 PM EST Confirmation of receipt of critical GLUC of 521 obtained from RENY TRAN on ER on 10/08/24 at 2243 by [email or web address]. For verbally communicated results, the READBACK procedure was performed by [email or web address]. us Phil Yañez MD LABORATORY Edited Resu lt - Final [facility] [address] [place] [address], [place] * (ABNORMAL) CBC, Platelet & Differential (10/08/2024 9:41 PM EST) Only the most recent of3 resultswithin the time period is included. WHITE BLOOD CELL COUNT 3.8(L) 4.0 - 11.0 TH/uL [facility] RED BLOOD CELL COUNT 4.38 3.90 - 5.20 M/uL [facility] HEMOGLOBIN 11.5 11.2 - 15.7 g/dL [facility] HEMATOCRIT 35.5 34.1 - 44.9 % [facility] MEAN CORPUSCULAR VOL 81.1 80.0 - 100.0 fl [facility] MEAN CORPUSCULAR HGB 26.3 26.0 - 34.0 pg [facility] MEAN VANESA HGB CONC 32.4 31.0 - 37.0 g/dL [facility] RBC DISTRIBUTION WIDTH STD DEV 48.1(H) 35.1 - 46.3 fL [facility] PLATELET COUNT 76(L) 150 - 400 TH/uL [facility] MEAN PLATELET VOLUME 11.6 8.7 - 12.5 fL [facility] IMMATURE PLATELET FRACTION % 7.1(H) 1.0 - 7.0 % [facility] IMMATURE PLATELET FRACTION ABS 5.4 TH/uL [facility] NEUTROPHIL % 46.7 40.0 - 75.0 % [facility] IMMATURE GRANULOCYTE % 0.3 0.0 - 1.0 % [facility] Comment: The immature granulocyte fraction includes metamyelocytes, [...] LYMPHOCYTE % 38.7 15.0 - 54.0 % [facility] MONOCYTE % 10.3 4.0 - 13.0 % [facility] EOSINOPHIL % 3.2 0.0 - 7.0 % [facility] BASOPHIL % 0.8 0.0 - 1.2 % [facility] NRBC % 0.0 0.0 - 0.0 % [facility] ABSOLUTE NEUTROPHIL COUNT 1.8 1.6 - 8.3 TH/uL [facility] ABSOLUTE IMM GRAN COUNT 0.01 0.00 - 0.10 TH/uL [facility] ABSOLUTE LYMPH COUNT 1.5 0.6 - 5.9 TH/uL [facility] ABSOLUTE MONO COUNT 0.4 0.2 - 1.4 TH/uL [facility] ABSOLUTE EOSINOPHIL COUNT 0.1 0.0 - 0.8 TH/uL [facility] ABSOLUTE BASO COUNT 0.0 0.0 - 0.1 TH/uL [facility] ABSOLUTE NRBC COUNT 0.0 0.0 - 0.0 TH/uL [facility] PLATELET ESTIMATE DECREASE D(A) [facility] BLOOD SPECIMEN / Unknown 10/08/2024 9:41 PM EST 10/08/2024 9:58 PM EST us Phil Yañez MD LABORATORY Final Resul t [facility] [address] [place] [address], * (ABNORMAL) Basic Metabolic Panel (10/08/2024 9:41 PM EST) Only the most recent of3 resultswithin the time period is included. SODIUM 137 136 - 145 mmol/L [facility] POTASSIUM 4.1 3.5 - 5.1 mmol/L [facility] CHLORIDE 97(L) 98 - 107 mmol/L [facility] CARBON DIOXIDE 25 21 - 32 mmol/L [facility] ANION GAP 15 10 - 22 mmol/L [facility] CALCIUM 9.6 8.5 - 10.5 mg/dL [facility] Glucose Random 521(HH) 74 - 160 mg/dL [facility] Comment:RESULT CONFIRMED BY REPEAT ANALYSIS BUN (UREA NITROGEN) 12 7 - 18 mg/dL [facility] CREATININE 0.7 0.4 - 1.2 mg/dL [facility] ESTIMATED GLOMERULAR FILT RATE > 60 >60 ML/MIN [facility] Comment: On May 31, 2021 the NKF-ASN Task Force recommended the adoption of the new eGFR 2020 CKD EPI creatinine equation that estimates kidney function without a race variable. NKF and ASN recommend diagnosing kidney disease using a blood test for creatinine to estimate GFR and a urine test for albumin to calculate albumin to creatinine ratio (uACR). For more information please see https://www.kidney.org/news/hxm-wwa-gtm-crdgxsf-zdo-mxe-to-d jsxtvzd-bfrnlb-wmnzjhgo. BLOOD SPECIMEN / Unknown 10/08/2024 9:41 PM EST 10/08/2024 9:58 PM EST Narrative [facility] - 10/08/2024 10:44 PM EST Confirmation of receipt of critical GLUC of 521 obtained from RENY TRAN on ER on 10/08/24 at 2243 by [email or web address]. For verbally communicated results, the READBACK procedure was performed by [email or web address]. us Phil Yañez MD LABORATORY Edited Resu lt - Final [facility] [address] [place] [address], [place] * US Abdomen w Duplex (08/06/2024 [...] COMPARISON: CT chest 07/23/2024, MRCP 07/09/2024, abdominal /29/2024 TECHNIQUE: Abdominal ultrasound was performed with a [...] Hepatic Function Panel (08/05/2024 7:00 AM EST) TOTAL PROTEIN 6.8 6.4 - 8.2 g/dL [facility] ALBUMIN 3.2(L) 3.4 - 5.2 g/dL [facility] BILIRUBIN TOTAL 0.8 0.2 - 1.0 mg/dL [facility] BILIRUBIN DIRECT 0.6(H) 0.0 - 0.2 mg/dL [facility] INDIRECT BILIRUBIN 0.2 0.2 - 0.9 mg/dL [facility] ALKALINE PHOSPHATASE 430(H) 45 - 117 U/L [facility] ASPARTATE AMINOTRANSFERASE 236(H) 8 - 34 U/L [facility] ALANINE AMINOTRANSFERASE 165(H) 12 - 45 U/L [facility] 08/05/2024 7:00 AM EST 08/05/2024 8:13 AM EST us Ponce Rios MD [place] [address], * (ABNORMAL) CBC with Platelet (08/05/2024 7:00 AM EST) Pathologist [facility] WHITE BLOOD CELL COUNT 4.3 4.0 - 11.0 TH/uL [facility] RED BLOOD CELL COUNT 4.12 3.90 - 5.20 M/uL [facility] HEMOGLOBIN 11.5 11.2 - 15.7 g/dL [facility] HEMATOCRIT 36.5 34.1 - 44.9 % [facility] MEAN CORPUSCULAR VOL 88.6 80.0 - 100.[address] [facility] MEAN CORPUSCULAR HGB 27.9 26.0 - 34.0 pg [facility] MEAN VANESA HGB CONC 31.5 31.0 - 37.0 g/dL [facility] RBC DISTRIBUTION WIDTH STD DEV 45.2 35.1 - 46.[address] [facility] PLATELET COUNT 127(L) 150 - 400 TH/uL [facility] MEAN PLATELET VOLUME 12.3 8.7 - 12.5 fL [facility] NRBC % 0.0 0.0 - 0.0 % [facility] ABSOLUTE NRBC COUNT 0.0 0.0 - 0.0 TH/uL [facility] 08/05/2024 7:00 AM EST 08/05/2024 8:14 AM EST us Ponce Rios MD LABORATORY Final Result [facility] [address] [place] [address], [place] * Urinalysis Rflx to Urine Cult (08/04/2024 2:16 PM EST) BILIRUBIN, URINE Negative Negative [facility] OCCULT BLOOD, URINE Negative Negative [facility] CLARITY, URINE Clear Clear [facility] COLOR, URINE Yellow Yellow [facility] GLUCOSE, URINE Negative Negative mg/dL [facility] KETONE, URINE Negative Negative mg/dL [facility] LEUKOCYTES, URINE Negative Negative [facility] NITRITE, URINE Negative Negative [facility] PH, URINE 5.5 5.0 - 8.[address] [facility] PROTEIN, URINE Negative Negative mg/dL [facility] SPECIFIC GRAVITY, URINE 1.016 1.003 - 1.[address] [facility] UROBILINOGEN, URINE 1.0 0.2 - 1.0 E.U./dL [facility] MICROSCOPIC REVIEW Not Indicated Not Indicat [facility] Urine VOIDED URINE SPECIMEN / Unknown 08/04/2024 2:16 PM EST 08/04/2024 2:36 PM EST Narrative [facility] - 08/04/2024 2:51 PM EST UCV&Urine, Clean Void us Ponce Rios MD URINE ORDERABLES Final Result Performing Organization Address [facility] Co de Phone Number [place] [phone] [place] [address], [place] * (ABNORMAL) Bilirubin Direct (08/03/2024 4:33 PM EST) BILIRUBIN DIRECT 0.5(H) 0.0 - 0.2 mg/dL [facility] 08/03/2024 4:33 PM EST 08/03/2024 4:59 PM EST Narrative [facility] - 08/03/2024 6:10 PM EST Tests added: DBIL HCG by ALECIA ROSALES on 08/03/24 at 1712 by [email or web address]. us Elvie Walton MD LABORATORY Final Res ult Performing Organization Address City/[facility]/ZIP Co de Phone Number [facility] [address] [place] [address], [place] * C-Reactive Protein (08/03/2024 4:33 PM EST) C-REACTIVE PROTEIN < 3 0 - 18 mg/L [facility] 08/03/2024 4:33 PM EST 08/03/2024 4:59 PM EST Narrative [facility] - 08/03/2024 6:10 PM EST Tests added: DBIL HCG by MOR,DON on 08/03/24 at 1712 by [email or web address]. us Elvie Walton MD [place] [address], [place] * HCG Qualitative Serum (08/03/2024 4:33 PM EST) HCG QUALITATIVE SERUM NEGATIVE NEGATIVE [facility] 08/03/2024 4:33 PM EST 08/03/2024 4:59 PM EST Narrative [facility] - 08/03/2024 6:10 PM EST Tests added: DBIL HCG by MOR,DON on 08/03/24 at 1712 by [email or web address]. us Elvie Walton MD [place]AT[place] [address], [place] * Lipase (08/03/2024 4:33 PM EST) LIPASE 39 13 - 60 U/L [facility] 08/03/2024 4:33 PM EST 08/03/2024 4:59 PM EST Narrative [facility] - 08/03/2024 6:10 PM EST Tests added: DBIL HCG by MOR,DON on 08/03/24 at 1712 by [email or web address]. us Elvie Walton MD LAB[place]AT[place] [address], [place] * Amylase (08/03/2024 4:33 PM EST) AMYLASE 52 25 - 115 U/L [facility] 08/03/2024 4:33 PM EST 08/03/2024 4:59 PM EST Narrative [facility] - 08/03/2024 6:10 PM EST Tests added: DBIL HCG by ALECIA ROSALES on 08/03/24 at 1712 by [email or web address]. us Elvie Walton MD LABORATORY Final Res ult [place] [id number] [place] [address], * (ABNORMAL) Comprehensive Metabolic Panel (08/03/2024 4:33 PM EST) SODIUM 132(L) 136 - 145 mmol/L [facility] POTASSIUM 4.9 3.5 - 5.1 mmol/L [facility] CHLORIDE 98 98 - 107 mmol/L [facility] CARBON DIOXIDE 24 21 - 32 mmol/L [facility] ANION GAP 11 10 - 22 mmol/L [facility] CALCIUM 8.9 8.5 - 10.5 mg/dL [facility] Glucose Random 206(H) 74 - 160 mg/dL [facility] BUN (UREA NITROGEN) 17 7 - 18 mg/dL [facility] TOTAL PROTEIN 6.8 6.4 - 8.2 g/dL [facility] ALBUMIN 3.2(L) 3.4 - 5.2 g/dL [facility] BILIRUBIN TOTAL 0.9 0.2 - 1.0 mg/dL [facility] ALKALINE PHOSPHATASE 453(H) 45 - 117 U/L [facility] ASPARTATE AMINOTRANSFERASE 236(H) 8 - 34 U/L [facility] CREATININE 0.5 0.4 - 1.2 mg/dL [facility] ESTIMATED GLOMERULAR FILT RATE > 60 >60 ML/MIN [facility] Comment: On May 31, 2021 the [...] ratio (uACR). For more information please see https://www.kidney.org/news/gon-dzx-ann-tnzkbhf-gwf-dzo-to-d psogwrh-ptdldw-hkpevjxz. ALANINE AMINOTRANSFERASE 158(H) 12 - 45 U/L [facility] 08/03/2024 4:33 PM EST 08/03/2024 4:59 PM EST Narrative [facility] - 08/03/2024 6:10 PM EST Tests added: DBIL HCG by CONNIEDON on 08/03/24 at 1712 by [email or web address]. us Elvie Walton MD LABORATORY Final Res ult [facility] [address] [place] [address], [place] from Last 3 Months Insurance [address] [place] [id number] [facility] Advance Directives * Full Code (Latest Code Status on File) Date Activated Date Inactivated Comments 07/09/2024 5:12 PM Care Teams Family Psychologist Relationship Specialty Start Date End Date Stephanie Calderon MD [address] [place] [address] PCP - General 04/14/10 Add, Provider Not In System [address] [place] [address] PCP - Insurance PCP 12/11/17
--- OUTSIDE RECORDS SUMMARY | 2024-10-27 14:52 | XMS_ITS | Clinical Summary ---
Author Organization [facility] Address [phone] [email or web address] [address] Care Team Providers Care Manager Marketing Communication Name Role Phone Stephanie Lofton MD Primary Care Provider [phone] Allergies Active Allergy Reactions Criticality Noted Date [...] EST - 09/01/2024 2:57 PM EST Emergency [facility] Emergency Dept [address] [place] [id number] Mony More MD Perelman, MD Elbert Lombardi [...] Description 12/23/2024 2:40 PM EDT Office Visit [address] [address] Tonay Partida, F[employer]ANT [address] [place] [phone] [email or web address] Health Maintenance Due Date Last Done Comments [...] Glucose, POCT 276(H) 70 - 110 mg/dL [facility] 09/01/2024 11:5 9 AM EST 09/01/2024 12:02 PM EST Kim Pardo MD POINT OF CARE TEST O RDERABLES Performing Organization Address City/[facility]/ZIP Co de Phone Number [address] [address] * ECG 12-LEAD (09/01/2024 10:32 AM EST) Systolic Blood Pressure [facility] Diastolic Blood Pressure [facility] Ventricular Rate EKG/MIN 65 BPM [facility] Atrial Rate 65 BPM [facility] MT Interval 124 ms [facility] QRS Duration 88 ms [facility] QT Interval 462 ms [facility] QTC Interval 480 ms [facility] P [place] 73 degrees [facility] R Wave [place] 70 degrees [facility] T Wave [place] 59 degrees [facility] 09/01/2024 10:3 2 AM [...] included. WBC 3.24(L) 4.00 - 11.00 K/uL [facility] RBC 4.33 4.00 - 5.20 M/uL [facility] HGB 11.7(L) 12.0 - 16.0 g/dL [facility] HCT 36.7 36.0 - 46.0 % [facility] PLT 83(L) 150 - 450 K/uL [facility] Comment: Large/Giant platelets present Reviewed MCV 84.8 80.0 - 100.0 fL [facility] MCH 27.0 27.0 - 31.0 pg [facility] MCHC 31.9(L) 32.0 - 36.0 g/dL [facility] RDW 15.2(H) 11.5 - 14.5 % [facility] MPV Not measured 8.4 - 12.0 fL [facility] NRBC 0.00 0.00 /100 WBCs [facility] ABSOLUTE NRBC 0.00 0.00 K/uL [facility] DIFF METHOD Auto [facility] NEUTS 55.2 48.0 - 76.0 % [facility] LYMPHS 32.1 18.0 - 41.0 % [facility] MONOS 9.3 4.0 - 11.0 % [facility] EOS 2.2 0.0 - 5.0 % [facility] BASOS 0.9 0.0 - 1.5 % [facility] % IMMATURE GRANS 0.3 0.0 - 0.9 % [facility] ABSOLUTE NEUTS 1.79(L) 1.92 - 7.60 K/uL [facility] ABSOLUTE LYMPHS 1.04 0.72 - 4.10 K/uL [facility] ABSOLUTE MONOS 0.30 0.16 - 1.10 K/uL [facility] ABSOLUTE EOS 0.07 0.00 - 0.50 K/uL [facility] ABSOLUTE BASOS 0.03 0.00 - 0.15 K/uL [facility] ABS IMMATURE GRANS 0.01 0.00 - 0.09 K/uL [facility] Blood 09/01/2024 10:3 0 AM EST 09/01/2024 11:41 AM EST Ivania Epperson PMHNP-BC LAB BLOOD O RDERABLES [address] [address] * Lipase (09/01/2024 10:30 AM EST) LIPASE 26 13 - 60 U/L [facility] Blood 09/01/2024 10:3 0 AM EST 09/01/2024 11:41 AM EST Ivania Epperson HNP-BC LAB BLOOD O RDERABLES Performing Organization Address [facility] Co de Phone Number [address] [address] * (ABNORMAL) Basic metabolic panel (09/01/2024 10:30 AM EST) Only the most recent of2 resultswithin the time period is included. SODIUM 136 135 - 145 mmol/L [facility] POTASSIUM 4.2 3.4 - 5.0 mmol/L [facility] CHLORIDE 101 98 - 108 mmol/L [facility] CO2 26 23 - 32 mmol/L [facility] BUN 16 8 - 25 mg/dL [facility] CREATININE 0.61 0.50 - 1.00 mg/dL [facility] GLUCOSE 259(H) 70 - 110 mg/dL [facility] CALCIUM 8.9 8.5 - 10.5 mg/dL [facility] EGFR 116 >59 mL/min/1. 73m2 [facility] Comment:Estimated glomerular filtration rate calculated using the CKD-EPI refit equation. ANION GAP 9 3 - 17 mmol/L [facility] Blood 09/01/2024 10:3 0 AM EST 09/01/2024 11:41 AM EST Ivania Epperson PMHNP-BC LAB BLOOD O RDERABLES Performing Organization Address City/[facility]/ZIP Co de Phone Number [address] [address] * (ABNORMAL) Urinalysis w/reflex Urine Culture (08/31/2024 7:20 PM EST) COLOR Yellow Yellow [facility] CLARITY Clear Clear [facility] GLUCOSE 3+(A) Negative [facility] Comment:(>=300 mg/dL) BILI Negative Negative [facility] KETONES Negative Negative [facility] SPECIFIC GRAVITY 1.021 1.001 - 1.035 [facility] BLOOD Negative Negative [facility] PH 6.5 5.0 - 9.0 [facility] Protein-UA Negative Negative [facility] UROBILINOGEN 2+(A) Negative [facility] Negative Negative [facility] Leukocyte esterase, ur Negative Negative [facility] Urine (Urine) 08/31/2024 7:2 0 PM EST 08/31/2024 8:40 PM EST Lloyd Mcelroy PA-C URINE ORDERAB LES Performing Organization Address [facility] [[email or web address]] de Phone Number [address] [address] * (ABNORMAL) LFTs (hepatic panel) (08/31/2024 11:12 AM EST) Only the most recent of2 resultswithin the time period is included. ALBUMIN 3.4 3.3 - 5.0 g/dL [facility] TOTAL BILIRUBIN 1.4(H) 0.0 - 1.0 mg/dL [facility] DIRECT BILIRUBIN 0.9(H) 0.0 - 0.3 mg/dL [facility] ALKALINE PHOSPHATASE 266(H) 30 - 100 U/L [facility] AST 116(H) 9 - 32 U/L [facility] ALT 113(H) 7 - 33 U/L [facility] TOTAL PROTEIN 6.7 6.0 - 8.3 g/dL [facility] GLOBULIN 3.3 1.9 - 4.1 g/dL [facility] Blood 08/31/2024 11:1 2 AM EST 08/31/2024 12:30 PM EST Lory Nielsen MD, PhD LAB BL OOD ORDERABLES Performing Organization Address City/[facility]/ZIP Co de Phone Number [address] [address] * (ABNORMAL) Toxicology screen, urine (08/30/2024 10:25 PM EST) URINE AMPHETAMINES Negative Negative [facility] URINE BENZODIAZEPINE Negative Negative [facility] URINE COCAINE METAB Positive(A) Negative [facility] URINE OPIATES Negative Negative [facility] Comment:This assay is not se nsitive for detection of oxycodone and oxymorphone. URINE OXYCODONE Negative Negative [facility] Fentanyl, urine Positive(A) Negative [facility] URINE CREATININE 40 mg/dL [facility] Urine (Urine) 08/30/2024 10: 25 PM EST 08/30/2024 10:56 PM EST Mony More MD URINE ORDERABLES Performing Organization Address City/[facility] Co de Phone Number [address] [address] * HCG, urine (08/30/2024 10:25 PM EST) URINE TEST Negative Negative [facility] Urine (Urine) 08/30/2024 10: 25 PM EST 08/30/2024 10:55 PM EST Mony More MD URINE ORDERABLES Performing Organization Address City/[facility]/ZIP Co de Phone Number [address] [address] * Ketone bodies, serum (08/30/2024 9:58 PM EST) BETA HYDROXYBUTYRATE 0.2 <0.4 mmol/L [facility] Blood 08/30/2024 9:58 PM EST 08/30/2024 10:31 PM EST Mony More MD LAB BLOOD ORDERABLES [address] [address] * Ethanol, blood (08/30/2024 9:58 PM EST) ETHANOL Negative Negative mg/dL [facility] Blood 08/30/2024 9:58 PM EST 08/30/2024 10:31 PM EST Mony More MD LAB BLOOD ORDERABLES Performing Organization Address [facility] Co de Phone Number [address] [address] * (ABNORMAL) Venous blood gas (08/30/2024 9:58 PM EST) FIO2 UNSPEC. FIO2/L min [facility] PH 7.45(H) 7.30 - 7.40 [facility] PCO2 41 38 - 50 mm[Hg] [facility] PO2 55(H) 35 - 50 mm[Hg] [facility] Base Excess, unspecified 3.5(H) 0.0 - 3.0 mmol/L [facility] HCO3, unspecified 28 24 - 30 mmol/L [facility] Blood 08/30/2024 9:58 PM EST 08/30/2024 10:26 PM EST Mony More MD LAB BLOOD ORDERABLES Performing Organization Address [facility] Co de Phone Number [address] [address] * Pap Smear (04/28/2003 12:00 AM EDT) 04/28/2003 Narrative [facility] PATHOLOGY - 05/06/2003 6:18 AM EDT Accession Number: ??[id number] ? Report Status: ??Final Type: ??Cytology ? Cytology Report: ??[id number] ? DATE TAKEN: ?APR 10 ?ACCESSIONED ON: [...] Conversion Provider Not In Sys CYTOLOGY ORDERABLES [facility] PATHOLOGY from Last 3 Months or Most Recently Relevant to Health Maintenance Care Teams Manager Marketing Communication Relationship Specialty Start Date End Date Stephanie Lofton MD [address] [place] [address] [email or web address] PCP - General Family Medicine 08/09/18 Additional Source Comments The information contained in this document represents components of the legal health record. It is not the complete legal health record.[facility]
--- OUTSIDE RECORDS SUMMARY | 2024-10-27 14:52 | XMS_ITS | Encounter Summary ---
Author Organization [employer] All iance Address [address] [place] [address] Care Team Providers Care Digital Marketing Coordinator Name Role Phone Stephanie Calderon MD Primary Care Provider Add, Provider Not In System Unavailable Unav ailable Reason for Visit * Reason Comments Distress Encounter Details Date Type Department Care Team (Late st Contact Info) Description 10/08/2024 9:09 PM EST - 10/10/2024 10:26 AM EST [address] [address] Phil Yañez MD [address] [place], [place] [address] [address] Rosanna Witt MD [address] [place] [address] Yolie Jaimes MD [address] [place] [address] Inge Saenz MD [address] [place] [address] [address] Forest Blue MD [address] [place] [address] [place] [address] Depression with suicidal ideation; Opioid abuse (HCC); [...] (HCC) Hyperglycemia Condition: stable Disposition: transfer * Rosanna Witt MD - 10/09/2024 11:34 PM EST [facility] EMERGENCY MEDICINE ATTENDING -SIGN OUT NOTE I assumed care of this patient at signout after receiving report from ED provider. ED Course as of 10/09/24 2334 FriOct 08, 2024 2319 38F h/o DM p/w depression. Unclear if SI. Med cleared. Pending PES. Sat Oct 09, 2024 2306 38 yo F with PMH DM, vague SI, hyperglycemic, on insulin sliding sale, IPLOC ED Triage Vitals [10/08/24 2053] ED Triage Vitals Brief Group Temp 97 ??F Pulse 114 Resp 16 BP 125/62 SpO2 94 % Pain Score No acute events during my shift. Med cleared. IPLOC, pending bed search. Disposition Impression(s): Depression with suicidal ideation Opioid abuse (HCC) Polysubstance abuse (HCC) Hyperglycemia Disposition: Psych Bed Search Patient Condition: Stable Rosanna Witt MD [facility] Emergency Medicine Attending Physician 10/09/2024 11:34 PM * Yolie Jaimes MD - 10/09/2024 9:45 PM EST ED Attending Physician Sign Out Note I received sign out from: Dr. Witt at 7a. In brief, ED Course as of 10/09/24 2145 Sat Oct 09, 2024 0659 38 yo [...] Yolie Jaimes MD Emergency Department Attending Physician [facility] * Inge Saenz MD - 10/09/2024 5:22 [...] unless noted otherwise above. Inge Saenz MD * Rosanna Witt MD - 10/08/2024 11:20 PM EST [facility] EMERGENCY MEDICINE ATTENDING -SIGN OUT NOTE I assumed care of this patient at signout after receiving report from ED provider. ED Course as of 10/09/242305Oct 08, 2024 2319 38F h/o DM p/w depression. Unclear if SI. Med cleared. Pending PES. Sat Oct 09, 2024 230 38 yo F with PMH DM, vague [...] None Patient Condition: None Rosanna Witt MD [facility] Emergency Medicine Attending Physician 10/09/2024 6:53 AM * Phil Yañez MD - 10/08/2024 9:17 PM EST Andriy ED ATTENDING NOTE I have reviewed the ED nursing notes and prior records. I have reviewed the patient's past medical history/problem list, allergies, social history and medication list. I saw this patient primarily. HPI: This 38 year old female patient presented to [facility] via Self with chief complaint of Distress 38-year-old female with history of IV and polysubstance abuse, diabetes, IBS, anxiety/depression, chronic hepatitis C who presents to the ED complaining of depression with suicidal ideation. Per external medical record review, seen at [facility] for depression 08/2024 and, per external medical [...] breath, nausea/vomiting, cough, rash. Triage Documentation Ace Cuba, RN 10/08/2024 20:59 It just seems like [...] Strain: Not on File (05/29/2023) Received from [facility] Financial Resource Strain Financial Resource Strain: 0 Food Insecurity: Not on File (06/03/2024) Received from [facility] Food Insecurity Food: 0 Transportation Needs: Not on File (05/29/2023) Received from [facility] Transportation Needs Transportation: 0 Physical Activity: Not on File (05/29/2023) Received from [facility] Physical Activity Physical Activity: 0 Stress: Not on File (05/29/2023) Received from [facility] Stress Stress: 0 Social Connections: Not on File (05/27/2024) Received from [facility] Social [facility]ctions Connectedness: 0 Intimate Partner Violence: Unknown (08/30/2024) Received from [facility] Intimate Partner Violence Are you denied basic [...] Stability: Not on File (05/29/2023) Received from [facility] Housing Stability Housin Allergies: Review of Patient's [...] recommendations. ED Course as of 10/08/242250Oct 08, 20242241 Hyperglycemia noted without anion gap. I will [...] AM EST Report to TORIN Wallace at [facility]. See previous dispo note. Pt en route to [facility]. * Narrator Note - José Garcia RN - 10/10/2024 10:18 AM EST Patient Disposition Patient education for diagnosis, medications, activity, diet and follow-up. Patient left ED 10:18 AM. Patient rep received written instructions. Clinical Nurse Manager to provide instructions: No Patient belongings with patient: YES Have all existing LDAs been addressed? N/A Have all IV infusions been stopped? N/A Destination: Transferred to [address] via BLS. Verbal report and paperwork to EMS. EMS crew without questions/concerns. Pt to EMS stretcher w/o incident. Pt care to EMS. * Narrator Note - José Garcia RN - 10/10/2024 9:20 AM EST Call from admitting. Pt can actually go to [facility] in [place] upon arrival of the next S ambulance. This RN informed the patient who is agreeable for the transfer. * PES NOTES - Lexi Mark - 10/10/2024 9:15 AM EST [facility] called to confirm they would like to accept the patient for today 10/10 for an ETA DHRUV and will call to do a nurse to nurse. Accepting ETA DHRUV * PES NOTES - Lexi Mark - 10/10/2024 8:48 AM EST Pt accepted to [facility] for 10/[address] [place] [address] [phone]Huey HEREDIA 11am * Narrator Note - José Garcia RN - 10/10/2024 8:45 AM EST Call from Dariana at [facility] for tomorrow 10/11/[address] Shania Sands [address] [place] [address]. [phone] * Narrator Note - José Garcia RN [...] her pharmacy for all other medications is [facility]. Upon review, [facility] is not open today. Pt ate breakfast. VS assessed. No further needs expressed from pt at this time. * Narrator Note - José Garcia RN - 10/10/2024 7:24 AM EST Images from the original note were not included. METHADONE CLINIC BELOW: FAX: [phone] Patient signed release for last methadone dose. Faxed to [facility]. ADDENDUM 0804: Spoke with TORIN Castillo at [facility]. Verfied patient methadone dose as follows: Last [...] 4:1 safety watch. * Narrator Note - lAina Salinas RN - 10/09/2024 7:07 PM EST [...] in functional status, and level of distress): lace roller Note: It just seems like things get [...] ideation.Per external medical record review, seen at [facility] for depression 08/2024 and, per external medical [...] with multiple IPLOC, reports last admission to [facility] where she was for about a monthand got discharged two weeks ago. 07/22/24-08/22/24 on Jonel 4: Soheila Dacosta is a 38yo female [...] Soheila Dacosta is a 38 year old Spanish-speaking female, unhoused, unemployed, recently incarcerated and discharged [...] SI and increased depression after discharge from [facility] the day prior. 11/03/23-11/07/23: Soheila Dacosta is a 37 year old Spanish-speaking female, housed, partnered to ameena??, with psychiatric history of bipolar 2 versus MDD, PTSD, anxiety, polysubstance use disorders on MAT, prior psychiatric hospitalizations (last in 2019 on ), 1 prior suicide attempt viaoverdose in 2019, with medical history of type 2 diabetes mellitus and hepatitis C (untreated), whoself presented with suicidal thoughts in the context of 1 month of relapse and recent loss of her sister Collateral Contacts: Awilda Dacosta (Mother) [phone], TW contacted and spoke with someone who requested a silver holloware assembler. Cale, ID # [id number] assisted with communicating [...] pt, after several attempts between TW and [facility] clinician, TW was able to interview pt [...] is unemployed, does not get any government fast food sales assistant; however, her boyfriend Sawyer helps [...] Pt reports connection to Methadone clinic in [place], states she takes 7 mg of methadone [...] D/c 03/16 Last Psych ([facility] [phone]. Rosanna Andrade, [facility]). Current: looking for new psych. Has counselor- group and individual at [facility] Last Assessment & Plan: Current: looking for new psych. Has counselor- group and individual at [facility] Psychiatric History: Diagnostic History: DD versus BPAD, PTSD, substance use (crack cocaine, fentanyl on methadone) History of Psychiatric Hospitalizations (include dates and locations): Pt reports dc from [facility] two weeks ago. Multiple IPLOC. Current/Most Recent Outpatient Care: Dr. Tejal Medina, [place] [facility]. Safety Concerns: SI with plan, homelessness, [...] Psychosocial History: Psychosocial : No Education : [employer] Community Support: Psychiatrist Relationship Status: Single Primary Business And Marketing Teacher for Someone: No Providing self care at [...] currently experiencing homelessness. [facility] recently [facility] from [facility] and reports being on probation. Pt reports [...] attending, Yolie Jaimes MD. Apple Olsen LCSW, JOVANA Ashraf PES [phone] * Narrator Note - Alina Salinas [...] to wake her up. Apple Olsen LCSW, JOVANA HOGAN x [phone] * Narrator Note - Alina Salinas RN - 10/09/2024 9:17 AM EST PES attempted to see her. She was too sleepy * Narrator Note - Alina Salinas RN - 10/09/2024 8:06 AM EST Pt was able to tell me she gets her methadone from [facility]. Called [facility] they are requesting authorization from pt to [...] MD LABORATORY Final Result Performing Organization Address [facility] Phone Number POINT OF CARE TESTING [address] [place] [address], * (ABNORMAL) Fingerstick Blood Sugar (Point of [...] LABORATORY Final Result Performing Organization Address [facility] Co de Phone Number POINT OF CARE TESTING [address] [place] [address], * (ABNORMAL) Fingerstick Blood Sugar (Point of [...] LABORATORY Final Result Performing Organization Address [facility] de Phone Number POINT OF CARE TESTING [address] [place] [address], * (ABNORMAL) Fingerstick Blood Sugar (Point of [...] 7:23 AM EST 10/09/2024 7:25 AM EST us Yolie Jaimes MD LABORATORY Final Result Performing Organization Address [facility] Co de Phone Number POINT OF CARE TESTING [address] [place] [address], * Serum Drug Screen (10/08/2024 9:41 PM EST) SALICYLATE < 0.5 3.0 - 20.0 mg/dL [facility] ACETAMINOPHEN < 5 10 - 30 ug/mL [facility] ETHANOL < 10 0 - 10 mg/dL [facility] BLOOD SPECIMEN / Unknown 10/08/2024 9:41 PM EST 10/08/2024 9:58 PM EST Narrative [facility] - 10/08/2024 10:44 PM EST Confirmation of receipt of critical GLUC of 521 obtained from KAYKAY TRAN on ER on 10/08/24 at 2243 by [email or web address]. For verbally communicated results, the READBACK procedure was performed by PS135. us Phil Yañez MD LABORATORY Edited Resu lt - Final [facility] [address] [place] [address], * (ABNORMAL) Basic Metabolic Panel (10/08/2024 9:41 PM EST) SODIUM 137 136 - 145 mmol/L [facility] POTASSIUM 4.1 3.5 - 5.1 mmol/L [facility] CHLORIDE 97(L) 98 - 107 mmol/L [facility] CARBON DIOXIDE 25 21 - 32 mmol/L [facility] ANION GAP 15 10 - 22 mmol/L [facility] CALCIUM 9.6 8.5 - 10.5 mg/dL [facility] Glucose Random 521(HH) 74 - 160 mg/dL [facility] Comment:RESULT CONFIRMED BY REPEAT ANALYSIS BUN (UREA NITROGEN) 12 7 - 18 mg/dL [facility] CREATININE 0.7 0.4 - 1.2 mg/dL [facility] ESTIMATED GLOMERULAR FILT RATE > 60 >60 ML/MIN [facility] Comment: On May 31, 2021 the NKF-ASN Task Force recommended the adoption of the new eGFR 2020 CKD EPI creatinine equation that estimates kidney function without a race variable. NKF and ASN recommend diagnosing kidney disease using a blood test for creatinine to estimate GFR and a urine test for albumin to calculate albumin to creatinine ratio (uACR). For more information please see https://www.kidney.org/news/aay-zyr-jzq-leejhqo-jrt-twr-to-d zvqmezn-ymjntq-rlsslzqn. BLOOD SPECIMEN / Unknown 10/08/2024 9:41 PM EST 10/08/2024 9:58 PM EST Narrative [facility] - 10/08/2024 10:44 PM EST Confirmation of receipt of critical GLUC of 521 obtained from [facility] TRAN on ER on 10/08/24 at 2243 by [email or web address]. For verbally communicated results, the READBACK procedure was performed by PS135. us Phil Yañez MD LABORATORY Edited Resu lt - Final [facility] [address] [place] [address], [place] * (ABNORMAL) CBC, Platelet & Differential (10/08/2024 9:41 PM EST) WHITE BLOOD CELL COUNT 3.8(L) 4.0 - 11.0 TH/uL [facility] RED BLOOD CELL COUNT 4.38 3.90 - 5.20 M/uL [facility] HEMOGLOBIN 11.5 11.2 - 15.7 g/dL [facility] HEMATOCRIT 35.5 34.1 - 44.9 % [facility] MEAN CORPUSCULAR VOL 81.1 80.0 - 100.0 fl [facility] MEAN CORPUSCULAR HGB 26.3 26.0 - 34.0 pg [facility] MEAN VANESA HGB CONC 32.4 31.0 - 37.0 g/dL [facility] RBC DISTRIBUTION WIDTH STD DEV 48.1(H) 35.1 - 46.3 fL [facility] PLATELET COUNT 76(L) 150 - 400 TH/uL [facility] MEAN PLATELET VOLUME 11.6 8.7 - 12.5 fL [facility] IMMATURE PLATELET FRACTION % 7.1(H) 1.0 - 7.0 % [facility] IMMATURE PLATELET FRACTION ABS 5.4 TH/uL [facility] NEUTROPHIL % 46.7 40.0 - 75.0 % [facility] IMMATURE GRANULOCYTE % 0.3 0.0 - 1.0 % [facility] Comment: The immature granulocyte fraction includes metamyelocytes, [...] LYMPHOCYTE % 38.7 15.0 - 54.0 % [facility] MONOCYTE % 10.3 4.0 - 13.0 % [facility] EOSINOPHIL % 3.2 0.0 - 7.0 % [facility] BASOPHIL % 0.8 0.0 - 1.2 % [facility] NRBC % 0.0 0.0 - 0.0 % [facility] ABSOLUTE NEUTROPHIL COUNT 1.8 1.6 - 8.3 TH/uL [facility] ABSOLUTE IMM GRAN COUNT 0.01 0.00 - 0.10 TH/uL [facility] ABSOLUTE LYMPH COUNT 1.5 0.6 - 5.9 TH/uL [facility] ABSOLUTE MONO COUNT 0.4 0.2 - 1.4 TH/uL [facility] ABSOLUTE EOSINOPHIL COUNT 0.1 0.0 - 0.8 TH/uL [facility] ABSOLUTE BASO COUNT 0.0 0.0 - 0.1 TH/uL [facility] ABSOLUTE NRBC COUNT 0.0 0.0 - 0.0 TH/uL [facility] PLATELET ESTIMATE DECREASE D(A) [facility] BLOOD SPECIMEN / Unknown 10/08/2024 9:41 PM EST 10/08/2024 9:58 PM EST us Phil Yañez MD LABORATORY Final Resul t [facility] [address] [place] [address], documented in this encounter Visit Diagnoses Diagnosis [...] at 2100 2136 (Given - Provider: Peyton Luna, TORIN) Insulin Lispro (HumaLOG) injection 0-12 Units 0-12 [...] Salinas RN) 0829 (Given - Provider: José Garcia, TORIN) Insulin Regular Human (HumuLIN R) injection 12 [...] and reassess 1839 (Given - Provider: Alina Salinas RN) methadone (DOLOPHINE) tablet 70 mg 70 mg, Oral, DAILY, First dose on Fri10/10/24 at 0900, Indication: OUD (opioid use disorder), Is this a continuation of maintenance methadone? Yes, Was the dose confirmed? Yes, What is the source of the maintenance methadone? Clinic 0828 (Given - Provider: José Garcia RN) PRN Medication Order 10/08/2024 10/09/2024 10/10/2024 clonazePAM (KLONOPIN) tablet 1 mg 1 mg, Oral, EVERY 12 HOURS PRN, Anxiety, Starting on 10/09/24 at 1828 1839 (Given - Provider: Alina Salinas, TORIN) 0838 (Given - Provider: José Garcia RN) cloNIDine (CATAPRES) tablet 0.1 mg 0.1 mg, Oral, 2 TIMES DAILY PRN, Anxiety, Starting on 10/09/24 at 1830 2150 (Given - Provider: Peyton Luna, TORIN) documented in this encounter Care Teams Digital Marketing Coordinator Relationship Specialty Start Date End Date Stephanie Calderon MD [address] [place] [address] PCP - General 04/14/10 Add, Provider Not In System [address] [place] [address] PCP - Insurance PCP 12/11/17 documented as of this encounter
--- OUTSIDE RECORDS SUMMARY | 2024-10-27 14:52 | XMS_ITS | Clinical Summary ---
Author Organization [facility] ([facility]) Address [address] [place] [address] Care Team Providers Care Ear Nose Throat Physician Name Role Phone Stephanie Calderon MD Primary Care Provider [phone] Allergies No known active allergies Medications Psyllium [...] Overview (02/27/2015): 2005 on, BMI fluctuates, 27-33 3028-2318: 79-31 6889-5077: 20lb weight gain Assessment & Plan (02/27/2015 [...] out of detox per pt report CAB; window caser: Raza Keller [phone]. Release in chart Violated probation, in detention [...] 03/16 Last Psych ([facility] [phone]. [facility] Current: looking for new psych. Has [...] 01/08/2007 02/14/2010 Overview (01/08/2007): R, seen at [facility] 12/13 Supervision of other normal [...] INTERNAL LAB Comment:Normal exam LMP: 02/21/2015 [facility] [employer] [facility] PREV. PAP: NONE GIVEN EB INTER NAL [facility] PREV. BX: NONE GIVEN [facility] [facility] SOURCE: SEE NOTE [facility] INTERNA L [facility] Comment:Cervix, Endocervix STATEMENT OF ADEQUACY: SEE NOTE [facility] Comment: Satisfactory for evaluation. Endocervical/transformation zone component present. INTERPRETATION/RES ULT: SEE NOTE [facility] Comment:Negative for intraep ithelial lesion or malignancy. SYRUP BLENDER: SEE NOTE [facility] Comment:CXP, CT(ASCP) 02/27/2015 1:23 PM EDT 02/27/2015 2:54 PM EDT Narrative [facility] - 03/03/2015 11:29 AM EDT [facility] Testing performed at: [facility], [employer] [facility], [address] [place] [address], [address], [place], [address], Visual Manager: Delfino Cline [facility] Collection Date/Time: [id number] [facility] Results Received Date/Time: [id number] [facility] Reported Date/Time: [id number] Specimen Source: ?? CERVIX/ENDOCERVIXPatients LMP: ??02/21/2015Patients Clinical History: ??NORMAL EXAM us Stephanie Calderon MD LABORATORY Final Result [facility] [address] [place] [address] * (ABNORMAL) BLOOD LIPOPROTEIN,LDL CHOLESTEROL (02/27/2015 1:13 PM EDT) DIRECT LDL 135(H) <130 mg/dL [facility] Comment: Desirable range <100 mg/dL for patients with CHD or diabetes and <70 mg/dL for diabetic patients with known heart disease. Serum 02/27/2015 1:13 PM EDT 02/27/2015 3:29 PM EDT Narrative [facility] - 02/28/2015 6:12 AM EDT [facility] Testing performed at: [facility] [employer] [facility], [address] [place] [address], [address], [place], [address], Visual Manager: Delfino Cline [facility] Collection Date/Time: [id number] [facility] Results Received Date/Time: [id number] [facility] Reported Date/Time: Stephanie Calderon MD LABORATORY Final Result [facility] [address] [place] [address] * HIV 1/2 ANTIGEN/ANTIBODY 4TH GEN WITH [...] old. For additional information please refer to http://education.Bomboard.Zigabid/faq/OPA096 (This link is being provided for informational/ educational purposes only.) Serum 02/27/2015 1:13 PM EDT 02/27/2015 3:29 PM EDT Narrative [facility] - 02/28/2015 6:03 AM EDT [facility] performed at: [facility], [employer] [facility], [address] [facility], [address], [place], [address], Visual Manager: Delfino Cline [facility] Collection Date/Time: [id number] [facility] Results Received Date/Time: [id number] [facility] Reported Date/Time: [id number] verbal consent received from the patient for HIV test?->Yes us Stephanie Calderon MD LABORATORY Final Result [facility] [address] [place] [address] from Last 3 Months or Most Recently Relevant to Health Maintenance Insurance [facility] Care Teams Ear Nose Throat Physician Relationship Specialty Start Date End Date Stephanie Calderon MD [address] [place] [address] PCP - General 01/24/05
--- OUTSIDE RECORDS SUMMARY | 2024-10-27 14:52 | XMS_ITS | Referral Summary ---
Author Organization [facility] (Formerly [facility]) Address [address] [place] [address] Care Team Providers Care Horse Racetrack Manager Name Role Phone Stephanie Calderon MD Primary [...] Overview (02/27/2015): 2005 on, BMI fluctuates, 27-33 9313-9797: 79-31 0335-0038: 20lb weight gain Assessment & Plan (02/27/2015 [...] out of detox per pt report CAB; caser: Raza Keller [phone]. Release in chart Violated probation, in long term x 6 mos. In and out of [...] 03/16 Last Psych ([facility] [phone]. [facility], [facility] Current: looking for new psych. Has counselor- group and individual at [facility] Assessment & Plan (02/27/2015 12:42 PM EDT): Current: looking for new psych. Has counselor- group and individual at [facility] Resolved Problems Problem Noted Date Diagnosed Date Resolved Date Vaginitis 12/27/2012 11/20/2016 URI, acute 06/13/2009 02/14/2010 Screen for sexually transmitted diseases 06/12/2009 02/14/2010 Sprain of ankle, unspecified site 01/08/2007 02/14/2010 Overview (01/08/2007): R, seen at [facility] 12/13 Supervision of other normal 03/23/2006 [...] INTERNAL LAB Comment:Normal exam LMP: 02/21/2015 EB PUBLISHING EDITOR AL LAB PREV. PAP: NONE GIVEN EB INTER NAL LAB PREV. BX: NONE GIVEN EB PUBLISHING EDITOR AL LAB SOURCE: SEE NOTE EB INTERNA L LAB Comment:Cervix, Endocervix STATEMENT OF ADEQUACY: SEE NOTE EB INTERNAL LAB Comment: Satisfactory for evaluation. Endocervical/transformation zone component present. INTERPRETATION/RES ULT: SEE NOTE EB INTERNAL LAB Comment:Negative for intraep ithelial lesion or malignancy. OPERATOR CATALYST CONCENTRATION: SEE NOTE EB INTERNAL LAB Comment:CXP, CT(ASCP) 02/27/2015 1:23 PM EDT 02/27/2015 2:54 PM EDT Narrative EB INTERNAL LAB - 03/03/2015 11:29 AM EDT [facility] Testing performed at: [facility], [employer] [facility], [address] [place] [address], [address], [place], [address], Item Processor: Delfino Cline [facility] Collection Date/Time: [id number] [facility] Results Received Date/Time: [id number] [facility] Reported Date/Time: [id number] Specimen Source: ?? CERVIX/ENDOCERVIXPatients LMP: ??02/21/2015Patients Clinical History: ??NORMAL EXAM Stephanie Calderon MD LABORATORY Final Result [facility] INTER[facility] [address] [place] [address] * (ABNORMAL) BLOOD LIPOPROTEIN,LDL CHOLESTEROL (02/27/2015 1:13 PM EDT) DIRECT LDL 135(H) <130 mg/dL EB INTER NAL LAB Comment: Desirable range <100 mg/dL for patients with CHD or diabetes and <70 mg/dL for diabetic patients with known heart disease. Serum 02/27/2015 1:13 PM EDT 02/27/2015 3:29 PM EDT Narrative EB INTERNAL [facility] - 02/28/2015 6:12 AM EDT [facility] Testing performed at: [facility], [employer] [facility], [address] [place] [address], [place], [address], Item Processor: Delfino Cline [facility] Collection Date/Time: [id number] [facility] Results Received Date/Time: [id number] [facility] Reported Date/Time: [id number] Stephanie Calderon MD LABORATORY Final Result Performing Organization Address [facility] Co de Phone Number [facility] INTERNAL [facility] [address] [place] [address] * HIV 1/2 ANTIGEN/ANTIBODY 4TH GEN WITH [...] old. For additional information please refer to http://education.XLerant/faq/SPL564 (This link is being provided for informational/ educational purposes only.) Serum 02/27/2015 1:13 PM EDT 02/27/2015 3:29 PM EDT Narrative EB INTERNAL [facility] - 02/28/2015 6:03 AM EDT [facility] Testing performed at: [facility], [employer] [facility], [address] [place] [address], [address], [place], [address], Item Processor: Delfino Cline [facility] Collection Date/Time: [id number] [facility] Results Received Date/Time: [id number] [facility] Reported Date/Time: [id number] verbal consent received from the patient for HIV test?->Yes Stephanie Calderon MD LABORATORY Final Result [facility] [address] [place] [address] from Last 3 Months or Most Recently Relevant to Health Maintenance Insurance [facility] Care Teams Horse Racetrack Manager Relationship Specialty Start Date End Date Stephanie Calderon MD [address] [place] [address] PCP - General 01/24/05
[2024-10-27 15:10] VITALS: BP 105/64; PULSE 67; RESP 16; TEMP 36.3; O2SAT 100
[2024-10-27 15:56] LABS: Alanine Aminotransferase 153 U/L (0-31); Albumin Level 3.1 g/dL (3.5-5.0); Alkaline Phosphatase 368 U/L (39-117); Anion Gap 11 (12-20); Aspartate Amino Transferase 217 U/L (5-31); Blood Urea Nitrogen 12 mg/dL (9-16); Calcium 8.9 mg/dL (8.4-10.2); Carbon Dioxide 26 mmol/L (22-29); Chloride 102 mmol/L (96-108); Estimated Glomerular Filt Rate > 60; Glucose Random 238 mg/dL (60-115); Potassium 4.4 mmol/L (3.3-5.1); Sodium 135 mmol/L (135-145); Total Protein 7.8 g/dL (6.5-8.0)
[2024-10-27 17:04] LABS: Glucose, Whole Blood 236 mg/dL (60-115)
[2024-10-27 17:11] VITALS: BMI 26.5
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
--- NOTE | 2024-10-27 17:32 | PC.NURSE ---
pt declined flu vaccine at this time
[2024-10-27] MEDS: Insulin Lispro 100 UNIT/ML 3 ML VIAL 9 UNIT SUBCUT (18:22)
[2024-10-27 20:00] VITALS: BP 103/54; PULSE 59; RESP 16; TEMP 36.4; O2SAT 98
[2024-10-27 20:50] LABS: Glucose, Whole Blood 318 mg/dL (60-115)
[2024-10-27] MEDS: rifAXIMin 550 MG TABLET PO (21:50)
[2024-10-27] MEDS: Docusate Sodium 100 MG CAPSULE PO (21:51)
[2024-10-27] MEDS: metFORMIN HCl 1,000 MG TABLET 1000 MG PO (21:51)
[2024-10-27] MEDS: Gabapentin 400 MG CAPSULE 800 MG PO (21:51)
[2024-10-27 21:54] VITALS: BP 92/56
[2024-10-27] MEDS: cloNIDine HCL 0.2 MG TABLET PO (21:54)
[2024-10-27] MEDS: Insulin Glargine,Hum.rec.anlog 100 UNIT/ML 10 ML VIAL 70 UNIT SUBCUT (21:55)
[2024-10-27] MEDS: Insulin Lispro 100 UNIT/ML 3 ML VIAL SUBCUT (21:56)
[2024-10-28 07:00] VITALS: BMI 26.7
[2024-10-28 07:45] VITALS: BP 125/69; PULSE 106; RESP 16; TEMP 36.6; O2SAT 100
[2024-10-28 07:50] LABS: Glucose, Whole Blood 117 mg/dL (60-115)
[2024-10-28] MEDS: Spironolactone 25 MG TABLET 50 MG PO (08:37)
[2024-10-28] MEDS: Furosemide 40 MG TABLET PO (08:38)
[2024-10-28] MEDS: cloNIDine HCL 0.2 MG TABLET PO ×2 (08:38→15:55)
[2024-10-28] MEDS: glipiZIDE 10 MG TABLET PO (08:38)
[2024-10-28] MEDS: metFORMIN HCl 1,000 MG TABLET 1000 MG PO ×2 (08:38→20:52)
[2024-10-28] MEDS: Magnesium Oxide 400 MG TABLET 800 MG PO ×2 (08:39→17:08)
[2024-10-28] MEDS: Gabapentin 400 MG CAPSULE 800 MG PO ×3 (08:39→20:52)
[2024-10-28] MEDS: Docusate Sodium 100 MG CAPSULE PO ×2 (08:39→20:52)
[2024-10-28] MEDS: rifAXIMin 550 MG TABLET PO ×2 (08:40→20:52)
[2024-10-28] MEDS: hydrOXYzine HCL 50 MG TABLET PO ×2 (08:42→12:51)
[2024-10-28] MEDS: LORazepam 1 MG TABLET PO ×2 (08:42→21:10)
[2024-10-28] MEDS: Dicyclomine HCl 10 MG CAPSULE 40 MG PO (08:42)
[2024-10-28] MEDS: Insulin Lispro 100 UNIT/ML 3 ML VIAL SUBCUT ×6 (08:47→20:59)
--- NOTE | 2024-10-28 09:22 | HE.PHANOTE ---
RE: methadone Patient transferred from other floor, methadone previously verified by Priscila 70mg daily
[2024-10-28] MEDS: methADONE HCl 20 MG/2 ML ORAL.CONC 70 MG PO (09:25)
[2024-10-28 09:36] LABS: Cholesterol 125 mg/dL (<200); HDL Cholesterol 40 mg/dL (>40); LDL Cholesterol Calculated 70 mg/dL (<100); Triglycerides 77 mg/dL (<150)
[2024-10-28] MEDS: Nicotine Polacrilex 2 MG GUM 4 MG BUCCAL ×2 (09:49→12:52)
--- NOTE | 2024-10-28 09:50 | P.HPPS_ITS ---
HPI Date of Service: 10/28/24 Chief Complaint: Crisis Sources of Information: patient interviewed, chart reviewed and crisis/core team assessment reviewed HPI Subjective Notes: Hardy Warning and Conditional Voluntary Narrative: Patient is a 38-year-old female with history of MDD, PTSD, opiate use disorder and cocaine use disorder who was transferred from medical floor at [facility] due to suicidal ideation secondary to increased depression. Per crisis report, patient was at [facility] and was transferred to [facility] to the medical unit for hyperglycemia on 10/18/2024. patient reports increased depression since April 2024 after being evicted from their apartment with her . Patient reports she has been unable to manage her diabetes due to being homeless and can not check her sugars and eat regularly. Patient is currently on probation through [facility], incarcerated in April 2024 for drug possession. She reports that she has [facility] for similar reasons. History of multiple inpatient psychiatric hospitalizations. History of multiple detox admissions and CSS admissions. Patient reports she typically smokes crack and uses heroin. denies HI/VH/AH. During admission assessment, patient presents alert and oriented x3. Cooperative but irritable. Patient reports feeling anxious and depressed ; patient stated, besides being homeless and wanting to kill myself. I wanted help getting clean since I have a new grandchild. I want to go to a CSS . Patient reports being medication compliant. She reports providers through [facility] in [place], [place]. Denies history of SA/SIB. She reports having a little suicidal thoughts ,denies plan. Denies HI/VH/AH. Patient reports she would like a referral to a CSS; certified social workers in health care aware. Past Psychiatric History: History of multiple inpatient psychiatric hospitalizations. History of multiple detox admissions and CSS admissions. Providers through [facility]. denies hx of SA/SIB. Medical Evaluation Reviewed: Yes [facility] Medical History (Updated 10/28/24 @ 16:03 by Stephanie Beltran NP) History of pancreatitis Hepatitis C Cirrhosis Insulin dependent type 1 diabetes mellitus Gallstones Family History: father: depression Social History: homesless, . 2 children (1 adult, 1 5 y/o lives with husbands aunt). unemployed. highest level of eduaction completed 9th grade. Substance History: hx of heroin, crack use. Trauma History: yes Diagnostics Vital Signs (24Hr): Vital Signs - 24 hr 10/27/24 15:10 02/19/25 20:00 10/27/24 21:54 Temperature 97.3 F 97.6 F Pulse Rate 67 59 Respiratory Rate 16 16 Blood Pressure 105/64 103/54 L 92/56 L Pulse Oximetry 100 98 Oxygen Delivery Method Room Air Room Air 10/28/24 07:45 Temperature 97.9 F Pulse Rate 106 H Respiratory Rate 16 Blood Pressure 125/69 Pulse Oximetry 100 Oxygen Delivery Method Room Air BMI result Body Mass Index 26.5 Labs 10/27/24 15:30 Labs: Laboratory Results - last 48 hr 10/27/24 10/27/24 10/27/24 15:30 16:52 20:36 Sodium 135 Potassium 4.4 Chloride 102 Carbon Dioxide 26 Anion Gap 11 L BUN 12 Creatinine 0.68 Estim Creat Clear Calc TNP Estimated GFR > 60 POC Glucose 236 H 318 H Random Glucose 238 H Calcium 8.9 Total Bilirubin 1.0 AST 217 H ALT 153 H Alkaline Phosphatase 368 H Total Protein 7.8 Albumin 3.1 L Triglycerides Cholesterol LDL Cholesterol, Calc HDL Cholesterol 10/28/24 10/28/24 07:45 09:17 Sodium Potassium Chloride Carbon Dioxide Anion Gap BUN Creatinine Estim Creat Clear Calc Estimated GFR POC Glucose 117 H Random Glucose Calcium Total Bilirubin AST ALT Alkaline Phosphatase Total Protein Albumin Triglycerides 77 Cholesterol 125 LDL Cholesterol, Calc 70 HDL Cholesterol 40 L Meds/Allergies Meds Home Medications ?Medication ?Instructions ?Recorded ?Confirmed ?Type clonidine HCl 0.2 mg tablet 0.2 mg PO TID anxiety 10/18/24 10/27/24 History docusate sodium 100 mg capsule 100 mg PO BID constipation 10/18/24 10/27/24 History gabapentin 800 mg tablet 800 mg PO TID depressive disorder 10/18/24 10/27/24 History insulin lispro 100 unit/mL See Protocol subcut TIDAC 10/18/24 10/27/24 History subcutaneous solution lorazepam 1 mg tablet 1 mg PO TID PRN anxiety attack 10/18/24 10/27/24 History metformin 500 mg tablet 1,000 mg PO BID 10/18/24 10/27/24 History ondansetron HCl 4 mg tablet 4 mg PO Q6H PRN Nausea And Vomiting 10/18/24 10/27/24 History sennosides 8.6 mg tablet (senna) 17.2 mg PO DAILY PRN Constipation 10/18/24 10/27/24 History acetaminophen 325 mg tablet 650 mg PO Q4H PRN Pain (Scale 10/19/24 10/27/24 History Score 1-3) furosemide 20 mg tablet 40 mg PO DAILY 10/19/24 10/27/24 History ibuprofen 400 mg tablet 400 mg PO Q8H PRN BODYACHES 10/19/24 10/27/24 History methadone 10 mg tablet 70 mg PO DAILY 10/19/24 10/27/24 History nicotine (polacrilex) 2 mg gum 2 mg buccal Q2H PRN Nicotine 10/19/24 10/27/24 History Cravings rifaximin 550 mg tablet 550 mg PO BID 10/19/24 10/27/24 History spironolactone 25 mg tablet 50 mg PO DAILY 10/19/24 10/27/24 History hydroxyzine HCl 50 mg tablet 50 mg PO TID PRN anxiety 10/27/24 10/27/24 History lactulose 10 gram/15 mL oral 30 ml PO TID 10/27/24 History solution lactulose 10 gram/15 mL oral 30 ml PO TID PRN Cirrhosis 10/27/24 10/27/24 History solution Allergies Allergies Allergy/AdvReac Type Severity Reaction Status Date / Time No Known Allergies Allergy Verified 10/18/24 15:02 Mental Status Exam Mental Status Exam Narrative: Pt is alert and oriented; behavior is cooperative but irritable; dressed in casual attire; mood is described as anxious and depressed ; eye contact appropriate; Speech is normal rate, volume and not pressured; thought process is organized and goal directed; Thought content is on tx; denies HI/VH/AH. She reports suicidal ideation with no plan. Assessment & Plan Assessment & Plan (1) MDD (major depressive disorder), recurrent episode: Status: Acute Code(s): F33.9 - Major depressive disorder, recurrent, unspecified (2) PTSD (post-traumatic stress disorder): Status: Acute Code(s): F43.10 - Post-traumatic stress disorder, unspecified (3) Opioid use disorder: Status: Acute Code(s): F11.90 - Opioid use, unspecified, uncomplicated (4) Cocaine use disorder: Status: Acute Code(s): F14.10 - Cocaine abuse, uncomplicated (5) Homelessness: Status: Acute Code(s): Z59.00 - Homelessness unspecified Plan Patient is a 38-year-old female with history of MDD, PTSD, opiate use disorder and cocaine use disorder who was transferred from medical floor at [facility] due to suicidal ideation secondary to increased depression. Plan: CV 15 minute safety checks Continue home medications Encourage groups Referral to [facility] Discharge planning Patient educated on: diagnosis and medication risk/benefits Reason for continued inpatient stay Substantial Risk for: harm to self and med/psych decompensation Statement Statement: I have reviewed the history and physical and performed a pertinent examination on my patient. No changes have occurred unless specified. If the History and Physical was not performed prior to admission, the Hospitalist's service will be consulted for completing the admission physical. Time Spent With Patient Time: Total time managing care of this patient today _60___ minutes.
--- NOTE | 2024-10-28 10:25 | PC.NURSE ---
Soheila was c/o shaking and sweating, after eating breakfast. Vitals; 97.9*F 106 16 125/69 100% RA. Jean Montes MD made aware and held Lantus 75 units.
--- NOTE | 2024-10-28 12:02 | PC.NURSE ---
Addendum entered by Cherrie Hastings RN 10/28/24 12:10: 60 of lantus changed to 30 units Original Note: Soheila's blood sugar was 383, Simon MONSIVAIS made aware. Additional 60 of lantus ordered.
[2024-10-28 12:03] LABS: Glucose, Whole Blood 383 mg/dL (60-115)
[2024-10-28] MEDS: Insulin Glargine,Hum.rec.anlog 100 UNIT/ML 10 ML VIAL 30 UNIT SUBCUT (12:14)
[2024-10-28 15:36] VITALS: BP 107/59
[2024-10-28] MEDS: Lactulose 20 GM/30 ML SOLUTION 10 GM PO ×2 (15:56→20:55)
[2024-10-28 16:54] LABS: Glucose, Whole Blood 398 mg/dL (60-115)
[2024-10-28 20:00] VITALS: BP 108/62; PULSE 66; RESP 16; TEMP 36.8
[2024-10-28] MEDS: Insulin Glargine,Hum.rec.anlog 100 UNIT/ML 10 ML VIAL 60 UNIT SUBCUT (20:57)
[2024-10-28 21:09] LABS: Glucose, Whole Blood 258 mg/dL (60-115)
[2024-10-28 22:49] VITALS: BP 88/56
[2024-10-29 05:39] LABS: Glucose, Whole Blood 75 mg/dL (60-115)
[2024-10-29 06:34] LABS: Glucose, Whole Blood 242 mg/dL (60-115)
[2024-10-29 07:51] LABS: Glucose, Whole Blood 340 mg/dL (60-115)
[2024-10-29 08:00] VITALS: BP 110/60; PULSE 88; RESP 16; TEMP 36.7; O2SAT 98
[2024-10-29] MEDS: methADONE HCl 20 MG/2 ML ORAL.CONC 70 MG PO (08:12)
[2024-10-29] MEDS: Dicyclomine HCl 10 MG CAPSULE 40 MG PO ×2 (08:15→14:14)
[2024-10-29] MEDS: hydrOXYzine HCL 50 MG TABLET PO ×3 (08:15→22:05)
[2024-10-29] MEDS: LORazepam 1 MG TABLET PO ×3 (08:15→22:05)
[2024-10-29] MEDS: Docusate Sodium 100 MG CAPSULE PO ×2 (08:16→21:57)
[2024-10-29] MEDS: Lactulose 20 GM/30 ML SOLUTION 10 GM PO ×3 (08:16→21:58)
[2024-10-29] MEDS: Gabapentin 400 MG CAPSULE 800 MG PO ×3 (08:16→21:55)
[2024-10-29 08:17] VITALS: BP 110/60
[2024-10-29] MEDS: Spironolactone 25 MG TABLET 50 MG PO (08:17)
[2024-10-29] MEDS: glipiZIDE 10 MG TABLET PO (08:17)
[2024-10-29] MEDS: Magnesium Oxide 400 MG TABLET 800 MG PO ×2 (08:17→16:58)
[2024-10-29] MEDS: rifAXIMin 550 MG TABLET PO ×2 (08:17→21:56)
[2024-10-29] MEDS: metFORMIN HCl 1,000 MG TABLET 1000 MG PO ×2 (08:17→21:56)
[2024-10-29 08:18] VITALS: BP 110/60
[2024-10-29] MEDS: cloNIDine HCL 0.2 MG TABLET PO ×3 (08:18→21:56)
[2024-10-29] MEDS: Insulin Lispro 100 UNIT/ML 3 ML VIAL SUBCUT ×7 (08:18→21:59)
[2024-10-29] MEDS: Furosemide 40 MG TABLET PO (08:18)
[2024-10-29] MEDS: Insulin Glargine,Hum.rec.anlog 100 UNIT/ML 10 ML VIAL 60 UNIT SUBCUT ×2 (09:17→22:00)
[2024-10-29] MEDS: Nicotine Polacrilex 2 MG GUM 4 MG BUCCAL (09:37)
[2024-10-29 11:45] LABS: Glucose, Whole Blood 408 mg/dL (60-115)
--- NOTE | 2024-10-29 11:54 | HO.PSYCHPN ---
Subjective Subjective Date of Service: 10/29/24 Reason For Visit: Crisis Subjective Notes: Conditional Voluntary Interim History: Active on unit. Social with peers. Attending groups. Patient reports feeling anxious and depressed; focused on obtaining CSS bed. She requested increase in hydroxyzine; dose increased to 50mg QID. Denies SI/HI/VH/AH. Per nursing, slept 8 hours last night. Medication Compliance: Yes Side effects from medications: No Attending Groups: Yes Mental Status Exam Mental Status Exam Narrative: Pt is alert and oriented; behavior is cooperative; dressed in casual attire; mood is described as anxious and depressed ; eye contact appropriate; Speech is normal rate, volume and not pressured; thought process is organized and goal directed; Thought content is on tx; denies SI/HI/VH/AH. Diagnostics Vital Signs (24Hr): Vital Signs - 24 hr 10/28/24 15:36 10/28/24 20:00 10/28/24 22:49 Temperature 98.3 F Pulse Rate 66 Respiratory Rate 16 Blood Pressure 107/59 L 108/62 88/56 L Pulse Oximetry Oxygen Delivery Method 10/29/24 08:00 10/29/24 08:17 10/29/24 08:18 Temperature 98.1 F Pulse Rate 88 Respiratory Rate 16 Blood Pressure 110/60 110/60 110/60 Pulse Oximetry 98 Oxygen Delivery Method Room Air 10/29/24 08:18 Temperature Pulse Rate Respiratory Rate Blood Pressure 110/60 Pulse Oximetry Oxygen Delivery Method BMI result Body Mass Index 26.7 Labs 10/27/24 15:30 Labs: Laboratory Results - last 48 hr 10/27/24 10/27/24 10/27/24 15:30 16:52 20:36 Sodium 135 Potassium 4.4 Chloride 102 Carbon Dioxide 26 Anion Gap 11 L BUN 12 Creatinine 0.68 Estim Creat Clear Calc TNP Estimated GFR > 60 POC Glucose 236 H 318 H Random Glucose 238 H Calcium 8.9 Total Bilirubin 1.0 AST 217 H ALT 153 H Alkaline Phosphatase 368 H Total Protein 7.8 Albumin 3.1 L Triglycerides Cholesterol LDL Cholesterol, Calc HDL Cholesterol 10/28/24 10/28/24 10/28/24 07:45 09:17 11:59 Sodium Potassium Chloride Carbon Dioxide Anion Gap BUN Creatinine Estim Creat Clear Calc Estimated GFR POC Glucose 117 H 383 H* Random Glucose Calcium Total Bilirubin AST ALT Alkaline Phosphatase Total Protein Albumin Triglycerides 77 Cholesterol 125 LDL Cholesterol, Calc 70 HDL Cholesterol 40 L 10/28/24 10/28/24 10/29/24 16:43 20:55 05:36 Sodium Potassium Chloride Carbon Dioxide Anion Gap BUN Creatinine Estim Creat Clear Calc Estimated GFR POC Glucose 398 H* 258 H 75 Random Glucose Calcium Total Bilirubin AST ALT Alkaline Phosphatase Total Protein Albumin Triglycerides Cholesterol LDL Cholesterol, Calc HDL Cholesterol 10/29/24 10/29/24 10/29/24 06:29 07:46 11:41 Sodium Potassium Chloride Carbon Dioxide Anion Gap BUN Creatinine Estim Creat Clear Calc Estimated GFR POC Glucose 242 H 340 H 408 H* Random Glucose Calcium Total Bilirubin AST ALT Alkaline Phosphatase Total Protein Albumin Triglycerides Cholesterol LDL Cholesterol, Calc HDL Cholesterol Medications Medications Current Medications Acetaminophen (Acetaminophen 325 Mg Tablet) 650 mg PO Q4H PRN PRN Reason: Pain (Scale Score 1-3) Al Hydroxide/Mg Hydroxide (Magnesium Hydrox/Alum Hydrox 30 Ml Oral.Susp) 30 ml PO Q6H PRN PRN Reason: Heartburn/Nausea Clonidine HCl (Clonidine Hcl 0.2 Mg Tablet) 0.2 mg PO TID [facility]; Protocol Last Admin: 10/29/24 08:18 Dose: 0.2 mg Dicyclomine HCl (Dicyclomine Hcl 10 Mg Capsule) 40 mg PO QIDACHS PRN PRN Reason: Pain, Moderate(Pain Scale 4-6) Last Admin: 10/29/24 08:15 Dose: 40 mg Docusate Sodium (Docusate Sodium 100 Mg Capsule) 100 mg PO BID [facility] Last Admin: 10/29/24 08:16 Dose: 100 mg Furosemide (Furosemide 40 Mg Tablet) 40 mg PO DAILY [facility]; Protocol Last Admin: 10/29/24 08:18 Dose: 40 mg Gabapentin (Gabapentin 400 Mg Capsule) 800 mg PO TID [facility] Last Admin: 10/29/24 08:16 Dose: 800 mg Glipizide (Glipizide 10 Mg Tablet) 10 mg PO DAILY [facility] Last Admin: 10/29/24 08:17 Dose: 10 mg Hydroxyzine HCl (Hydroxyzine Hcl 50 Mg Tablet) 50 mg PO TID PRN PRN Reason: anxiety Last Admin: 10/29/24 08:15 Dose: 50 mg Ibuprofen (Ibuprofen 400 Mg Tablet) 400 mg PO Q8H PRN PRN Reason: BODYACHES Insulin Glargine (Insulin Glargine,Hum.Rec.Anlog 100 Unit/Ml 10 Ml Vial) 60 unit SUBCUT BEDTIME [facility] Last Admin: 10/28/24 20:57 Dose: 60 unit Insulin Glargine (Insulin Glargine,Hum.Rec.Anlog 100 Unit/Ml 10 Ml Vial) 60 unit SUBCUT DAILY [facility] Last Admin: 10/29/24 09:17 Dose: 60 unit Insulin Human Lispro (Insulin Lispro 100 Unit/Ml 3 Ml Vial) 5 unit SUBCUT QIDACHS [facility] Last Admin: 10/29/24 08:18 Dose: 5 unit Insulin Human Lispro (Insulin Lispro 100 Unit/Ml 3 Ml Vial) 0 unit SUBCUT TIDAC [facility]; Protocol Last Admin: 10/29/24 08:19 Dose: 10 unit Lactulose (Lactulose 20 Gm/30 Ml Solution) 10 gm PO TID [facility] Last Admin: 10/29/24 08:16 Dose: 10 gm Lorazepam (Lorazepam 1 Mg Tablet) 1 mg PO TID PRN PRN Reason: anxiety attack Last Admin: 10/29/24 08:15 Dose: 1 mg Magnesium Hydroxide (Milk Of Magnesia 30 Ml Oral.Susp) 30 ml PO DAILY PRN PRN Reason: Constipation Magnesium Oxide (Magnesium Oxide 400 Mg Tablet) 800 mg PO BIDPC [facility] Last Admin: 10/29/24 08:17 Dose: 800 mg Metformin HCl (Metformin Hcl 1,000 Mg Tablet) 1,000 mg PO BID [facility] Last Admin: 10/29/24 08:17 Dose: 1,000 mg Methadone HCl (Methadone Hcl 20 Mg/2 Ml Oral.Conc) 70 mg PO DAILY [facility] Last Admin: 10/29/24 08:12 Dose: 70 mg Multi-Ingred Cream/Lotion/Oil/Oint (Mineral Oil/Petrolatum,White 106 Gm Tube) 1 appl TOPICAL BID PRN; Protocol PRN Reason: Dry Skin Nicotine (Nicotine 21 Mg Patch.Td24) 21 mg TRANSDERMA DAILY PRN PRN Reason: Nicotine Cravings Nicotine Polacrilex (Nicotine Polacrilex 2 Mg Gum) 4 mg BUCCAL Q2H PRN PRN Reason: Nicotine Cravings Last Admin: 10/29/24 09:37 Dose: 4 mg Ondansetron HCl (Ondansetron Odt 4 Mg Tab.Rapdis) 4 mg TRANSLINGU Q6H PRN PRN Reason: Nausea And Vomiting Rifaximin (Rifaximin 550 Mg Tablet) 550 mg PO BID [facility] Last Admin: 10/29/24 08:17 Dose: 550 mg Spironolactone (Spironolactone 25 Mg Tablet) 50 mg PO DAILY [facility]; Protocol Last Admin: 10/29/24 08:17 Dose: 50 mg Trazodone HCl (Trazodone Hcl 50 Mg Tablet) 50 mg PO BEDTIME MRX1 PRN PRN Reason: Insomnia Allergies Allergies Allergy/AdvReac Type Severity Reaction Status Date / Time No Known Allergies Allergy Verified 10/18/24 15:02 Assessment & Plan Assessment & Plan (1) MDD (major depressive disorder), recurrent episode: Status: Acute Code(s): F33.9 - Major depressive disorder, recurrent, unspecified (2) PTSD (post-traumatic stress disorder): Status: Acute Code(s): F43.10 - Post-traumatic stress disorder, unspecified (3) Opioid use disorder: Status: Acute Code(s): F11.90 - Opioid use, unspecified, uncomplicated (4) Cocaine use disorder: Status: Acute Code(s): F14.10 - Cocaine abuse, uncomplicated (5) Homelessness: Status: Acute Code(s): Z59.00 - Homelessness unspecified Plan Patient is a 38-year-old female with history of MDD, PTSD, opiate use disorder and cocaine use disorder who was transferred from medical floor at [facility] due to suicidal ideation secondary to increased depression. Plan: CV 15 minute safety checks Continue home medications Encourage groups Referral to CSS Discharge planning 10/29: Active on unit. Social with peers. Attending groups. Patient reports feeling anxious and depressed; focused on obtaining CSS bed. She requested increase in hydroxyzine; dose increased to 50mg QID. Denies SI/HI/VH/AH. Per nursing, slept 8 hours last night. Patient educated on: diagnosis and medication risk/benefits Reason for continued inpatient stay Substantial Risk for: med/psych decompensation Time Spent With Patient Time: Total time managing care of this patient today _20___ minutes.
[2024-10-29 14:08] VITALS: BP 100/64; PULSE 76; O2SAT 100
[2024-10-29 16:47] LABS: Glucose, Whole Blood 325 mg/dL (60-115)
[2024-10-29 20:00] VITALS: BP 120/70; PULSE 84; RESP 16; TEMP 36.6; O2SAT 100
[2024-10-29 21:41] LABS: Glucose, Whole Blood 276 mg/dL (60-115)
[2024-10-29 21:56] VITALS: BP 121/76
[2024-10-30 07:36] LABS: Glucose, Whole Blood 152 mg/dL (60-115)
[2024-10-30 07:45] VITALS: BP 102/56; PULSE 66; RESP 14; TEMP 36.4; O2SAT 100
[2024-10-30] MEDS: methADONE HCl 20 MG/2 ML ORAL.CONC 70 MG PO (08:22)
[2024-10-30 08:39] VITALS: BP 107/60; PULSE 82
[2024-10-30] MEDS: Insulin Lispro 100 UNIT/ML 3 ML VIAL SUBCUT ×7 (08:41→20:46)
[2024-10-30] MEDS: Insulin Glargine,Hum.rec.anlog 100 UNIT/ML 10 ML VIAL 60 UNIT SUBCUT ×2 (08:42→20:47)
[2024-10-30] MEDS: rifAXIMin 550 MG TABLET PO ×2 (08:44→20:44)
[2024-10-30] MEDS: Magnesium Oxide 400 MG TABLET 800 MG PO ×2 (08:44→17:10)
[2024-10-30] MEDS: Furosemide 40 MG TABLET PO (08:44)
[2024-10-30] MEDS: metFORMIN HCl 1,000 MG TABLET 1000 MG PO ×2 (08:45→20:44)
[2024-10-30] MEDS: Dicyclomine HCl 10 MG CAPSULE 40 MG PO (08:45)
[2024-10-30] MEDS: Gabapentin 400 MG CAPSULE 800 MG PO ×3 (08:46→20:43)
[2024-10-30] MEDS: cloNIDine HCL 0.2 MG TABLET PO ×3 (08:46→20:44)
[2024-10-30] MEDS: Spironolactone 25 MG TABLET 50 MG PO (08:46)
[2024-10-30] MEDS: Docusate Sodium 100 MG CAPSULE PO ×2 (08:47→20:44)
[2024-10-30] MEDS: glipiZIDE 10 MG TABLET PO (08:47)
[2024-10-30] MEDS: LORazepam 1 MG TABLET PO ×2 (08:47→18:33)
[2024-10-30] MEDS: hydrOXYzine HCL 50 MG TABLET PO ×2 (08:47→18:33)
[2024-10-30] MEDS: Lactulose 20 GM/30 ML SOLUTION 10 GM PO ×2 (08:48→15:53)
--- NOTE | 2024-10-30 10:38 | HO.PSYCHPN ---
Subjective Subjective Date of Service: 10/30/24 Reason For Visit: Crisis Interim History: Remains fixated on increasing her doses of medications. I didn't want the Hydroxyzine more often I wanted a higher dose of it. She says she is anxious but appears slowed and subdued. She is seen in her room coloring calmly. Patient reports feeling anxious and depressed; Denies SI/HI/VH/AH. Per nursing, slept 8 hours last night. Mental Status Exam Mental Status Exam Narrative: Pt is alert and oriented; behavior is cooperative; dressed in casual attire; mood is described as anxious and depressed ; eye contact appropriate; Speech is normal rate, volume and not pressured; thought process is organized and goal directed; Thought content is on tx; denies SI/HI/VH/AH. Diagnostics Vital Signs (24Hr): Vital Signs - 24 hr 10/29/24 14:08 10/29/24 20:00 10/29/24 21:56 Temperature 98 F Pulse Rate 76 84 Respiratory Rate 16 Blood Pressure 100/64 120/70 121/76 Pulse Oximetry 100 100 Oxygen Delivery Method Room Air 10/30/24 07:45 10/30/24 08:39 Temperature 97.6 F Pulse Rate 66 82 Respiratory Rate 14 Blood Pressure 102/56 L 107/60 Pulse Oximetry 100 Oxygen Delivery Method Room Air BMI result Body Mass Index 26.7 Labs 10/27/24 15:30 Labs: Laboratory Results - last 48 hr 10/28/24 10/28/24 10/28/24 11:59 16:43 20:55 POC Glucose 383 H* 398 H* 258 H 10/29/24 10/29/24 10/29/24 05:36 06:29 07:46 POC Glucose 75 242 H 340 H 10/29/24 10/29/24 10/29/24 11:41 16:42 21:36 POC Glucose 408 H* 325 H 276 H 10/30/24 07:31 POC Glucose 152 H Medications Medications Current Medications Acetaminophen (Acetaminophen 325 Mg Tablet) 650 mg PO Q4H PRN PRN Reason: Pain (Scale Score 1-3) Al Hydroxide/Mg Hydroxide (Magnesium Hydrox/Alum Hydrox 30 Ml Oral.Susp) 30 ml PO Q6H PRN PRN Reason: Heartburn/Nausea Clonidine HCl (Clonidine Hcl 0.2 Mg Tablet) 0.2 mg PO TID [facility]; Protocol Last Admin: 10/30/24 08:46 Dose: 0.2 mg Dicyclomine HCl (Dicyclomine Hcl 10 Mg Capsule) 40 mg PO QIDACHS PRN PRN Reason: Pain, Moderate(Pain Scale 4-6) Last Admin: 10/30/24 08:45 Dose: 40 mg Docusate Sodium (Docusate Sodium 100 Mg Capsule) 100 mg PO BID [facility] Last Admin: 10/30/24 08:47 Dose: 100 mg Furosemide (Furosemide 40 Mg Tablet) 40 mg PO DAILY [facility]; Protocol Last Admin: 10/30/24 08:44 Dose: 40 mg Gabapentin (Gabapentin 400 Mg Capsule) 800 mg PO TID [facility] Last Admin: 10/30/24 08:46 Dose: 800 mg Glipizide (Glipizide 10 Mg Tablet) 10 mg PO DAILY [facility] Last Admin: 10/30/24 08:47 Dose: 10 mg Hydroxyzine HCl (Hydroxyzine Hcl 50 Mg Tablet) 50 mg PO QID PRN PRN Reason: anxiety Last Admin: 10/30/24 08:47 Dose: 50 mg Ibuprofen (Ibuprofen 400 Mg Tablet) 400 mg PO Q8H PRN PRN Reason: BODYACHES Insulin Glargine (Insulin Glargine,Hum.Rec.Anlog 100 Unit/Ml 10 Ml Vial) 60 unit SUBCUT BEDTIME [facility] Last Admin: 10/29/24 22:00 Dose: 60 unit Insulin Glargine (Insulin Glargine,Hum.Rec.Anlog 100 Unit/Ml 10 Ml Vial) 60 unit SUBCUT DAILY [facility] Last Admin: 10/30/24 08:42 Dose: 60 unit Insulin Human Lispro (Insulin Lispro 100 Unit/Ml 3 Ml Vial) 5 unit SUBCUT QIDACHS [facility] Last Admin: 10/30/24 08:41 Dose: 5 unit Insulin Human Lispro (Insulin Lispro 100 Unit/Ml 3 Ml Vial) 0 unit SUBCUT TIDAC [facility]; Protocol Last Admin: 10/30/24 08:41 Dose: 2 unit Lactulose (Lactulose 20 Gm/30 Ml Solution) 10 gm PO TID [facility] Last Admin: 10/30/24 08:48 Dose: 10 gm Lorazepam (Lorazepam 1 Mg Tablet) 1 mg PO TID PRN PRN Reason: anxiety attack Last Admin: 10/30/24 08:47 Dose: 1 mg Magnesium Hydroxide (Milk Of Magnesia 30 Ml Oral.Susp) 30 ml PO DAILY PRN PRN Reason: Constipation Magnesium Oxide ([facility] 400 Mg Tablet) [facility] Last Admin: 10/30/24 08:44 Dose: 800 mg Metformin HCl (Metformin Hcl 1,000 Mg Tablet) 1,000 mg PO BID [facility] Last Admin: 10/30/24 08:45 Dose: 1,000 mg Methadone HCl (Methadone Hcl 20 Mg/2 Ml Oral.Conc) 70 mg PO DAILY [facility] Last Admin: 10/30/24 08:22 Dose: 70 mg Multi-Ingred Cream/Lotion/Oil/Oint (Mineral Oil/Petrolatum,White 106 Gm Tube) 1 appl TOPICAL BID PRN; Protocol PRN Reason: Dry Skin Nicotine (Nicotine 21 Mg Patch.Td24) 21 mg TRANSDERMA DAILY PRN PRN Reason: Nicotine Cravings Nicotine Polacrilex (Nicotine Polacrilex 2 Mg Gum) 4 mg BUCCAL Q2H PRN PRN Reason: Nicotine Cravings Last Admin: 10/29/24 09:37 Dose: 4 mg Ondansetron HCl (Ondansetron Odt 4 Mg Tab.Rapdis) 4 mg TRANSLINGU Q6H PRN PRN Reason: Nausea And Vomiting Rifaximin (Rifaximin 550 Mg Tablet) 550 mg PO BID [facility] Last Admin: 10/30/24 08:44 Dose: 550 mg Spironolactone (Spironolactone 25 Mg Tablet) 50 mg PO DAILY [facility]; Protocol Last Admin: 10/30/24 08:46 Dose: 50 mg Trazodone HCl (Trazodone Hcl 50 Mg Tablet) 50 mg PO BEDTIME MRX1 PRN PRN Reason: Insomnia Allergies Allergies Allergy/AdvReac Type Severity Reaction Status Date / Time No Known Allergies Allergy Verified 10/18/24 15:02 Assessment & Plan Assessment & Plan (1) MDD (major depressive disorder), recurrent episode: Status: Acute Code(s): F33.9 - Major depressive disorder, recurrent, unspecified (2) PTSD (post-traumatic stress disorder): Status: Acute Code(s): F43.10 - Post-traumatic stress disorder, unspecified (3) Opioid use disorder: Status: Acute Code(s): F11.90 - Opioid use, unspecified, uncomplicated (4) Cocaine use disorder: Status: Acute Code(s): F14.10 - Cocaine abuse, uncomplicated (5) Homelessness: Status: Acute Code(s): Z59.00 - Homelessness unspecified Plan Patient is a 38-year-old female with history of MDD, PTSD, opiate use disorder and cocaine use disorder who was transferred from medical floor at [facility] due to suicidal ideation secondary to increased depression. Plan: CV 15 minute safety checks Continue home medications Encourage groups Referral to [facility] Discharge planning 10/29: Active on unit. Social with peers. Attending groups. Patient reports feeling anxious and depressed; focused on obtaining [facility] bed. She requested increase in hydroxyzine; dose increased to 50mg QID. Denies SI/HI/VH/AH. Per nursing, slept 8 hours last night. 10/30: Continue current management and treatment plan. Reason for continued inpatient stay Substantial Risk for: harm to self, inability to function and rapid decompensation Time Spent With Patient Time: Total time managing care of this patient today ____ minutes.
[2024-10-30 12:11] LABS: Glucose, Whole Blood 176 mg/dL (60-115)
[2024-10-30 14:23] VITALS: BP 92/56; PULSE 60
[2024-10-30 15:51] VITALS: BP 109/67; PULSE 65
[2024-10-30 17:03] LABS: Glucose, Whole Blood 326 mg/dL (60-115)
[2024-10-30 20:36] LABS: Glucose, Whole Blood 356 mg/dL (60-115)
[2024-10-30 21:59] VITALS: BP 124/64
[2024-10-31 07:55] LABS: Glucose, Whole Blood 88 mg/dL (60-115)
[2024-10-31 08:00] VITALS: BP 120/75; PULSE 65; RESP 14; TEMP 36.4; O2SAT 99
[2024-10-31] MEDS: methADONE HCl 20 MG/2 ML ORAL.CONC 70 MG PO (08:18)
[2024-10-31] MEDS: cloNIDine HCL 0.2 MG TABLET PO ×3 (08:56→20:20)
[2024-10-31] MEDS: metFORMIN HCl 1,000 MG TABLET 1000 MG PO ×2 (08:57→20:21)
[2024-10-31] MEDS: Docusate Sodium 100 MG CAPSULE PO ×2 (08:57→20:21)
[2024-10-31] MEDS: Furosemide 40 MG TABLET PO (08:57)
[2024-10-31] MEDS: Spironolactone 25 MG TABLET 50 MG PO (08:57)
[2024-10-31] MEDS: rifAXIMin 550 MG TABLET PO ×2 (08:57→20:21)
[2024-10-31] MEDS: Magnesium Oxide 400 MG TABLET 800 MG PO ×2 (08:58→17:15)
[2024-10-31] MEDS: glipiZIDE 10 MG TABLET PO (08:58)
[2024-10-31] MEDS: Gabapentin 400 MG CAPSULE 800 MG PO ×3 (08:58→20:20)
[2024-10-31] MEDS: Lactulose 20 GM/30 ML SOLUTION 10 GM PO ×3 (08:59→20:22)
[2024-10-31] MEDS: hydrOXYzine HCL 50 MG TABLET PO ×2 (09:10→14:06)
[2024-10-31] MEDS: LORazepam 1 MG TABLET PO ×2 (09:10→14:05)
[2024-10-31] MEDS: Dicyclomine HCl 10 MG CAPSULE 40 MG PO (09:10)
[2024-10-31 09:19] LABS: Glucose, Whole Blood 194 mg/dL (60-115)
[2024-10-31] MEDS: Insulin Glargine,Hum.rec.anlog 100 UNIT/ML 10 ML VIAL 60 UNIT SUBCUT ×2 (09:30→20:17)
[2024-10-31] MEDS: Insulin Lispro 100 UNIT/ML 3 ML VIAL SUBCUT ×7 (09:31→20:19)
[2024-10-31] MEDS: Nicotine Polacrilex 2 MG GUM 4 MG BUCCAL ×2 (09:34→11:53)
--- NOTE | 2024-10-31 11:10 | P.PNPSI_ITS ---
Subjective Subjective Date of Service: 10/31/24 Reason For Visit: Crisis Interim History: Patient seen. Discussed with team. She complains of anxiety. She asked again about increasing her Hydroxyzine for anxiety. On review, patient uses Hydroxyzine 1-2 times a day only. Agrees to increasing the dose but limit frequency to BID PRN. Denies SI/HI/VH/AH. Per nursing, slept 8 hours last night. Mental Status Exam Mental Status Exam Narrative: Pt is alert and oriented; behavior is cooperative; dressed in casual attire; mood is described as anxious and depressed ; eye contact appropriate; Speech is normal rate, volume and not pressured; thought process is organized and goal directed; Thought content is on tx; denies SI/HI/VH/AH. Diagnostics Vital Signs (24Hr): Vital Signs - 24 hr 10/30/24 14:23 10/30/24 15:51 10/30/24 21:59 Temperature Pulse Rate 60 65 Respiratory Rate Blood Pressure 92/56 L 109/67 124/64 Pulse Oximetry Oxygen Delivery Method 10/31/24 08:00 Temperature 97.5 F Pulse Rate 65 Respiratory Rate 14 Blood Pressure 120/75 Pulse Oximetry 99 Oxygen Delivery Method Room Air BMI result Body Mass Index 26.7 Labs 10/27/24 15:30 Labs: Laboratory Results - last 48 hr 10/29/24 10/29/24 10/29/24 11:41 16:42 21:36 POC Glucose 408 H* 325 H 276 H 10/30/24 10/30/24 10/30/24 07:31 12:07 16:58 POC Glucose 152 H 176 H 326 H 10/30/24 10/31/24 10/31/24 20:30 07:49 09:12 POC Glucose 356 H* 88 194 H Medications Medications Current Medications Acetaminophen (Acetaminophen 325 Mg Tablet) 650 mg PO Q4H PRN PRN Reason: Pain (Scale Score 1-3) Al Hydroxide/Mg Hydroxide (Magnesium Hydrox/Alum Hydrox 30 Ml Oral.Susp) 30 ml PO Q6H PRN PRN Reason: Heartburn/Nausea Clonidine HCl (Clonidine Hcl 0.2 Mg Tablet) 0.2 mg PO TID [facility]; Protocol Last Admin: 10/31/24 08:56 Dose: 0.2 mg Dicyclomine HCl (Dicyclomine Hcl 10 Mg Capsule) 40 mg PO QIDACHS PRN PRN Reason: Pain, Moderate(Pain Scale 4-6) Last Admin: 10/31/24 09:10 Dose: 40 mg Docusate Sodium (Docusate Sodium 100 Mg Capsule) 100 mg PO BID [facility] Last Admin: 10/31/24 08:57 Dose: 100 mg Furosemide (Furosemide 40 Mg Tablet) 40 mg PO DAILY [facility]; Protocol Last Admin: 10/31/24 08:57 Dose: 40 mg Gabapentin (Gabapentin 400 Mg Capsule) 800 mg PO TID [facility] Last Admin: 10/31/24 08:58 Dose: 800 mg Glipizide (Glipizide 10 Mg Tablet) 10 mg PO DAILY [facility] Last Admin: 10/31/24 08:58 Dose: 10 mg Hydroxyzine HCl (Hydroxyzine Hcl 50 Mg Tablet) 50 mg PO QID PRN PRN Reason: anxiety Last Admin: 10/31/24 09:10 Dose: 50 mg Ibuprofen (Ibuprofen 400 Mg Tablet) 400 mg PO Q8H PRN PRN Reason: BODYACHES Insulin Glargine (Insulin Glargine,Hum.Rec.Anlog 100 Unit/Ml 10 Ml Vial) 60 unit SUBCUT BEDTIME [facility] Last Admin: 10/30/24 20:47 Dose: 60 unit Insulin Glargine (Insulin Glargine,Hum.Rec.Anlog 100 Unit/Ml 10 Ml Vial) 60 unit SUBCUT DAILY [facility] Last Admin: 10/31/24 09:30 Dose: 60 unit Insulin Human Lispro (Insulin Lispro 100 Unit/Ml 3 Ml Vial) 5 unit SUBCUT QIDACHS [facility] Last Admin: 10/31/24 09:31 Dose: 5 unit Insulin Human Lispro (Insulin Lispro 100 Unit/Ml 3 Ml Vial) 0 unit SUBCUT TIDAC [facility]; Protocol Last Admin: 10/31/24 09:33 Dose: 2 unit Lactulose (Lactulose 20 Gm/30 Ml Solution) 10 gm PO TID [facility] Last Admin: 10/31/24 08:59 Dose: 10 gm Lorazepam (Lorazepam 1 Mg Tablet) 1 mg PO TID PRN PRN Reason: anxiety attack Last Admin: 10/31/24 09:10 Dose: 1 mg Magnesium Hydroxide (Milk Of Magnesia 30 Ml Oral.Susp) 30 ml PO DAILY PRN PRN Reason: Constipation [facility] Ox[facility] ([facility] Mg Tablet) [facility] Last Admin: 10/31/24 08:58 Dose: 800 mg Metformin HCl (Metformin Hcl 1,000 Mg Tablet) 1,000 mg PO BID [facility] Last Admin: 10/31/24 08:57 Dose: 1,000 mg Methadone HCl (Methadone Hcl 20 Mg/2 Ml Oral.Conc) 70 mg PO DAILY [facility] Last Admin: 10/31/24 08:18 Dose: 70 mg Multi-Ingred Cream/Lotion/Oil/Oint (Mineral Oil/Petrolatum,White 106 Gm Tube) 1 appl TOPICAL BID PRN; Protocol PRN Reason: Dry Skin Nicotine (Nicotine 21 Mg Patch.Td24) 21 mg TRANSDERMA DAILY PRN PRN Reason: Nicotine Cravings Nicotine Polacrilex (Nicotine Polacrilex 2 Mg Gum) 4 mg BUCCAL Q2H PRN PRN Reason: Nicotine Cravings Last Admin: 10/31/24 09:34 Dose: 4 mg Ondansetron HCl (Ondansetron Odt 4 Mg Tab.Rapdis) 4 mg TRANSLINGU Q6H PRN PRN Reason: Nausea And Vomiting Rifaximin (Rifaximin 550 Mg Tablet) 550 mg PO BID [facility] Last Admin: 10/31/24 08:57 Dose: 550 mg Spironolactone (Spironolactone 25 Mg Tablet) 50 mg PO DAILY [facility]; Protocol Last Admin: 10/31/24 08:57 Dose: 50 mg Trazodone HCl (Trazodone Hcl 50 Mg Tablet) 50 mg PO BEDTIME MRX1 PRN PRN Reason: Insomnia Allergies Allergies Allergy/AdvReac Type Severity Reaction Status Date / Time No Known Allergies Allergy Verified 10/18/24 15:02 Assessment & Plan Assessment & Plan (1) MDD (major depressive disorder), recurrent episode: Status: Acute Code(s): F33.9 - Major depressive disorder, recurrent, unspecified (2) PTSD (post-traumatic stress disorder): Status: Acute Code(s): F43.10 - Post-traumatic stress disorder, unspecified (3) Opioid use disorder: Status: Acute Code(s): F11.90 - Opioid use, unspecified, uncomplicated (4) Cocaine use disorder: Status: Acute Code(s): F14.10 - Cocaine abuse, uncomplicated (5) Homelessness: Status: Acute Code(s): Z59.00 - Homelessness unspecified Plan Patient is a 38-year-old female with history of MDD, PTSD, opiate use disorder and cocaine use disorder who was transferred from medical floor at [facility] due to suicidal ideation secondary to increased depression. Plan: CV 15 minute safety checks Continue home medications Encourage groups Referral to [facility] Discharge planning 10/29: Active on unit. Social with peers. Attending groups. Patient reports feeling anxious and depressed; focused on obtaining [facility] bed. She requested increase in hydroxyzine; dose increased to 50mg QID. Denies SI/HI/VH/AH. Per nursing, slept 8 hours last night. 10/30: Continue current management and treatment plan. 10/31: Increase Hydroxyzine to 100 mg BID PRN rather than 50 mg QID PRN. Otherwise continue current management and treatment plan. Reason for continued inpatient stay Substantial Risk for: harm to self, inability to function and rapid decompensation Time Spent With Patient Time: Total time managing care of this patient today ____ minutes.
[2024-10-31 11:45] LABS: Glucose, Whole Blood 349 mg/dL (60-115)
[2024-10-31 14:01] VITALS: BP 116/67; PULSE 80
[2024-10-31 17:05] LABS: Glucose, Whole Blood 341 mg/dL (60-115)
[2024-10-31 20:00] VITALS: BP 104/52; PULSE 69; RESP 16; TEMP 36.6; O2SAT 98
[2024-10-31 20:13] LABS: Glucose, Whole Blood 306 mg/dL (60-115)
[2024-10-31 20:20] VITALS: BP 104/52
[2024-11-01] VITALS (7 sets, daily range): BP systolic 122–133; BP diastolic 63–65; PULSE 77–78; RESP 12–16; TEMP 36.4–36.6; O2SAT 99
[2024-11-01 07:53] LABS: Glucose, Whole Blood 101 mg/dL (60-115)
[2024-11-01] MEDS: methADONE HCl 20 MG/2 ML ORAL.CONC 70 MG PO (07:57)
[2024-11-01] MEDS: rifAXIMin 550 MG TABLET PO ×2 (08:40→20:28)
[2024-11-01] MEDS: Spironolactone 25 MG TABLET 50 MG PO (08:40)
[2024-11-01] MEDS: glipiZIDE 10 MG TABLET PO (08:41)
[2024-11-01] MEDS: cloNIDine HCL 0.2 MG TABLET PO ×3 (08:41→20:28)
[2024-11-01] MEDS: Magnesium Oxide 400 MG TABLET 800 MG PO ×2 (08:42→17:06)
[2024-11-01] MEDS: Furosemide 40 MG TABLET PO (08:42)
[2024-11-01] MEDS: Gabapentin 400 MG CAPSULE 800 MG PO ×3 (08:42→20:28)
[2024-11-01] MEDS: Insulin Lispro 100 UNIT/ML 3 ML VIAL SUBCUT ×6 (08:43→20:25)
[2024-11-01] MEDS: Docusate Sodium 100 MG CAPSULE PO ×2 (08:43→20:28)
[2024-11-01] MEDS: Lactulose 20 GM/30 ML SOLUTION 10 GM PO ×3 (08:45→20:25)
[2024-11-01] MEDS: Insulin Glargine,Hum.rec.anlog 100 UNIT/ML 10 ML VIAL 60 UNIT SUBCUT ×2 (08:45→20:26)
[2024-11-01] MEDS: metFORMIN HCl 1,000 MG TABLET 1000 MG PO ×2 (08:46→20:28)
[2024-11-01] MEDS: LORazepam 1 MG TABLET PO (09:07)
[2024-11-01] MEDS: hydrOXYzine HCL 50 MG TABLET 100 MG PO ×2 (09:08→20:41)
[2024-11-01] MEDS: Dicyclomine HCl 10 MG CAPSULE 40 MG PO (09:29)
[2024-11-01] MEDS: Nicotine Polacrilex 2 MG GUM 4 MG BUCCAL ×2 (09:30→14:47)
[2024-11-01] MEDS: methADONE HCl 20 MG/2 ML ORAL.CONC 5 MG PO (11:50)
[2024-11-01] MEDS: LORazepam 0.5 MG TABLET PO ×2 (11:52→20:41)
[2024-11-01 12:04] LABS: Glucose, Whole Blood 315 mg/dL (60-115)
--- NOTE | 2024-11-01 16:10 | P.PNPSI_ITS ---
Subjective Subjective Date of Service: 11/01/24 Reason For Visit: Crisis Interim History: c/o dep/anx/PTSD. re SI, kind of hard to tell. c/o racing thoughts, anxiety. states she is homeless and if discharged to a [facility], i'll end up , bcse she won't be able to maintain sobriety: homelessness and using go [id number] with me. c/o withdrawal/craving from opioids, asking for methadone increase. increase to 75 mg daily is agreed to. MD notes ativan 1 TID PRN and need to taper and DC that medication prior to discharge. per staff, anxiety 6. taking meds. attending groups. homeless. slept most of the shift. Mental Status Exam Mental Status Exam Narrative: Pt is alert and oriented; behavior is variably cooperative; dressed in casual attire; mood is described as anxious and depressed; eye contact appropriate; Speech is incr rate, and amount and loudness; thought process is organized and goal directed; Thought content is on housing and benzos; no HI/VH/AH expressed. SI: kind of hard to tell. Diagnostics Vital Signs (24Hr): Vital Signs - 24 hr 10/31/24 20:00 10/31/24 20:20 11/01/24 07:45 Temperature 97.8 F 97.9 F Pulse Rate 69 78 Respiratory Rate 16 12 Blood Pressure 104/52 L 104/52 L 133/63 Pulse Oximetry 98 99 Oxygen Delivery Method Room Air Room Air 11/01/24 08:40 11/01/24 08:41 11/01/24 08:42 Temperature Pulse Rate Respiratory Rate Blood Pressure 133/63 133/63 133/63 Pulse Oximetry Oxygen Delivery Method 11/01/24 14:47 Temperature Pulse Rate Respiratory Rate Blood Pressure 122/65 Pulse Oximetry Oxygen Delivery Method BMI result Body Mass Index 26.7 Labs 10/27/24 15:30 Labs: Laboratory Results - last 48 hr 10/30/24 10/30/24 10/31/24 16:58 20:30 07:49 POC Glucose 326 H 356 H* 88 10/31/24 10/31/24 10/31/24 09:12 11:37 17:00 POC Glucose 194 H 349 H 341 H 10/31/24 11/01/24 11/01/24 20:08 07:49 11:59 POC Glucose 306 H 101 315 H Medications Medications Current Medications Acetaminophen (Acetaminophen 325 Mg Tablet) 650 mg PO Q4H PRN PRN Reason: Pain (Scale Score 1-3) Al Hydroxide/Mg Hydroxide (Magnesium Hydrox/Alum Hydrox 30 Ml Oral.Susp) 30 ml PO Q6H PRN PRN Reason: Heartburn/Nausea Clonidine HCl (Clonidine Hcl 0.2 Mg Tablet) 0.2 mg PO TID [facility]; Protocol Last Admin: 11/01/24 14:47 Dose: 0.2 mg Dicyclomine HCl (Dicyclomine Hcl 10 Mg Capsule) 40 mg PO QIDACHS PRN PRN Reason: Pain, Moderate(Pain Scale 4-6) Last Admin: 11/01/24 09:29 Dose: 40 mg Docusate Sodium (Docusate Sodium 100 Mg Capsule) 100 mg PO BID [facility] Last Admin: 11/01/24 08:43 Dose: 100 mg Furosemide (Furosemide 40 Mg Tablet) 40 mg PO DAILY [facility]; Protocol Last Admin: 11/01/24 08:42 Dose: 40 mg Gabapentin (Gabapentin 400 Mg Capsule) 800 mg PO TID [facility] Last Admin: 11/01/24 14:52 Dose: 800 mg Glipizide (Glipizide 10 Mg Tablet) 10 mg PO DAILY [facility] Last Admin: 11/01/24 08:41 Dose: 10 mg Hydroxyzine HCl (Hydroxyzine Hcl 50 Mg Tablet) 100 mg PO BID PRN PRN Reason: anxiety Last Admin: 11/01/24 09:08 Dose: 100 mg Ibuprofen (Ibuprofen 400 Mg Tablet) 400 mg PO Q8H PRN PRN Reason: BODYACHES Insulin Glargine (Insulin Glargine,Hum.Rec.Anlog 100 Unit/Ml 10 Ml Vial) 60 unit SUBCUT BEDTIME [facility] Last Admin: 10/31/24 20:17 Dose: 60 unit Insulin Glargine (Insulin Glargine,Hum.Rec.Anlog 100 Unit/Ml 10 Ml Vial) 60 unit SUBCUT DAILY [facility] Last Admin: 11/01/24 08:45 Dose: 60 unit Insulin Human Lispro (Insulin Lispro 100 Unit/Ml 3 Ml Vial) 5 unit SUBCUT QIDACHS [facility] Last Admin: 11/01/24 12:14 Dose: 5 unit Insulin Human Lispro (Insulin Lispro 100 Unit/Ml 3 Ml Vial) 0 unit SUBCUT TIDAC [facility]; Protocol Last Admin: 11/01/24 12:14 Dose: 10 unit Lactulose (Lactulose 20 Gm/30 Ml Solution) 10 gm PO TID [facility] Last Admin: 11/01/24 14:47 Dose: 10 gm Lorazepam (Lorazepam 0.5 Mg Tablet) 0.5 mg PO TID PRN PRN Reason: anxiety attack Last Admin: 11/01/24 11:52 Dose: 0.5 mg Magnesium Hydroxide (Milk Of Magnesia 30 Ml Oral.Susp) 30 ml PO DAILY PRN PRN Reason: Constipation Magnesium Oxide (Magnesium Oxide 400 Mg Tablet) 800 mg PO BIDPC [facility] Last Admin: 11/01/24 08:42 Dose: 800 mg Metformin HCl (Metformin Hcl 1,000 Mg Tablet) 1,000 mg PO BID [facility] Last Admin: 11/01/24 08:46 Dose: 1,000 mg Methadone HCl (Methadone Hcl 20 Mg/2 Ml Oral.Conc) 75 mg PO DAILY [facility] Multi-Ingred Cream/Lotion/Oil/Oint (Mineral Oil/Petrolatum,White 106 Gm Tube) 1 appl TOPICAL BID PRN; Protocol PRN Reason: Dry Skin Nicotine (Nicotine 21 Mg Patch.Td24) 21 mg TRANSDERMA DAILY PRN PRN Reason: Nicotine Cravings Nicotine Polacrilex (Nicotine Polacrilex 2 Mg Gum) 4 mg BUCCAL Q2H PRN PRN Reason: Nicotine Cravings Last Admin: 11/01/24 14:47 Dose: 4 mg Ondansetron HCl (Ondansetron Odt 4 Mg Tab.Rapdis) 4 mg TRANSLINGU Q6H PRN PRN Reason: Nausea And Vomiting Rifaximin (Rifaximin 550 Mg Tablet) 550 mg PO BID [facility] Last Admin: 11/01/24 08:40 Dose: 550 mg Spironolactone (Spironolactone 25 Mg Tablet) 50 mg PO DAILY [facility]; Protocol Last Admin: 11/01/24 08:40 Dose: 50 mg Trazodone HCl (Trazodone Hcl 50 Mg Tablet) 50 mg PO BEDTIME MRX1 PRN PRN Reason: Insomnia Allergies Allergies Allergy/AdvReac Type Severity Reaction Status Date / Time No Known Allergies Allergy Verified 10/18/24 15:02 Assessment & Plan Assessment & Plan (1) MDD (major depressive disorder), recurrent episode: Status: Acute Code(s): F33.9 - Major depressive disorder, recurrent, unspecified (2) PTSD (post-traumatic stress disorder): Status: Acute Code(s): F43.10 - Post-traumatic stress disorder, unspecified (3) Opioid use disorder: Status: Acute Code(s): F11.90 - Opioid use, unspecified, uncomplicated (4) Cocaine use disorder: Status: Acute Code(s): F14.10 - Cocaine abuse, uncomplicated (5) Homelessness: Status: Acute Code(s): Z59.00 - Homelessness unspecified Plan Patient is a 38-year-old female with history of MDD, PTSD, opiate use disorder and cocaine use disorder who was transferred from medical floor at [facility] due to suicidal ideation secondary to increased depression. Plan: CV 15 minute safety checks Continue home medications Encourage groups Referral to [facility] Discharge planning 10/29: Active on unit. Social with peers. Attending groups. Patient reports feeling anxious and depressed; focused on obtaining [facility] bed. She requested increase in hydroxyzine; dose increased to 50mg QID. Denies SI/HI/VH/AH. Per nursing, slept 8 hours last night. 10/30: Continue current management and treatment plan. 10/31: Increase Hydroxyzine to 100 mg BID PRN rather than 50 mg QID PRN. Otherwise continue current management and treatment plan. 11/01: focused on need for housing, need for benzos. MD agreed to increase methadone to 75 mg daily per pt request. MD insisted on tapering ativan from 1 TID PRN to 0.5 TID PRN due to risk of overdose with opioid use disorder and methadone maintenance. pt irritable/angry in response, disruptive to therapeutic milieu by loudly undermining MD to peers. informed after broief ativan taper she will be discharged mid-week, encouraged to seek [facility] in the meantime but educated that without adequate psychiatric indication, homelessness and fear of relapse alone are insufficient for ongoing hospitalization. Reason for continued inpatient stay Substantial Risk for: inability to function and med/psych decompensation Time Spent With Patient Time: Total time managing care of this patient today __35__ minutes.
[2024-11-01 17:23] LABS: Glucose, Whole Blood 372 mg/dL (60-115)
--- NOTE | 2024-11-01 17:24 | PC.NURSE ---
Dr. Coates notified of patient's elevated glucose. No additional coverage at this time.
[2024-11-01 20:19] LABS: Glucose, Whole Blood 359 mg/dL (60-115)
[2024-11-02 07:53] VITALS: BP 107/68; PULSE 68; RESP 16; TEMP 36.4; O2SAT 98
[2024-11-02 08:03] LABS: Glucose, Whole Blood 210 mg/dL (60-115)
[2024-11-02] MEDS: methADONE HCl 20 MG/2 ML ORAL.CONC 75 MG PO (08:11)
[2024-11-02] MEDS: Docusate Sodium 100 MG CAPSULE PO ×2 (08:15→21:00)
[2024-11-02] MEDS: Lactulose 20 GM/30 ML SOLUTION 10 GM PO ×3 (08:15→21:01)
[2024-11-02] MEDS: Magnesium Oxide 400 MG TABLET 800 MG PO ×2 (08:15→17:07)
[2024-11-02] MEDS: Dicyclomine HCl 10 MG CAPSULE 40 MG PO ×2 (08:15→12:12)
[2024-11-02] MEDS: Gabapentin 400 MG CAPSULE 800 MG PO ×3 (08:15→20:58)
[2024-11-02 08:16] VITALS: BP 107/66
[2024-11-02] MEDS: cloNIDine HCL 0.2 MG TABLET PO ×2 (08:16→15:34)
[2024-11-02] MEDS: hydrOXYzine HCL 50 MG TABLET 100 MG PO ×2 (08:16→15:34)
[2024-11-02] MEDS: metFORMIN HCl 1,000 MG TABLET 1000 MG PO ×2 (08:16→21:00)
[2024-11-02] MEDS: LORazepam 0.5 MG TABLET PO ×2 (08:16→12:13)
[2024-11-02] MEDS: Furosemide 40 MG TABLET PO (08:17)
[2024-11-02] MEDS: glipiZIDE 10 MG TABLET PO (08:17)
[2024-11-02] MEDS: Spironolactone 25 MG TABLET 50 MG PO (08:17)
[2024-11-02] MEDS: rifAXIMin 550 MG TABLET PO ×2 (08:17→21:00)
[2024-11-02] MEDS: Insulin Lispro 100 UNIT/ML 3 ML VIAL SUBCUT ×7 (08:22→20:56)
[2024-11-02] MEDS: Insulin Glargine,Hum.rec.anlog 100 UNIT/ML 10 ML VIAL 60 UNIT SUBCUT ×2 (08:25→20:56)
[2024-11-02] MEDS: Nicotine Polacrilex 2 MG GUM 4 MG BUCCAL ×2 (09:14→13:28)
--- NOTE | 2024-11-02 11:25 | PC.NURSE ---
Patient reports enlarged abdomen. RN notes is is distended, firm, nontender. Pt reports that she is hopeless and suicidal. There is no hope. No miracle coming for me, It's all too much. I just want to end it all. Dr Coates infomred of above.
[2024-11-02 11:39] LABS: Glucose, Whole Blood 271 mg/dL (60-115)
[2024-11-02 15:34] VITALS: BP 122/68
--- NOTE | 2024-11-02 16:34 | P.PNPSI_ITS ---
Subjective Subjective Date of Service: 11/02/24 Reason For Visit: Crisis Interim History: pt reports she is super depressed, suicidal, anxious, everything. reports trauma nightmares, agrees to increase HS clonidine dosing. providing copious amounts of information about her former outpt providers and benzo regimen and phamracy information in attempt to continue benzos from this marketing underwriter. informed of plan for discharge. per JAME Vallejo, outpt office pt provided has terminated services with patient. per staff, anx 7. angry re jail DC plan, decrease in her ativan dosing. Mental Status Exam Mental Status Exam Narrative: Pt is alert and oriented; behavior is cooperative; dressed in casual attire; mood is described as anxious and depressed; eye contact appropriate; Speech is incr rate, and amount; thought process is organized and goal directed; Thought content is on housing and benzos; no HI/VH/AH expressed. +SI. Diagnostics Vital Signs (24Hr): Vital Signs - 24 hr 11/01/24 20:00 11/01/24 20:28 11/02/24 07:53 Temperature 97.6 F 97.5 F Pulse Rate 77 68 Respiratory Rate 16 16 Blood Pressure 125/64 125/64 107/68 Pulse Oximetry 99 98 Oxygen Delivery Method Room Air Room Air 11/02/24 08:16 11/02/24 15:34 Temperature Pulse Rate Respiratory Rate Blood Pressure 107/66 122/68 Pulse Oximetry Oxygen Delivery Method BMI result Body Mass Index 26.7 Labs 10/27/24 15:30 Labs: Laboratory Results - last 48 hr 10/31/24 10/31/24 11/01/24 17:00 20:08 07:49 POC Glucose 341 H 306 H 101 11/01/24 11/01/24 11/01/24 11:59 16:54 20:03 POC Glucose 315 H 372 H* 359 H* 11/02/24 11/02/24 07:54 11:35 POC Glucose 210 H 271 H Medications Medications Current Medications Acetaminophen (Acetaminophen 325 Mg Tablet) 650 mg PO Q4H PRN PRN Reason: Pain (Scale Score 1-3) Al Hydroxide/Mg Hydroxide (Magnesium Hydrox/Alum Hydrox 30 Ml Oral.Susp) 30 ml PO Q6H PRN PRN Reason: Heartburn/Nausea Clonidine HCl (Clonidine Hcl 0.2 Mg Tablet) 0.2 mg PO BID@0900,1500 ESTHER; Protocol Last Admin: 11/02/24 15:34 Dose: 0.2 mg Clonidine HCl (Clonidine Hcl 0.1 Mg Tablet) 0.3 mg PO BEDTIME [facility]; Protocol Dicyclomine HCl (Dicyclomine Hcl 10 Mg Capsule) 40 mg PO QIDACHS PRN PRN Reason: Pain, Moderate(Pain Scale 4-6) Last Admin: 11/02/24 12:12 Dose: 40 mg Docusate Sodium (Docusate Sodium 100 Mg Capsule) 100 mg PO BID [facility] Last Admin: 11/02/24 08:15 Dose: 100 mg Furosemide (Furosemide 40 Mg Tablet) 40 mg PO DAILY [facility]; Protocol Last Admin: 11/02/24 08:17 Dose: 40 mg Gabapentin (Gabapentin 400 Mg Capsule) 800 mg PO TID [facility] Last Admin: 11/02/24 15:35 Dose: 800 mg Glipizide (Glipizide 10 Mg Tablet) 10 mg PO DAILY [facility] Last Admin: 11/02/24 08:17 Dose: 10 mg Hydroxyzine HCl (Hydroxyzine Hcl 50 Mg Tablet) 100 mg PO BID PRN PRN Reason: anxiety Last Admin: 11/02/24 15:34 Dose: 100 mg Ibuprofen (Ibuprofen 400 Mg Tablet) 400 mg PO Q8H PRN PRN Reason: BODYACHES Insulin Glargine (Insulin Glargine,Hum.Rec.Anlog 100 Unit/Ml 10 Ml Vial) 60 unit SUBCUT BEDTIME [facility] Last Admin: 11/01/24 20:26 Dose: 60 unit Insulin Glargine (Insulin Glargine,Hum.Rec.Anlog 100 Unit/Ml 10 Ml Vial) 60 unit SUBCUT DAILY [facility] Last Admin: 11/02/24 08:25 Dose: 60 unit Insulin Human Lispro (Insulin Lispro 100 Unit/Ml 3 Ml Vial) 5 unit SUBCUT QIDACHS [facility] Last Admin: 11/02/24 12:08 Dose: 5 unit Insulin Human Lispro (Insulin Lispro 100 Unit/Ml 3 Ml Vial) 0 unit SUBCUT TIDAC [facility]; Protocol Last Admin: 11/02/24 12:08 Dose: 6 unit Lactulose (Lactulose 20 Gm/30 Ml Solution) 10 gm PO TID [facility] Last Admin: 11/02/24 15:35 Dose: 10 gm Lorazepam (Lorazepam 0.5 Mg Tablet) 0.5 mg PO TID PRN PRN Reason: anxiety attack Last Admin: 11/02/24 12:13 Dose: 0.5 mg Magnesium Hydroxide (Milk Of Magnesia 30 Ml Oral.Susp) 30 ml PO DAILY PRN PRN Reason: Constipation [facility]esium [facility] ([facility] 400 Mg Tablet) [facility] Admin: 11/02/24 08:15 Dose: 800 mg Metformin HCl (Metformin Hcl 1,000 Mg Tablet) 1,000 mg PO BID [facility] Last Admin: 11/02/24 08:16 Dose: 1,000 mg Methadone HCl (Methadone Hcl 20 Mg/2 Ml Oral.Conc) 75 mg PO DAILY [facility] Last Admin: 11/02/24 08:11 Dose: 75 mg Multi-Ingred Cream/Lotion/Oil/Oint (Mineral Oil/Petrolatum,White 106 Gm Tube) 1 appl TOPICAL BID PRN; Protocol PRN Reason: Dry Skin Nicotine (Nicotine 21 Mg Patch.Td24) 21 mg TRANSDERMA DAILY PRN PRN Reason: Nicotine Cravings Nicotine Polacrilex (Nicotine Polacrilex 2 Mg Gum) 4 mg BUCCAL Q2H PRN PRN Reason: Nicotine Cravings Last Admin: 11/02/24 13:28 Dose: 4 mg Ondansetron HCl (Ondansetron Odt 4 Mg Tab.Rapdis) 4 mg TRANSLINGU Q6H PRN PRN Reason: Nausea And Vomiting Rifaximin (Rifaximin 550 Mg Tablet) 550 mg PO BID [facility] Last Admin: 11/02/24 08:17 Dose: 550 mg Spironolactone (Spironolactone 25 Mg Tablet) 50 mg PO DAILY [facility]; Protocol Last Admin: 11/02/24 08:17 Dose: 50 mg Trazodone HCl (Trazodone Hcl 50 Mg Tablet) 50 mg PO BEDTIME MRX1 PRN PRN Reason: Insomnia Allergies Allergies Allergy/AdvReac Type Severity Reaction Status Date / Time No Known Allergies Allergy Verified 10/18/24 15:02 Assessment & Plan Assessment & Plan (1) MDD (major depressive disorder), recurrent episode: Status: Acute Code(s): F33.9 - Major depressive disorder, recurrent, unspecified (2) PTSD (post-traumatic stress disorder): Status: Acute Code(s): F43.10 - Post-traumatic stress disorder, unspecified (3) Opioid use disorder: Status: Acute Code(s): F11.90 - Opioid use, unspecified, uncomplicated (4) Cocaine use disorder: Status: Acute Code(s): F14.10 - Cocaine abuse, uncomplicated (5) Homelessness: Status: Acute Code(s): Z59.00 - Homelessness unspecified Plan Patient is a 38-year-old female with history of MDD, PTSD, opiate use disorder and cocaine use disorder [place] [facility] [place]ation secondary to increased depression. Plan: CV 15 minute safety checks Continue home medications Encourage groups Referral to [facility] Discharge planning 10/29: Active on unit. Social with peers. Attending groups. Patient reports feeling anxious and depressed; focused on obtaining [facility] bed. She requested increase in hydroxyzine; dose increased to 50mg QID. Denies SI/HI/VH/AH. Per nursing, slept 8 hours last night. 10/30: Continue current management and treatment plan. 10/31: Increase Hydroxyzine to 100 mg BID PRN rather than 50 mg QID PRN. Otherwise continue current management and treatment plan. 11/01: focused on need for housing, need for benzos. MD agreed to increase methadone to 75 mg daily per pt request. MD insisted on tapering ativan from 1 TID PRN to 0.5 TID PRN due to risk of overdose with opioid use disorder and methadone maintenance. pt irritable/angry in response, disruptive to therapeutic milieu by loudly undermining MD to peers. informed after broief ativan taper she will be discharged mid-week, encouraged to seek CSS in the meantime but educated that without adequate psychiatric indication, homelessness and fear of relapse alone are insufficient for ongoing hospitalization. 11/02: c/o SI, dep/anx. increase HS clonidine to 0.3 mg for PTSD nightmares. planning for discharge. GI consult for any further eval/Tx of cirrhosis prior to D/C. Reason for continued inpatient stay Substantial Risk for: inability to function and rapid decompensation Time Spent With Patient Time: Total time managing care of this patient today __35__ minutes.
[2024-11-02 16:55] LABS: Glucose, Whole Blood 410 mg/dL (60-115)
[2024-11-02 20:00] VITALS: BP 112/65; PULSE 71; RESP 16; TEMP 36.4; O2SAT 97
[2024-11-02 20:50] LABS: Glucose, Whole Blood 371 mg/dL (60-115)
[2024-11-02] MEDS: cloNIDine HCL 0.1 MG TABLET 0.3 MG PO (20:59)
[2024-11-03 07:25] VITALS: BP 116/60; PULSE 66; RESP 16; TEMP 36.4; O2SAT 99
[2024-11-03 07:41] LABS: Glucose, Whole Blood 119 mg/dL (60-115)
[2024-11-03] MEDS: methADONE HCl 20 MG/2 ML ORAL.CONC 75 MG PO (08:14)
[2024-11-03] MEDS: Insulin Glargine,Hum.rec.anlog 100 UNIT/ML 10 ML VIAL 60 UNIT SUBCUT ×2 (08:39→20:59)
[2024-11-03] MEDS: Insulin Lispro 100 UNIT/ML 3 ML VIAL SUBCUT ×7 (08:39→23:15)
[2024-11-03] MEDS: Dicyclomine HCl 10 MG CAPSULE 40 MG PO ×2 (08:40→15:29)
[2024-11-03] MEDS: hydrOXYzine HCL 50 MG TABLET 100 MG PO ×2 (08:40→12:16)
[2024-11-03] MEDS: LORazepam 0.5 MG TABLET PO ×2 (08:40→15:30)
[2024-11-03 08:41] VITALS: BP 118/64; BP 118/70
[2024-11-03] MEDS: glipiZIDE 10 MG TABLET PO (08:41)
[2024-11-03] MEDS: Furosemide 40 MG TABLET PO (08:41)
[2024-11-03] MEDS: Spironolactone 25 MG TABLET 50 MG PO (08:41)
[2024-11-03] MEDS: cloNIDine HCL 0.2 MG TABLET PO ×2 (08:41→15:32)
[2024-11-03] MEDS: rifAXIMin 550 MG TABLET PO ×2 (08:41→21:02)
[2024-11-03] MEDS: metFORMIN HCl 1,000 MG TABLET 1000 MG PO ×2 (08:42→21:03)
[2024-11-03] MEDS: Gabapentin 400 MG CAPSULE 800 MG PO ×3 (08:42→21:03)
[2024-11-03] MEDS: Magnesium Oxide 400 MG TABLET 800 MG PO ×2 (08:42→17:06)
[2024-11-03] MEDS: Docusate Sodium 100 MG CAPSULE PO ×2 (08:42→21:03)
[2024-11-03] MEDS: Lactulose 20 GM/30 ML SOLUTION 10 GM PO ×3 (08:42→21:03)
[2024-11-03] MEDS: Nicotine Polacrilex 2 MG GUM 4 MG BUCCAL ×2 (09:31→16:11)
--- NOTE | 2024-11-03 10:50 | PM.PSYDC ---
DS: Providers Provider Date of Service: 11/03/24 Date of admission: 10/27/24 14:48 Date of discharge: 11/04/24 Primary care physician: Unknown Physician Consults: 11/02/24 16:43 Consult to Gastroenterology Routine Consulting Provider: [facility] Gastroenterology Services Reason for consultation: new-brent cirrhosis Dx, indigent. ?ascites. eval/Tx, plz. DS: Diagnosis Discharge Diagnosis (1) MDD (major depressive disorder), recurrent episode: Status: Acute (2) PTSD (post-traumatic stress disorder): Status: Acute (3) Opioid use disorder: Status: Acute (4) Cocaine use disorder: Status: Acute (5) Homelessness: Status: Acute DS: Medications Discharge Medications Home Medications: Previous Rx's ?Medication ?Instructions ?Recorded clonidine HCl 0.1 mg tablet 0.3 mg PO BEDTIME 30 days #90 tabs 11/03/24 clonidine HCl 0.2 mg tablet 0.2 mg PO BID@0900,1500 30 days 11/03/24 #60 tabs dicyclomine 20 mg tablet 40 mg (2 x 20 mg) PO QIDACHS 30 11/03/24 days #240 tabs docusate sodium 100 mg capsule 100 mg PO BID constipation 30 days 11/03/24 #60 caps furosemide 20 mg tablet 40 mg (2 x 20 mg) PO DAILY 30 days 11/03/24 #60 tabs gabapentin 800 mg tablet 800 mg PO TID depressive disorder 11/03/24 30 days #90 tabs glipizide 10 mg tablet 10 mg PO DAILY 30 days #30 tabs 11/03/24 hydroxyzine HCl 50 mg tablet 100 mg (2 x 50 mg) PO BID PRN 11/03/24 anxiety 30 days #120 tabs ibuprofen 400 mg tablet 800 mg (2 x 400 mg) PO Q8H PRN 11/03/24 BODYACHES 30 days #180 tabs insulin glargine 100 unit/mL 60 unit (0.6 mL) subcut BID 30 11/03/24 subcutaneous solution (Lantus days #36 mL U-100 Insulin) insulin lispro 100 unit/mL 5 unit (0.05 mL) subcut QIDACHS 30 11/03/24 subcutaneous solution (Admelog days #10 mL U-100 Insulin lispro) insulin lispro 100 unit/mL See Protocol subcut TIDAC #0 mL 11/03/24 subcutaneous solution (Admelog U-100 Insulin lispro) lactulose 10 gram/15 mL oral 30 ml PO TID Cirrhosis 30 days 11/03/24 solution #3,000 mL magnesium oxide 400 mg (241.3 mg 800 mg (2 x 400 mg (241.3 mg 11/03/24 magnesium) tablet magnesium)) PO BIDPC 30 days #120 tabs metformin 500 mg tablet 1,000 mg (2 x 500 mg) PO BID 30 11/03/24 days #120 tabs methadone 10 mg/mL oral 80 mg (8 mL) PO DAILY #0 mL 11/03/24 concentrate (Methadose) naloxone 4 mg/actuation nasal 4 mg intranasal Q2M PRN opioid 11/03/24 spray (Narcan) overdose 1 day #2 ea nicotine (polacrilex) 2 mg gum 4 mg buccal Q2H PRN Nicotine 11/03/24 Cravings 30 days #120 ea ondansetron HCl 4 mg tablet 4 mg PO Q6H PRN Nausea And 11/03/24 Vomiting 30 days #30 tabs rifaximin 550 mg tablet 550 mg PO BID 30 days #60 tabs 11/03/24 sennosides 8.6 mg tablet (senna) 17.2 mg (2 x 8.6 mg) PO DAILY PRN 11/03/24 Constipation 30 days #60 tabs spironolactone 25 mg tablet 50 mg (2 x 25 mg) PO DAILY 30 days 11/03/24 #60 tabs Mental Status Exam Mental Status Exam Narrative: Pt is alert and oriented; behavior is cooperative; dressed in casual attire; mood is described as anxious and depressed; eye contact appropriate; Speech is nml rate, and amount; thought process is organized and goal directed; Thought content is on housing and benzos; no HI/VH/AH. +re SI: i've thought of it. i just don't want to live like i have been. Data Data Completed and Pending Completed studies during hospitalization [Text1]: 10/27/24 10/27/24 10/27/24 15:30 16:52 20:36 Sodium 135 Potassium 4.4 Chloride 102 Carbon Dioxide 26 Anion Gap 11 L BUN 12 Creatinine 0.68 Estim Creat Clear Calc TNP Estimated GFR > 60 POC Glucose 236 H 318 H Random Glucose 238 H Calcium 8.9 Total Bilirubin 1.0 AST 217 H ALT 153 H Alkaline Phosphatase 368 H Total Protein 7.8 Albumin 3.1 L Triglycerides Cholesterol LDL Cholesterol, Calc HDL Cholesterol 10/28/24 10/28/24 10/28/24 07:45 09:17 11:59 Sodium Potassium Chloride Carbon Dioxide Anion Gap BUN Creatinine Estim Creat Clear Calc Estimated GFR POC Glucose 117 H 383 H* Random Glucose Calcium Total Bilirubin AST ALT Alkaline Phosphatase Total Protein Albumin Triglycerides 77 Cholesterol 125 LDL Cholesterol, Calc 70 HDL Cholesterol 40 L 10/28/24 10/28/24 10/29/24 16:43 20:55 05:36 Sodium Potassium Chloride Carbon Dioxide Anion Gap BUN Creatinine Estim Creat Clear Calc Estimated GFR POC Glucose 398 H* 258 H 75 Random Glucose Calcium Total Bilirubin AST ALT Alkaline Phosphatase Total Protein Albumin Triglycerides Cholesterol LDL Cholesterol, Calc HDL Cholesterol 10/29/24 10/29/24 10/29/24 06:29 07:46 11:41 Sodium Potassium Chloride Carbon Dioxide Anion Gap BUN Creatinine Estim Creat Clear Calc Estimated GFR POC Glucose 242 H 340 H 408 H* Random Glucose Calcium Total Bilirubin AST ALT Alkaline Phosphatase Total Protein Albumin Triglycerides Cholesterol LDL Cholesterol, Calc HDL Cholesterol 10/29/24 10/29/24 10/30/24 16:42 21:36 07:31 Sodium Potassium Chloride Carbon Dioxide Anion Gap BUN Creatinine Estim Creat Clear Calc Estimated GFR POC Glucose 325 H 276 H 152 H Random Glucose Calcium Total Bilirubin AST ALT Alkaline Phosphatase Total Protein Albumin Triglycerides Cholesterol LDL Cholesterol, Calc HDL Cholesterol 10/30/24 10/30/24 10/30/24 12:07 16:58 20:30 Sodium Potassium Chloride Carbon Dioxide Anion Gap BUN Creatinine Estim Creat Clear Calc Estimated GFR POC Glucose 176 H 326 H 356 H* Random Glucose Calcium Total Bilirubin AST ALT Alkaline Phosphatase Total Protein Albumin Triglycerides Cholesterol LDL Cholesterol, Calc HDL Cholesterol 10/31/24 10/31/24 10/31/24 07:49 09:12 11:37 Sodium Potassium Chloride Carbon Dioxide Anion Gap BUN Creatinine Estim Creat Clear Calc Estimated GFR POC Glucose 88 194 H 349 H Random Glucose Calcium Total Bilirubin AST ALT Alkaline Phosphatase Total Protein Albumin Triglycerides Cholesterol LDL Cholesterol, Calc HDL Cholesterol 10/31/24 10/31/24 11/01/24 17:00 20:08 07:49 Sodium Potassium Chloride Carbon Dioxide Anion Gap BUN Creatinine Estim Creat Clear Calc Estimated GFR POC Glucose 341 H 306 H 101 Random Glucose Calcium Total Bilirubin AST ALT Alkaline Phosphatase Total Protein Albumin Triglycerides Cholesterol LDL Cholesterol, Calc HDL Cholesterol 11/01/24 11/01/24 11/01/24 11:59 16:54 20:03 Sodium Potassium Chloride Carbon Dioxide Anion Gap BUN Creatinine Estim Creat Clear Calc Estimated GFR POC Glucose 315 H 372 H* 359 H* Random Glucose Calcium Total Bilirubin AST ALT Alkaline Phosphatase Total Protein Albumin Triglycerides Cholesterol LDL Cholesterol, Calc HDL Cholesterol 11/02/24 11/02/24 11/02/24 07:54 11:35 16:47 Sodium Potassium Chloride Carbon Dioxide Anion Gap BUN Creatinine Estim Creat Clear Calc Estimated GFR POC Glucose 210 H 271 H 410 H* Random Glucose Calcium Total Bilirubin AST ALT Alkaline Phosphatase Total Protein Albumin Triglycerides Cholesterol LDL Cholesterol, Calc HDL Cholesterol 11/02/24 11/03/24 20:40 07:36 Sodium Potassium Chloride Carbon Dioxide Anion Gap BUN Creatinine Estim Creat Clear Calc Estimated GFR POC Glucose 371 H* 119 H Random Glucose Calcium Total Bilirubin AST ALT Alkaline Phosphatase Total Protein Albumin Triglycerides Cholesterol LDL Cholesterol, Calc HDL Cholesterol DS: Summary Hospital Course Hospital Course: per 10/28 admission note: HPI Subjective Notes: Hardy Warning and Conditional Voluntary Narrative: Patient is a 38-year-old female with history of MDD, PTSD, opiate use disorder and cocaine use disorder who was transferred from medical floor at [facility] due to suicidal ideation secondary to increased depression. Per crisis report, patient was at [facility] and was transferred to [facility] to the medical unit for hyperglycemia on 10/18/2024. patient reports increased depression since April 2024 after being evicted from their apartment with her . Patient reports she has been unable to manage her diabetes due to being homeless and can not check her sugars and eat regularly. Patient is currently on probation through [facility], incarcerated in April 2024 for drug possession. She reports that she has been to [facility] many times for similar reasons. History of multiple inpatient psychiatric hospitalizations. History of multiple detox admissions and [facility] admissions. Patient reports she typically smokes crack and uses heroin. denies HI/VH/AH. During admission assessment, patient presents alert and oriented x3. Cooperative but irritable. Patient reports feeling anxious and depressed ; patient stated, besides being homeless and wanting to kill myself. I wanted help getting clean since I have a new grandchild. I want to go to a CSS . Patient reports being medication compliant. She reports providers through [facility] in [place], [place]. Denies history of SA/SIB. She reports having a little suicidal thoughts ,denies plan. Denies HI/VH/AH. Patient reports she would like a referral to a CSS; social welfare administrator aware. Past Psychiatric History: History of multiple inpatient psychiatric hospitalizations. History of multiple detox admissions and [facility] admissions. Providers through [facility]. denies hx of SA/SIB. Medical Evaluation Reviewed: Yes [facility] Medical History (Updated 10/28/24 @ 16:03 by Stephanie Beltran NP) History of pancreatitis Hepatitis C Cirrhosis Insulin dependent type 1 diabetes mellitus Gallstones Family History: father: depression Social History: homesless, . 2 children (1 adult, 1 5 y/o lives with husbands aunt). unemployed. highest level of eduaction completed 9th grade. Substance History: hx of heroin, crack use. Trauma History: yes Precis: Patient is a 38-year-old female with history of MDD, PTSD, opiate use disorder and cocaine use disorder who was transferred from medical floor at [facility] due to suicidal ideation secondary to increased depression. 10/28: Continue home medications. Encourage groups. Referral to CSS. Discharge planning. 10/29: Active on unit. Social with peers. Attending groups. Patient reports feeling anxious and depressed; focused on obtaining CSS bed. She requested increase in hydroxyzine; dose increased to 50mg QID. Denies SI/HI/VH/AH. Per nursing, slept 8 hours last night. 10/30: Continue current management and treatment plan. 10/31: Increase Hydroxyzine to 100 mg BID PRN rather than 50 mg QID PRN. Otherwise continue current management and treatment plan. 11/01: focused on need for housing, need for benzos. MD agreed to increase methadone to 75 mg daily per pt request. MD insisted on tapering ativan from 1 TID PRN to 0.5 TID PRN due to risk of overdose with opioid use disorder and methadone maintenance. pt irritable/angry in response, disruptive to therapeutic milieu by loudly undermining MD to peers. informed after brief ativan taper she will be discharged mid-week, encouraged to seek CSS in the meantime but educated that without adequate psychiatric indication, homelessness and fear of relapse alone are insufficient for ongoing hospitalization. 11/02: c/o SI, dep/anx. increase HS clonidine to 0.3 mg for PTSD nightmares. planning for discharge. GI consult for any further eval/Tx of cirrhosis prior to D/C. 11/03: accepted to [facility] in [place] for tomorrow. meds reviewed, reconciled, prescribed. seen by GI re cirrhosis. 11/04: safe and stable overnight. discharged as per plan. per 11/03 GI NOTE: 1/ Compensated cirrhosis, suspected due to untreated Hep C. No clinical evidence of significant ascites or on imaging but significant constipation noted prob from methadone use. Plan: 1/ can add relistor PO or SQ injection and increase lactulose to TID if needed 2/ f/u o/p with PCP or GI in [place] for HCV treatment 3/ advised on drug abstinence 4/ daily multivitamin and vit D supplement 1000 units daily 5/ o/p egd for variceal screening Time Spent with Patient Time attestation: Total time managing care of this patient today __35__ minutes. Discharge Plan Discharge Anticipated Discharge Date/Time: 11/04/24 12:00 Patient Disposition: Xfer Inpatient Rehab Fac Discharge Diagnosis: PTSD, Chronic Opioid Use Disorder Cocaine Use Disorder Cirrhosis of the Liver Hepatitis C infection Referrals: [facility] [Other] - 1 Week (Friday-Friday walk in hours are 730am-5pm, and you complete you intake that day and can schedule an appointment with psychiatrist that day as well. ) [facility] [Provider Group] - 1 Week (11-01-24 [facility] was added to patients chart. Please call [phone] to schedule a follow up appt within 7-10 days of discharge.) Discharge Medications: New dicyclomine 20 mg tablet 40 mg PO QIDACHS 30 Days Qty: 240 0RF nicotine (polacrilex) 2 mg Gum 4 mg buccal Q2H PRN (Reason: Nicotine Cravings) 30 Days Qty: 120 0RF clonidine HCl 0.1 mg Tablet 0.3 mg PO BEDTIME 30 Days Qty: 90 0RF Protocol: Hold for SBP< HOLD for SBP < : 90 hydroxyzine HCl 50 mg Tablet 100 mg PO BID PRN (Reason: anxiety) 30 Days Qty: 120 0RF clonidine HCl 0.2 mg Tablet 0.2 mg PO BID@0900,1500 30 Days Qty: 60 0RF Protocol: Hold for SBP< HOLD for SBP < : 90 methadone [Methadose] 10 mg/mL Concentrate 80 mg PO DAILY Qty: 0 0RF Rx Instructions: Partial Fill upon patient request. insulin glargine [Lantus U-100 Insulin] 100 unit/mL Solution 60 unit subcut BID 30 Days Qty: 36 0RF insulin lispro [Admelog U-100 Insulin lispro] 100 unit/mL Solution 5 unit subcut QIDACHS 30 Days Qty: 10 0RF insulin lispro [Admelog U-100 Insulin lispro] 100 unit/mL Solution See Protocol subcut TIDAC Qty: 0 0RF Protocol: Insulin Correction Scale Less than or equal to 110 ---- Give (units): 0 111 to 150 Give (units): 0 151 to 200 Give (units): 2 201 to 250 Give (units): 4 251 to 300 Give (units): 6 301 to 350 Give (units): 10 Greater than 350 Give (units): 12 Call MD if Blood Glucose > : 350 naloxone [Narcan] 4 mg/actuation spray,non-aerosol 4 mg intranasal Q2M PRN (Reason: opioid overdose) 1 Days Qty: 2 0RF Rx Instructions: spray 1 dose into ONE nostril; alternate nostrils w each dose until help arrives multivitamin Tablet 1 tab PO DAILY 30 Days Qty: 30 0RF cholecalciferol (vitamin D3) [Vitamin D3] 25 mcg (1,000 unit) tablet 25 mcg PO DAILY 30 Days Qty: 30 0RF Continued metformin 500 mg tablet 1,000 mg PO BID 30 Days Qty: 120 0RF sennosides [senna] 8.6 mg Tablet 17.2 mg PO DAILY PRN (Reason: Constipation) 30 Days Qty: 60 0RF ondansetron HCl 4 mg Tablet 4 mg PO Q6H PRN (Reason: Nausea And Vomiting) 30 Days Qty: 30 0RF glipizide 10 mg Tablet 10 mg PO DAILY 30 Days Qty: 30 0RF spironolactone 25 mg Tablet 50 mg PO DAILY 30 Days Qty: 60 0RF magnesium oxide 400 mg (241.3 mg magnesium) Tablet 800 mg PO BIDPC 30 Days Qty: 120 0RF gabapentin 800 mg tablet 800 mg PO TID 30 Days Qty: 90 0RF docusate sodium 100 mg capsule 100 mg PO BID 30 Days Qty: 60 0RF furosemide 20 mg Tablet 40 mg PO DAILY 30 Days Qty: 60 0RF rifaximin 550 mg Tablet 550 mg PO BID 30 Days Qty: 60 0RF Rx Instructions: patient own - pending at [facility] ibuprofen 400 mg Tablet 800 mg PO Q8H PRN (Reason: BODYACHES) 30 Days Qty: 180 0RF lactulose 10 gram/15 mL solution 30 ml PO TID 30 Days Qty: 3000 0RF Discontinued clonidine HCl 0.2 mg tablet 0.2 mg PO TID lorazepam 1 mg tablet 1 mg PO TID PRN (Reason: anxiety attack) insulin lispro 100 unit/mL solution See Protocol subcut TIDAC Protocol: Insulin Correction Scale Less than or equal to 110 ---- Give (units): 0 111 to 150 Give (units): 0 151 to 200 Give (units): 2 201 to 250 Give (units): 4 251 to 300 Give (units): 6 301 to 350 Give (units): 8 Greater than 350 Give (units): 10 Call MD if Blood Glucose > : 350 nicotine (polacrilex) 2 mg Gum 2 mg BUCCAL Q2H PRN (Reason: Nicotine Cravings) methadone 10 mg Tablet 70 mg PO DAILY acetaminophen 325 mg Tablet 650 mg PO Q4H PRN (Reason: Pain (Scale Score 1-3)) insulin glargine [Lantus U-100 Insulin] 100 unit/mL Solution 70 unit subcut BEDTIME Qty: 0 0RF insulin glargine [Lantus U-100 Insulin] 100 unit/mL Solution 75 unit subcut DAILY Qty: 0 0RF dicyclomine 10 mg Capsule 40 mg PO QIDACHS PRN (Reason: Pain, Moderate(Pain Scale 4-6)) Qty: 0 0RF oxycodone 5 mg Tablet 5 mg PO Q6H PRN (Reason: Pain, Severe (Pain Scale 7-10)) Qty: 0 0RF Rx Instructions: Partial Fill upon patient request. insulin lispro [Admelog U-100 Insulin lispro] 100 unit/mL Solution 5 unit subcut QIDACHS Qty: 10 0RF hydroxyzine HCl 50 mg tablet 50 mg PO TID PRN (Reason: anxiety) Discharge Orders: Discharge Order (Routine); Ordered 11/04/24 Ordered By: Deven Coates Diet: Diabetic diet Activity on Discharge: As tolerated Stand Alone Forms: Patient Portal Discharge page, Community Support Print Language: Mauritanian Care Plan Goals: remain safe and sober in the outpatient treatment setting Health Concerns: DM Cirrhosis Plan of Treatment: take medications as prescribed, attend appointments as scheduled Assessment: not at imminent risk of harm to self or others Discharge Date/Time: 11/04/24 13:10
[2024-11-03 11:56] LABS: Glucose, Whole Blood 318 mg/dL (60-115)
[2024-11-03] MEDS: methADONE HCl 20 MG/2 ML ORAL.CONC 5 MG PO (12:16)
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
[2024-11-03 15:32] VITALS: BP 125/74
[2024-11-03 17:00] LABS: Glucose, Whole Blood 405 mg/dL (60-115)
[2024-11-03 20:00] VITALS: BP 121/60; PULSE 77; RESP 16; TEMP 36.2; O2SAT 100
[2024-11-03 20:47] LABS: Glucose, Whole Blood 452 mg/dL (60-115)
[2024-11-03] MEDS: cloNIDine HCL 0.1 MG TABLET 0.3 MG PO (21:02)
[2024-11-03 22:44] LABS: Glucose, Whole Blood 396 mg/dL (60-115)
--- NOTE | 2024-11-04 04:14 | PC.ADMIT ---
POC was 452 @2100, transformation architect provider adjusted sliding scale to cover night HS and order POC re check @ 2238 reads 398. Insulin 10 units administered @ 2300 per sliding scale.
[2024-11-04 07:00] VITALS: BMI 27.7
[2024-11-04 07:46] LABS: Glucose, Whole Blood 113 mg/dL (60-115)
[2024-11-04] MEDS: methADONE HCl 20 MG/2 ML ORAL.CONC 80 MG PO (07:55)
[2024-11-04 08:00] VITALS: BP 124/60; PULSE 79; RESP 18; TEMP 36.6; O2SAT 98
[2024-11-04] MEDS: Gabapentin 400 MG CAPSULE 800 MG PO (08:04)
[2024-11-04 08:05] VITALS: BP 124/60
[2024-11-04] MEDS: Magnesium Oxide 400 MG TABLET 800 MG PO (08:05)
[2024-11-04] MEDS: Furosemide 40 MG TABLET PO (08:05)
[2024-11-04] MEDS: metFORMIN HCl 1,000 MG TABLET 1000 MG PO (08:05)
[2024-11-04] MEDS: LORazepam 0.5 MG TABLET PO ×2 (08:05→11:29)
[2024-11-04] MEDS: Docusate Sodium 100 MG CAPSULE PO (08:05)
[2024-11-04] MEDS: hydrOXYzine HCL 50 MG TABLET 100 MG PO ×2 (08:05→11:29)
[2024-11-04] MEDS: Spironolactone 25 MG TABLET 50 MG PO (08:05)
[2024-11-04 08:06] VITALS: BP 124/60
[2024-11-04] MEDS: rifAXIMin 550 MG TABLET PO (08:06)
[2024-11-04] MEDS: glipiZIDE 10 MG TABLET PO (08:06)
[2024-11-04] MEDS: cloNIDine HCL 0.2 MG TABLET PO (08:06)
[2024-11-04] MEDS: Lactulose 20 GM/30 ML SOLUTION 10 GM PO (08:09)
[2024-11-04] MEDS: Insulin Glargine,Hum.rec.anlog 100 UNIT/ML 10 ML VIAL 60 UNIT SUBCUT (08:11)
[2024-11-04] MEDS: Dicyclomine HCl 10 MG CAPSULE 40 MG PO (08:30)
[2024-11-04] MEDS: Nicotine Polacrilex 2 MG GUM 4 MG BUCCAL ×2 (08:31→12:19)
[2024-11-04 11:42] LABS: Creatinine Clr Calc Pharmacy 86.1; Estimated Glomerular Filt Rate > 60
== END 2024-11-04 13:10 | DRG 751 ==
PROVIDERS: Psychiatry & Neurology Psychiatry; Admitting Provider Registered Nurse; Visit Provider Psychiatry & Neurology Psychiatry
DX: F33.9 Major depressive disorder, recurrent, unspecified (principal); K74.69 Other cirrhosis of liver; F11.20 Opioid dependence, uncomplicated; K59.03 Drug induced constipation; T40.3X5A Adverse effect of methadone, initial encounter; F17.210 Nicotine dependence, cigarettes, uncomplicated; F14.10 Cocaine abuse, uncomplicated; Z71.6 Tobacco abuse counseling; Z79.4 Long term (current) use of insulin; Z79.84 Long term (current) use of oral hypoglycemic drugs; F43.10 Post-traumatic stress disorder, unspecified; Z59.02 Unsheltered homelessness; Z79.899 Other long term (current) drug therapy
CPT/HCPCS: 36415; 80053; 80061; 82565; 82947

== ENCOUNTER → 2024-10-27 14:48 | Outpatient (BNV) | payer OTHER, SELFPAY | PROVIDERS: Admitting Provider Registered Nurse; Responsible Provider Registered Nurse; Visit Provider Registered Nurse | DX: F33.2 Major depressive disorder, recurrent severe without psychotic features (principal); F14.10 Cocaine abuse, uncomplicated; F11.90 Opioid use, unspecified, uncomplicated; F43.11 Post-traumatic stress disorder, acute; Z59.00 Homelessness unspecified | CPT/HCPCS: 99231; 99232; 99233 ==

== ENCOUNTER → 2024-10-27 14:48 | Outpatient (BNV) | payer MEDICAID, SELFPAY | PROVIDERS: Admitting Provider Registered Nurse; Visit Provider Internal Medicine Gastroenterology | DX: K74.60 Unspecified cirrhosis of liver (principal) | CPT/HCPCS: 99223 ==